=== PATIENT | female | born 1960 | race Caucasian/White ===

== ENCOUNTER 2022-10-27 11:16 | Inpatient (IN) | payer OTHER, SELFPAY ==
--- NOTE | ~2022-10-27 | CT_ITS ---
EXAMINATION: CT PELVIS WITH CONTRAST CLINICAL INFORMATION: Follow-up pelvic abscess. Patient presents for percutaneous drainage. COMPARISON: Previous CT of the abdomen and pelvis 10/27/2022 TECHNIQUE: Helical scanning was performed with submillimeter collimation through the pelvis with the use of oral contrast and during bolus intravenous injection of 85 mL of Omnipaque 350 intravenous contrast. Sagittal and coronal multiplanar 2-D reconstructions were obtained. Percutaneous drainage was not performed. This CT examination was performed using dose optimization techniques as appropriate, variously including the following: *Automated exposure control *Adjustment of mA and/or kV according to patient size (this includes techniques or standardized protocols for targeted exams where dose is matched to indication/reason for exam; i.e. extremities or head) *Use of iterative reconstruction technique DLP: 1071 mGy-cm FINDINGS: There is diverticulitis of the sigmoid colon. This appears slightly increased from 10/27/2022 with increased wall edema, air-fluid levels seen in the wall of the bowel or intramural abscesses and stranding of the surrounding fat. There is extension into both adnexal regions, left greater than right. There is new or increased involvement of the left dome of the bladder with bladder wall thickening, fluid and fat stranding. There is no air or oral contrast seen in the bladder. No fluid collection accessible for percutaneous drainage is seen. There is no evidence of free air or obstruction. Small and large bowel is otherwise normal. No free ascites. The uterus has been removed. No hernia. Atherosclerotic disease. No aneurysm. Degenerative changes of the spine. CT/CT pelvis w IV con IMPRESSION: Worsening sigmoid diverticulitis with increasing intramural abscesses in the sigmoid colon and increasing involvement of the dome of the bladder. No drainable collection seen. Percutaneous drainage not performed.
--- NOTE | ~2022-10-27 | CT_ITS ---
EXAMINATION: CT ABDOMEN AND PELVIS WITH CONTRAST CLINICAL INFORMATION: Lower abdominal pain. COMPARISON: None available. TECHNIQUE: Multidetector volumetric images were obtained from the superior aspect of the liver through the pubic symphysis following administration 85 mL of Omnipaque 350 intravenous contrast. Sagittal and coronal reformatted images were obtained on the technologist's workstation. Oral contrast: No This CT examination was performed using dose optimization techniques as appropriate, variously including the following: *Automated exposure control *Adjustment of mA and/or kV according to patient size (this includes techniques or standardized protocols for targeted exams where dose is matched to indication/reason for exam; i.e. extremities or head) *Use of iterative reconstruction technique DLP: 948 mGy-cm FINDINGS: LUNG BASES: The visualized lung bases are unremarkable. LIVER, GALLBLADDER, AND BILIARY TREE: The liver is mildly decreased in attenuation. No focal hepatic lesion or biliary ductal dilatation is present. The gallbladder is unremarkable with no evidence of radiopaque gallstones, gallbladder wall thickening, or obvious pericholecystic inflammatory changes. PANCREAS: Unremarkable. SPLEEN: Unremarkable. ADRENAL GLANDS: Unremarkable. KIDNEYS AND URETERS: The kidneys are symmetric in size and enhancement. Bilateral mid pole cortical scarring. No hydronephrosis or perinephric stranding. BLADDER: Superior bladder wall thickening likely on a reactive basis. GASTROINTESTINAL TRACT: Small hiatal hernia. No small bowel obstruction. Marked wall thickening and submucosal edema of the sigmoid colon with evidence of underlying diverticular disease. There is marked pericolonic stranding and evidence of a multiloculated complex fluid collection containing gas. ABDOMINAL WALL: No significant hernia is appreciated. LYMPH NODES: No bulky abdominal or pelvic lymphadenopathy. VASCULAR: Normal caliber abdominal aorta. PELVIC VISCERA: Ill-defined enhancement/phlegmon involving the right ovary/right adnexa measures 6.2 x 2.5 x 2.7 cm. OSSEOUS STRUCTURES: Nodular focus anterior aspect of the L4-L5 right facet joint measures 1.5 x 0[address]/CT abdomen pelvis w IV con IMPRESSION: Acute perforated sigmoid diverticulitis with involvement of the right ovary/right oophoritis and reactive inflammation of the bladder dome. Multiloculated fluid collection containing gas surrounding the mid sigmoid colon represent abscess formation. Surgical consultation is advised. Ill-defined enhancement/phlegmon involving the right ovary/right adnexa measures 6.2 x 2.5 x 2.7 cm. Nodular focus anterior aspect of the L4-L5 right facet joint measures 1.5 x 0.9 x 1.0 cm. Consider MRI lumbar spine. Findings were reviewed and discussed with Dr. Saez at 1:40 PM on 10/27/2022.
--- NOTE | 2022-10-27 11:20 | ED_ITS ---
HPI - Abdominal Pain General Chief Complaint: Abdominal Pain Stated Complaint: lower abd pain Time Seen by Provider: 10/27/22 12:18 Related Data Home Medications Medication Instructions Recorded Confirmed atorvastatin 10 mg tablet 10 mg PO DAILY 10/27/22 10/27/22 ergocalciferol (vitamin D2) 1,250 1,250 mcg PO CONDE 10/27/22 10/27/22 mcg (50,000 unit) capsule furosemide 40 mg tablet 40 mg PO DAILY 10/27/22 10/27/22 ibuprofen 800 mg tablet 800 mg PO Q8H PRN pain 10/27/22 10/27/22 valsartan 160 mg tablet 160 mg PO DAILY 10/27/22 10/27/22 Previous Rx's Medication Instructions Recorded amoxicillin 875 mg-potassium 1 tab PO BID #10 tabs 11/05/22 clavulanate 125 mg tablet docusate sodium 100 mg capsule 100 mg PO DAILY #30 caps 11/05/22 (Colace) Allergies Allergy/AdvReac Type Severity Reaction Status Date / Time No Known Allergies Allergy Verified 10/27/22 11:24 [facility] Past Medical History Medical History (Updated 11/03/22 @ 08:23 by Jersey aRy MD) Diverticulitis large intestine Hypertension Hypokalemia Multiple sclerosis Phlegmon Social History Social History Household Members: Spouse Housing: House Do you presently have visiting nurse or other home services: No Alcohol intake: never Patient Tobacco Use Status: Never used Tobacco service: No Physical Exam ED Vital Signs: BMI result Body Mass Index 43.9 Course Course Course Narrative: RME: 62yo F w/PMHx MS, gout, c/o lower abdominal pain, nausea, nonbloody diarrhea x yesterday w/decreased PO intake & dysuria. admits recently ended course steroids. denies fever, vomiting. denies recent abx, travel abdomen soft nontender, no CVAT Labs, UA ordered Full HPI, ROS and PE to be performed by primary ED provider. Medical Decision Making Lab Data 11/03/22 05:31 11/03/22 05:31 Labs: Lab Results 10/27/22 10/27/22 Range/Units 11:45 11:45 WBC 11.7 H (4.8-10.8) X10*3/uL RBC 4.01 L (4.20-5.50) X10*6/uL Hgb 12.2 (12.0-16.0) g/dl Hct 36.4 L (37.0-47.0) % MCV 90.8 (80.0-98.0) fL MCH 30.4 (27.0-33.0) pg MCHC 33.5 (31.0-35.0) g/dl RDW 12.9 (11.0-16.0) % Plt Count 240 (160-400) X10*3/uL MPV 9.4 (9.4-12.3) fL Immature Gran % (Auto) 0.4 (0.0-0.4) % Neut % (Auto) 78.9 H (45-73) % Lymph % (Auto) 13.5 L (20-40) % [place] % (Auto) 6.0 (2-11) % Eos % (Auto) 0.9 (0-4) % Baso % (Auto) 0.3 (0-2) % Lymph # (Auto) 1.6 (1.2-4.9) X10*3/uL [place] # (Auto) 0.7 (0.1-1.2) X10*3/uL Eos # (Auto) 0.1 (0.0-0.4) X10*3/uL Baso # (Auto) 0.0 (0.0-0.2) X10*3/uL Abs Immat Gran (auto) 0.05 H (0.00-0.03) X10*3/uL Absolute Neuts (auto) 9.2 H (2.0-8.3) x10*3/uL Absolute Nucleated RBC 0.000 (0.0-0.012) X10*3/uL Nucleated RBC % (auto) 0.0 (0.0-0.2) /100WBC Sodium 139 (135-145) mmol/L Potassium 4.0 (3.3-5.1) mmol/L Chloride 105 (96-108) mmol/L Carbon Dioxide 23 (22-29) mmol/L Anion Gap 15 (12-20) BUN 12 (9-16) mg/dL Creatinine 1.03 (0.5-1.4) mg/dL Estim Creat Clear Calc 66.6 Estimated GFR 54 Random Glucose 119 H (60-115) mg/dL Calcium 9.9 (8.4-10.2) mg/dL Magnesium 2.1 (1.6-2.6) mg/dL Total Bilirubin 0.4 (0.0-1.0) mg/dL Direct Bilirubin 0.1 (0.0-0.5) mg/dL AST 19 (5-31) U/L ALT 39 H (0-31) U/L Alkaline Phosphatase 89 (39-117) U/L Total Protein 7.0 (6.5-8.0) g/dL Albumin 3.5 (3.5-5.0) g/dL Lipase 13 (8-78) U/L Medications Administered Discontinued Medications Generic Name Dose Route Start Last Admin Trade Name Freq PRN Reason Stop Dose Admin Acetaminophen 650 mg 10/27/22 19:42 11/04/22 19:41 Acetaminophen 325 Mg Tablet PO 650 mg Q6H PRN Administration fever,mild pain Docusate Sodium 100 mg 11/04/22 09:00 11/05/22 08:37 Docusate Sodium 100 Mg Capsule PO 100 mg BID SO Administration Furosemide 40 mg 10/28/22 09:00 11/05/22 08:36 Furosemide 40 Mg Tablet PO 40 mg DAILY SO Administration Protocol Heparin Sodium (Porcine) 5,000 unit 10/28/22 10:00 11/05/22 08:37 Heparin Sodium,Porcine 5,000 Unit/Ml Vial SUBCUT 5,000 unit Q8H SO Administration Sodium Chloride 1,000 mls @ 999 mls/hr 10/27/22 12:30 10/27/22 15:02 Ns IVCONT 10/27/22 13:30 Infused .Q1H1M SO Infusion Dextrose/Sodium Chloride 1,000 mls @ 100 mls/hr 10/27/22 14:15 10/29/22 13:50 D5ns IVCONT Infused .Q10H SO Infusion Piperacillin Sod/Tazobactam 50 mls @ 100 mls/hr 10/27/22 16:00 11/05/22 09:12 Sod 3.375 gm/ Sodium Chloride IV Infused Q6H SO Infusion Dextrose/Sodium Chloride 1,000 mls @ 80 mls/hr 10/30/22 12:00 10/31/22 13:27 D5ns IVCONT Infused .[id number] SO Infusion Potassium Chloride/Dextrose/Sod Cl 20 meq in 1,000 mls @ 80 mls/hr 10/31/22 08:45 11/02/22 10:02 Kcl 20 Meq In 5% Dex/0.9% Sod IVCONT Infused .[id number] SO Infusion Potassium Chloride/Dextrose/Sod Cl 20 meq in 1,000 mls @ 60 mls/hr 11/02/22 13:45 11/05/22 08:43 Kcl 20 Meq In 5% Dex/0.9% Sod IVCONT Infused .[id number] SO Infusion Ibuprofen 800 mg 10/31/22 10:59 11/03/22 08:42 Ibuprofen 800 Mg Tablet PO 800 mg Q8H PRN Administration Pain, Moderate(Pain Scale 4-6) Iohexol 100 ml 10/27/22 13:07 10/27/22 13:07 Iohexol 350 Mg/Ml 100 Ml Infus..Btl IV 10/27/22 13:08 85 ml ONCE ONE Administration Iohexol 100 ml 10/30/22 12:29 10/30/22 12:30 Iohexol 350 Mg/Ml 100 Ml Infus..Btl IV 10/30/22 12:30 85 ml ONCE ONE Administration Potassium Chloride 40 meq 10/31/22 08:45 10/31/22 12:38 Potassium Chloride Packet 20 Meq Packet PO 10/31/22 12:46 40 meq Q4H SO Administration Potassium Chloride 40 meq 11/03/22 08:30 11/03/22 12:22 Potassium Chloride Packet 20 Meq Packet PO 11/03/22 12:31 40 meq Q4H SO Administration Sodium Chloride 3 ml 10/27/22 16:00 11/05/22 07:16 0.9 % Sodium Chloride Flush 3 Ml Syringe IVFLUSH Not Given QSHIFT SO Valsartan 160 mg 10/28/22 09:00 11/05/22 08:37 Valsartan 160 Mg Tablet PO 160 mg DAILY SO Administration Protocol Discharge Plan Discharge Clinical Impression: Perforated bowel, Diverticulitis of colon with perforation Patient Disposition: Admitted As Inpatient Interventions: Admission Worksheet (ED) Last Done: 10/28/22 01:00 Discharge Date/Time: 10/28/22 01:00
[2022-10-27 11:22] VITALS: BP 133/91; PULSE 95; RESP 16; TEMP 36.8; O2SAT 100; BMI 43.9
[2022-10-27 11:49] LABS: MANUAL DIFF FLAG NO
[2022-10-27 11:50] LABS: Basophils Percent Auto 0.3 % (0-2); Eosinophils Absolute Auto 0.1 X10*3/uL (0.0-0.4); Eosinophils Percent Auto 0.9 % (0-4); Hematocrit 36.4 % (37.0-47.0); Hemoglobin 12.2 g/dl (12.0-16.0); Imm Gran Abs Auto 0.05 X10*3/uL (0.00-0.03); Imm Gran Pct Auto 0.4 % (0.0-0.4); Lymphocytes Absolute Auto 1.6 X10*3/uL (1.2-4.9); Lymphocytes Percent Auto 13.5 % (20-40); Mean Corpuscular HGB Conc 33.5 g/dl (31.0-35.0); Mean Corpuscular Hemoglobin 30.4 pg (27.0-33.0); Mean Corpuscular Volume 90.8 fL (80.0-98.0); Mean Platelet Volume 9.4 fL (9.4-12.3); Monocytes Absolute Auto 0.7 X10*3/uL (0.1-1.2); Neutrophils Absolute Auto 9.2 x10*3/uL (2.0-8.3); Neutrophils Percent Auto 78.9 % (45-73); Platelet Count 240 X10*3/uL (160-400); Red Blood Count 4.01 X10*6/uL (4.20-5.50); Red Cell Distribution Width 12.9 % (11.0-16.0); White Blood Count 11.7 X10*3/uL (4.8-10.8)
[2022-10-27 12:16] LABS: Alanine Aminotransferase 39 U/L (0-31); Albumin Level 3.5 g/dL (3.5-5.0); Alkaline Phosphatase 89 U/L (39-117); Anion Gap 15 (12-20); Aspartate Amino Transferase 19 U/L (5-31); Bilirubin Direct 0.1 mg/dL (0.0-0.5); Bilirubin Total 0.4 mg/dL (0.0-1.0); Blood Urea Nitrogen 12 mg/dL (9-16); Calcium 9.9 mg/dL (8.4-10.2); Carbon Dioxide 23 mmol/L (22-29); Chloride 105 mmol/L (96-108); Creatinine Clr Calc Pharmacy 66.6; Estimated Glomerular Filt Rate 54; Glucose Random 119 mg/dL (60-115); Lipase 13 U/L (8-78); Magnesium 2.1 mg/dL (1.6-2.6); Sodium 139 mmol/L (135-145)
--- NOTE | 2022-10-27 12:27 | ED.ABDPAIN ---
HPI - Abdominal Pain General Chief Complaint: Abdominal Pain Stated Complaint: lower abd pain Time Seen by Provider: 10/27/22 12:18 Source: patient Mode of arrival: ambulatory Limitations: no limitations History of Present Illness HPI narrative: This is a 62 years old female presented to the emergency with chief complaint of lower abdominal pain , nausea, diarrhea, shakiness. Diarrhea is watery. Denies any fever chills vomiting she has mild abdominal pain as well MD elicited complaint: abdominal pain Pertinent past history: none Onset (ago): day(s) (4) Pain Consistency: constant Location: none Quality: cramping Radiation: none Migration to: no migration Associated symptoms: denies other symptoms Related Data Home Medications Medication Instructions Recorded Confirmed atorvastatin 10 mg tablet 10 mg PO DAILY 10/27/22 10/27/22 ergocalciferol (vitamin D2) 1,250 1,250 mcg PO CONDE 10/27/22 10/27/22 mcg (50,000 unit) capsule furosemide 40 mg tablet 40 mg PO DAILY 10/27/22 10/27/22 ibuprofen 800 mg tablet 800 mg PO Q8H PRN pain 10/27/22 10/27/22 valsartan 160 mg tablet 160 mg PO DAILY 10/27/22 10/27/22 Allergies Allergy/AdvReac Type Severity Reaction Status Date / Time No Known Allergies Allergy Verified 10/27/22 11:24 [facility] Past Medical History Attestation statement: The following information was validated with the patient. [facility] Narrative: History of MS, history of hypertension Status post and hysterectomy Medical History (Updated 10/27/22 @ 16:24 by Sergo Saez MD) Diverticulitis large intestine Hypertension Multiple sclerosis Phlegmon Social History Social History Alcohol intake: never Patient Tobacco Use Status: Never used Tobacco Smoked in Last 30 Days: No Use of substances other than those prescribed or required for medical reasons: No Advance Directives: No Advance Directives Information Provided: No Nutrition Risks: No Nutritional Risk Patient : No Physical Exam ED Vital Signs: Vital Signs - 24 hr 10/27/22 11:22 Temperature 98.2 F Pulse Rate 95 Respiratory Rate 16 Blood Pressure 133/91 H Pulse Oximetry 100 Oxygen Delivery Method Room Air BMI result Body Mass Index 43.9 Const Other: She looks well she is not toxic-appearing General: cooperative, healthy appearing, comfortable, no acute distress, well developed, alert and awake Nutritional Appearance: well nourished Orientation/consciousness: oriented to person, oriented to place, oriented to time and patient oriented x3 Limitations: no limitations HENMT Head: Yes normal to inspection Ears: hearing grossly normal bilaterally General nose exam: Normal external nose present Face and sinus: Yes normal facial exam Mouth: Normal oral and palatal mucosa present Teeth and gingiva: dentition normal Throat: Yes posterior oropharynx normal Neck Neck: Yes normal visual inspection and Yes full ROM Resp Effort & Inspection: normal respiratory effort Auscultation: clear to auscultation bilaterally Cardio Jugular venous distension: no JVD Rate: regular rate Rhythm: regular rhythm GI Inspection: Yes normal to inspection Palpation (GI): Soft to palpation, not firm, Tenderness to palpation present (GI) and no guarding Auscultation: normal bowel sounds Skin General skin exam: no rashes or lesions noted and elasticity normal Lesions: no lesions Rashes: no rashes Trauma: no lacerations or abrasions Wounds: no wounds Neuro General: oriented to person, oriented to place, oriented to time and patient oriented x3 Course Reevaluation(s) Reevaluation #1: I was called by the radiologist because she has a perforated diverticulitis I immemedially called Dr. Ray who came to see the patient Time: 14:14 Medical Decision Making Medical Decision Making [facility] Narrative: Patient presented with abdominal pain and diarrhea will get labs imaging 14:14 CT showed perforated diverticulitis patient was seen by Dr. Ray Differential Diagnosis Differential Diagnoses: The differential diagnosis associated with the presentation includes Broad differential diagnosis diverticulitis/colitis/perforated the bowel/parents in Admission/Observation Consideration of admission/observation: Escalation of care including admission/observation considered Consult Healthcare Provider Management of the patient was discussed with: Roller Stitcher Dr Ray surgery Lab Data [facility] Lab Attestation statement: I reviewed the patient's lab results. 10/27/22 11:45 10/27/22 11:45 Labs: Lab Results 10/27/22 10/27/22 Range/Units 11:45 11:45 WBC 11.7 H (4.8-10.8) X10*3/uL RBC 4.01 L (4.20-5.50) X10*6/uL Hgb 12.2 (12.0-16.0) g/dl Hct 36.4 L (37.0-47.0) % MCV 90.8 (80.0-98.0) fL MCH 30.4 (27.0-33.0) pg MCHC 33.5 (31.0-35.0) g/dl RDW 12.9 (11.0-16.0) % Plt Count 240 (160-400) X10*3/uL MPV 9.4 (9.4-12.3) fL Immature Gran % (Auto) 0.4 (0.0-0.4) % Neut % (Auto) 78.9 H (45-73) % Lymph % (Auto) 13.5 L (20-40) % [place] % (Auto) 6.0 (2-11) % Eos % (Auto) 0.9 (0-4) % Baso % (Auto) 0.3 (0-2) % Lymph # (Auto) 1.6 (1.2-4.9) X10*3/uL [place] # (Auto) 0.7 (0.1-1.2) X10*3/uL Eos # (Auto) 0.1 (0.0-0.4) X10*3/uL Baso # (Auto) 0.0 (0.0-0.2) X10*3/uL Abs Immat Gran (auto) 0.05 H (0.00-0.03) X10*3/uL Absolute Neuts (auto) 9.2 H (2.0-8.3) x10*3/uL Absolute Nucleated RBC 0.000 (0.0-0.012) X10*3/uL Nucleated RBC % (auto) 0.0 (0.0-0.2) /100WBC Sodium 139 (135-145) mmol/L Potassium 4.0 (3.3-5.1) mmol/L Chloride 105 (96-108) mmol/L Carbon Dioxide 23 (22-29) mmol/L Anion Gap 15 (12-20) BUN 12 (9-16) mg/dL Creatinine 1.03 (0.5-1.4) mg/dL Estim Creat Clear Calc 66.6 Estimated GFR 54 Random Glucose 119 H (60-115) mg/dL Calcium 9.9 (8.4-10.2) mg/dL Magnesium 2.1 (1.6-2.6) mg/dL Total Bilirubin 0.4 (0.0-1.0) mg/dL Direct Bilirubin 0.1 (0.0-0.5) mg/dL AST 19 (5-31) U/L ALT 39 H (0-31) U/L Alkaline Phosphatase 89 (39-117) U/L Total Protein 7.0 (6.5-8.0) g/dL Albumin 3.5 (3.5-5.0) g/dL Lipase 13 (8-78) U/L Independent Interpretation I performed an independent interpretation of an: CT Scan Radiology Impression Discussion of test interpretation with radiology: I have reviewed the radiologist's reading. External Record Review External record reviewed: Inpatient record Medications Administered Generic Name Dose Route Start Last Admin Trade Name Freq PRN Reason Stop Dose Admin Dextrose/Sodium Chloride 1,000 mls @ 100 mls/hr 10/27/22 14:15 10/27/22 15:45 D5ns IVCONT 100 mls/hr .Q10H SO Administration Piperacillin Sod/Tazobactam 50 mls @ 100 mls/hr 10/27/22 16:00 10/27/22 15:44 Sod 3.375 gm/ Sodium Chloride IV 100 mls/hr Q6H SO Administration Discontinued Medications Generic Name Dose Route Start Last Admin Trade Name Freq PRN Reason Stop Dose Admin Sodium Chloride 1,000 mls @ 999 mls/hr 10/27/22 12:30 10/27/22 15:02 Ns IVCONT 10/27/22 13:30 Infused .Q1H1M SO Infusion Iohexol 100 ml 10/27/22 13:07 10/27/22 13:07 Iohexol 350 Mg/Ml 100 Ml Infus..Btl IV 10/27/22 13:08 85 ml ONCE ONE Administration Critical Care Time Critical Care Time Critical Care Time: Yes Total Critical Care Time: 60 Attestation: perforated bowel,taking care pt speaking with relationship consultant Discharge Plan Discharge Clinical Impression: Perforated bowel, Diverticulitis of colon with perforation Patient Disposition: Admitted As Inpatient
[2022-10-27] MEDS: 0.9 % Sodium Chloride 1,000 ML 999 ML IVCONT (12:52)
[2022-10-27] MEDS: iohexoL 350 MG/ML 100 ML INFUS..BTL IV (13:07)
--- NOTE | 2022-10-27 15:18 | PHA.MEDREC ---
Pharmacy Consult ? Medication Reconciliation Pharmacy has completed the medication reconciliation. analysis internship spoke with patient. Kianna Briseno, EmilyD
--- NOTE | 2022-10-27 15:28 | P.HPGS_ITS ---
History of Present Illness History of Present Illness Date of Service: 11/08/22 Chief complaint: phlegmon in sigmoid colon Narrative: Asuncion Agee is a 62 year old female who came to the ER today because of what she described as diarrhea and abdominal pain yesterday. She says that she has had this symptoms for the past 4 days already. She says she had more profuse diarrhea as the along with some abdominal pain. She has decided to come to the ER today because she did not want to have another episode She does state that her symptoms had resolved last night. She denies any nausea or vomiting. She denies any fever or chills at home She currently states that she no longer has any abdominal pain She also ever had a CT scan in the ED showing phlegmonous changes in the sigmoid consistent with possible recent perforation. She otherwise is very comfortable. She has a history of multiple sclerosis but she says that this is well controlled. Review of Systems Constitutional: Constitutional: Denies chills and Denies fever(s) Cardiovascular: Cardiovascular: Denies chest pain, Denies dyspnea and Denies dyspnea on exertion Respiratory: Respiratory: Denies cough, Denies dyspnea and Denies dyspnea on exertion Gastrointestinal: Gastrointestinal: Denies hematochezia, Denies change in bowel habits and Reports diarrhea Genitourinary: Genitourinary: Denies hematuria Musculoskeletal: Musculoskeletal: Denies back pain and Denies limited range of motion Neurologic: Denies focal weakness and Denies convulsions Psychiatric: Psychiatric: Denies depression and Denies mood swings PMFSH Past Medical History Medical History (Updated 11/03/22 @ 08:23 by Jersey Ray MD) Diverticulitis large intestine Hypertension Hypokalemia Multiple sclerosis Phlegmon Social History Social History Household Members: Spouse Housing: House Do you presently have visiting nurse or other home services: No Alcohol intake: never Patient Tobacco Use Status: Never used Tobacco service: No Meds Allergies Allergy/AdvReac Type Severity Reaction Status Date / Time No Known Allergies Allergy Verified 10/27/22 11:24 Active Medications: Current Medications Heparin Sodium (Porcine) (Heparin Sodium,Porcine 5,000 Unit/Ml Vial) 5,000 unit SUBCUT Q8H SO Dextrose/Sodium Chloride (D5ns) 1,000 mls @ 100 mls/hr IVCONT .Q10H SO Piperacillin Sod/Tazobactam (Sod 3.375 gm/ Sodium Chloride) 50 mls @ 100 mls/hr IV Q6H SO Sodium Chloride (0.9 % Sodium Chloride Flush 3 Ml Syringe) 3 ml IVFLUSH QSHIFT SO Home Medications Medication Instructions Recorded Confirmed Last Taken Type atorvastatin 10 mg tablet 10 mg PO DAILY 10/27/22 10/27/22 10/26/22 History ergocalciferol (vitamin D2) 1,250 1,250 mcg PO CONDE 10/27/22 10/27/22 10/22/22 History mcg (50,000 unit) capsule furosemide 40 mg tablet 40 mg PO DAILY 10/27/22 10/27/22 10/26/22 History ibuprofen 800 mg tablet 800 mg PO Q8H PRN pain 10/27/22 10/27/22 Unknown History valsartan 160 mg tablet 160 mg PO DAILY 10/27/22 10/27/22 10/27/22 History Physical Exam Vital Signs: Vital Signs: Last Vital Signs Temp 98.2 F 10/27/22 11:22 Pulse 95 10/27/22 11:22 Resp 16 10/27/22 11:22 BP 133/91 H 10/27/22 11:22 Pulse Ox 100 10/27/22 11:22 O2 Del Method Room Air 10/27/22 11:22 BMI result Body Mass Index 43.9 Const: Other: appears obese General: comfortable and no acute distress Orientation/consciousness: patient oriented x3 Neck: Neck: Yes no lymphadenopathy Resp: Auscultation: clear to auscultation bilaterally Cardio: Rhythm: regular rhythm GI: Other: no tenderness, no guarding, no rebound at this time even with deep palpation Palpation (GI): Soft to palpation, nontender and no guarding Neuro: General: patient oriented x3 Results Results Labs: Short CBC 10/27/22 Range/Units 11:45 WBC 11.7 H (4.8-10.8) X10*3/uL Hgb 12.2 (12.0-16.0) g/dl Hct 36.4 L (37.0-47.0) % Plt Count 240 (160-400) X10*3/uL BMP 10/27/22 11:45 Sodium 139 Potassium 4.0 Chloride 105 Carbon Dioxide 23 BUN 12 Creatinine 1.03 Calcium 9.9 Liver Function 10/27/22 Range/Units 11:45 Total Bilirubin 0.4 (0.0-1.0) mg/dL Direct Bilirubin 0.1 (0.0-0.5) mg/dL AST 19 (5-31) U/L ALT 39 H (0-31) U/L Alkaline Phosphatase 89 (39-117) U/L Albumin 3.5 (3.5-5.0) g/dL Additional studies: Laboratory Results WBC 11.7 X10*3/uL (4.8-10.8) H 10/27/22 11:45 RBC 4.01 X10*6/uL (4.20-5.50) L 10/27/22 11:45 Hgb 12.2 g/dl (12.0-16.0) 10/27/22 11:45 Hct 36.4 % (37.0-47.0) L 10/27/22 11:45 MCV 90.8 fL (80.0-98.0) 10/27/22 11:45 MCH 30.4 pg (27.0-33.0) 10/27/22 11:45 MCHC 33.5 g/dl (31.0-35.0) 10/27/22 11:45 RDW 12.9 % (11.0-16.0) 10/27/22 11:45 Plt Count 240 X10*3/uL (160-400) 10/27/22 11:45 MPV 9.4 fL (9.4-12.3) 10/27/22 11:45 Immature Gran % (Auto) 0.4 % (0.0-0.4) 10/27/22 11:45 Neut % (Auto) 78.9 % (45-73) H 10/27/22 11:45 Lymph % (Auto) 13.5 % (20-40) L 10/27/22 11:45 [place] % (Auto) 6.0 % (2-11) 10/27/22 11:45 Eos % (Auto) 0.9 % (0-4) 10/27/22 11:45 Baso % (Auto) 0.3 % (0-2) 10/27/22 11:45 Lymph # (Auto) 1.6 X10*3/uL (1.2-4.9) 10/27/22 11:45 [place] # (Auto) 0.7 X10*3/uL (0.1-1.2) 10/27/22 11:45 Eos # (Auto) 0.1 X10*3/uL (0.0-0.4) 10/27/22 11:45 Baso # (Auto) 0.0 X10*3/uL (0.0-0.2) 10/27/22 11:45 Abs Immat Gran (auto) 0.05 X10*3/uL (0.00-0.03) H 10/27/22 11:45 Absolute Neuts (auto) 9.2 x10*3/uL (2.0-8.3) H 10/27/22 11:45 Absolute Nucleated RBC 0.000 X10*3/uL (0.0-0.012) 10/27/22 11:45 Nucleated RBC % (auto) 0.0 /100WBC (0.0-0.2) 10/27/22 11:45 Sodium 139 mmol/L (135-145) 10/27/22 11:45 Potassium 4.0 mmol/L (3.3-5.1) 10/27/22 11:45 Chloride 105 mmol/L (96-108) 10/27/22 11:45 Carbon Dioxide 23 mmol/L (22-29) 10/27/22 11:45 Anion Gap 15 (12-20) 10/27/22 11:45 BUN 12 mg/dL (9-16) 10/27/22 11:45 Creatinine 1.03 mg/dL (0.5-1.4) 10/27/22 11:45 Estim Creat Clear Calc 66.6 10/27/22 11:45 Estimated GFR 54 10/27/22 11:45 Random Glucose 119 mg/dL (60-115) H 10/27/22 11:45 Calcium 9.9 mg/dL (8.4-10.2) 10/27/22 11:45 Magnesium 2.1 mg/dL (1.6-2.6) 10/27/22 11:45 Total Bilirubin 0.4 mg/dL (0.0-1.0) 10/27/22 11:45 Direct Bilirubin 0.1 mg/dL (0.0-0.5) 10/27/22 11:45 AST 19 U/L (5-31) 10/27/22 11:45 ALT 39 U/L (0-31) H 10/27/22 11:45 Alkaline Phosphatase 89 U/L (39-117) 10/27/22 11:45 Total Protein 7.0 g/dL (6.5-8.0) 10/27/22 11:45 Albumin 3.5 g/dL (3.5-5.0) 10/27/22 11:45 Lipase 13 U/L (8-78) 10/27/22 11:45 Impressions Abdomen/Pelvis CT 10/27/22 13:11 IMPRESSION: Acute perforated sigmoid diverticulitis with involvement of the right ovary/right oophoritis and reactive inflammation of the bladder dome. Multiloculated fluid collection containing gas surrounding the mid sigmoid colon represent abscess formation. Surgical consultation is advised. Ill-defined enhancement/phlegmon involving the right ovary/right adnexa measures 6.2 x 2.5 x 2.7 cm. Nodular focus anterior aspect of the L4-L5 right facet joint measures 1.5 x 0.9 x 1.0 cm. Consider MRI lumbar spine. Findings were reviewed and discussed with Dr. Saez at 1:40 PM on 10/27/2022. Assessment and Plan (1) Phlegmon: Status: Acute she had abdominal pain 4 days ago but this had completely resolve last night. She says she actually decided to come today to be certain that she does not have any further pain Current exam does not reveal any significant tenderness. She does not have any rebound or guarding at all. She looks very comfortable. I have reviewed her CAT scan. There was note of phlegmonous changes surrounding the mid sigmoid and possible adjacent collection near the ovary. These changes may secondary to a recent perforated diverticulitis . There is no free air. She looks well and is not septic looking and has a very benign exam. I will a dmit her for IV antibiotics. I did explain to her that if her clinical exam worsens she may require laparotomy and resection of this segment.She did state she would like to hold off o any surgical intervention as much as possible in view of known medical issues. She may also benefit from CT drainage down the line if this abscess does not resolve . I will review these films with the radiologist. She will be kept NPO for now. She and her were comfortable with the plan. (2) Diverticulitis large intestine: Status: Acute Time Spent With Patient Time: Total time managing care of this patient today ____ minutes. Quality Stroke Does the patient have a stroke diagnosis?: No VTE Prior VTE?: No VTE Risk Level:: Medical - moderate - high VTE Device Contraindication: N/A - Device Ordered VTE Drug Contraindication: N/A - Med Ordered Procedures Date of Service Date of Service: 11/08/22
[2022-10-27] MEDS: Piperacillin Sodium/Tazobactam 3.375 GM in 0.9 % Sodium Chloride 50 ML IV ×2 (15:44→22:27)
[2022-10-27] MEDS: Dextrose 5 % and 0.9 % NaCl 1,000 ML 100 ML IVCONT (15:45)
[2022-10-27 15:59] VITALS: BP 140/81; PULSE 106; RESP 16; O2SAT 99
--- NOTE | 2022-10-27 16:30 | PM.EVENT ---
Event Note Date of Service: 10/27/22 Event Note: seen on late rounds continues to be comfortable denies abdl pain abd soft, benign, no tenderness IV abx CT drain ordered - doubt this will be done on weekend pt remains benign looking explained plan - she and are comfortable Time Spent With Patient Time: Total time managing care of this patient today ____ minutes.
[2022-10-27 16:36] VITALS: BP 126/63; PULSE 106; RESP 22; TEMP 37.7; O2SAT 97
[2022-10-27 19:27] VITALS: TEMP 38.2
[2022-10-27] MEDS: Acetaminophen 325 MG TABLET 650 MG PO (21:00)
--- NOTE | 2022-10-27 21:23 | PC.NURSE ---
late entry-dr laura made aware of elevated temp orally. order placed for po tylenol this rn confirmed with md that pt can have po medication despite npo diet. per pt okay to have po medication. pt medicated according to mar. dr laura to bedside states pt to no longer have medication po
--- NOTE | 2022-10-27 21:29 | P.CONHOSP_ITS ---
History of Present Illness Data of Consult Service Date: 10/27/22 Primary Care Provider: Lukas Scott III, MD HPI 62-year-old female with past medical history of MS as well as hypertension comes into the hospital with abdominal pain found to have acute perforated sigmoid diverticulitis with involvement of the right ovary/right oophoritis and reactive inflammation of the bladder dome. Patient is being admitted under the surgical service and the consulted us for medical management. Patient states that currently has no chest pain, no shortness of breath, no recent cough, no fever chills. Reports abdominal pain is well controlled at this time. She has no urinary symptoms and no lower extremity edema. She states that she takes furosemide and valsartan for her hypertension but otherwise is in no acute MS flare. Patient's vitals are significant for a temperature of a 100.8 degrees. Vitals otherwise stable. Labs are significant for WBC count of 11.7, otherwise unremarkable Abdominal pelvic CT shows acute perforated sigmoid diverticulitis with involvement of the right colon/right upper redness and reactive inflammation of the bladder dome with multiloculated fluid collection containing gas surrounding the mid sigmoid colon represents abscess formation. Review of Systems Review of Systems: Yes all other systems are reviewed and are negative [facility] Medical History Diverticulitis large intestine Hypertension Multiple sclerosis Phlegmon Social History Alcohol intake: never Patient Tobacco Use Status: Never used Tobacco Smoked in Last 30 Days: No Use of substances other than those prescribed or required for medical reasons: No Advance Directives: No Advance Directives Information Provided: No Nutrition Risks: No Nutritional Risk Patient : No Meds Allergies Allergy/AdvReac Type Severity Reaction Status Date / Time No Known Allergies Allergy Verified 10/27/22 11:24 Active Medications: Current Medications Acetaminophen (Acetaminophen 325 Mg Tablet) 650 mg PO Q6H PRN PRN Reason: fever,mild pain Last Admin: 10/27/22 21:00 Dose: 650 mg Heparin Sodium (Porcine) (Heparin Sodium,Porcine 5,000 Unit/Ml Vial) 5,000 unit SUBCUT Q8H SO Dextrose/Sodium Chloride (D5ns) 1,000 mls @ 100 mls/hr IVCONT .Q10H SO Last Admin: 10/27/22 15:45 Dose: 100 mls/hr Piperacillin Sod/Tazobactam (Sod 3.375 gm/ Sodium Chloride) 50 mls @ 100 mls/hr IV Q6H COUNTS INCLUDE 234 BEDS AT THE [facility] Last Infusion: 10/27/22 17:19 Dose: Infused Morphine Sulfate (Morphine Sulfate 4 Mg/Ml Cartridge) 3 mg IVPUSH Q3H PRN; Protocol PRN Reason: Pain, Severe (Pain Scale 7-10) Ondansetron HCl (Ondansetron Hcl 4 Mg/2 Ml Vial) 4 mg IVPUSH Q6H PRN PRN Reason: nausea Sodium Chloride (0.9 % Sodium Chloride Flush 3 Ml Syringe) 3 ml IVFLUSH QSHIFT COUNTS INCLUDE 234 BEDS AT THE [facility] Last Admin: 10/27/22 17:19 Dose: Not Given Home Medications Medication Instructions Recorded Confirmed Last Taken Type atorvastatin 10 mg tablet 10 mg PO DAILY 10/27/22 10/27/22 10/26/22 History ergocalciferol (vitamin D2) 1,250 1,250 mcg PO CONDE 10/27/22 10/27/22 10/22/22 History mcg (50,000 unit) capsule furosemide 40 mg tablet 40 mg PO DAILY 10/27/22 10/27/22 10/26/22 History ibuprofen 800 mg tablet 800 mg PO Q8H PRN pain 10/27/22 10/27/22 Unknown History valsartan 160 mg tablet 160 mg PO DAILY 10/27/22 10/27/22 10/27/22 History Physical Exam Vital Signs and Narrative: Vital Signs: Last Vital Signs Temp 100.8 F H 10/27/22 19:27 Pulse 106 H 10/27/22 16:36 Resp 22 H 10/27/22 16:36 BP 126/63 10/27/22 16:36 Pulse Ox 97 10/27/22 16:36 O2 Del Method Room Air 10/27/22 16:36 BMI result Body Mass Index 43.9 Const: Other: Patient is very comfortable, cooperating, in no apparent distress General: cooperative and no acute distress Orientation/consciousness: patient oriented x3 Eyes: General: appearance normal, both eyes and all related structures Resp: Effort & Inspection: normal respiratory effort Auscultation: clear to auscultation bilaterally Cardio: Rate: regular rate Rhythm: regular rhythm GI: Other: Abdomen is tender diffusely on deep palpation, Palpation (GI): Soft to palpation Auscultation: normal bowel sounds Skin: General skin exam: no rashes or lesions noted Neuro: General: patient oriented x3 Cognition (Neuro): normal cognition Extrem: General: Yes normal to inspection and Yes no pedal edema Results Labs 10/27/22 11:45 10/27/22 11:45 Labs: Laboratory Results - last 24 hr 10/27/22 10/27/22 11:45 11:45 MCV 90.8 MCH 30.4 MCHC 33.5 RDW 12.9 Plt Count 240 MPV 9.4 Immature Gran % (Auto) 0.4 Neut % (Auto) 78.9 H Lymph % (Auto) 13.5 L [place] % (Auto) 6.0 Eos % (Auto) 0.9 Baso % (Auto) 0.3 Lymph # (Auto) 1.6 [place] # (Auto) 0.7 Eos # (Auto) 0.1 Baso # (Auto) 0.0 Abs Immat Gran (auto) 0.05 H Absolute Neuts (auto) 9.2 H Absolute Nucleated RBC 0.000 Nucleated RBC % (auto) 0.0 Anion Gap 15 Estim Creat Clear Calc 66.6 Estimated GFR 54 Random Glucose 119 H Calcium 9.9 Magnesium 2.1 Total Bilirubin 0.4 Direct Bilirubin 0.1 AST 19 ALT 39 H Alkaline Phosphatase 89 Total Protein 7.0 Albumin 3.5 Lipase 13 Imaging Radiologist's Impressions: Impressions Abdomen/Pelvis CT 10/27/22 13:11 IMPRESSION: Acute perforated sigmoid diverticulitis with involvement of the right ovary/right oophoritis and reactive inflammation of the bladder dome. Multiloculated fluid collection containing gas surrounding the mid sigmoid colon represent abscess formation. Surgical consultation is advised. Ill-defined enhancement/phlegmon involving the right ovary/right adnexa measures 6.2 x 2.5 x 2.7 cm. Nodular focus anterior aspect of the L4-L5 right facet joint measures 1.5 x 0.9 x 1.0 cm. Consider MRI lumbar spine. Findings were reviewed and discussed with Dr. Saez at 1:40 PM on 10/27/2022. Assessment and Plan (1) Diverticulitis of colon with perforation: Status: Acute (2) Phlegmon: Status: Acute (3) Hypertension: Status: Acute (4) Multiple sclerosis: Status: Acute Plan This is a 62-year-old female past medical history of hypertension and MS presents the hospital and found to have diverticulitis with perforation # diverticulitis of colon with perforation - management per surgical team - pain is well controlled at this time # leukocytosis - likely reactive # hypertension - stable - continue antihypertensives # MS - not had in flare - monitor DVT prophylaxis: Per surgical team Thank you for allowing us to see your patient Time Spent With Patient Time: Total time managing care of this patient today ____ minutes.
[2022-10-27 22:28] VITALS: TEMP 37.6
[2022-10-28] VITALS (7 sets, daily range): BP systolic 117–141; BP diastolic 54–64; PULSE 91–100; RESP 15–18; TEMP 36.5–37.4; O2SAT 95–98
[2022-10-28] MEDS: Dextrose 5 % and 0.9 % NaCl 1,000 ML 100 ML IVCONT ×3 (01:32→21:44)
[2022-10-28] MEDS: Piperacillin Sodium/Tazobactam 3.375 GM in 0.9 % Sodium Chloride 50 ML IV ×4 (04:41→22:53)
[2022-10-28 05:41] LABS: Hematocrit 32.3 % (37.0-47.0); Hemoglobin 10.8 g/dl (12.0-16.0); Mean Corpuscular HGB Conc 33.4 g/dl (31.0-35.0); Mean Corpuscular Hemoglobin 30.7 pg (27.0-33.0); Mean Corpuscular Volume 91.8 fL (80.0-98.0); Platelet Count 223 X10*3/uL (160-400); Red Blood Count 3.52 X10*6/uL (4.20-5.50); Red Cell Distribution Width 13.2 % (11.0-16.0); White Blood Count 8.2 X10*3/uL (4.8-10.8)
[2022-10-28 05:59] LABS: Anion Gap 13 (12-20); Blood Urea Nitrogen 8 mg/dL (9-16); Calcium 9.1 mg/dL (8.4-10.2); Carbon Dioxide 22 mmol/L (22-29); Chloride 109 mmol/L (96-108); Creatinine Clr Calc Pharmacy 83.6; Estimated Glomerular Filt Rate > 60; Glucose Random 113 mg/dL (60-115); Potassium 4.1 mmol/L (3.3-5.1); Sodium 140 mmol/L (135-145)
[2022-10-28] MEDS: Heparin Sodium,Porcine 5,000 UNIT/ML VIAL 5000 UNIT SUBCUT ×2 (08:43→17:54)
[2022-10-28] MEDS: Valsartan 160 MG TABLET PO (08:43)
[2022-10-28] MEDS: Furosemide 40 MG TABLET PO (08:43)
[2022-10-28] MEDS: 0.9 % Sodium Chloride Flush 3 ML SYRINGE IVFLUSH ×3 (08:44→23:32)
--- NOTE | 2022-10-28 10:36 | MHC.CM.PN ---
PATIENT LIVES WITH SPOUSE/HCP COPY AT HOME AND AT PCP OFFICE (DR RAMEZ GARCIA) FULLY INDEPENDENT NO DME OR VNA SERVICES SHE HOPES TO BE ABLE TO DC HOME SELF CARE BUT IF VNA IS RECOMMENDED, SHE WILL GIVE PREFERENCES
--- NOTE | 2022-10-28 15:54 | PM.PNGS ---
Subjective Subjective Date of Service: 10/28/22 Interval history: Patient is doing well she feels good. Denies any significant pain now no nausea no vomiting walking around okay. No fever Physical Exam Vital Signs: Vital Signs: Last Vital Signs Temp 98.9 F 10/28/22 15:16 Pulse 97 10/28/22 15:16 Resp 15 10/28/22 15:16 BP 138/64 10/28/22 15:16 Pulse Ox 97 10/28/22 15:16 O2 Del Method Room Air 10/28/22 15:16 BMI result Body Mass Index 43.9 Const: General: cooperative, healthy appearing, comfortable and no acute distress Orientation/consciousness: patient oriented x3 Resp: Effort & Inspection: normal respiratory effort Auscultation: clear to auscultation bilaterally Cardio: Rate: regular rate Rhythm: regular rhythm GI: Other: abdomen is soft nontender nondistended no palpable masses. Active bowel sounds Neuro: General: patient oriented x3 Extrem: General: Yes full ROM Objective Data Active Medications Acetaminophen (Acetaminophen 325 Mg Tablet) 650 mg PO Q6H PRN PRN Reason: fever,mild pain Last Admin: 10/27/22 21:00 Dose: 650 mg Documented By: LUKE Furosemide (Furosemide 40 Mg Tablet) 40 mg PO DAILY [facility]; Protocol Last Admin: 10/28/22 08:43 Dose: 40 mg Documented By: SHAAN Heparin Sodium (Porcine) (Heparin Sodium,Porcine 5,000 Unit/Ml Vial) 5,000 unit SUBCUT Q8H [facility] Last Admin: 10/28/22 08:43 Dose: 5,000 unit Documented By: SHAAN Dextrose/Sodium Chloride (D5ns) 1,000 mls @ 100 mls/hr IVCONT .Q10H [facility] Last Admin: 10/28/22 11:27 Dose: 100 mls/hr Documented By: SHAAN Piperacillin Sod/Tazobactam (Sod 3.375 gm/ Sodium Chloride) 50 mls @ 100 mls/hr IV Q6H [facility] Last Infusion: 10/28/22 09:23 Dose: 0 mls/hr Documented By: SHAAN Morphine Sulfate (Morphine Sulfate 4 Mg/Ml Cartridge) 3 mg IVPUSH Q3H PRN; Protocol PRN Reason: Pain, Severe (Pain Scale 7-10) Ondansetron HCl (Ondansetron Hcl 4 Mg/2 Ml Vial) 4 mg IVPUSH Q6H PRN PRN Reason: nausea Sodium Chloride (0.9 % Sodium Chloride Flush 3 Ml Syringe) 3 ml IVFLUSH QSHIFT [facility] Last Admin: 10/28/22 08:44 Dose: 3 ml Documented By: SHAAN Valsartan (Valsartan 160 Mg Tablet) 160 mg PO DAILY [facility]; Protocol Last Admin: 10/28/22 08:43 Dose: 160 mg Documented By: SHAAN Labs 10/28/22 05:05 10/28/22 05:05 Labs: Laboratory Results - last 24 hr 10/28/22 10/28/22 05:05 05:05 MCV 91.8 MCH 30.7 MCHC 33.4 RDW 13.2 Plt Count 223 MPV 10.0 Absolute Nucleated RBC 0.000 Nucleated RBC % (auto) 0.0 Anion Gap 13 Estim Creat Clear Calc 83.6 Estimated GFR > 60 Random Glucose 113 Calcium 9.1 D Procedures Date of Service Date of Service: 10/28/22 Progress Note: A&P Assessment and plan (1) Diverticulitis of colon with perforation: Status: Acute Assessment and Plan: patient is a 62-year-old female who had a perforated diverticulitis presented to the hospital and has some phlegmon in an abscess in the left lower quadrant area. Interventional Radiology was not available to drain this. Plan was to admit her treat with IV antibiotics and see how she does. Today she is doing really quite well without any significant abdominal pain. She is hungry. Passing gas. Afebrile. White counts improved. Plan to advance her diet to clear liquids and see how she does by tomorrow. Continue with IV antibiotics. She understands and agrees with the above plan Time Spent With Patient Time: Total time managing care of this patient today ____ minutes. Quality Stroke Does the patient have a stroke diagnosis?: No VTE Prior VTE?: No VTE Risk Level:: Medical - moderate - high VTE Device Contraindication: N/A - Device Ordered VTE Drug Contraindication: N/A - Med Ordered
[2022-10-28 19:33] LABS: Appearance Urine Clear; Color Urine Yellow; Glucose Urine UA Negative (Negative); Leukocyte Esterase Urine Trace (Negative); Nitrite Urine Negative (Negative); Specific Gravity - Urine 1.015 (1.005-1.025); UMIC TRIGGER UACC YES; Urine Blood Negative (Negative); Urine Ketones Negative (Negative); Urine Protein Negative (Neg-Trace)
[2022-10-28 19:51] LABS: Bacteria Urine None Seen (None Seen); Hyaline Casts Urine 0-2 /LPF (0-2); RBC Urine 0-2 /HPF (0-2); UACC Culture Trigger YES
[2022-10-29] MEDS: Heparin Sodium,Porcine 5,000 UNIT/ML VIAL 5000 UNIT SUBCUT ×3 (02:51→17:35)
[2022-10-29 04:00] VITALS: BP 137/70; PULSE 96; RESP 16; TEMP 36.4; O2SAT 94
[2022-10-29] MEDS: Piperacillin Sodium/Tazobactam 3.375 GM in 0.9 % Sodium Chloride 50 ML IV ×4 (04:07→22:27)
[2022-10-29 07:24] VITALS: BP 123/60; PULSE 88; RESP 16; TEMP 36.6; O2SAT 96
[2022-10-29] MEDS: Valsartan 160 MG TABLET PO (07:59)
[2022-10-29] MEDS: Furosemide 40 MG TABLET PO (08:00)
[2022-10-29] MEDS: Dextrose 5 % and 0.9 % NaCl 1,000 ML 100 ML IVCONT (08:01)
[2022-10-29] MEDS: Acetaminophen 325 MG TABLET 650 MG PO ×2 (08:07→13:58)
--- NOTE | 2022-10-29 12:25 | PM.PNGS ---
Subjective Subjective Date of Service: 10/29/22 Interval history: feels great no pain and passing gas and having bowel movements. tolerating liquids but doesnt want to advance to regular food. Physical Exam Vital Signs: Vital Signs: Last Vital Signs Temp 97.8 F 10/29/22 07:24 Pulse 88 10/29/22 07:24 Resp 16 10/29/22 07:24 BP 123/60 10/29/22 07:24 Pulse Ox 96 10/29/22 07:24 O2 Del Method Room Air 10/29/22 07:24 BMI result Body Mass Index 43.9 Const: General: cooperative, healthy appearing, comfortable and no acute distress Resp: Effort & Inspection: normal respiratory effort GI: Other: abdomen- soft nontender nondistended Objective Data Active Medications Acetaminophen (Acetaminophen 325 Mg Tablet) 650 mg PO Q6H PRN PRN Reason: fever,mild pain Last Admin: 10/29/22 08:07 Dose: 650 mg Documented By: SHAAN Furosemide (Furosemide 40 Mg Tablet) 40 mg PO DAILY [facility]; Protocol Last Admin: 10/29/22 08:00 Dose: 40 mg Documented By: SHAAN Heparin Sodium (Porcine) (Heparin Sodium,Porcine 5,000 Unit/Ml Vial) 5,000 unit SUBCUT Q8H [facility] Last Admin: 10/29/22 09:54 Dose: 5,000 unit Documented By: SHAAN Dextrose/Sodium Chloride (D5ns) 1,000 mls @ 100 mls/hr IVCONT .Q10H [facility] Last Admin: 10/29/22 08:01 Dose: 100 mls/hr Documented By: SHAAN Piperacillin Sod/Tazobactam (Sod 3.375 gm/ Sodium Chloride) 50 mls @ 100 mls/hr IV Q6H [facility] Last Infusion: 10/29/22 11:31 Dose: 0 mls/hr Documented By: SHAAN Morphine Sulfate (Morphine Sulfate 4 Mg/Ml Cartridge) 3 mg IVPUSH Q3H PRN; Protocol PRN Reason: Pain, Severe (Pain Scale 7-10) Ondansetron HCl (Ondansetron Hcl 4 Mg/2 Ml Vial) 4 mg IVPUSH Q6H PRN PRN Reason: nausea Sodium Chloride (0.9 % Sodium Chloride Flush 3 Ml Syringe) 3 ml IVFLUSH QSHIFT [facility] Last Admin: 10/29/22 08:00 Dose: Not Given Documented By: SHAAN Non-Admin Reason: IV Running Valsartan (Valsartan 160 Mg Tablet) 160 mg PO DAILY [facility]; Protocol Last Admin: 10/29/22 07:59 Dose: 160 mg Documented By: SHAAN Labs 10/28/22 05:05 10/28/22 05:05 Labs: Laboratory Results - last 24 hr 10/28/22 19:09 Urine Color Yellow Urine Appearance Clear Urine pH 6.0 Ur Specific [place] 1.015 Urine Protein Negative Urine Glucose (UA) Negative Urine Ketones Negative Urine Blood Negative Urine Nitrite Negative Ur Leukocyte Esterase Trace H Urine RBC 0-2 Urine WBC 11-20 Ur Squamous Epith Cells 6-10 Urine Bacteria None Seen Hyaline Casts 0-2 Urine Yeast Present Microbiology Microbiology Results: Microbiology 10/27/22 15:39 Blood Culture - Preliminary Blood - Venous No growth after 24 hours. 10/27/22 15:39 Blood Culture - Preliminary Blood - Venous No growth after 24 hours. Procedures Date of Service Date of Service: 10/29/22 Progress Note: A&P Assessment and plan (1) Diverticulitis of colon with perforation: Status: Acute Assessment and Plan: pt doing well with abdo pain and bowel function -? perf tic but no pain and big phlegmon area - pt should have colonoscopy to rule out other pahtology and better evaluation of ovaries etc at some point as outpt. dc ivf, ambulate, cont with iv antibx Time Spent With Patient Time: Total time managing care of this patient today ____ minutes. Quality Stroke Does the patient have a stroke diagnosis?: No VTE Prior VTE?: No VTE Risk Level:: Medical - moderate - high VTE Device Contraindication: N/A - Device Ordered VTE Drug Contraindication: N/A - Med Ordered
[2022-10-29] MEDS: 0.9 % Sodium Chloride Flush 3 ML SYRINGE IVFLUSH (15:48)
[2022-10-29 16:00] VITALS: BP 120/60; PULSE 69; RESP 18; TEMP 36.9; O2SAT 96
[2022-10-29 23:38] VITALS: BP 128/63; PULSE 98; RESP 18; TEMP 37.5; O2SAT 94
[2022-10-30] MEDS: 0.9 % Sodium Chloride Flush 3 ML SYRINGE IVFLUSH ×2 (00:02→08:08)
[2022-10-30] MEDS: Piperacillin Sodium/Tazobactam 3.375 GM in 0.9 % Sodium Chloride 50 ML IV ×4 (05:02→21:35)
[2022-10-30 07:46] VITALS: BP 124/59; PULSE 78; RESP 16; TEMP 36.3; O2SAT 95
[2022-10-30] MEDS: Valsartan 160 MG TABLET PO (08:07)
[2022-10-30] MEDS: Furosemide 40 MG TABLET PO (08:07)
[2022-10-30 08:50] LABS: INTERNATIONAL NORM RATIO 1.2 (0.9-1.1); Prothrombin Time 14.3 SEC (10.0-13.1)
--- NOTE | 2022-10-30 11:26 | P.PNGS_ITS ---
Subjective Subjective Date of Service: 10/30/22 Interval history: denies abdominal pain describes loose stools no N/V Physical Exam Vital Signs: Vital Signs: Last Vital Signs Temp 97.3 F 10/30/22 07:46 Pulse 78 10/30/22 07:46 Resp 16 10/30/22 07:46 BP 124/59 L 10/30/22 07:46 Pulse Ox 95 10/30/22 07:46 O2 Del Method Room Air 10/30/22 07:46 BMI result Body Mass Index 43.9 Const: General: comfortable and no acute distress Resp: Effort & Inspection: normal respiratory effort Cardio: Rate: regular rate GI: Palpation (GI): Soft to palpation, not firm, nontender and no guarding Objective Data Active Medications Acetaminophen (Acetaminophen 325 Mg Tablet) 650 mg PO Q6H PRN PRN Reason: fever,mild pain Last Admin: 10/29/22 13:58 Dose: 650 mg Documented By: SHAAN Furosemide (Furosemide 40 Mg Tablet) 40 mg PO DAILY [facility]; Protocol Last Admin: 10/30/22 08:07 Dose: 40 mg Documented By: NAEL Heparin Sodium (Porcine) (Heparin Sodium,Porcine 5,000 Unit/Ml Vial) 5,000 unit SUBCUT Q8H [facility] Last Admin: 10/30/22 11:07 Dose: Not Given Documented By: NAEL Non-Admin Reason: scheduled for procedure Piperacillin Sod/Tazobactam (Sod 3.375 gm/ Sodium Chloride) 50 mls @ 100 mls/hr IV Q6H [facility] Last Infusion: 10/30/22 05:32 Dose: 0 mls/hr Documented By: ESTEBAN Morphine Sulfate (Morphine Sulfate 4 Mg/Ml Cartridge) 3 mg IVPUSH Q3H PRN; Protocol PRN Reason: Pain, Severe (Pain Scale 7-10) Ondansetron HCl (Ondansetron Hcl 4 Mg/2 Ml Vial) 4 mg IVPUSH Q6H PRN PRN Reason: nausea Sodium Chloride (0.9 % Sodium Chloride Flush 3 Ml Syringe) 3 ml IVFLUSH QSHIFT [facility] Last Admin: 10/30/22 08:08 Dose: 3 ml Documented By: NAEL Valsartan (Valsartan 160 Mg Tablet) 160 mg PO DAILY [facility]; Protocol Last Admin: 10/30/22 08:07 Dose: 160 mg Documented By: NAEL Labs 10/28/22 05:05 10/28/22 05:05 Labs: Laboratory Results - last 24 hr 10/30/22 08:29 PT 14.3 H INR 1.2 H Microbiology Microbiology Results: Microbiology 10/28/22 Unknown Urine Culture - Final Urine clean catch - Urine soto top 10/27/22 15:39 Blood Culture - Preliminary Blood - Venous No growth after 48 hours. 10/27/22 15:39 Blood Culture - Preliminary Blood - Venous No growth after 48 hours. Procedures Date of Service Date of Service: 10/30/22 Progress Note: A&P Assessment and plan (1) Diverticulitis large intestine: Status: Acute Assessment and Plan: looks well abd soft and benign nontender WBC normal as per radiologist, very little fluid to drain, plan to repeat CT continue IV abx pt understands plan Time Spent With Patient Time: Total time managing care of this patient today ____ minutes. Quality Stroke Does the patient have a stroke diagnosis?: No VTE Prior VTE?: No VTE Risk Level:: Medical - moderate - high VTE Device Contraindication: N/A - Device Ordered VTE Drug Contraindication: N/A - Med Ordered
[2022-10-30] MEDS: iohexoL 350 MG/ML 100 ML INFUS..BTL IV (12:30)
[2022-10-30] MEDS: Dextrose 5 % and 0.9 % NaCl 1,000 ML 80 ML IVCONT (12:45)
--- NOTE | 2022-10-30 13:07 | MHC.CM.PN ---
no anticapated date at this ti e plan remains home with /vna
[2022-10-30 15:45] VITALS: BP 136/73; PULSE 95; RESP 20; TEMP 36.9; O2SAT 99
--- NOTE | 2022-10-30 15:52 | PM.EVENT ---
Event Note Date of Service: 10/30/22 Event Note: Seen on afternoon rounds Repeat CT scan does not show significant fluid for CT drain Significant inflammatory changes however seen Patient remains comfortable Denies significant pain Abdomen soft and benign No significant tenderness Continue bowel rest, on clear liquids IV antibiotics Looks well otherwise Time Spent With Patient Time: Total time managing care of this patient today ____ minutes.
[2022-10-30] MEDS: Heparin Sodium,Porcine 5,000 UNIT/ML VIAL 5000 UNIT SUBCUT (18:05)
[2022-10-30 20:59] VITALS: BP 124/63; PULSE 91; RESP 20; TEMP 38.1; O2SAT 94
[2022-10-30 21:32] VITALS: TEMP 37.8
[2022-10-30] MEDS: Acetaminophen 325 MG TABLET 650 MG PO (21:33)
--- NOTE | 2022-10-30 21:41 | PC.NURSE ---
Pt has low grade temp. was 100.5, rechecked and now 100.1.PRN tylenol given and MD Conrad notified.
[2022-10-31] VITALS: BP 133/66; PULSE 85; RESP 19; TEMP 36.6; O2SAT 94
[2022-10-31] MEDS: Piperacillin Sodium/Tazobactam 3.375 GM in 0.9 % Sodium Chloride 50 ML IV ×4 (04:04→21:50)
[2022-10-31] MEDS: Dextrose 5 % and 0.9 % NaCl 1,000 ML 80 ML IVCONT (04:05)
[2022-10-31] MEDS: Heparin Sodium,Porcine 5,000 UNIT/ML VIAL 5000 UNIT SUBCUT ×3 (04:05→17:04)
[2022-10-31 06:21] LABS: Anion Gap 13 (12-20); Blood Urea Nitrogen 6 mg/dL (9-16); Calcium 8.6 mg/dL (8.4-10.2); Carbon Dioxide 23 mmol/L (22-29); Chloride 106 mmol/L (96-108); Creatinine Clr Calc Pharmacy 86.9; Estimated Glomerular Filt Rate > 60; Glucose Random 131 mg/dL (60-115); Hematocrit 29.2 % (37.0-47.0); Hemoglobin 9.7 g/dl (12.0-16.0); Mean Corpuscular HGB Conc 33.2 g/dl (31.0-35.0); Mean Corpuscular Volume 90.4 fL (80.0-98.0); Mean Platelet Volume 9.6 fL (9.4-12.3); Platelet Count 255 X10*3/uL (160-400); Potassium 2.8 mmol/L (3.3-5.1); Red Blood Count 3.23 X10*6/uL (4.20-5.50); Red Cell Distribution Width 13.1 % (11.0-16.0); Sodium 139 mmol/L (135-145); White Blood Count 8.8 X10*3/uL (4.8-10.8)
[2022-10-31 07:48] VITALS: BP 100/55; PULSE 85; RESP 18; TEMP 36.2; O2SAT 96
[2022-10-31] MEDS: Furosemide 40 MG TABLET PO (08:31)
[2022-10-31] MEDS: Valsartan 160 MG TABLET PO (08:31)
[2022-10-31] MEDS: Acetaminophen 325 MG TABLET 650 MG PO ×2 (08:36→19:21)
--- NOTE | 2022-10-31 08:37 | PM.PNGS ---
Subjective Subjective Date of Service: 10/31/22 Interval history: says she feels well denies abdl pain, N/V still with watery stools but better Physical Exam Vital Signs: Vital Signs: Last Vital Signs Temp 97.1 F 10/31/22 07:48 Pulse 85 10/31/22 07:48 Resp 18 10/31/22 07:48 BP 100/55 L 10/31/22 07:48 Pulse Ox 96 10/31/22 07:48 O2 Del Method Room Air 10/31/22 07:48 BMI result Body Mass Index 43.9 Const: General: comfortable and no acute distress Resp: Effort & Inspection: normal respiratory effort GI: Palpation (GI): Soft to palpation, not firm and nontender Objective Data Active Medications Acetaminophen (Acetaminophen 325 Mg Tablet) 650 mg PO Q6H PRN PRN Reason: fever,mild pain Last Admin: 10/30/22 21:33 Dose: 650 mg Documented By: MANDY Furosemide (Furosemide 40 Mg Tablet) 40 mg PO DAILY [facility]; Protocol Last Admin: 10/31/22 08:31 Dose: 40 mg Documented By: ISRAEL Heparin Sodium (Porcine) (Heparin Sodium,Porcine 5,000 Unit/Ml Vial) 5,000 unit SUBCUT Q8H [facility] Last Admin: 10/31/22 08:31 Dose: 5,000 unit Documented By: ISRAEL Piperacillin Sod/Tazobactam (Sod 3.375 gm/ Sodium Chloride) 50 mls @ 100 mls/hr IV Q6H [facility] Last Infusion: 10/31/22 04:45 Dose: 0 mls/hr Documented By: MANDY Dextrose/Sodium Chloride (D5ns) 1,000 mls @ 80 mls/hr IVCONT .[id number] [facility] Last Admin: 10/31/22 04:05 Dose: 80 mls/hr Documented By: MANDY Potassium Chloride/Dextrose/Sod Cl (Kcl 20 Meq In 5% Dex/0.9% Sod) 20 meq in 1,000 mls @ 80 mls/hr IVCONT .[id number] [facility] Morphine Sulfate (Morphine Sulfate 4 Mg/Ml Cartridge) 3 mg IVPUSH Q3H PRN; Protocol PRN Reason: Pain, Severe (Pain Scale 7-10) Ondansetron HCl (Ondansetron Hcl 4 Mg/2 Ml Vial) 4 mg IVPUSH Q6H PRN PRN Reason: nausea Potassium Chloride (Potassium Chloride Packet 20 Meq Packet) 40 meq PO Q4H [facility] Stop: 10/31/22 12:46 Sodium Chloride (0.9 % Sodium Chloride Flush 3 Ml Syringe) 3 ml IVFLUSH QSHIFT [facility] Last Admin: 10/31/22 08:27 Dose: Not Given Documented By: ISRAEL Non-Admin Reason: IV Running Valsartan (Valsartan 160 Mg Tablet) 160 mg PO DAILY [facility]; Protocol Last Admin: 10/31/22 08:31 Dose: 160 mg Documented By: ISRAEL Labs 10/31/22 05:38 10/31/22 05:38 Labs: Laboratory Results - last 24 hr 10/30/22 10/31/22 10/31/22 08:29 05:38 05:38 MCV 90.4 MCH 30.0 MCHC 33.2 RDW 13.1 Plt Count 255 MPV 9.6 Absolute Nucleated RBC 0.000 Nucleated RBC % (auto) 0.0 PT 14.3 H INR 1.2 H Anion Gap 13 Estim Creat Clear Calc 86.9 Estimated GFR > 60 Random Glucose 131 H Calcium 8.6 Microbiology Microbiology Results: Microbiology 10/28/22 Unknown Urine Culture - Final Urine clean catch - Urine soto top Procedures Date of Service Date of Service: 10/31/22 Progress Note: A&P Assessment and plan (1) Diverticulitis large intestine: Status: Acute Assessment and Plan: repeat CT yesterday - no drainable abscess cavity more inflammatory changes seen on CT however, pt remains well, benign exam, nontender, no fever keep on clears replace K - losses likely from diarrhea await stool C diff looks well Time Spent With Patient Time: Total time managing care of this patient today ____ minutes. Quality Stroke Does the patient have a stroke diagnosis?: No VTE Prior VTE?: No VTE Risk Level:: Medical - moderate - high VTE Device Contraindication: N/A - Device Ordered VTE Drug Contraindication: N/A - Med Ordered
[2022-10-31] MEDS: Potassium Chloride Packet 20 MEQ PACKET 40 MEQ PO ×2 (09:37→12:38)
[2022-10-31] MEDS: KCl 20 mEq in 5% Dex/0.9% Sod 20 MEQ/1,000 ML IV.SOLN 80 MEQ IVCONT ×2 (09:37→21:50)
[2022-10-31] MEDS: Ibuprofen 800 MG TABLET PO ×2 (11:21→19:21)
[2022-10-31 13:04] LABS: CDiff Gene PCR NEGATIVE (Negative)
[2022-10-31 15:33] VITALS: BP 111/71; PULSE 82; RESP 20; TEMP 36.6; O2SAT 99
[2022-10-31 20:23] VITALS: BP 119/80; PULSE 98; RESP 18; TEMP 36.5; O2SAT 92
[2022-10-31 23:34] VITALS: RESP 18
[2022-11-01] MEDS: Piperacillin Sodium/Tazobactam 3.375 GM in 0.9 % Sodium Chloride 50 ML IV ×4 (03:44→21:33)
[2022-11-01] MEDS: Heparin Sodium,Porcine 5,000 UNIT/ML VIAL 5000 UNIT SUBCUT ×3 (03:44→17:33)
[2022-11-01 04:00] VITALS: BP 128/64; PULSE 87; RESP 20; TEMP 36.8; O2SAT 99
[2022-11-01] MEDS: Valsartan 160 MG TABLET PO (07:20)
[2022-11-01] MEDS: Furosemide 40 MG TABLET PO (07:20)
[2022-11-01] MEDS: Ibuprofen 800 MG TABLET PO ×2 (07:21→21:53)
[2022-11-01 07:39] VITALS: BP 115/67; PULSE 85; RESP 18; TEMP 36.3; O2SAT 98
--- NOTE | 2022-11-01 07:56 | P.PNGS_ITS ---
Subjective Subjective Date of Service: 11/01/22 Interval history: Denies abdominal pain passing flatus a lot says diarrhea seems to resolve C diff test from yesterday negative feels well overall Physical Exam Vital Signs: Vital Signs: Last Vital Signs Temp 97.3 F 11/01/22 07:39 Pulse 85 11/01/22 07:39 Resp 18 11/01/22 07:39 BP 115/67 11/01/22 07:39 Pulse Ox 98 11/01/22 07:39 O2 Del Method Room Air 11/01/22 07:39 BMI result Body Mass Index 43.9 Const: General: comfortable and no acute distress Resp: Effort & Inspection: normal respiratory effort Cardio: Rate: regular rate GI: Palpation (GI): Soft to palpation, not firm, nontender and no guarding Objective Data Active Medications Acetaminophen (Acetaminophen 325 Mg Tablet) 650 mg PO Q6H PRN PRN Reason: fever,mild pain Last Admin: 10/31/22 19:21 Dose: 650 mg Documented By: PIERRE Furosemide (Furosemide 40 Mg Tablet) 40 mg PO DAILY [facility]; Protocol Last Admin: 11/01/22 07:20 Dose: 40 mg Documented By: ISRAEL Heparin Sodium (Porcine) (Heparin Sodium,Porcine 5,000 Unit/Ml Vial) 5,000 unit SUBCUT Q8H [facility] Last Admin: 11/01/22 07:21 Dose: 5,000 unit Documented By: ISRAEL Piperacillin Sod/Tazobactam (Sod 3.375 gm/ Sodium Chloride) 50 mls @ 100 mls/hr IV Q6H [facility] Last Infusion: 11/01/22 04:17 Dose: 0 mls/hr Documented By: PIERRE Potassium Chloride/Dextrose/Sod Cl (Kcl 20 Meq In 5% Dex/0.9% Sod) 20 meq in 1,000 mls @ 80 mls/hr IVCONT .[id number] [facility] Last Infusion: 10/31/22 22:22 Dose: 80 mls/hr Documented By: PIERRE Ibuprofen (Ibuprofen 800 Mg Tablet) 800 mg PO Q8H PRN PRN Reason: Pain, Moderate(Pain Scale 4-6) Last Admin: 11/01/22 07:21 Dose: 800 mg Documented By: ISRAEL Morphine Sulfate (Morphine Sulfate 4 Mg/Ml Cartridge) 3 mg IVPUSH Q3H PRN; Protocol PRN Reason: Pain, Severe (Pain Scale 7-10) Ondansetron HCl (Ondansetron Hcl 4 Mg/2 Ml Vial) 4 mg IVPUSH Q6H PRN PRN Reason: nausea Sodium Chloride (0.9 % Sodium Chloride Flush 3 Ml Syringe) 3 ml IVFLUSH QSHIFT [facility] Last Admin: 11/01/22 07:24 Dose: Not Given Documented By: ISRAEL Non-Admin Reason: IV Running Valsartan (Valsartan 160 Mg Tablet) 160 mg PO DAILY [facility]; Protocol Last Admin: 11/01/22 07:20 Dose: 160 mg Documented By: ISRAEL Labs 10/31/22 05:38 10/31/22 05:38 Labs: Laboratory Results - last 24 hr 10/31/22 11:23 C. difficile Tox B Gene NEGATIVE Procedures Date of Service Date of Service: 11/01/22 Progress Note: A&P Assessment and plan (1) Diverticulitis large intestine: Status: Acute Assessment and Plan: remains asymptomatic no abdominal pain or tenderness at all - despite follow-up CT scan showing significant inflammatory process around sigmoid no fever or leukocytosis will advance to full liquid diet out of bed continue IV antibiotics for now given potassium supplements yesterday - will check today Time Spent With Patient Time: Total time managing care of this patient today ____ minutes. Quality Stroke Does the patient have a stroke diagnosis?: No VTE Prior VTE?: No VTE Risk Level:: Medical - moderate - high VTE Device Contraindication: N/A - Device Ordered VTE Drug Contraindication: N/A - Med Ordered
--- NOTE | 2022-11-01 07:59 | P.CDIM_ITS ---
PROVIDER RESPONSE TEXT: To clarify, the appropriate diagnosis supported by the clinical indicators: Morbid Obesity QUERY TEXT: PHYSICIAN'S DOCUMENTATION REQUEST Date of Query: 10/30/2022 09:48 AM EDT Patient Name: Asuncion Agee Admit Date: 10/27/2022 Dear Jersey Ray, A review of the medical record indicates additional documentation may be needed. Please review below and update the documentation accordingly. Clinical Indicators: BMI 43.9 5ft 2in 108.862kg If possible, please provide an associated diagnosis related to the abnormal BMI, such as: Morbid Obesity Other Other (explain)Clinically unable to determine (explain)Thank you, Stacie Roblero, CCS, CDIS Use of terms such as suspected, likely, concern for, or probable (associated with a specific diagnosi s that is being evaluated, monitored, or treated as if it exists) are acceptable and can be coded in the inpatient se tting, when documented at the time of discharge. Please use your independent medical judgment in providing your response. THIS QUERY IS PART OF THE PERMANENT MEDICAL RECORD
[2022-11-01 08:37] LABS: Potassium 3.5 mmol/L (3.3-5.1)
[2022-11-01] MEDS: KCl 20 mEq in 5% Dex/0.9% Sod 20 MEQ/1,000 ML IV.SOLN 80 MEQ IVCONT ×2 (09:54→22:09)
--- NOTE | 2022-11-01 13:37 | MHC.CM.PN ---
no anticapated dc date at this time,surgicalpt dc plan remains home no sercveis
[2022-11-01] MEDS: 0.9 % Sodium Chloride Flush 3 ML SYRINGE IVFLUSH (15:39)
[2022-11-01] MEDS: Acetaminophen 325 MG TABLET 650 MG PO (15:46)
[2022-11-01 16:00] VITALS: BP 139/71; PULSE 96; RESP 20; TEMP 37.4; O2SAT 98
[2022-11-01 19:47] VITALS: BP 131/77; PULSE 92; RESP 19; TEMP 36.8; O2SAT 100
[2022-11-02] MEDS: Heparin Sodium,Porcine 5,000 UNIT/ML VIAL 5000 UNIT SUBCUT ×3 (02:52→17:12)
[2022-11-02] MEDS: Piperacillin Sodium/Tazobactam 3.375 GM in 0.9 % Sodium Chloride 50 ML IV ×4 (03:16→21:14)
[2022-11-02 03:25] VITALS: BP 133/63; PULSE 76; RESP 16; TEMP 36; O2SAT 96
[2022-11-02 08:00] VITALS: BP 124/64; PULSE 86; RESP 18; TEMP 36.6; O2SAT 98
--- NOTE | 2022-11-02 08:00 | P.PNGS_ITS ---
Subjective Subjective Date of Service: 11/03/22 Interval history: feels well has loose stools again this AM - she says this happens each time she gets her IV abx dose otherwise no pain no N/V tolerating liquids well Physical Exam Vital Signs: Vital Signs: Last Vital Signs Temp 96.8 F 11/02/22 03:25 Pulse 76 11/02/22 03:25 Resp 16 11/02/22 03:25 BP 133/63 11/02/22 03:25 Pulse Ox 96 11/02/22 03:25 O2 Del Method Room Air 11/02/22 03:25 BMI result Body Mass Index 43.9 Const: General: comfortable and no acute distress Resp: Effort & Inspection: normal respiratory effort Cardio: Rate: regular rate GI: Palpation (GI): Soft to palpation, not firm and nontender Objective Data Active Medications Acetaminophen (Acetaminophen 325 Mg Tablet) 650 mg PO Q6H PRN PRN Reason: fever,mild pain Last Admin: 11/01/22 15:46 Dose: 650 mg Documented By: TYRON Furosemide (Furosemide 40 Mg Tablet) 40 mg PO DAILY [facility]; Protocol Last Admin: 11/01/22 07:20 Dose: 40 mg Documented By: ISRAEL Heparin Sodium (Porcine) (Heparin Sodium,Porcine 5,000 Unit/Ml Vial) 5,000 unit SUBCUT Q8H [facility] Last Admin: 11/02/22 02:52 Dose: 5,000 unit Documented By: HERMELINDA Piperacillin Sod/Tazobactam (Sod 3.375 gm/ Sodium Chloride) 50 mls @ 100 mls/hr IV Q6H [facility] Last Infusion: 11/02/22 03:53 Dose: 0 mls/hr Documented By: HERMELINDA Potassium Chloride/Dextrose/Sod Cl (Kcl 20 Meq In 5% Dex/0.9% Sod) 20 meq in 1,000 mls @ 80 mls/hr IVCONT .[id number] [facility] Last Infusion: 11/02/22 03:54 Dose: 80 mls/hr Documented By: HERMELINDA Ibuprofen (Ibuprofen 800 Mg Tablet) 800 mg PO Q8H PRN PRN Reason: Pain, Moderate(Pain Scale 4-6) Last Admin: 11/01/22 21:53 Dose: 800 mg Documented By: TYRON Ondansetron HCl (Ondansetron Hcl 4 Mg/2 Ml Vial) 4 mg IVPUSH Q6H PRN PRN Reason: nausea Sodium Chloride (0.9 % Sodium Chloride Flush 3 Ml Syringe) 3 ml IVFLUSH QSHIFT [facility] Last Admin: 11/02/22 00:38 Dose: Not Given Documented By: HERMELINDA Non-Admin Reason: IV Running Valsartan (Valsartan 160 Mg Tablet) 160 mg PO DAILY [facility]; Protocol Last Admin: 11/01/22 07:20 Dose: 160 mg Documented By: ISRAEL Labs 10/31/22 05:38 11/01/22 08:04 Microbiology Microbiology Results: Microbiology 10/27/22 15:39 Blood Culture - Final Blood - Venous No growth after 5 days. 10/27/22 15:39 Blood Culture - Final Blood - Venous No growth after 5 days. Procedures Date of Service Date of Service: 11/03/22 Progress Note: A&P Assessment and plan (1) Diverticulitis large intestine: Status: Acute Assessment and Plan: check stool panel plan to advance diet later abd remains soft and nontender no fever she looks well will repeat BMP tomorrow Time Spent With Patient Time: Total time managing care of this patient today ____ minutes. Quality Stroke Does the patient have a stroke diagnosis?: No VTE Prior VTE?: No VTE Risk Level:: Medical - moderate - high VTE Device Contraindication: N/A - Device Ordered VTE Drug Contraindication: N/A - Med Ordered
[2022-11-02] MEDS: Ibuprofen 800 MG TABLET PO (09:33)
[2022-11-02] MEDS: Furosemide 40 MG TABLET PO (09:34)
[2022-11-02] MEDS: Valsartan 160 MG TABLET PO (09:35)
[2022-11-02] MEDS: KCl 20 mEq in 5% Dex/0.9% Sod 20 MEQ/1,000 ML IV.SOLN 80 MEQ IVCONT (13:46)
--- NOTE | 2022-11-02 13:56 | P.CDIM_ITS ---
PROVIDER RESPONSE TEXT: To clarify, the appropriate diagnosis supported by the clinical indicators: Hypokalemia QUERY TEXT: PHYSICIAN'S DOCUMENTATION REQUEST Date of Query: 11/02/2022 01:15 PM EDT Patient Name: Asuncion Agee Admit Date: 10/27/2022 Dear Jersey Ray, A review of the medical record indicates additional documentation may be needed. Please review below and update the documentation accordingly. Clinical Indicators: LABS: 10/31 - potassium 2.8 L IV potassium chloride Based on the above, could you clarify the appropriate diagnosis, if significant, that supports the ab ove abnormalities and additional evaluation, monitoring, and/or treatment rendered: Hypokalemia Other Other (explain)Clinically unable to determine (explain)Thank you, Stacie Roblero, CCS, CDIS Use of terms such as suspected, likely, concern for, or probable (associated with a specific diagnosi s that is being evaluated, monitored, or treated as if it exists) are acceptable and can be coded in the inpatient se tting, when documented at the time of discharge. Please use your independent medical judgment in providing your response. THIS QUERY IS PART OF THE PERMANENT MEDICAL RECORD
[2022-11-02] MEDS: 0.9 % Sodium Chloride Flush 3 ML SYRINGE IVFLUSH (15:36)
[2022-11-02 15:53] VITALS: PULSE 93; RESP 20; TEMP 36.2; O2SAT 98
[2022-11-02 16:13] LABS: Adenovirus F 40/41 Not Detected (Not Detect.); Astrovirus Not Detected (Not Detect.); Campylobacter Not Detected (Not Detect.); Cryptosporidium Not Detected (Not Detect.); Cyclospora cayetanensis Not Detected (Not Detect.); E. coli EAEC Not Detected (Not Detect.); E. coli EPEC Not Detected (Not Detect.); E. coli ETEC Not Detected (Not Detect.); E. coli STEC Not Detected (Not Detect.); Entamoeba histolytica Not Detected (Not Detect.); Giardia lamblia Not Detected (Not Detect.); Norovirus GI/GII Not Detected (Not Detect.); Plesiomonas shigelloides Not Detected (Not Detect.); Rotavirus A Not Detected (Not Detect.); Salmonella Not Detected (Not Detect.); Sapovirus Not Detected (Not Detect.); Shigella sp./EIEC Not Detected (Not Detect.); Vibrio Not Detected (Not Detect.); Vibrio Cholerae Not Detected (Not Detect.); Yersinia enterocolitica Not Detected (Not Detect.)
[2022-11-02 19:49] VITALS: TEMP 37.9
[2022-11-02 19:57] VITALS: BP 138/60; PULSE 91; RESP 18; O2SAT 96
--- NOTE | 2022-11-02 19:58 | PC.NURSE ---
RADHA Hill reported patient has fever of 101.0,RN rechecked ,oral temp 100.2,patient reports chills,Dr. Conrad notified
[2022-11-02] MEDS: Acetaminophen 325 MG TABLET 650 MG PO (20:11)
[2022-11-03] MEDS: Heparin Sodium,Porcine 5,000 UNIT/ML VIAL 5000 UNIT SUBCUT ×3 (02:30→17:36)
[2022-11-03] MEDS: KCl 20 mEq in 5% Dex/0.9% Sod 20 MEQ/1,000 ML IV.SOLN 80 MEQ IVCONT (02:36)
[2022-11-03] MEDS: Piperacillin Sodium/Tazobactam 3.375 GM in 0.9 % Sodium Chloride 50 ML IV ×4 (03:07→21:41)
[2022-11-03 03:40] VITALS: BP 135/62; PULSE 92; RESP 18; TEMP 37; O2SAT 95
[2022-11-03 05:48] LABS: Hematocrit 28.2 % (37.0-47.0); Hemoglobin 9.5 g/dl (12.0-16.0); Mean Corpuscular HGB Conc 33.7 g/dl (31.0-35.0); Mean Platelet Volume 9.3 fL (9.4-12.3); Platelet Count 319 X10*3/uL (160-400); Red Blood Count 3.17 X10*6/uL (4.20-5.50); Red Cell Distribution Width 13.5 % (11.0-16.0); White Blood Count 11.7 X10*3/uL (4.8-10.8)
[2022-11-03 06:11] LABS: Anion Gap 11 (12-20); Blood Urea Nitrogen 5 mg/dL (9-16); Calcium 8.5 mg/dL (8.4-10.2); Carbon Dioxide 23 mmol/L (22-29); Chloride 107 mmol/L (96-108); Estimated Glomerular Filt Rate > 60; Glucose Random 126 mg/dL (60-115); Sodium 138 mmol/L (135-145)
[2022-11-03 07:28] VITALS: BP 131/63; PULSE 87; RESP 16; TEMP 36.9; O2SAT 96
--- NOTE | 2022-11-03 08:21 | PM.PNGS ---
Subjective Subjective Date of Service: 11/04/22 Interval history: says she had a good night denies abdl pain tolerated reg diet last night good flatus some loose stools with IV abx Physical Exam Vital Signs: Vital Signs: Last Vital Signs Temp 98.4 F 11/03/22 07:28 Pulse 87 11/03/22 07:28 Resp 16 11/03/22 07:28 BP 131/63 11/03/22 07:28 Pulse Ox 96 11/03/22 07:28 O2 Del Method Room Air 11/03/22 07:28 BMI result Body Mass Index 43.9 Const: Other: looks well General: comfortable and no acute distress Resp: Effort & Inspection: normal respiratory effort Cardio: Rate: regular rate GI: Palpation (GI): Soft to palpation, not firm, nontender and no guarding Objective Data Active Medications Acetaminophen (Acetaminophen 325 Mg Tablet) 650 mg PO Q6H PRN PRN Reason: fever,mild pain Last Admin: 11/02/22 20:11 Dose: 650 mg Documented By: TYRON Furosemide (Furosemide 40 Mg Tablet) 40 mg PO DAILY [facility]; Protocol Last Admin: 11/02/22 09:34 Dose: 40 mg Documented By: ISRAEL Heparin Sodium (Porcine) (Heparin Sodium,Porcine 5,000 Unit/Ml Vial) 5,000 unit SUBCUT Q8H [facility] Last Admin: 11/03/22 02:30 Dose: 5,000 unit Documented By: HERMELINDA Piperacillin Sod/Tazobactam (Sod 3.375 gm/ Sodium Chloride) 50 mls @ 100 mls/hr IV Q6H [facility] Last Infusion: 11/03/22 03:37 Dose: 0 mls/hr Documented By: HERMELINDA Potassium Chloride/Dextrose/Sod Cl (Kcl 20 Meq In 5% Dex/0.9% Sod) 20 meq in 1,000 mls @ 80 mls/hr IVCONT .[id number] [facility] Last Infusion: 11/03/22 03:37 Dose: 80 mls/hr Documented By: HERMELINDA Ibuprofen (Ibuprofen 800 Mg Tablet) 800 mg PO Q8H PRN PRN Reason: Pain, Moderate(Pain Scale 4-6) Last Admin: 11/02/22 09:33 Dose: 800 mg Documented By: ISRAEL Ondansetron HCl (Ondansetron Hcl 4 Mg/2 Ml Vial) 4 mg IVPUSH Q6H PRN PRN Reason: nausea Sodium Chloride (0.9 % Sodium Chloride Flush 3 Ml Syringe) 3 ml IVFLUSH QSHIFT [facility] Last Admin: 11/03/22 00:53 Dose: Not Given Documented By: HERMELINDA Non-Admin Reason: IV Running Valsartan (Valsartan 160 Mg Tablet) 160 mg PO DAILY [facility]; Protocol Last Admin: 11/02/22 09:35 Dose: 160 mg Documented By: ISRAEL Labs 11/03/22 05:31 11/03/22 05:31 Labs: Laboratory Results - last 24 hr 11/02/22 11/03/22 11/03/22 12:00 05:31 05:31 MCV 89.0 MCH 30.0 MCHC 33.7 RDW 13.5 Plt Count 319 D MPV 9.3 L Absolute Nucleated RBC 0.000 Nucleated RBC % (auto) 0.0 Anion Gap 11 L Estim Creat Clear Calc 88.0 Estimated GFR > 60 Random Glucose 126 H Calcium 8.5 Stl C. cayetanensis PCR Not Detected Stool Rotavirus A PCR Not Detected Stl Adenov F 40/41 PCR Not Detected Stool Astrovirus (PCR) Not Detected Stool Campylobacter PCR Not Detected Stool Cryptosporidium PCR Not Detected Stl Sh Tox Pr E STEC PCR Not Detected Stool E coli O157 PCR Not applicable Stl Enterotoxigenic E PCR Not Detected Stool EPEC (PCR) Not Detected Stool EAEC (PCR) Not Detected Stl E. histolytica PCR Not Detected Stool Giardia Lamblia PCR Not Detected Stl P. shigelloides PCR Not Detected Stool Salmonella PCR Not Detected Stool Sapovirus (PCR) Not Detected Stl Shigella/EIEC PCR Not Detected St Y.enterocolitica PCR Not Detected Stool Vibrio (PCR) Not Detected Stl Vibrio cholerae PCR Not Detected Stl Norovirus GI/GII PCR Not Detected Procedures Date of Service Date of Service: 11/04/22 Progress Note: A&P Assessment and plan (1) Diverticulitis large intestine: Status: Acute Assessment and Plan: continues to do well has no pain or tenderness occasional diarrhea likely related to antibiotics -C diff negative WBC ok on regular diet possible dc home later today or tomorrow (2) Hypokalemia: Status: Acute Assessment and Plan: likely from diarrhea will give PO Potassium asymptomatic Time Spent With Patient Time: Total time managing care of this patient today ____ minutes. Quality Stroke Does the patient have a stroke diagnosis?: No VTE Prior VTE?: No VTE Risk Level:: Medical - moderate - high VTE Device Contraindication: N/A - Device Ordered VTE Drug Contraindication: N/A - Med Ordered
[2022-11-03] MEDS: Ibuprofen 800 MG TABLET PO (08:42)
[2022-11-03] MEDS: Potassium Chloride Packet 20 MEQ PACKET 40 MEQ PO ×2 (08:43→12:22)
[2022-11-03] MEDS: Furosemide 40 MG TABLET PO (08:43)
[2022-11-03] MEDS: Valsartan 160 MG TABLET PO (08:43)
[2022-11-03 15:10] VITALS: BP 135/71; PULSE 84; RESP 16; TEMP 36.9; O2SAT 100
[2022-11-03] MEDS: 0.9 % Sodium Chloride Flush 3 ML SYRINGE IVFLUSH (15:39)
[2022-11-03] MEDS: KCl 20 mEq in 5% Dex/0.9% Sod 20 MEQ/1,000 ML IV.SOLN 60 MEQ IVCONT (18:34)
[2022-11-03 19:39] VITALS: BP 138/71; PULSE 96; RESP 18; TEMP 36.9; O2SAT 97
[2022-11-03 23:30] VITALS: BP 142/74; PULSE 93; RESP 18; TEMP 36.9; O2SAT 97
[2022-11-04] MEDS: Heparin Sodium,Porcine 5,000 UNIT/ML VIAL 5000 UNIT SUBCUT ×3 (01:32→17:51)
[2022-11-04] MEDS: Acetaminophen 325 MG TABLET 650 MG PO ×2 (04:44→19:41)
[2022-11-04] MEDS: Piperacillin Sodium/Tazobactam 3.375 GM in 0.9 % Sodium Chloride 50 ML IV ×4 (04:45→21:17)
[2022-11-04 07:58] VITALS: BP 138/76; PULSE 85; RESP 18; TEMP 36.2; O2SAT 97
[2022-11-04] MEDS: Valsartan 160 MG TABLET PO (08:28)
[2022-11-04] MEDS: Furosemide 40 MG TABLET PO (08:28)
--- NOTE | 2022-11-04 09:15 | PM.PNGS ---
Subjective Subjective Date of Service: 11/05/22 Interval history: says she feels constipated she had loose stools yesterday but feels the urge to have a BM passing god amounts of flatus - a lot she states no other events reported denies any nausea or vomitting says she does not have abdl pain and says she has been ready to go home Physical Exam Vital Signs: Vital Signs: Last Vital Signs Temp 97.1 F 11/04/22 07:58 Pulse 85 11/04/22 07:58 Resp 18 11/04/22 07:58 BP 138/76 11/04/22 07:58 Pulse Ox 97 11/04/22 07:58 O2 Del Method Room Air 11/04/22 07:58 BMI result Body Mass Index 43.9 Const: Other: obese, General: no acute distress Resp: Effort & Inspection: normal respiratory effort Cardio: Rate: regular rate Rhythm: regular rhythm GI: Other: soft, nontender, Palpation (GI): not firm, nontender and no guarding Objective Data Active Medications Acetaminophen (Acetaminophen 325 Mg Tablet) 650 mg PO Q6H PRN PRN Reason: fever,mild pain Last Admin: 11/04/22 04:44 Dose: 650 mg Documented By: MICH Docusate Sodium (Docusate Sodium 100 Mg Capsule) 100 mg PO BID [facility] Furosemide (Furosemide 40 Mg Tablet) 40 mg PO DAILY [facility]; Protocol Last Admin: 11/04/22 08:28 Dose: 40 mg Documented By: FREDA Heparin Sodium (Porcine) (Heparin Sodium,Porcine 5,000 Unit/Ml Vial) 5,000 unit SUBCUT Q8H [facility] Last Admin: 11/04/22 01:32 Dose: 5,000 unit Documented By: MICH Piperacillin Sod/Tazobactam (Sod 3.375 gm/ Sodium Chloride) 50 mls @ 100 mls/hr IV Q6H [facility] Last Infusion: 11/04/22 05:22 Dose: 0 mls/hr Documented By: MICH Potassium Chloride/Dextrose/Sod Cl (Kcl 20 Meq In 5% Dex/0.9% Sod) 20 meq in 1,000 mls @ 60 mls/hr IVCONT .[id number] [facility] Last Infusion: 11/04/22 08:36 Dose: 0 mls/hr Documented By: FREDA Ibuprofen (Ibuprofen 800 Mg Tablet) 800 mg PO Q8H PRN PRN Reason: Pain, Moderate(Pain Scale 4-6) Last Admin: 11/03/22 08:42 Dose: 800 mg Documented By: ISRAEL Ondansetron HCl (Ondansetron Hcl 4 Mg/2 Ml Vial) 4 mg IVPUSH Q6H PRN PRN Reason: nausea Sodium Chloride (0.9 % Sodium Chloride Flush 3 Ml Syringe) 3 ml IVFLUSH QSHIFT [facility] Last Admin: 11/04/22 07:32 Dose: Not Given Documented By: FREDA Non-Admin Reason: IV Running Valsartan (Valsartan 160 Mg Tablet) 160 mg PO DAILY [facility]; Protocol Last Admin: 11/04/22 08:28 Dose: 160 mg Documented By: FREDA Labs 11/03/22 05:31 11/03/22 05:31 Procedures Date of Service Date of Service: 11/05/22 Progress Note: A&P Assessment and plan (1) Diverticulitis large intestine: Status: Acute Assessment and Plan: clinically looks well states she now feels constipated after having been on regular food will start on Colace she says she has this similaar problem often in the past exam very benign Time Spent With Patient Time: Total time managing care of this patient today ____ minutes. Quality Stroke Does the patient have a stroke diagnosis?: No VTE Prior VTE?: No VTE Risk Level:: Medical - moderate - high VTE Device Contraindication: N/A - Device Ordered VTE Drug Contraindication: N/A - Med Ordered
[2022-11-04] MEDS: Docusate Sodium 100 MG CAPSULE PO ×2 (09:20→19:41)
[2022-11-04] MEDS: KCl 20 mEq in 5% Dex/0.9% Sod 20 MEQ/1,000 ML IV.SOLN 60 MEQ IVCONT (14:25)
[2022-11-04 15:44] VITALS: BP 144/70; PULSE 106; RESP 18; TEMP 36.9; O2SAT 96
[2022-11-04] MEDS: 0.9 % Sodium Chloride Flush 3 ML SYRINGE IVFLUSH (16:39)
[2022-11-04 19:31] VITALS: BP 134/63; PULSE 99; RESP 20; TEMP 36.8; O2SAT 97
[2022-11-04 23:46] VITALS: BP 135/63; PULSE 96; RESP 19; TEMP 36.9; O2SAT 95
[2022-11-05] MEDS: Heparin Sodium,Porcine 5,000 UNIT/ML VIAL 5000 UNIT SUBCUT ×2 (03:19→08:37)
[2022-11-05] MEDS: Piperacillin Sodium/Tazobactam 3.375 GM in 0.9 % Sodium Chloride 50 ML IV ×2 (03:20→08:38)
[2022-11-05 07:18] VITALS: BP 131/60; PULSE 89; RESP 18; TEMP 36.5; O2SAT 95
[2022-11-05] MEDS: Furosemide 40 MG TABLET PO (08:36)
[2022-11-05] MEDS: Valsartan 160 MG TABLET PO (08:37)
[2022-11-05] MEDS: Docusate Sodium 100 MG CAPSULE PO (08:37)
--- NOTE | 2022-11-05 09:36 | P.PNGS_ITS ---
Subjective Subjective Date of Service: 11/08/22 Interval history: feels well has BMs, a little loose but not diarrhea denies any abdl pain tolerating diet well and states she is ready to go home Physical Exam Vital Signs: Vital Signs: Last Vital Signs Temp 97.7 F 11/05/22 07:18 Pulse 89 11/05/22 07:18 Resp 18 11/05/22 07:18 BP 131/60 11/05/22 07:18 Pulse Ox 95 11/05/22 07:18 O2 Del Method Room Air 11/05/22 07:18 BMI result Body Mass Index 43.9 Const: General: comfortable and no acute distress Resp: Effort & Inspection: normal respiratory effort Cardio: Rate: regular rate GI: Palpation (GI): Soft to palpation, not firm, nontender and no guarding Objective Data Active Medications Acetaminophen (Acetaminophen 325 Mg Tablet) 650 mg PO Q6H PRN PRN Reason: fever,mild pain Last Admin: 11/04/22 19:41 Dose: 650 mg Documented By: LYSZ Docusate Sodium (Docusate Sodium 100 Mg Capsule) 100 mg PO BID [facility] Last Admin: 11/05/22 08:37 Dose: 100 mg Documented By: COTEMA Furosemide (Furosemide 40 Mg Tablet) 40 mg PO DAILY [facility]; Protocol Last Admin: 11/05/22 08:36 Dose: 40 mg Documented By: COTEMA Heparin Sodium (Porcine) (Heparin Sodium,Porcine 5,000 Unit/Ml Vial) 5,000 unit SUBCUT Q8H [facility] Last Admin: 11/05/22 08:37 Dose: 5,000 unit Documented By: COTEMA Piperacillin Sod/Tazobactam (Sod 3.375 gm/ Sodium Chloride) 50 mls @ 100 mls/hr IV Q6H [facility] Last Infusion: 11/05/22 09:12 Dose: 0 mls/hr Documented By: COTEMA Potassium Chloride/Dextrose/Sod Cl (Kcl 20 Meq In 5% Dex/0.9% Sod) 20 meq in 1,000 mls @ 60 mls/hr IVCONT .[id number] [facility] Last Infusion: 11/05/22 08:43 Dose: 0 mls/hr Documented By: COTEMA Ibuprofen (Ibuprofen 800 Mg Tablet) 800 mg PO Q8H PRN PRN Reason: Pain, Moderate(Pain Scale 4-6) Last Admin: 11/03/22 08:42 Dose: 800 mg Documented By: ISRAEL Ondansetron HCl (Ondansetron Hcl 4 Mg/2 Ml Vial) 4 mg IVPUSH Q6H PRN PRN Reason: nausea Sodium Chloride (0.9 % Sodium Chloride Flush 3 Ml Syringe) 3 ml IVFLUSH QSHIFT [facility] Last Admin: 11/05/22 07:16 Dose: Not Given Documented By: COTEMA Non-Admin Reason: IV Running Valsartan (Valsartan 160 Mg Tablet) 160 mg PO DAILY [facility]; Protocol Last Admin: 11/05/22 08:37 Dose: 160 mg Documented By: COTEMA Labs 11/03/22 05:31 11/03/22 05:31 Procedures Date of Service Date of Service: 11/08/22 Progress Note: A&P Assessment and plan (1) Diverticulitis large intestine: Status: Acute Assessment and Plan: likely with microperf had a lot of inflammatory changes but has had very benign symptoms I therefore had kept her longer in view of the severe inflammatory changes and diarrhea with hypoK she feels well tolerating diet no diarrhea abd soft, nontender will dc home on PO abx she will need colonoscopy - never had one before ffup with PCP in room during discussion Time Spent With Patient Time: Total time managing care of this patient today ____ minutes. Quality Stroke Does the patient have a stroke diagnosis?: No VTE Prior VTE?: No VTE Risk Level:: Medical - moderate - high VTE Device Contraindication: N/A - Device Ordered VTE Drug Contraindication: N/A - Med Ordered
--- NOTE | 2022-11-05 11:21 | MHC.CM.PN ---
PT WILL DC HOME TODAY WITH NO SERVICES
--- NOTE | 2022-11-10 14:51 | PM.DS ---
DS: Providers Provider Date of Service: 11/05/22 Date of admission: 10/27/22 14:08 Primary care physician: Lukas Scott III, MD Consults: 10/27/22 15:12 Consult to Hospitalist Routine Comment: Consulting Provider: Hospitalist Reason For Exam: HTN, MS DS: Diagnosis Discharge Diagnosis (1) Diverticulitis large intestine: Status: Acute DS: Summary Hospital Course Hospital Course: [age] year old female, with multiple sclerosis, admitted on 10/27/2022 because of a transient episode of abdominal pain. She had a CAT scan showing question of a contained perforated sigmoid diverticulitis with inflammatory changes involving the right ovary, and reactive inflammation of the bladder dome. There was question of an abscess as well in the mid sigmoid along with phlegmonous changes. She had a very benign exam otherwise. She was not septic looking. She was started on Zosyn and initially kept NPO. She did not have any significant tenderness. I repeated the CT scan on October 30 2022 but this did not reveal any drainable collection. There was persistent inflammatory changes. Kept her on clear liquids and on IV antibiotics. She actually remained afebrile with no tenderness throughout her stay so I slowly advanced her diet. She did have some issues with a little bit of constipation so I had to give her some Colace She continued to do well but I kept her for an extended period of time for IV antibiotics in view of the extent of inflammatory changes She had remained afebrile and had good bowel movements with flatus. She was therefore discharged on 11/05/2022. At that time of her discharge, she had been asymptomatic was tolerating diet. She was given instruction to see me in the office. We will plan on outpatient follow-up CT scan. Time Spent with Patient Time attestation: Total time managing care of this patient today ____ minutes. Discharge coordination time: Less than 30 minutes Quality: Safe Use of Opioids Does Pt have an Active Cancer Diagnosis on the Problem List?: No Quality: Stroke Does the patient have a stroke diagnosis?: No Physical Exam Vital Signs: Vital Signs: Last Vital Signs Temp 97.7 F 11/05/22 07:18 Pulse 89 11/05/22 07:18 Resp 18 11/05/22 07:18 BP 131/60 11/05/22 07:18 Pulse Ox 95 11/05/22 07:18 O2 Del Method Room Air 11/05/22 07:18 BMI result Body Mass Index 43.9 Const: Other: Morbidly obese General: comfortable and no acute distress Resp: Effort & Inspection: normal respiratory effort Cardio: Rate: regular rate GI: Palpation (GI): Soft to palpation, not firm, nontender and no guarding Neuro: Other: Motor and sensory intact DS: Data Data Completed and Pending Completed studies during hospitalization [Text1]: Laboratory Results WBC 11.7 X10*3/uL (4.8-10.8) H 11/03/22 05:31 RBC 3.17 X10*6/uL (4.20-5.50) L 11/03/22 05:31 Hgb 9.5 g/dl (12.0-16.0) L 11/03/22 05:31 Hct 28.2 % (37.0-47.0) L 11/03/22 05:31 MCV 89.0 fL (80.0-98.0) 11/03/22 05:31 MCH 30.0 pg (27.0-33.0) 11/03/22 05:31 MCHC 33.7 g/dl (31.0-35.0) 11/03/22 05:31 RDW 13.5 % (11.0-16.0) 11/03/22 05:31 Plt Count 319 X10*3/uL (160-400) D 11/03/22 05:31 MPV 9.3 fL (9.4-12.3) L 11/03/22 05:31 Immature Gran % (Auto) 0.4 % (0.0-0.4) 10/27/22 11:45 Neut % (Auto) 78.9 % (45-73) H 10/27/22 11:45 Lymph % (Auto) 13.5 % (20-40) L 10/27/22 11:45 [place] % (Auto) 6.0 % (2-11) 10/27/22 11:45 Eos % (Auto) 0.9 % (0-4) 10/27/22 11:45 Baso % (Auto) 0.3 % (0-2) 10/27/22 11:45 Lymph # (Auto) 1.6 X10*3/uL (1.2-4.9) 10/27/22 11:45 [place] # (Auto) 0.7 X10*3/uL (0.1-1.2) 10/27/22 11:45 Eos # (Auto) 0.1 X10*3/uL (0.0-0.4) 10/27/22 11:45 Baso # (Auto) 0.0 X10*3/uL (0.0-0.2) 10/27/22 11:45 Abs Immat Gran (auto) 0.05 X10*3/uL (0.00-0.03) H 10/27/22 11:45 Absolute Neuts (auto) 9.2 x10*3/uL (2.0-8.3) H 10/27/22 11:45 Absolute Nucleated RBC 0.000 X10*3/uL (0.0-0.012) 11/03/22 05:31 Nucleated RBC % (auto) 0.0 /100WBC (0.0-0.2) 11/03/22 05:31 PT 14.3 SEC (10.0-13.1) H 10/30/22 08:29 INR 1.2 (0.9-1.1) H 10/30/22 08:29 Sodium 138 mmol/L (135-145) 11/03/22 05:31 Potassium 3.0 mmol/L (3.3-5.1) L 11/03/22 05:31 Chloride 107 mmol/L (96-108) 11/03/22 05:31 Carbon Dioxide 23 mmol/L (22-29) 11/03/22 05:31 Anion Gap 11 (12-20) L 11/03/22 05:31 BUN 5 mg/dL (9-16) L 11/03/22 05:31 Creatinine 0.78 mg/dL (0.5-1.4) 11/03/22 05:31 Estim Creat Clear Calc 88.0 11/03/22 05:31 Estimated GFR > 60 11/03/22 05:31 Random Glucose 126 mg/dL (60-115) H 11/03/22 05:31 Calcium 8.5 mg/dL (8.4-10.2) 11/03/22 05:31 Magnesium 2.1 mg/dL (1.6-2.6) 10/27/22 11:45 Total Bilirubin 0.4 mg/dL (0.0-1.0) 10/27/22 11:45 Direct Bilirubin 0.1 mg/dL (0.0-0.5) 10/27/22 11:45 AST 19 U/L (5-31) 10/27/22 11:45 ALT 39 U/L (0-31) H 10/27/22 11:45 Alkaline Phosphatase 89 U/L (39-117) 10/27/22 11:45 Total Protein 7.0 g/dL (6.5-8.0) 10/27/22 11:45 Albumin 3.5 g/dL (3.5-5.0) 10/27/22 11:45 Lipase 13 U/L (8-78) 10/27/22 11:45 Urine Color Yellow 10/28/22 19:09 Urine Appearance Clear 10/28/22 19:09 Urine pH 6.0 (5.0-9.0) 10/28/22 19:09 Ur Specific [place] 1.015 (1.005-1.025) 10/28/22 19:09 Urine Protein Negative mg/dL (Neg-Trace) 10/28/22 19:09 Urine Glucose (UA) Negative mg/dL (Negative) 10/28/22 19:09 Urine Ketones Negative mg/dL (Negative) 10/28/22 19:09 Urine Blood Negative (Negative) 10/28/22 19:09 Urine Nitrite Negative (Negative) 10/28/22 19:09 Ur Leukocyte Esterase Trace (Negative) H 10/28/22 19:09 Urine RBC 0-2 /HPF (0-2) 10/28/22 19:09 Urine WBC 11-20 /HPF (0-5) 10/28/22 19:09 Ur Squamous Epith Cells 6-10 /HPF (0-2) 10/28/22 19:09 Urine Bacteria None Seen (None Seen) 10/28/22 19:09 Hyaline Casts 0-2 /LPF (0-2) 10/28/22 19:09 Urine Yeast Present 10/28/22 19:09 Stl C. cayetanensis PCR Not Detected (Not Detect.) 11/02/22 12:00 Stool Rotavirus A PCR Not Detected (Not Detect.) 11/02/22 12:00 Stl Adenov F 40/41 PCR Not Detected (Not Detect.) 11/02/22 12:00 Stool Astrovirus (PCR) Not Detected (Not Detect.) 11/02/22 12:00 Stool Campylobacter PCR Not Detected (Not Detect.) 11/02/22 12:00 Stool Cryptosporidium PCR Not Detected (Not Detect.) 11/02/22 12:00 Stl Sh Tox Pr E STEC PCR Not Detected (Not Detect.) 11/02/22 12:00 Stool E coli O157 PCR Not applicable (Not Detect.) 11/02/22 12:00 Stl Enterotoxigenic E PCR Not Detected (Not Detect.) 11/02/22 12:00 Stool EPEC (PCR) Not Detected (Not Detect.) 11/02/22 12:00 Stool EAEC (PCR) Not Detected (Not Detect.) 11/02/22 12:00 Stl E. histolytica PCR Not Detected (Not Detect.) 11/02/22 12:00 Stool Giardia Lamblia PCR Not Detected (Not Detect.) 11/02/22 12:00 Stl P. shigelloides PCR Not Detected (Not Detect.) 11/02/22 12:00 Stool Salmonella PCR Not Detected (Not Detect.) 11/02/22 12:00 Stool Sapovirus (PCR) Not Detected (Not Detect.) 11/02/22 12:00 Stl Shigella/EIEC PCR Not Detected (Not Detect.) 11/02/22 12:00 St Y.enterocolitica PCR Not Detected (Not Detect.) 11/02/22 12:00 Stool Vibrio (PCR) Not Detected (Not Detect.) 11/02/22 12:00 Stl Vibrio cholerae PCR Not Detected (Not Detect.) 11/02/22 12:00 Stl Norovirus GI/GII PCR Not Detected (Not Detect.) 11/02/22 12:00 C. difficile Tox B Gene NEGATIVE (Negative) 10/31/22 11:23 Impressions Abdomen/Pelvis CT 10/27/22 13:11 IMPRESSION: Acute perforated sigmoid diverticulitis with involvement of the right ovary/right oophoritis and reactive inflammation of the bladder dome. Multiloculated fluid collection containing gas surrounding the mid sigmoid colon represent abscess formation. Surgical consultation is advised. Ill-defined enhancement/phlegmon involving the right ovary/right adnexa measures 6.2 x 2.5 x 2.7 cm. Nodular focus anterior aspect of the L4-L5 right facet joint measures 1.5 x 0.9 x 1.0 cm. Consider MRI lumbar spine. Findings were reviewed and discussed with Dr. Saez at 1:40 PM on 10/27/2022. Pelvis CT 10/30/22 12:28 IMPRESSION: Worsening sigmoid diverticulitis with increasing intramural abscesses in the sigmoid colon and increasing involvement of the dome of the bladder. No drainable collection seen. Percutaneous drainage not performed. Discharge Plan Discharge Anticipated Discharge Date/Time: 11/05/22 09:39 Patient Disposition: Home, Self-Care Discharge Diagnosis: acute diverticulitis Referrals: Lukas Scott III, MD [Primary Care Provider] - 1 Week Jersey Ray MD [Physician] - 2 Weeks Discharge Medications: New docusate sodium [Colace] 100 mg capsule 100 mg PO DAILY Qty: 30 0RF amoxicillin-pot clavulanate 875-125 mg tablet 1 tab PO BID Qty: 10 0RF Continued furosemide 40 mg tablet 40 mg PO DAILY atorvastatin 10 mg tablet 10 mg PO DAILY ibuprofen 800 mg tablet 800 mg PO Q8H PRN (Reason: pain) ergocalciferol (vitamin D2) 1,250 mcg (50,000 unit) capsule 1,250 mcg PO CONDE valsartan 160 mg tablet 160 mg PO DAILY Discharge Orders: Discharge Order (Routine); Ordered 11/05/22 Ordered By: Jersey Ray Activity on Discharge: No heavy lifting Stand Alone Forms: Patient Portal Discharge page Care Plan Goals: control ddvierticulitis control MS weight mgt Health Concerns: obesity MS diverticular ds Plan of Treatment: oral abx outpt ffup Assessment: doing very well Discharge Date/Time: 11/05/22 11:30
== END 2022-11-05 11:30 | disposition home or self-care (01) | DRG 392 ==
LOC: HO.ED 14:19 → HO.EDOVER 14:29 → HO.S3 10-28 00:16
PROVIDERS: Physician Assistant; Admitting Provider Surgery; Emergency Provider Emergency Medicine; PCP Internal Medicine; Visit Provider Surgery
DX: K57.20 Diverticulitis of large intestine with perforation and abscess without bleeding (principal); Z68.41 Body mass index [BMI] 40.0-44.9, adult; E87.6 Hypokalemia; E66.01 Morbid (severe) obesity due to excess calories; G35 Multiple sclerosis; I10 Essential (primary) hypertension; D72.829 Elevated white blood cell count, unspecified; Z79.899 Other long term (current) drug therapy
CPT/HCPCS: 36415; 72193; 74177; 80048; 80076; 81001; 83690; 83735; 84132; 85025; 85027; 85610; 87040; 87086; 87493; 87507; 99285; J1643; J2543; Q9967

== ENCOUNTER → 2022-10-27 14:08 | Outpatient (BNV) | payer OTHER, SELFPAY | PROVIDERS: Admitting Provider Surgery; Emergency Provider Emergency Medicine; PCP Internal Medicine; Visit Provider Internal Medicine | DX: K57.20 Diverticulitis of large intestine with perforation and abscess without bleeding (principal); I10 Essential (primary) hypertension; G35 Multiple sclerosis | CPT/HCPCS: 99223 ==

== ENCOUNTER → 2022-10-27 14:08 | Outpatient (BNV) | payer OTHER, SELFPAY | PROVIDERS: Admitting Provider Surgery; Emergency Provider Emergency Medicine; PCP Internal Medicine; Visit Provider Surgery | DX: K57.32 Diverticulitis of large intestine without perforation or abscess without bleeding (principal) | CPT/HCPCS: 99222; 99231; 99232; 99238; 99499 ==

== ENCOUNTER 2022-11-14 09:42 | Emergency (ER) | payer OTHER, SELFPAY ==
[2022-11-14 09:55] VITALS: BP 142/61; PULSE 89; RESP 19; TEMP 35.8; O2SAT 100; BMI 43.2
--- NOTE | 2022-11-14 10:33 | MHC.EDTECH ---
Urine sent to lab
--- NOTE | 2022-11-14 10:36 | ED.FEMALEGU ---
HPI - Female Genitourinary General Chief complaint: Urogenital-Female Stated complaint: UTI Time Seen by Provider: 11/14/22 10:36 Source: patient Mode of arrival: ambulatory Limitations: no limitations History of Present Illness HPI Narrative: 62 y/o F with past medical history of multiple sclerosis and recent admission for perforated bowel presents with possible UTI. Patient reports that for the past 2 days her urine has had an odor and is cloudy. She reports increased frequency, urgency and a burning sensation while urinating. Patient denies abdominal pain, chills, chest pain, or shortness of breath. She reports mild tenderness to R flank since yesterday. Patient was recently hospitalized here for perforated colonic abscess that was treated medically. She was discharged 11/06 and was taking Augmentin until 11/10. MD elicited complaint: dysuria and UTI Related Data Home Medications Medication Instructions Recorded Confirmed atorvastatin 10 mg tablet 10 mg PO DAILY 10/27/22 10/27/22 ergocalciferol (vitamin D2) 1,250 1,250 mcg PO CONDE 10/27/22 10/27/22 mcg (50,000 unit) capsule furosemide 40 mg tablet 40 mg PO DAILY 10/27/22 10/27/22 ibuprofen 800 mg tablet 800 mg PO Q8H PRN pain 10/27/22 10/27/22 valsartan 160 mg tablet 160 mg PO DAILY 10/27/22 10/27/22 Previous Rx's Medication Instructions Recorded amoxicillin 875 mg-potassium 1 tab PO BID #10 tabs 11/05/22 clavulanate 125 mg tablet docusate sodium 100 mg capsule 100 mg PO DAILY #30 caps 11/05/22 (Colace) nitrofurantoin 100 mg PO BID 7 days #14 caps 11/14/22 monohydrate/macrocrystals 100 mg capsule (Macrobid) Allergies Allergy/AdvReac Type Severity Reaction Status Date / Time No Known Allergies Allergy Verified 10/27/22 11:24 Review of Systems Review of Systems: General: No fever, no chills ENT: No sore throat, no ear pain Cardiovascular: No chest pain, no peripheral edema, no shortness of breath Respiratory: No dyspnea, no sputum production, no cough Muscle skeletal: slight back pain no extremity pain GI: No abdominal pain, no nausea vomiting, no diarrhea : urgency dysuria frequency positive Skin: No rash Immunology: No immunocompromised Hematology: No bleeding, no bruising PMFSH Past Medical History Attestation statement: The following information was validated with the patient. Medical History Diverticulitis large intestine Hypertension Hypokalemia Multiple sclerosis Phlegmon Social History Social History Household Members: Spouse Housing: House Do you presently have visiting nurse or other home services: No Alcohol intake: never Patient Tobacco Use Status: Never used Tobacco Advance Directives: No Advance Directives Information Provided: No service: No Physical Exam Vital Signs: Vital Signs: Last Vital Signs Temp 96.4 F L 11/14/22 09:55 Pulse 89 11/14/22 09:55 Resp 19 11/14/22 09:55 BP 142/61 H 11/14/22 09:55 Pulse Ox 100 11/14/22 09:55 O2 Del Method Room Air 11/14/22 09:55 BMI result Body Mass Index 43.2 General appearance: Awake, alert, cooperative, in no acute distress, nontoxic in appearance Skin: Warm, dry, no rash Eyes: PERRL, EOMI, no icterus ENT: Oropharynx normal, uvula midline Neck: Soft supple full range of motion Pulmonary: Breath sounds clear to auscultation bilaterally, no accessory muscle use Cardiovascular: Regular rate and rhythm, no murmurs and rubs Abdomen: Soft nontender, no rebound or guarding, positive bowel sounds, slight CVA tenderness right Extremities: No deformity, nontender, no peripheral edema noted Neuro: Alert oriented x3, no focal deficit Psych: Normal affect Course Course Course Narrative: UTI Pyelonephritis Dysuria 62-year-old female who recently had a admission for diverticulitis with small perforation followed by surgery. Recently finished antibiotics approximately 1 week prior presents with 24-48 hours of frequency and dysuria patient states it has been greater than 30 years since her last UTI but she did have a lot of diarrhea during her most recent medical issue. So she is not really surprised that she has UTI at this time. Patient denies allergies to Bactrim. Patient is UA and clinical symptoms are consistent with UTI question early pyelonephritis will place on Bactrim at this time. Patient recently finished Augmentin at home. will actually use Macrobid at this time as potential interactions with Bactrim and her hypertension hyper cholesterol medications. Medical Decision Making Lab Data Labs: Lab Results 11/14/22 Range/Units 10:30 Urine Color Yellow Urine Appearance Turbid Urine pH 7.0 (5.0-9.0) Ur Specific [place] 1.010 (1.005-1.025) Urine Protein 100 (2+) H (Neg-Trace) mg/dL Urine Glucose (UA) Negative (Negative) mg/dL Urine Ketones Negative (Negative) mg/dL Urine Blood Large (3+) H (Negative) Urine Nitrite Positive H (Negative) Ur Leukocyte Esterase Large (3+) H (Negative) Urine RBC >20 H (0-2) /HPF Urine WBC >50 H (0-5) /HPF Urine WBC Clumps Present Ur Squamous Epith Cells 3-5 (0-2) /HPF Urine Bacteria 4+ (None Seen) Hyaline Casts 3-5 (0-2) /LPF Discharge Plan Discharge Clinical Impression: Urinary tract infection Patient Disposition: Home, Self-Care Instructions: Urinary Tract Infection in Older Adults (ED) Additional Instructions: Continue to hydrate yourself. Your and symptoms are consistent with urinary tract infection possibly early pyelonephritis. Prescriptions: New nitrofurantoin monohyd/m-cryst [Macrobid] 100 mg capsule 100 mg PO BID 7 Days Qty: 14 0RF Rx Instructions: must administer with a meal/food No Action furosemide 40 mg tablet 40 mg PO DAILY atorvastatin 10 mg tablet 10 mg PO DAILY ibuprofen 800 mg tablet 800 mg PO Q8H PRN (Reason: pain) ergocalciferol (vitamin D2) 1,250 mcg (50,000 unit) capsule 1,250 mcg PO CONDE valsartan 160 mg tablet 160 mg PO DAILY docusate sodium [Colace] 100 mg capsule 100 mg PO DAILY Qty: 30 0RF amoxicillin-pot clavulanate 875-125 mg tablet 1 tab PO BID Qty: 10 0RF
[2022-11-14 10:37] LABS: Appearance Urine Turbid; Color Urine Yellow; Glucose Urine UA Negative (Negative); Leukocyte Esterase Urine Large (3+) (Negative); Nitrite Urine Positive (Negative); UMIC TRIGGER UACC YES; Urine Blood Large (3+) (Negative); Urine Ketones Negative (Negative); Urine Protein 100 (2+) mg/dL (Neg-Trace)
[2022-11-14 10:55] LABS: Bacteria Urine 4+ (None Seen); RBC Urine >20 /HPF (0-2); UACC Culture Trigger YES; WBC Clumps Urine Present; WBC Urine >50 /HPF (0-5)
== END 2022-11-14 11:26 | disposition home or self-care (01) ==
PROVIDERS: Physician Assistant Medical; Emergency Provider Emergency Medicine; PCP Internal Medicine
DX: N39.0 Urinary tract infection, site not specified (principal); I10 Essential (primary) hypertension; G35 Multiple sclerosis
CPT/HCPCS: 81001; 87086; 99282; 99283

== ENCOUNTER 2022-11-20 13:42 | Outpatient (REF) | payer OTHER, SELFPAY ==
[2022-11-20 15:57] LABS: Blood Urea Nitrogen 9 mg/dL (9-16); Estimated Glomerular Filt Rate > 60
== END 2022-11-20 13:43 | disposition home or self-care (01) ==
LOC: HO.LAB 13:42
PROVIDERS: PCP Internal Medicine; Visit Provider Surgery
DX: K57.32 Diverticulitis of large intestine without perforation or abscess without bleeding (principal)
CPT/HCPCS: 36415; 82565; 84520

== ENCOUNTER 2022-11-20 13:42 | Outpatient (AMB) | payer OTHER, SELFPAY ==
[2022-11-20 13:44] VITALS: BP 121/58; PULSE 107; BMI 41.9
--- NOTE | 2022-11-20 13:44 | MHC.OFFVIS ---
Intake Vital Signs 11/20/22 13:44 Height 5 ft 2 in Weight 229 lb BMI 41.9 BP 121/58 L Blood Pressure Location Rt brachial Position Sitting Pulse 107 H Intake Visit Reasons: diverticulitis Intake Note: This patient presents for an assessment for diverticulitis. Patient c/o; reports weight loss, reports decreased appetite, reports last bm was last night, denies recent episode of diverticulitis. Tool Procurement Coordinator Required: No Accompanied by: Other Relationship Allergies No Known Allergies Allergy (Verified 11/20/22 13:52) Medication List - Last Reconciled 11/20/22 by Jersey Ray MD amoxicillin-pot clavulanate 875-125 mg 1 tab PO BID atorvastatin 10 mg PO DAILY docusate sodium (Colace) 100 mg PO DAILY ergocalciferol (vitamin D2) 1,250 mcg PO CONDE fluconazole 150 mg PO DAILY furosemide 40 mg PO DAILY ibuprofen 800 mg PO Q8H PRN nitrofurantoin monohyd/m-cryst 100 mg (Macrobid) 100 mg PO BID 7 days potassium chloride ER (Klor-Con M) 20 mEq PO DAILY valsartan 160 mg PO DAILY HPI diverticulitis HPI Details 62-year-old female here for follow-up for sigmoid diverticulitis. She had been admitted to the hospital from October 27 to November 05 for abdominal pain with a CAT scan showing phlegmonous changes around the sigmoid colon. She had a benign exam the whole time but I had kept her for a prolonged period of IV antibiotics in view of the significant inflammatory changes. She says she has good oral intake. She denies abdominal pain. She says she has been doing well overall. She did mention that she was diagnosed to have UTI on a visit to the emergency room week ago. She says she was having impression on her bladder area with urination at that time [facility] Medical History Diverticulitis large intestine Hypertension Hypokalemia Multiple sclerosis Phlegmon Social History Household Members: Spouse Housing: House Do you presently have visiting nurse or other home services: No Alcohol intake: never Patient Tobacco Use Status: Never used Tobacco service: No Review of Systems Const Denies chills and Denies fever(s) Card Denies chest pain, Denies dyspnea and Denies dyspnea on exertion Resp Denies cough, Denies dyspnea and Denies dyspnea on exertion GI Denies hematochezia and Denies change in bowel habits Denies hematuria Musc Denies back pain and Denies limited range of motion Neuro Denies focal weakness and Denies convulsions Psych Denies depression and Denies mood swings Physical Exam Const Other: Morbidly obese General: comfortable and no acute distress Resp Effort & Inspection: normal respiratory effort Cardio Rate: regular rate GI Palpation (GI): Soft to palpation, not firm and nontender Assessment & Plan Assessment & Plan (1) Diverticulitis large intestine: Code(s): K57.32 - Diverticulitis of large intestine without perforation or abscess without bleeding Plan: She was admitted for diverticulitis 3 weeks ago. She continues to do well. She says she denies any abdominal pain and has good oral intake as well as bowel movements. Her CT scan had shown a lot of inflammatory changes that time. I will therefore do a follow-up CT scan. I will see her again in the office after her CT scan and discuss the results. She looks well overall. Orders: Orders CT abdomen pelvis w IV con Today K57.32 - Diverticulitis of large intestine without perforation or abscess without bleeding Blood Urea Nitrogen Today K57.32 - Diverticulitis of large intestine without perforation or abscess without bleeding Creatinine Today K57.32 - Diverticulitis of large intestine without perforation or abscess without bleeding Coding Level of Care Code Est Pt Level 3 (09632) Diagnoses Diverticulitis large intestine K57.32
== END 2022-11-20 14:04 | disposition home or self-care (01) ==
PROVIDERS: PCP Internal Medicine; Visit Provider Surgery
DX: K57.32 Diverticulitis of large intestine without perforation or abscess without bleeding (principal)
CPT/HCPCS: 99213

== ENCOUNTER 2022-11-22 09:20 | Inpatient (IN) | payer OTHER, SELFPAY ==
--- NOTE | ~2022-11-22 | CT_ITS ---
EXAMINATION: CT ABDOMEN AND PELVIS WITH CONTRAST CLINICAL INFORMATION: Pain of right lower quadrant. Suprapubic tenderness. COMPARISON: 10/27/2022. TECHNIQUE: Multidetector volumetric images were obtained from the superior aspect of the liver through the pubic symphysis following administration 85 mL of Omnipaque 350 intravenous contrast. Sagittal and coronal reformatted images were obtained on the technologist's workstation. Oral contrast: No This CT examination was performed using dose optimization techniques as appropriate, variously including the following: *Automated exposure control *Adjustment of mA and/or kV according to patient size (this includes techniques or standardized protocols for targeted exams where dose is matched to indication/reason for exam; i.e. extremities or head) *Use of iterative reconstruction technique DLP: 849 mGy-cm FINDINGS: LUNG BASES: Mild bibasilar atelectasis. No pulmonary consolidation or pleural effusion. HEPATOBILIARY: Patient has a large body habitus and there is mild hepatomegaly. The right hepatic lobe is 19.5 cm in craniocaudal dimension. Liver is diffusely hypodense compared to the spleen on these portal venous phase images which suggests likelihood of steatosis. No focal liver lesion. Gallbladder is physiologically distended and without evidence of stones or wall thickening. No dilated bile ducts. PANCREAS: Mildly atrophied. No edema, pancreatic ductal dilatation or mass. SPLEEN: Mild splenomegaly (13.6 cm maximum dimension. ADRENAL GLANDS: Normal. KIDNEYS AND URETERS: Kidneys are normal in size. No hydronephrosis renal mass or stones. BLADDER: The gas within the urinary bladder is presumably from recent catheterization. The posterior bladder wall is mildly thickened and mildly compressed by the perisigmoid abscess, but there is no visible discrete fistula. BOWEL AND PERITONEUM: Stomach and small bowel are unremarkable. The appendix is normal. No dilated bowel loops. Diverticula disease of sigmoid colon with persistent edematous wall thickening of the inflamed sigmoid, adjacent fat stranding and extraluminal fluid and gas. Interval worsening of the perisigmoid abscess extending posterior to the bladder. Also, there are somewhat linear tracking abscess along the sigmoid wall. The complex collection posterior to the bladder has a multiloculated appearance and a component of the abscess tracking to the right of midline measures approximately 6.5 x 2.5 cm on image 67, series 3. ABDOMINAL WALL: Large body habitus with diffuse prominence of adipose tissue. VASCULATURE: Mild atherosclerosis of the abdominal aorta without aneurysm. LYMPH NODES: No pathologic sized lymph nodes in the abdomen or pelvis. No inguinal lymphadenopathy. PELVIC VISCERA: Status post hysterectomy. No evidence of ovarian/adnexal mass. MUSCULOSKELETAL: No acute or suspicious osseous abnormality. Incidentally noted is vacuum disc phenomenon at L4-L5. CT/CT abdomen pelvis w IV con IMPRESSION: Sigmoid diverticular disease and diverticulitis. There is persistent edematous thickening of the sigmoid wall and perisigmoid fat stranding. Interval worsening of perisigmoid abscess posterior to the urinary bladder. The complex, multiloculated appearing abscess exerts mass effect upon the posterior bladder wall. The presence of gas within the urinary bladder is presumably from recent bladder catheterization rather than fistulous communication. Obesity, hepatic steatosis and hepatosplenomegaly.
[2022-11-22 09:41] VITALS: BP 122/73; PULSE 110; RESP 18; TEMP 36.9; O2SAT 99; BMI 42.0
[2022-11-22 10:09] LABS: Appearance Urine Turbid; Color Urine Dark Yellow; Glucose Urine UA Negative (Negative); Leukocyte Esterase Urine Large (3+) (Negative); Nitrite Urine Negative (Negative); PH 6.5 (5.0-9.0); Specific Gravity - Urine 1.015 (1.005-1.025); UMIC TRIGGER UACC YES; Urine Blood Large (3+) (Negative); Urine Ketones Negative (Negative); Urine Protein 300 (3+) mg/dL (Neg-Trace)
[2022-11-22 10:21] LABS: Bacteria Urine 4+ (None Seen); Hyaline Casts Urine 0-2 /LPF (0-2); RBC Urine >20 /HPF (0-2); Squamous Epithelial Cell Urine >20 /HPF (0-2); UACC Culture Trigger YES; WBC Urine >50 /HPF (0-5)
[2022-11-22 11:34] LABS: Basophils Percent Auto 0.3 % (0-2); Eosinophils Percent Auto 0.1 % (0-4); Hematocrit 36.1 % (37.0-47.0); Hemoglobin 11.7 g/dl (12.0-16.0); Imm Gran Abs Auto 0.06 X10*3/uL (0.00-0.03); Imm Gran Pct Auto 0.4 % (0.0-0.4); Lymphocytes Absolute Auto 1.1 X10*3/uL (1.2-4.9); Lymphocytes Percent Auto 7.6 % (20-40); MANUAL DIFF FLAG NO; Mean Corpuscular HGB Conc 32.4 g/dl (31.0-35.0); Mean Corpuscular Hemoglobin 29.2 pg (27.0-33.0); Mean Platelet Volume 9.1 fL (9.4-12.3); Monocytes Absolute Auto 0.8 X10*3/uL (0.1-1.2); Monocytes Percent Auto 5.4 % (2-11); Neutrophils Percent Auto 86.2 % (45-73); Platelet Count 282 X10*3/uL (160-400); Red Blood Count 4.01 X10*6/uL (4.20-5.50); Red Cell Distribution Width 14.4 % (11.0-16.0); White Blood Count 15.1 X10*3/uL (4.8-10.8)
[2022-11-22 11:46] LABS: Lactic Acid 1.3 mmol/L (0.5-2.0)
[2022-11-22 11:52] LABS: Alanine Aminotransferase 16 U/L (0-31); Albumin Level 3.4 g/dL (3.5-5.0); Alkaline Phosphatase 93 U/L (39-117); Anion Gap 15 (12-20); Aspartate Amino Transferase 9 U/L (5-31); Bilirubin Direct 0.3 mg/dL (0.0-0.5); Bilirubin Total 0.6 mg/dL (0.0-1.0); Blood Urea Nitrogen 9 mg/dL (9-16); Carbon Dioxide 24 mmol/L (22-29); Chloride 100 mmol/L (96-108); Creatinine Clr Calc Pharmacy 80.6; Estimated Glomerular Filt Rate > 60; Glucose Random 97 mg/dL (60-115); Potassium 4.1 mmol/L (3.3-5.1); Sodium 135 mmol/L (135-145); Total Protein 7.4 g/dL (6.5-8.0)
[2022-11-22 13:47] VITALS: BP 121/58; PULSE 118; RESP 17; TEMP 37.2; O2SAT 97
[2022-11-22] MEDS: iohexoL 350 MG/ML 75 ML INFUS..BTL 85 ML IV (14:08)
--- NOTE | 2022-11-22 14:42 | ED_ITS ---
HPI - Female Genitourinary General Chief complaint: Urogenital-Female Stated complaint: UTI, was here last week for same thing Time Seen by Provider: 11/22/22 09:57 Source: patient and RN notes reviewed Mode of arrival: ambulatory Limitations: no limitations History of Present Illness HPI Narrative: This is a 62-year-old female, with a past medical history of hypertension, hypokalemia, multiple sclerosis, and diverticulitis with phlegmonous changes recently admitted to the hospital from October 27 until November 10. She is here today as last week she had a urinary tract infection that was treated with nitrofurantoin. She states that her symptoms were beginning to improve however reports 2 days ago she developed cloudy urine, urgency, dysuria. She believes that she has another urinary tract infection. Patient endorses some suprapubic tenderness. Patient denies any fevers, chills, chest pain, shortness of breath, nausea, vomiting. She reports some suprapubic tenderness. No other complaints or concerns at this time. MD elicited complaint: UTI Pertinent past history: recurrent UTIs Onset (ago): day(s) Severity: moderate Female Urogenital Radiation: Non-Radiating Quality of pain: cramping Consistency: intermittent Vaginal discharge: none Vaginal bleeding: none Urinary symptoms: Dysuria, Urgency, Frequency and Foul Smelling Urine Exacerbating factors: urination Relieving factors: none Associated symptoms: abdominal pain Treatment prior to arrival: none Related Data Home Medications Medication Instructions Recorded Confirmed ergocalciferol (vitamin D2) 1,250 1,250 mcg PO CONDE 10/27/22 11/22/22 mcg (50,000 unit) capsule furosemide 40 mg tablet 40 mg PO DAILY 10/27/22 11/22/22 ibuprofen 800 mg tablet 800 mg PO Q8H PRN pain 10/27/22 11/22/22 valsartan 160 mg tablet 160 mg PO DAILY 10/27/22 11/22/22 Previous Rx's Medication Instructions Recorded docusate sodium 100 mg capsule 100 mg PO DAILY #30 caps 11/05/22 (Colace) Allergies Allergy/AdvReac Type Severity Reaction Status Date / Time No Known Allergies Allergy Verified 11/20/22 13:52 Review of Systems Review of Systems: Yes all other systems are reviewed and are negative Constitutional: Constitutional: Reports as per HPI PMFSH Past Medical History Attestation statement: The following information was validated with the patient. Medical History Diverticulitis large intestine Hypertension Hypokalemia Multiple sclerosis Phlegmon Social History Social History Household Members: Spouse Housing: House Do you presently have visiting nurse or other home services: No Alcohol intake: never Patient Tobacco Use Status: Never used Tobacco Second Hand Smoke Exposure: No service: No Physical Exam Vital Signs: Vital Signs: Last Vital Signs Temp 97.0 F 11/24/22 07:35 Pulse 85 11/24/22 07:35 Resp 20 11/24/22 07:35 BP 111/58 L 11/24/22 07:35 Pulse Ox 97 11/24/22 07:35 O2 Del Method Nasal Cannula 11/24/22 07:35 O2 Flow Rate 3 11/24/22 07:35 BMI result Body Mass Index 42.0 Const: General: cooperative, comfortable and no acute distress Orientation/consciousness: patient oriented x3 Limitations: no limitations HEENT: Head: Yes normal to inspection, Yes normocephalic and Yes atraumatic Ears: hearing grossly normal bilaterally General nose exam: Normal external nose present Face and sinus: Yes normal facial exam Mouth: Normal oral and palatal mucosa present, oropharynx normal and moist mucous membranes Throat: Yes posterior oropharynx normal Eyes: General: appearance normal, both eyes and all related structures Eyelids: Yes eyelids normal Conjunctivae: conjunctivae normal Sclerae: sclerae normal Pupils: Equal, round and reactive pupils present EOM: EOMs intact bilaterally Neck: Neck: Yes normal visual inspection, Yes full ROM and Yes no lymphadenopathy Lymphatic: no lymphadenopathy noted Chest: Chest palpation & inspection: normal inspection of the chest Resp: Effort & Inspection: normal respiratory effort and able to speak in complete sentences Auscultation: clear to auscultation bilaterally, no crackles, no rales, no rhonchi and no wheezes Cardio: Rate: regular rate Rhythm: regular rhythm Heart sounds: S1 normal heart sound present and S2 normal heart sound present GI: Other: Abdomen is soft, mild tenderness to palpation along the right suprapubic region. No rebound or guarding. Normoactive bowel sounds present in all 4 quadrants. Inspection: Yes normal to inspection Skin: General skin exam: no rashes or lesions noted Trauma: no lacerations or abrasions Wounds: no wounds Neuro: General: patient oriented x3 and moves all extremities Cranial nerves: Yes Equal, round and reactive pupils present Extrem: General: Yes normal to inspection Right upper extremity: normal to inspection Left upper extremity: normal to inspection Right lower extremity: normal to inspection Left lower extremity: normal to inspection Course Reevaluation(s) Reevaluation #1: Patient with leukocytosis of 15.1, H&H improved to 11.7 and 36. Lactic acid 1.3. Urinalysis obtained revealing large blood, large leuk esterases, and high protein. Given results of lab work and urinary tract infection and given her past medical history of recent worsening sigmoid diverticulitis with increasing intramural abscesses is extending to the dome of the bladder seen on CT scan performed on October 30, 2022, will repeat abdominal CT with contrast today. Time: 14:49 Reevaluation #2: CT abdomen revealing diverticular disease and diverticulitis. There is persistent edematous thickening of the sigmoid wall and perisigmoid fat stran ding. Interval worsening of perisigmoid abscess posterior to the urinary bladder. This is complex, multiloculated appearing abscess exerting mass effect on to the posterior bladder wall. There is presence of gas within the urinary bladder which is presumed from bladder catheterization rather than fistulous communication. I discussed these results with patient and at bedside. Consult to surgery, Dr. Lawson, who looked at the imaging and stated that she can be discharged on p.o. antibiotics and follow-up in the outpatient clinic tomorrow. I do not feel comfortable discharging patient given worsening abscess on CT scan. I discussed this with my attending physician, Dr. Ayala and Dr. Ulrich, who agreed that patient needs to be admitted to the hospital for further evaluation and treatment. Dr. yAala discussed case with Dr. Perez. IV fluids and zosyn ordered. Time: 15:59 Reevaluation #3: Dr. Perez reviewed imaging and agree that patient needs to be admitted. She will be admitted through the surgical service. Transfer of care initiated Time: 18:24 Medications Administered Generic Name Dose Route Start Last Admin Trade Name Freq PRN Reason Stop Dose Admin Enoxaparin Sodium 40 mg 11/22/22 19:00 11/22/22 19:37 Enoxaparin Sodium 40 Mg/0.4 Ml Syringe SUBCUT 40 mg Q24H SO Administration Hydromorphone HCl 0.5 mg 11/23/22 16:41 11/23/22 22:53 Hydromorphone Hcl 0.5 Mg/0.5 Ml Syringe IVPUSH 0.5 mg Q4H PRN Administration Pain, Severe (Pain Scale 7-10) Protocol Levofloxacin 500 mg in 100 mls @ 100 mls/hr 11/22/22 19:00 11/23/22 21:33 Levaquin IV Infused Q24H SO Infusion Metronidazole 500 mg in 100 mls @ 100 mls/hr 11/22/22 19:00 11/24/22 07:48 Flagyl IV Infused Q8H SO Infusion Acetaminophen 1,000 mg in 100 mls @ 400 mls/hr 11/23/22 17:00 11/24/22 07:48 Ofirmev IV Infused Q6H SO Infusion Lactated Ringer's 1,000 mls @ 125 mls/hr 11/23/22 16:45 11/24/22 02:21 Lr IVCONT 125 mls/hr .Q8H SO Administration Ketorolac Tromethamine 15 mg 11/23/22 14:45 11/24/22 01:30 Ketorolac Tromethamine 15 Mg/Ml Vial IVPUSH 15 mg Q6H SO Administration Pantoprazole Sodium 40 mg 11/23/22 09:00 11/23/22 08:14 Pantoprazole Sodium 40 Mg/10 Ml Vial IVPUSH 40 mg DAILY SO Administration Sodium Chloride 3 ml 11/23/22 00:00 11/24/22 00:38 0.9 % Sodium Chloride Flush 3 Ml Syringe IVFLUSH Not Given QSHIFT SO Discontinued Medications Generic Name Dose Route Start Last Admin Trade Name Freq PRN Reason Stop Dose Admin Famotidine 20 mg 11/24/22 01:20 11/24/22 01:30 Famotidine/Pf 20 Mg/2 Ml Vial IVPUSH 11/24/22 01:21 20 mg ONCE ONE Administration Sodium Chloride 1,000 mls @ 999 mls/hr 11/22/22 15:45 11/22/22 18:27 Ns IV 11/22/22 16:45 Infused .Q1H1M ONE Infusion Piperacillin Sod/Tazobactam 50 mls @ 100 mls/hr 11/22/22 15:45 11/22/22 16:29 Sod 3.375 gm/ Sodium Chloride IV 11/22/22 16:14 Infused ONCE ONE Infusion Sodium Chloride 1,000 mls @ 999 mls/hr 11/22/22 18:15 11/22/22 20:47 Ns IV 11/22/22 19:15 Infused .Q1H1M ONE Infusion Dextrose/Sodium Chloride 1,000 mls @ 100 mls/hr 11/22/22 18:30 11/23/22 16:42 D51/2ns IVCONT Infused .Q10H SO Infusion Iohexol 85 ml 11/22/22 14:07 11/22/22 14:08 Iohexol 350 Mg/Ml 75 Ml Infus..Btl IV 11/22/22 14:08 85 ml ONCE ONE Administration Medical Decision Making Medical Decision Making MDM Narrative: 62-year-old female presenting to the emergency department for evaluation of ?uti. CT scan performed on 10/30 revealed worsening sigmoid diverticulitis with increasing intra mural abscess is in the sigmoid colon and increasing involvement of the dome of the bladder. There is no collection seen at that time. She was admitted for over a week, without any surgical intervention and was treated with p.o. Augmentin. She completed the full course. Patient was seen on November 14, 2022 for what she thought was a urinary tract infection. On review of this record, urine did appear to be infected however urine culture did not grow bacteria. She completed the full course of Macrobid with some mihai viation of her symptoms however her symptoms returned 2 days ago. Then she was having urinary symptoms which she was seen on November 14 for and was treated with Macrobid. Given patient's symptoms, and urine not growing any bacteria last week, I am suspicious that this may not be a simple urinary tract infection. Will obtain basic labs. On arrival, patient is nontoxic appearing, under no acute distress. Patient is mildly tachycardic at 110bpm. however admits that she is very anxious. Patient is afebrile. Differential diagnoses include resistant urinary tract infection, pyelonephritis, abscess. Plan: Labs, UA, Differential Diagnosis Differential Diagnoses: The differential diagnosis associated with the presentation includes Drug resistant UTI, diverticulitis, sigmoid abscess Admission/Observation Consideration of admission/observation: Escalation of care including admission/observation considered Patient admitted to the hospital given worsening perisigmoid abscess with mass effect upon the posterior bladder wall. Consult Healthcare Provider Management of the patient was discussed with: Envelope Press Operator Dr. Lawson, Dr. Perez. Lab Data MDM Lab Attestation statement: I reviewed the patient's lab results. Leukocytosis with left shift, stable H&H. Urine with large blood, large leuk e sterases, rbc's, and wbc's. 11/22/22 11:25 11/22/22 11:25 Labs: Lab Results 11/22/22 11/22/22 11/22/22 Range/Units 09:48 11:25 11:25 WBC 15.1 H (4.8-10.8) X10*3/uL RBC 4.01 L D (4.20-5.50) X10*6/uL Hgb 11.7 L D (12.0-16.0) g/dl Hct 36.1 L D (37.0-47.0) % MCV 90.0 (80.0-98.0) fL MCH 29.2 (27.0-33.0) pg MCHC 32.4 (31.0-35.0) g/dl RDW 14.4 (11.0-16.0) % Plt Count 282 (160-400) X10*3/uL MPV 9.1 L (9.4-12.3) fL Immature Gran % (Auto) 0.4 (0.0-0.4) % Neut % (Auto) 86.2 H (45-73) % Lymph % (Auto) 7.6 L (20-40) % [place] % (Auto) 5.4 (2-11) % Eos % (Auto) 0.1 (0-4) % Baso % (Auto) 0.3 (0-2) % Lymph # (Auto) 1.1 L (1.2-4.9) X10*3/uL [place] # (Auto) 0.8 (0.1-1.2) X10*3/uL Eos # (Auto) 0.0 (0.0-0.4) X10*3/uL Baso # (Auto) 0.0 (0.0-0.2) X10*3/uL Abs Immat Gran (auto) 0.06 H (0.00-0.03) X10*3/uL Absolute Neuts (auto) 13.0 H (2.0-8.3) x10*3/uL Absolute Nucleated RBC 0.000 (0.0-0.012) X10*3/uL Nucleated RBC % (auto) 0.0 (0.0-0.2) /100WBC Sodium 135 (135-145) mmol/L Potassium 4.1 D (3.3-5.1) mmol/L Chloride 100 (96-108) mmol/L Carbon Dioxide 24 (22-29) mmol/L Anion Gap 15 (12-20) BUN 9 (9-16) mg/dL Creatinine 0.83 (0.5-1.4) mg/dL Estim Creat Clear Calc 80.6 Estimated GFR > 60 Random Glucose 97 (60-115) mg/dL Lactic Acid (0.5-2.0) mmol/L Calcium 10.0 D (8.4-10.2) mg/dL Total Bilirubin 0.6 (0.0-1.0) mg/dL Direct Bilirubin 0.3 (0.0-0.5) mg/dL AST 9 (5-31) U/L ALT 16 (0-31) U/L Alkaline Phosphatase 93 (39-117) U/L Total Protein 7.4 (6.5-8.0) g/dL Albumin 3.4 L (3.5-5.0) g/dL Urine Color Dark Yellow Urine Appearance Turbid Urine pH 6.5 (5.0-9.0) Ur Specific [place] 1.015 (1.005-1.025) Urine Protein 300 (3+) H (Neg-Trace) mg/dL Urine Glucose (UA) Negative (Negative) mg/dL Urine Ketones Negative (Negative) mg/dL Urine Blood Large (3+) H (Negative) Urine Nitrite Negative (Negative) Ur Leukocyte Esterase Large (3+) H (Negative) Urine RBC >20 H (0-2) /HPF Urine WBC >50 H (0-5) /HPF Ur Squamous Epith Cells >20 (0-2) /HPF Urine Bacteria 4+ (None Seen) Hyaline Casts 0-2 (0-2) /LPF 11/22/22 Range/Units 11:25 WBC (4.8-10.8) X10*3/uL RBC (4.20-5.50) X10*6/uL Hgb (12.0-16.0) g/dl Hct (37.0-47.0) % MCV (80.0-98.0) fL MCH (27.0-33.0) pg MCHC (31.0-35.0) g/dl RDW (11.0-16.0) % Plt Count (160-400) X10*3/uL MPV (9.4-12.3) fL Immature Gran % (Auto) (0.0-0.4) % Neut % (Auto) (45-73) % Lymph % (Auto) (20-40) % [place] % (Auto) (2-11) % Eos % (Auto) (0-4) % Baso % (Auto) (0-2) % Lymph # (Auto) (1.2-4.9) X10*3/uL [place] # (Auto) (0.1-1.2) X10*3/uL Eos # (Auto) (0.0-0.4) X10*3/uL Baso # (Auto) (0.0-0.2) X10*3/uL Abs Immat Gran (auto) (0.00-0.03) X10*3/uL Absolute Neuts (auto) (2.0-8.3) x10*3/uL Absolute Nucleated RBC (0.0-0.012) X10*3/uL Nucleated RBC % (auto) (0.0-0.2) /100WBC Sodium (135-145) mmol/L Potassium (3.3-5.1) mmol/L Chloride (96-108) mmol/L Carbon Dioxide (22-29) mmol/L Anion Gap (12-20) BUN (9-16) mg/dL Creatinine (0.5-1.4) mg/dL Estim Creat Clear Calc Estimated GFR Random Glucose (60-115) mg/dL Lactic Acid 1.3 (0.5-2.0) mmol/L Calcium (8.4-10.2) mg/dL Total Bilirubin (0.0-1.0) mg/dL Direct Bilirubin (0.0-0.5) mg/dL AST (5-31) U/L ALT (0-31) U/L Alkaline Phosphatase (39-117) U/L Total Protein (6.5-8.0) g/dL Albumin (3.5-5.0) g/dL Urine Color Urine Appearance Urine pH (5.0-9.0) Ur Specific [place] (1.005-1.025) Urine Protein (Neg-Trace) mg/dL Urine Glucose (UA) (Negative) mg/dL Urine Ketones (Negative) mg/dL Urine Blood (Negative) Urine Nitrite (Negative) Ur Leukocyte Esterase (Negative) Urine RBC (0-2) /HPF Urine WBC (0-5) /HPF Ur Squamous Epith Cells (0-2) /HPF Urine Bacteria (None Seen) Hyaline Casts (0-2) /LPF Radiology Impression Discussion of test interpretation with radiology: I have reviewed the radiologist's reading. Radiologist Impression: EXAMINATION: CT ABDOMEN AND PELVIS WITH CONTRAST? CLINICAL INFORMATION: Pain of right lower quadrant. Suprapubic tenderness.? COMPARISON: 10/27/2022. TECHNIQUE: Multidetector volumetric images were obtained from the superior aspect of the liver through the pubic symphysis following administration 85 mL of Omnipaque 350 intravenous contrast. Sagittal and coronal reformatted images were obtained on the technologist's workstation.? Oral contrast: No This CT examination was performed using dose optimization techniques as appropriate, variously including the following: *Automated exposure control *Adjustment of mA and/or kV according to patient size (this includes techniques or standardized protocols for targeted exams where dose is matched to indication/reason for exam; i.e. extremities or head) *Use of iterative reconstruction technique DLP: 849 mGy-cm FINDINGS: LUNG BASES: Mild bibasilar atelectasis. No pulmonary consolidation or pleural effusion.? HEPATOBILIARY: Patient has a large body habitus and there is mild hepatomegaly. The right hepatic lobe is 19.5 cm in craniocaudal dimension. Liver is diffusely hypodense compared to the spleen on these portal venous phase images which suggests likelihood of steatosis. No focal liver lesion. Gallbladder is physiologically distended and without evidence of stones or wall thickening. No dilated bile ducts. PANCREAS: Mildly atrophied. No edema, pancreatic ductal dilatation or mass.? SPLEEN: Mild splenomegaly (13.6 cm maximum dimension.? ADRENAL GLANDS: Normal.? KIDNEYS AND URETERS: Kidneys are normal in size. No hydronephrosis renal mass or stones. BLADDER:? The gas within the urinary bladder is presumably from recent catheterization. The posterior bladder wall is mildly thickened and mildly compressed by the perisigmoid abscess, but there is no visible discrete fistula. BOWEL AND PERITONEUM: Stomach and small bowel are unremarkable. The appendix is normal. No dilated bowel loops. Diverticula disease of sigmoid colon with persistent edematous wall thickening of the inflamed sigmoid, adjacent fat stranding and extraluminal fluid and gas. Interval worsening of the perisigmoid abscess extending posterior to the bladder. Also, there are somewhat linear tracking abscess along the sigmoid wall. The complex collection posterior to the bladder has a multiloculated appearance and a component of the abscess tracking to the right of midline measures approximately 6.5 x 2.5 cm on image 67, series 3. ABDOMINAL WALL: Large body habitus with diffuse prominence of adipose tissue.? VASCULATURE: Mild atherosclerosis of the abdominal aorta without aneurysm. LYMPH NODES: No pathologic sized lymph nodes in the abdomen or pelvis. No inguinal lymphadenopathy. PELVIC VISCERA: Status post hysterectomy. No evidence of ovarian/adnexal mass. MUSCULOSKELETAL: No acute or suspicious osseous abnormality. Incidentally noted is vacuum disc phenomenon at L4-L5.? CT/CT abdomen pelvis w IV con IMPRESSION: Sigmoid diverticular disease and diverticulitis. There is persistent edematous thickening of the sigmoid wall and perisigmoid fat stranding. Interval worsening of perisigmoid abscess posterior to the urinary bladder. The complex, multiloculated appearing abscess exerts mass effect upon the posterior bladder wall. The presence of gas within the urinary bladder is presumably from recent bladder catheterization rather than fistulous communication. ? Obesity, hepatic steatosis and hepatosplenomegaly. ? Dictated By: Willie Brown MD Independent Historian Clinical information obtained from an independent historian. History obtained from or confirmed by: Spouse External Record Review External record reviewed: Inpatient record, Office record, Outpatient record, Prior outpatient labs, Prior outpatient radiology, Primary care record and Outside ED record See above MDM for further review of past visits Prescription Management I considered prescription management with: Antibiotic Critical Care Time Critical Care Time Critical Care Time: Yes Total Critical Care Time: 60 Attestation: I have personally provided critical care time exclusive of time spent on separately billable procedures. Time includes review of lab data, radiology results, discussion with consultants, and monitoring for potential decompensation. Intervention performed as documented. Discharge Plan Discharge Clinical Impression: Diverticulitis, Abscess of sigmoid colon due to diverticulitis Patient Disposition: Admitted As Inpatient Interventions: Admission Worksheet (ED) Last Done: 11/22/22 20:57 Discharge Date/Time: 11/22/22 20:57
[2022-11-22] MEDS: 0.9 % Sodium Chloride 1,000 ML 999 ML IV ×2 (15:59→18:32)
[2022-11-22] MEDS: Piperacillin Sodium/Tazobactam 3.375 GM in 0.9 % Sodium Chloride 50 ML IV (15:59)
[2022-11-22] MEDS: levoFLOXacin/D5W 500 MG/100 ML PIGGYBACK 100 MG IV (18:40)
--- NOTE | 2022-11-22 18:47 | PHA.MEDREC ---
Pharmacy Consult ? Medication Reconciliation Pharmacy has completed the medication reconciliation. Patient reported all medications. Reports she never started atorvastatin. Reports she finished 10 day course of KCl. Kianna Briseno, EmilyD
[2022-11-22 19:04] VITALS: BP 124/57; PULSE 112; RESP 17; TEMP 38.3; O2SAT 99
[2022-11-22] MEDS: metroNIDAZOLE/NS 500 MG/100 ML PIGGYBACK 100 MG IV (19:36)
[2022-11-22] MEDS: Enoxaparin Sodium 40 MG/0.4 ML SYRINGE SUBCUT (19:37)
[2022-11-22 21:20] VITALS: BP 134/63; PULSE 113; RESP 14; TEMP 37.1; O2SAT 97
--- NOTE | 2022-11-22 22:28 | PM.HPGS ---
History of Present Illness History of Present Illness Date of Service: 11/22/22 Chief complaint: Abdominal pain Narrative: Asuncion Agee is a 62 year old female known to our service who came in in mid October wji abdo pain and was noted to have a thickened sig colon with signicant inflammation, thickening, phlegmon -? diverticulitis. Pt was unusually nontender but was treated with iv antibx for over a week before being dc home. about 4 days ago she was feeling bladder pressure and went to the ER and was started on antibiotics for a uti. She saw Dr Ray in the office 2 days ago who planned to do a f.u ct and then at some point plan a cscope. Pt unfortunately felt like uti was worsening today and came to the ER where her wbc was noted to be [address] scan showed worsening ?abscess/phlegmon with mass affect on the bladder and some air present. Pt denies urinating air or stool. No fever or chills, no issues with eating and bowel movements Review of Systems Constitutional: Constitutional: Reports as per [facility] Past Medical History Medical History Diverticulitis large intestine Hypertension Hypokalemia Multiple sclerosis Phlegmon Social History Social History Household Members: Spouse Housing: House Do you presently have visiting nurse or other home services: No Alcohol intake: never Patient Tobacco Use Status: Never used Tobacco Advance Directives: Yes Advance Directives Information Provided: No Advance Directives on File: No service: No Meds Allergies Allergy/AdvReac Type Severity Reaction Status Date / Time No Known Allergies Allergy Verified 11/20/22 13:52 Active Medications: Current Medications Enoxaparin Sodium (Enoxaparin Sodium 40 Mg/0.4 Ml Syringe) 40 mg SUBCUT Q24H [facility] Last Admin: 11/22/22 19:37 Dose: 40 mg Dextrose/Sodium Chloride (D51/2ns) 1,000 mls @ 100 mls/hr IVCONT .Q10H SO Levofloxacin (Levaquin) 500 mg in 100 mls @ 100 mls/hr IV Q24H SO Last Infusion: 11/22/22 19:36 Dose: Infused Metronidazole (Flagyl) 500 mg in 100 mls @ 100 mls/hr IV Q8H [facility] Last Infusion: 11/22/22 20:47 Dose: Infused Ketorolac Tromethamine (Ketorolac Tromethamine 30 Mg/Ml Vial) 15 mg IVPUSH Q6H PRN PRN Reason: Pain, Moderate(Pain Scale 4-6) Stop: 11/27/22 18:17 Melatonin (Melatonin 3 Mg Tablet) 3 mg PO BEDTIME PRN PRN Reason: Insomnia Pantoprazole Sodium (Pantoprazole Sodium 40 Mg/10 Ml Vial) 40 mg IVPUSH DAILY [facility] Pharmacy Consult (Consult Rx Perform Med Rec) 1 each MISCELLANE ONCE PRN PRN Reason: Consult order Sodium Chloride (0.9 % Sodium Chloride Flush 3 Ml Syringe) 3 ml IVFLUSH QSHIFT [facility] Home Medications Medication Instructions Recorded Confirmed Last Taken Type ergocalciferol (vitamin D2) 1,250 1,250 mcg PO CONDE 10/27/22 11/22/22 11/19/22 History mcg (50,000 unit) capsule furosemide 40 mg tablet 40 mg PO DAILY 10/27/22 11/22/22 11/21/22 History ibuprofen 800 mg tablet 800 mg PO Q8H PRN pain 10/27/22 11/22/22 Unknown History valsartan 160 mg tablet 160 mg PO DAILY 10/27/22 11/22/22 11/21/22 History Physical Exam Vital Signs: Vital Signs: Last Vital Signs Temp 98.8 F 11/22/22 21:20 Pulse 113 H 11/22/22 21:20 Resp 14 11/22/22 21:20 BP 134/63 11/22/22 21:20 Pulse Ox 97 11/22/22 21:20 O2 Del Method Room Air 11/22/22 21:20 BMI result Body Mass Index 42.0 Const: General: cooperative, healthy appearing and no acute distress Orientation/consciousness: oriented to person, oriented to place and oriented to time HEENT: Head: Yes normal to inspection Eyes: General: appearance normal, both eyes and all related structures Resp: Effort & Inspection: normal respiratory effort Auscultation: clear to auscultation bilaterally Cardio: Rate: regular rate Rhythm: regular rhythm GI: Other: abdo soft nontender nondistended Skin: General skin exam: no rashes or lesions noted Neuro: General: oriented to person, oriented to place and oriented to time Extrem: General: Yes normal to inspection Results Results Labs: Short CBC 11/22/22 Range/Units 11:25 WBC 15.1 H (4.8-10.8) X10*3/uL Hgb 11.7 L D (12.0-16.0) g/dl Hct 36.1 L D (37.0-47.0) % Plt Count 282 (160-400) X10*3/uL BMP 11/22/22 11:25 Sodium 135 Potassium 4.1 D Chloride 100 Carbon Dioxide 24 BUN 9 Creatinine 0.83 Calcium 10.0 D Liver Function 11/22/22 Range/Units 11:25 Total Bilirubin 0.6 (0.0-1.0) mg/dL Direct Bilirubin 0.3 (0.0-0.5) mg/dL AST 9 (5-31) U/L ALT 16 (0-31) U/L Alkaline Phosphatase 93 (39-117) U/L Albumin 3.4 L (3.5-5.0) g/dL Urine 11/22/22 Range/Units 09:48 Urine Color Dark Yellow Urine Appearance Turbid Urine pH 6.5 (5.0-9.0) Ur Specific [place] 1.015 (1.005-1.025) Urine Protein 300 (3+) H (Neg-Trace) mg/dL Urine Glucose (UA) Negative (Negative) mg/dL Assessment and Plan (1) Diverticulitis: Status: Acute Plan 62 year old female with sigmoid pathology ? diverticulitis and now urinary sx ? bladder involvement - ? not typical diverticulitis - pt also with MS issues but stable throughout all this. Plan to admit and npo and will discuss with Dr Ray. Pt most likely will need to undergo surgery sooner than later. npo, ivf, Cipro and Flagyl, follow cbc. pt and her understand and agree with current plan Time Spent With Patient Time: Total time managing care of this patient today ____ minutes. Quality Stroke Does the patient have a stroke diagnosis?: No VTE Prior VTE?: No VTE Risk Level:: Surgical - moderate VTE Device Contraindication: N/A - Device Ordered VTE Drug Contraindication: N/A - Med Ordered Procedures Date of Service Date of Service: 11/22/22
[2022-11-22] MEDS: Dextrose 5 % and 0.45 % NaCl 1,000 ML 100 ML IVCONT (22:35)
[2022-11-22 22:41] VITALS: BP 154/78; PULSE 105; RESP 22; TEMP 36.4; O2SAT 98
[2022-11-23] VITALS (12 sets, daily range): BP systolic 102–137; BP diastolic 58–68; PULSE 84–107; RESP 13–20; TEMP 35.8–36.6; O2SAT 94–97; BMI 42.5
[2022-11-23] MEDS: 0.9 % Sodium Chloride Flush 3 ML SYRINGE IVFLUSH (01:00)
[2022-11-23] MEDS: metroNIDAZOLE/NS 500 MG/100 ML PIGGYBACK 100 MG IV ×2 (04:00→18:09)
[2022-11-23 06:30] LABS: MANUAL DIFF FLAG NO
[2022-11-23 06:36] LABS: Basophils Percent Auto 0.3 % (0-2); Eosinophils Percent Auto 0.3 % (0-4); Hematocrit 29.8 % (37.0-47.0); Hemoglobin 9.7 g/dl (12.0-16.0); Imm Gran Abs Auto 0.15 X10*3/uL (0.00-0.03); Imm Gran Pct Auto 1.3 % (0.0-0.4); Lymphocytes Absolute Auto 1.3 X10*3/uL (1.2-4.9); Mean Corpuscular HGB Conc 32.6 g/dl (31.0-35.0); Mean Corpuscular Hemoglobin 29.3 pg (27.0-33.0); Mean Platelet Volume 9.5 fL (9.4-12.3); Monocytes Absolute Auto 1.1 X10*3/uL (0.1-1.2); Monocytes Percent Auto 9.3 % (2-11); Neutrophils Absolute Auto 9.3 x10*3/uL (2.0-8.3); Neutrophils Percent Auto 77.8 % (45-73); Platelet Count 257 X10*3/uL (160-400); Red Blood Count 3.31 X10*6/uL (4.20-5.50); Red Cell Distribution Width 14.6 % (11.0-16.0); White Blood Count 11.9 X10*3/uL (4.8-10.8)
[2022-11-23 07:11] LABS: Carcinoembryonic Antigen < 1.73 ng/mL
--- NOTE | 2022-11-23 08:13 | P.CONAN_ITS ---
[facility] Active Problems Active Problems: All Active Problems (Updated 11/22/22 @ 18:31 by GERALD De La Rosa) Diverticulitis (Acute) Abscess of sigmoid colon due to diverticulitis (Acute) Diverticulitis large intestine (Acute) Hypertension (Acute) Multiple sclerosis (Acute) Past Medical History Medical History Diverticulitis large intestine Hypertension Hypokalemia Multiple sclerosis Phlegmon Family History Family history of problems with anesthesia: No Surgical History History of Problems with Anesthesia: No Social History Social History Household Members: Spouse Housing: House Do you presently have visiting nurse or other home services: No Alcohol intake: never Patient Tobacco Use Status: Never used Tobacco Second Hand Smoke Exposure: No service: No Meds Allergies Allergy/AdvReac Type Severity Reaction Status Date / Time No Known Allergies Allergy Verified 11/20/22 13:52 Active Medications: Current Medications Acetaminophen (Acetaminophen 325 Mg Tablet) 650 mg PO Q6H PRN PRN Reason: Fever Enoxaparin Sodium (Enoxaparin Sodium 40 Mg/0.4 Ml Syringe) 40 mg SUBCUT Q24H [facility] Last Admin: 11/22/22 19:37 Dose: 40 mg Dextrose/Sodium Chloride (D51/2ns) 1,000 mls @ 100 mls/hr IVCONT .Q10H [facility] Last Admin: 11/22/22 22:35 Dose: 100 mls/hr Levofloxacin (Levaquin) 500 mg in 100 mls @ 100 mls/hr IV Q24H [facility] Last Infusion: 11/22/22 19:36 Dose: Infused Metronidazole (Flagyl) 500 mg in 100 mls @ 100 mls/hr IV Q8H [facility] Last Infusion: 11/23/22 08:10 Dose: Infused Ketorolac Tromethamine (Ketorolac Tromethamine 30 Mg/Ml Vial) 15 mg IVPUSH Q6H PRN PRN Reason: Pain, Moderate(Pain Scale 4-6) Stop: 11/27/22 18:17 Melatonin (Melatonin 3 Mg Tablet) 3 mg PO BEDTIME PRN PRN Reason: Insomnia Pantoprazole Sodium (Pantoprazole Sodium 40 Mg/10 Ml Vial) 40 mg IVPUSH DAILY [facility] Pharmacy Consult (Consult Rx Perform Med Rec) 1 each MISCELLANE ONCE PRN PRN Reason: Consult order Sodium Chloride (0.9 % Sodium Chloride Flush 3 Ml Syringe) 3 ml IVFLUSH QSHIFT [facility] Last Admin: 11/23/22 01:00 Dose: 3 ml Home Medications Medication Instructions Recorded Confirmed Last Taken Type ergocalciferol (vitamin D2) 1,250 1,250 mcg PO CONDE 10/27/22 11/22/22 11/19/22 History mcg (50,000 unit) capsule furosemide 40 mg tablet 40 mg PO DAILY 10/27/22 11/22/22 11/21/22 History ibuprofen 800 mg tablet 800 mg PO Q8H PRN pain 10/27/22 11/22/22 Unknown History valsartan 160 mg tablet 160 mg PO DAILY 10/27/22 11/22/22 11/21/22 History Exam Exam Date and Time: November 23, 2022812 Height,Weight and Vital Signs: Height 5 ft 2 in Weight 104.2 kg Last Vital Signs Temp 97.7 F 11/23/22 07:43 Pulse 96 11/23/22 07:43 Resp 20 11/23/22 07:43 BP 123/62 11/23/22 07:43 Pulse Ox 94 11/23/22 07:43 O2 Del Method Room Air 11/23/22 07:43 Pertinent Lab Results Pertinent Lab Results: Laboratory Tests 11/22/22 11/22/22 11/22/22 09:48 11:25 11:25 WBC 15.1 H RBC 4.01 L D Hgb 11.7 L D Hct 36.1 L D MCV 90.0 MCH 29.2 MCHC 32.4 RDW 14.4 Plt Count 282 MPV 9.1 L Immature Gran % (Auto) 0.4 Neut % (Auto) 86.2 H Lymph % (Auto) 7.6 L [place] % (Auto) 5.4 Eos % (Auto) 0.1 Baso % (Auto) 0.3 Lymph # (Auto) 1.1 L [place] # (Auto) 0.8 Eos # (Auto) 0.0 Baso # (Auto) 0.0 Abs Immat Gran (auto) 0.06 H Absolute Neuts (auto) 13.0 H Absolute Nucleated RBC 0.000 Nucleated RBC % (auto) 0.0 Sodium 135 Potassium 4.1 D Chloride 100 Carbon Dioxide 24 Anion Gap 15 BUN 9 Creatinine 0.83 Estim Creat Clear Calc 80.6 Estimated GFR > 60 Random Glucose 97 Lactic Acid Calcium 10.0 D Total Bilirubin 0.6 Direct Bilirubin 0.3 AST 9 ALT 16 Alkaline Phosphatase 93 Total Protein 7.4 Albumin 3.4 L Carcinoembryonic Ag Urine Color Dark Yellow Urine Appearance Turbid Urine pH 6.5 Ur Specific [place] 1.015 Urine Protein 300 (3+) H Urine Glucose (UA) Negative Urine Ketones Negative Urine Blood Large (3+) H Urine Nitrite Negative Ur Leukocyte Esterase Large (3+) H Urine RBC >20 H Urine WBC >50 H Ur Squamous Epith Cells >20 Urine Bacteria 4+ Hyaline Casts 0-2 11/22/22 11/23/22 11/23/22 11:25 05:59 05:59 WBC 11.9 H RBC 3.31 L Hgb 9.7 L Hct 29.8 L MCV 90.0 MCH 29.3 MCHC 32.6 RDW 14.6 Plt Count 257 MPV 9.5 Immature Gran % (Auto) 1.3 H Neut % (Auto) 77.8 H Lymph % (Auto) 11.0 L [place] % (Auto) 9.3 Eos % (Auto) 0.3 Baso % (Auto) 0.3 Lymph # (Auto) 1.3 [place] # (Auto) 1.1 Eos # (Auto) 0.0 Baso # (Auto) 0.0 Abs Immat Gran (auto) 0.15 H Absolute Neuts (auto) 9.3 H Absolute Nucleated RBC 0.000 Nucleated RBC % (auto) 0.0 Sodium Potassium Chloride Carbon Dioxide Anion Gap BUN Creatinine Estim Creat Clear Calc Estimated GFR Random Glucose Lactic Acid 1.3 Calcium Total Bilirubin Direct Bilirubin AST ALT Alkaline Phosphatase Total Protein Albumin Carcinoembryonic Ag < 1.73 Urine Color Urine Appearance Urine pH Ur Specific [place] Urine Protein Urine Glucose (UA) Urine Ketones Urine Blood Urine Nitrite Ur Leukocyte Esterase Urine RBC Urine WBC Ur Squamous Epith Cells Urine Bacteria Hyaline Casts Airway Mallampati Class: II TM Dist: >3cm Neck ROM: Full Loose/Missing/Broken Teeth: No (rrr) Heart: clear Lungs: rrr Assessment and Plan Final Anesthetic Review Family History of Problems with Anesthesia: No History of Problems with Anesthesia: No ASA Class: III and Emergency Final Preanesthetic Review: No Changes in Pt Med Stat, Meds/Allgs Chart Reviewed, Consent Obtained/Reviewed and Anes Risks/Benef Reviewed Patient Risk: Intermediate Procedure Risk: High Anesthetic Plan Anesthetic Plan: GA Disposition: Standard PACU
[2022-11-23] MEDS: Dextrose 5 % and 0.45 % NaCl 1,000 ML 100 ML IVCONT (08:14)
[2022-11-23] MEDS: Pantoprazole Sodium 40 MG/10 ML VIAL IVPUSH (08:14)
--- NOTE | 2022-11-23 08:29 | PM.EVENT ---
Event Note Date of Service: 11/24/22 Event Note: Patient is known to me Admitted 3 weeks ago for diverticulitis of the sigmoid, with microperforation, small abscess Clinically well, denies abdominal pain However has been having UTI the past days, with dark cloudy urine and dysuria She went back the ER last night CT scan has persistent inflammatory disease of sigmoid, with abscess as well as here in the bladder consistent with colovesical fistula She looks clinically well, abdomen soft and benign However, in view of persistent/worsening inflammatory changes along with the colovesical fistula, explained to her that it would be best to proceed with sigmoid resection colostomy. I explained the technique of hand assisted laparoscopic sigmoid resection and colostomy and repair of the bladder fistula and possible conversion to long laparotomy incision I reviewed with the risks including but not limited to bleeding, infections, to other organs including bowel, urinary tract, obstruction, stoma complications including retraction, inherent risks of anesthesia She understands that in view of her morbid obesity, her perioperative risks are higher She has given consent Her was involved with discussion Case dw Dr Deng - he will repair bladder fistula Time Spent With Patient Time: Total time managing care of this patient today ____ minutes.
--- NOTE | 2022-11-23 11:54 | PM.UROCN ---
History of Present Illness Consult details Consult date: 11/23/22 Narrative: intraoperative consult 62-year-old female undergoing colovesical fistula repair with general surgery, Dr. Ray. Urology consult regarding bladder fistula repair. Dissection and exposure of sigmoid colon fistula Has been performed by Dr. Ray laparoscopically. The inflamed sigmoid has been removed from the bladder surface. Prior hysterectomy. The area of attachment is low and posterior. On laparoscopic examination it is difficult to see any evidence of active fistula the Hall catheter within the bladder is draining urine contaminated with fecal material the bladder was irrigated clear. Methylene blue was then irrigated into the bladder for volume between 120 and 180 cc There was no active leak from the bladder and the exact area of potential fistula was unable to be located. Risks and benefits regarding performing an open exploration of the lower pelvic floor took place. Based on the inability to localize the fistula decision was made to leave a Hall catheter in place. This will be upsized to a 20 [place]. The bladder will be treated in a similar fashion as following a laparoscopic nephroureterectomy. The Hall catheter will stay for 4 weeks and a cystogram will be performed prior to removal Review of Systems Constitutional: Constitutional: Reports as per HPI and Reports no additional constitutional complaints Cardiovascular: Cardiovascular: Reports as per HPI and Reports no additional cardiovascular complaints Respiratory: Respiratory: Reports as per HPI and Reports no additional respiratory complaints Gastrointestinal: Gastrointestinal: Reports as per HPI and Reports no additional gastrointestinal complaints Genitourinary: Genitourinary: Reports as per HPI Musculoskeletal: Musculoskeletal: Reports no additional musculoskeletal complaints and Reports as per HPI Neurologic: Reports system reviewed and no additional complaints, except as documented and Reports as per HPI [facility] Past Medical History Medical History Diverticulitis large intestine Hypertension Hypokalemia Multiple sclerosis Phlegmon Social History Social History Household Members: Spouse Housing: House Do you presently have visiting nurse or other home services: No Alcohol intake: never Patient Tobacco Use Status: Never used Tobacco Second Hand Smoke Exposure: No Use of substances other than those prescribed or required for medical reasons: No Currently Displaying Signs/Symptoms of Drug Intoxication Withdrawal: No Have you been hit, kicked, punched, or otherwise hurt by someone within the past year? If so, by whom?: No Do you feel safe in your current relationship?: Yes Is there a partner from a previous relationship who is making you feel unsafe now?: No Are you made to feel afraid or neglected: No Are you DNR?: No Advance Directives: No Advance Directives Information Provided: No Advance Directives on File: No Do you have thoughts of harming others: None Do you have a plan to hurt others: No Plan Recently lost weight without trying: Yes How much weight loss: 14-23 pounds Eating poorly because of decreased appetite: Yes Nutrition screen score: 5 Patient : No : No Poor oral hygiene: No service: No Meds Allergies Allergy/AdvReac Type Severity Reaction Status Date / Time No Known Allergies Allergy Verified 11/20/22 13:52 Active Medications: Current Medications Acetaminophen (Acetaminophen 325 Mg Tablet) 650 mg PO Q6H PRN PRN Reason: Fever Enoxaparin Sodium (Enoxaparin Sodium 40 Mg/0.4 Ml Syringe) 40 mg SUBCUT Q24H [facility] Last Admin: 11/22/22 19:37 Dose: 40 mg Fentanyl (Fentanyl Citrate/Pf 100 Mcg/2 Ml Vial) 25 mcg IVPUSH Q5M PRN; Protocol PRN Reason: Pain, Moderate(Pain Scale 4-6) Dextrose/Sodium Chloride (D51/2ns) 1,000 mls @ 100 mls/hr IVCONT .Q10H [facility] Last Infusion: 11/23/22 08:59 Dose: 0 mls/hr Levofloxacin (Levaquin) 500 mg in 100 mls @ 100 mls/hr IV Q24H [facility] Last Infusion: 11/22/22 19:36 Dose: Infused Metronidazole (Flagyl) 500 mg in 100 mls @ 100 mls/hr IV Q8H [facility] Last Infusion: 11/23/22 08:10 Dose: Infused Ketorolac Tromethamine (Ketorolac Tromethamine 30 Mg/Ml Vial) 15 mg IVPUSH Q6H PRN PRN Reason: Pain, Moderate(Pain Scale 4-6) Stop: 11/27/22 18:17 Melatonin (Melatonin 3 Mg Tablet) 3 mg PO BEDTIME PRN PRN Reason: Insomnia Ondansetron HCl (Ondansetron Hcl 4 Mg/2 Ml Vial) 4 mg IVPUSH ONCE PRN PRN Reason: Nausea and Vomiting Oxycodone HCl (Oxycodone Hcl Immed Release 5 Mg Tablet) 5 mg PO ONCE PRN PRN Reason: Pain, Severe (Pain Scale 7-10) Pantoprazole Sodium (Pantoprazole Sodium 40 Mg/10 Ml Vial) 40 mg IVPUSH DAILY [facility] Last Admin: 11/23/22 08:14 Dose: 40 mg Pharmacy Consult (Consult Rx Perform Med Rec) 1 each MISCELLANE ONCE PRN PRN Reason: Consult order Sodium Chloride (0.9 % Sodium Chloride Flush 3 Ml Syringe) 3 ml IVFLUSH QSHIFT [facility] Last Admin: 11/23/22 08:12 Dose: Not Given Home Medications Medication Instructions Recorded Confirmed Last Taken Type ergocalciferol (vitamin D2) 1,250 1,250 mcg PO CONDE 10/27/22 11/22/22 11/19/22 History mcg (50,000 unit) capsule furosemide 40 mg tablet 40 mg PO DAILY 10/27/22 11/22/22 11/21/22 History ibuprofen 800 mg tablet 800 mg PO Q8H PRN pain 10/27/22 11/22/22 Unknown History valsartan 160 mg tablet 160 mg PO DAILY 10/27/22 11/22/22 11/21/22 History Physical Exam Vital Signs: Vital Signs: Last Vital Signs Temp 97.8 F 11/23/22 08:48 Pulse 95 11/23/22 08:48 Resp 16 11/23/22 08:48 BP 124/68 11/23/22 08:48 Pulse Ox 96 11/23/22 08:48 O2 Del Method Room Air 11/23/22 08:48 BMI result Body Mass Index 42.5 Const: General: cooperative, healthy appearing, comfortable and no acute distress Orientation/consciousness: patient oriented x3 HEENT: Face and sinus: Yes normal facial exam Mouth: moist mucous membranes Neck: Neck: Yes normal visual inspection, Yes full ROM and Yes trachea midline Chest: Chest palpation & inspection: normal inspection of the chest Resp: Effort & Inspection: normal respiratory effort, able to speak in complete sentences and no respiratory distress GI: Inspection: Yes normal to inspection Back/Spine/Pelvis: Cervical Spine: normal cervical lordosis Thoracic/Lumbar Spine: thoracic and lumbar spine normal to inspection Skin: General skin exam: no rashes or lesions noted Neuro: General: patient oriented x3, tone normal and moves all extremities Extrem: General: Yes normal to inspection and Yes capillary refill normal Results Labs 11/23/22 05:59 11/22/22 11:25 Labs: Abnormal lab results 11/23/22 Range/Units 05:59 WBC 11.9 H (4.8-10.8) X10*3/uL RBC 3.31 L (4.20-5.50) X10*6/uL Hgb 9.7 L (12.0-16.0) g/dl Hct 29.8 L (37.0-47.0) % Immature Gran % (Auto) 1.3 H (0.0-0.4) % Neut % (Auto) 77.8 H (45-73) % Lymph % (Auto) 11.0 L (20-40) % Abs Immat Gran (auto) 0.15 H (0.00-0.03) X10*3/uL Absolute Neuts (auto) 9.3 H (2.0-8.3) x10*3/uL Short CBC 11/23/22 Range/Units 05:59 WBC 11.9 H (4.8-10.8) X10*3/uL Hgb 9.7 L (12.0-16.0) g/dl Hct 29.8 L (37.0-47.0) % Plt Count 257 (160-400) X10*3/uL Urine 11/22/22 Range/Units 09:48 Urine Color Dark Yellow Urine Appearance Turbid Urine pH 6.5 (5.0-9.0) Ur Specific [place] 1.015 (1.005-1.025) Urine Protein 300 (3+) H (Neg-Trace) mg/dL Urine Glucose (UA) Negative (Negative) mg/dL All other labs normal. Assessment and Plan (1) Colovesical fistula: Status: Acute Plan Hall catheter decompression for 4 weeks Time Spent With Patient Time: Total time managing care of this patient today ____ minutes. Procedures Date of Service Date of Service: 11/23/22
--- NOTE | 2022-11-23 12:15 | MHC.CLN ---
RE: CONSULT FOR UNINTENTIONAL WT LOSS CURRENT WT 105.3KG 108.8KG (10/27/22) PT WITH 3% NONSIGNIFICANT WT LOSS X 30DAYS NO SIGNIFICANT WT CHANGES FROM PREVIOUS HX PT IS MORBIDLY OBESE WITH BMI 42.5 AND WT LOSS IS BENEFICIAL
--- NOTE | 2022-11-23 13:51 | P.OP_ITS ---
Operative Note Operative Note Date of Service: 11/23/22 Narrative: Preop diagnosis: Sigmoid diverticulitis, with abscess, phlegmon and colovesical fistula Postop diagnosis: The same; large amount of purulent material and small stool particles within abscess cavity seen Procedure: Hand assisted laparoscopic sigmoid resection, end-loop transverse colostomy, extensive lysis of adhesion, disconnection of the colovesical fistula, partial omentectomy Intraop consult with Urology Surgeon: Jersey Ray MD 1st food and beverage assistant manager: GERALD Galvez The patient is a 62 year female, with morbid obesity, admitted last night because of worsening UTI. She had a CAT scan showing sigmoid diverticulitis, phlegmonous changes in the area along with an abscess and colovesical fistula. Her urine is turbid with fecal material She actually was admitted for diverticulitis 3 weeks ago as well. She had been clinically improving with regards to her abdomen. However, CT scan it showed worsening of the inflammatory changes. In view of her colovesical fistula with worsening CT scan, I explained to her it would be best to proceed with sigmoid resection and stoma creation along with disconnection of the colovesical fistula. She understood the technique of this procedure with hand assisted laparoscopy. She was aware of the risks, benefits, and alternatives. She was morbidly obese so she understood that her perioperative scar much higher especially because of her large pannus. She was brought to the operating room. She was placed in modified lithotomy position under general anesthesia via endotracheal tube. All pressure points were protected. Right arm was tucked to the side. A Hall catheter was inserted. Again, her urine was turbid with fecal material I made an incision on the skin at the level of the umbilicus going inferiorly at the midline using blade 15. This was carried down through the full-thickness of the skin and subcutaneous fat. It is noted the patient is a very thick pannus so we had to go through a large amount of subcutaneous fat before we were able to expose the fascia. The fascia was incised. The peritoneum was entered. There was note of some dense adhesions on the fascia mostly on the right side so we had to take this down slowly with electrocautery as well as with the LigaSure. Some of the omentum was also patch from this area with the electrocautery. An Ben wound retractor was placed. The GelPort was attached to this along with an insufflating port. The camera space with this insufflating port in were able to insufflated to a pressure 50 minutes hg. With laparoscopic visualization using the 30 degree 10 mm scope, I proceeded to place a 5/12 mm port epigastric area below the subcostal margin as well as on the right lower quadrant through small stab incisions. I removed the insufflating port from the GelPort and inserted my hand. The patient was placed in a head-down and a [id number] position. We retracted the bowel loops away from the pelvis. I was able to follow the sigmoid distally and there was noted to be very indurated, very edematous and inflamed with phlegmonous changes in the mesentery. The if sigmoid was attached to the posterior wall of the bladder. The bladder was distended. At some point, we had to irrigate and flush the catheter because it appeared that this was clogged with stool particles. We were able to do therefore decompress the urinary bladder. I proceeded to then carefully inspect the rest of the pelvis and there was note of dense attachments towards the posterior wall of the bladder. We had to do a lot of extensive lysis of adhesions to carefully detach this using a combination LigaSure as well as gentle dissection using my index finger in my thumb. There was note of 2 adherent bowel loops to the area which we had to release Eventually was able to release all the small bowel loops away from the pelvis. This was retracted using moist lap to expose the entire pelvis I proceeded to identify the rest of the sigmoid proximally as well as the left colon. I mobilized the left colon using the LigaSure to divide the ligamentous attachments along the white line of Toldt. There was note of a lot of inflammatory changes in this area so there was note of a significant foreshortening of the omentum. I proceeded to continue to mobilize the sigmoid staying away from the plane of the ureter I was able to reach the very densely adherent long segment of sigmoid towards the posterior wall the bladder. To make the dissection of the fistula he is here, I decided to proceed with resection of the small sigmoid using the Endo-IZAIAH stapler. I chose a segment the was supple with much less inflammatory changes. I then continued to do right the rest of the distal sigmoid from the urinary bladder. I did a lot of careful dissection using finger fracture technique well as the LigaSure to detach this segment. This part of the procedure took an extended period of time in view of the dense adherent and indurated tissues connecting the sigmoid as well as the bladder. There was note of very dense phlegmonous changes while in the omentum. As we continued to diet separate the sigmoid from the bladder, there was note of an abscess cavity along with some stool particles. He continued to gently detached the sigmoid until they were completely able to for this from the posterior wall of the bladder At this point, the urologist had been halted and was observing. He injected the Hall catheter with methylene blue and there was no evidence of obvious leakage to the LEs site so he decided that he would just leave a large gauge catheter to decompress the bladder in anticipation of spontaneous closure of this fistulous tract. I then proceeded to continue to mobilize the distal sigmoid. I did a combination of finger fracture technique and LigaSure. Again, the distal sigmoid had very dense thick inflammatory and indurated tissue and we had to do a lot of careful dissection slowly until was able to get past this diseased segment of the sigmoid. It appeared that even the rectosigmoid had a lot of inflammatory changes and at some point I decided to not continue with dissection in view of the risk of injury and bleeding within the very deep pelvis from all the dense inflammatory changes I was able to pass my finger around a softer part of the distal sigmoid. I used the Endo-IZAIAH 60 mm stapler to divide this. The attached mesentery was very phlegmonous and thick so we had to carefully divide this in layers using the LigaSure until was completely the able to detach this entire diseased segment. This was brought out the specimen through the incision I reinserted all ports and re-insufflated I then proceeded to mobilize the rest of the left sigmoid if we can create a stoma out of this area. However, the mesentery was very foreshortened in view of the patient's habitus as well as because of the inflammatory changes. I therefore felt that we would not be able to bring out this colon as the stoma through the thick pannus I therefore decided to choose to do an and loop colostomy. Identified the transverse colon. I traced this all the way to the splenic flexure and the left colon. Once I confirmed that this was the transverse colon, I proceeded to then separate this from the omentum. The patient had a very large amount omental fat. We had to separate this from the transverse colon on of well-defined plane and separate did this from the rest of the mesentery of the transverse colon. We were careful not to violate the plane of the mesentery In we then proceeded to choose a segment of the transverse colon to bring out as our end-loop colostomy. I created a mesenteric window using the hemostat. Again, there was note of a lot of fat in this area. There were poor planes an I and realized that the hemostat is actually gone through the wall of the colon in 2 areas. We had to therefore put do repair of this 2 enterotomies using Polysorb 3-0 full-thickness running suture to close the enterotomy which were both about 5 mm long, with a 2nd layer of seromuscular Polysorb 2-0 running stitch as well We attempted multiple times to allow this selected segment to go through the stoma opening which we had created on the left upper quadrant. However, we had difficulty with bringing up the stoma in view of the thick amount of subcutaneous fat as well in view of the large amounts of omentum and fatty tissue surrounding the colon. We had to continue to separate more of the ometum which was getting in the way of the stoma segment. At some point, I felt that this large amount of omentum was causing tension on the transverse colon so we decided to just do a partial omentectomy . I then proceeded to widen the stoma pening in the upper quadrant. I brought up the chosen segment of the transverse colon using a [place] drain and this time were able to bring out a segment without tension. I removed the Sherri drain and applied the stoma bridge. This loop also appeared viable and non ischemic. I then decided to mature this later. I reinsufflated. With laparoscopic visualization, I proceeded to do a lot of irrigation of the pelvis. There was no evidence of any bleeding. The rest of the abdominal cavity did not show any bowel injury. I positioned a #10 SUJIT drain in the pelvis and this was brought out through an exit site on the left lower quadrant which we had used earlier for a 5 mm port to mobilize the rest of the left colon The SUJIT drain was secured to the skin with a nylon 3-0 anchoring stitch. We then desufflated. I closed the fascia with a running Maxon 1 stitch. Skin closure was achieved on all incisions using skin zeb We then proceeded to mature the stoma. I did a transverse incision electrocautery. I then secured the bowel wall using full-thickness Polysorb 3-0 sutures to the subdermal layer circumferentially. There was note of some duskiness on the mucosa. However, the rest of the stoma limb appeared viable. I then re-examined the abdominal cavity laparoscopically with the remaining right lower quadrant port. There was no twisting of the stoma. The transverse loop appeared viable and nonischemic within the abdomen There was no bleeding in the pelvis and there was no evidence any bowel injury. I had reexamined the small bowel loops that hat been markedly adherent to the pelvis and these appeared to be intact without injury. I desufflated and removed the remaining right lower quadrant port . I infiltrated all incisions with Marcaine 0.5% for postop analgesia. Dressings were applied. The stoma appliance was position. The procedure was completed The patient tolerated procedure well. There were no immediate complications. Initial and final counts of sponges and instruments were correct. I had removed the moist lap that I had used earlier for reflecting the small bowelaway from the pelvis Estimated blood loss was about 200 cc. The patient was extubated without difficulty and transferred to the recovery [facility] with stable vital signs.
--- NOTE | 2022-11-23 14:25 | MHC.CM.PN ---
CM unable to meet with pt, she is not in her room, pt meeting with surgeon. EMR reviewed and pt met with surgeon to discuss her diverticulitis and bladder fistula. Pt will have a sigmoid resection and colostomy and bladder fistula repair. CM will continue to attempt to meet when pt is available.
--- NOTE | 2022-11-23 15:23 | PM.EVENT ---
Event Note Date of Service: 11/24/22 Event Note: Seen postop Seems to have adequate pain control Urine output seems concentrated, but not bloody Abdomen soft Stoma dusky but viable NG tube in place Keep Hall in place as per Urology Await GI function Continue IV antibiotics Pain management Stoma care Will consult hospitalist - patient has MS According to family, she seems to have dementia symptoms the past several weeks Time Spent With Patient Time: Total time managing care of this patient today ____ minutes.
[2022-11-23] MEDS: Ketorolac Tromethamine 15 MG/ML VIAL IVPUSH ×2 (15:54→20:23)
--- NOTE | 2022-11-23 16:58 | P.CONHOSP_ITS ---
History of Present Illness Data of Consult Service Date: 11/23/22 Primary Care Provider: Lukas Scott III, MD HPI 62yo female with with history Diverticulitis large intestine, Hypertension, Hypokalemia, Multiple sclerosis, . She was admitted to the hospital from 10/27 to 11/10 and treated for acute diverticulitis of the sigmoid colon with microperforation and small abscess. She presented back today with urinary symptoms with dark, cloudy urine and dysuria. CT of the abdomen and pelvis show Sigmoid diverticular disease and diverticulitis. There is persistent edematous thickening of the sigmoid wall and perisigmoid fat stranding. Interval worsening of perisigmoid abscess posterior to the urinary bladder.? The finding are clinically consistent with Sigmoid diverticulitis, with abscess, phlegmon and colovesical fistula and she underwent Hand assisted laparoscopic sigmoid resection, end-loop transverse colostomy, extensive lysis of adhesion, disconnection of the colovesical fistula, partial omentectomy today 11/23. She is been evaluated for medical management of her comorbid conditions. She has no acute complaints at this time. Review of Systems 2 Review of Systems: Gen: no fever Resp: no sob, no cough CV: no chest, no LUA, no leg edema GI: No n/v, mild abd pain Neuro: No confusion Yes all other systems are reviewed and are negative [facility] Medical History Diverticulitis large intestine Hypertension Hypokalemia Multiple sclerosis Phlegmon Social History Household Members: Spouse Housing: House Do you presently have visiting nurse or other home services: No Alcohol intake: never Patient Tobacco Use Status: Never used Tobacco Second Hand Smoke Exposure: No service: No Meds Allergies Allergy/AdvReac Type Severity Reaction Status Date / Time No Known Allergies Allergy Verified 11/20/22 13:52 Active Medications: Current Medications Enoxaparin Sodium (Enoxaparin Sodium 40 Mg/0.4 Ml Syringe) 40 mg SUBCUT Q24H [facility] Last Admin: 11/22/22 19:37 Dose: 40 mg Hydromorphone HCl (Hydromorphone Hcl 0.5 Mg/0.5 Ml Syringe) 0.5 mg IVPUSH Q4H PRN; Protocol PRN Reason: Pain, Severe (Pain Scale 7-10) Levofloxacin (Levaquin) 500 mg in 100 mls @ 100 mls/hr IV Q24H [facility] Last Infusion: 11/22/22 19:36 Dose: Infused Metronidazole (Flagyl) 500 mg in 100 mls @ 100 mls/hr IV Q8H [facility] Last Admin: 11/23/22 12:42 Dose: Not Given Acetaminophen (Ofirmev) 1,000 mg in 100 mls @ 400 mls/hr IV Q6H [facility] Lactated Ringer's (Lr) 1,000 mls @ 125 mls/hr IVCONT .Q8H [facility] Ketorolac Tromethamine (Ketorolac Tromethamine 15 Mg/Ml Vial) 15 mg IVPUSH Q6H [facility] Last Admin: 11/23/22 15:54 Dose: 15 mg Pantoprazole Sodium (Pantoprazole Sodium 40 Mg/10 Ml Vial) 40 mg IVPUSH DAILY [facility] Last Admin: 11/23/22 08:14 Dose: 40 mg Pharmacy Consult (Consult Rx Perform Med Rec) 1 each MISCELLANE ONCE PRN PRN Reason: Consult order Sodium Chloride (0.9 % Sodium Chloride Flush 3 Ml Syringe) 3 ml IVFLUSH QSHIFT [facility] Last Admin: 11/23/22 16:00 Dose: Not Given Home Medications Medication Instructions Recorded Confirmed Last Taken Type ergocalciferol (vitamin D2) 1,250 1,250 mcg PO CONDE 10/27/22 11/22/22 11/19/22 History mcg (50,000 unit) capsule furosemide 40 mg tablet 40 mg PO DAILY 10/27/22 11/22/22 11/21/22 History ibuprofen 800 mg tablet 800 mg PO Q8H PRN pain 10/27/22 11/22/22 Unknown History valsartan 160 mg tablet 160 mg PO DAILY 10/27/22 11/22/22 11/21/22 History Physical Exam Vital Signs and Narrative: Vital Signs: Last Vital Signs Temp 96.4 F L 11/23/22 16:00 Pulse 84 11/23/22 16:00 Resp 18 11/23/22 16:00 BP 118/67 11/23/22 16:00 Pulse Ox 96 11/23/22 16:00 O2 Del Method Nasal Cannula 11/23/22 16:00 O2 Flow Rate 3 11/23/22 16:00 BMI result Body Mass Index 42.5 Const: Other: Constitutional: Alert, in no distress, overweight. Mental Status: Oriented to person, place and time. Eyes: Pupils are equal, round and reactive to light. Ear, Nose and Throat: Oropharynx clear, mucous membranes moist. Ears and nose without eformities. Trachea midline. Respiratory: Clear to auscultation. No wheezing, rales or rhonchi. Cardiovascular: S1 S2 regular. No murmurs, rubs or gallops. Gastrointestinal: Abdomen soft, non-tender, non-distended. Normal bowel sounds.? Neurologic: Cranial nerves II-XII grossly intact. No focal neurological deficits. Moves all extremities spontaneously.? Skin: No rashes or lesions.? Musculoskeletal: No cyanosis or clubbing. Psychiatric: Normal mood and affect? Results Labs 11/23/22 05:59 11/22/22 11:25 Labs: Laboratory Results - last 24 hr 11/23/22 11/23/22 11/23/22 05:59 05:59 09:22 MCV 90.0 MCH 29.3 MCHC 32.6 RDW 14.6 Plt Count 257 MPV 9.5 Immature Gran % (Auto) 1.3 H Neut % (Auto) 77.8 H Lymph % (Auto) 11.0 L Colbert % (Auto) 9.3 Eos % (Auto) 0.3 Baso % (Auto) 0.3 Lymph # (Auto) 1.3 Colbert # (Auto) 1.1 Eos # (Auto) 0.0 Baso # (Auto) 0.0 Abs Immat Gran (auto) 0.15 H Absolute Neuts (auto) 9.3 H Absolute Nucleated RBC 0.000 Nucleated RBC % (auto) 0.0 Carcinoembryonic Ag < 1.73 Blood Type B Positive Antibody Screen NEGATIVE Assessment and Plan (1) Colovesical fistula: Status: Acute (2) Diverticulitis: Status: Acute (3) Abscess of sigmoid colon due to diverticulitis: Status: Acute (4) Hypertension: Status: Acute (5) Multiple sclerosis: Status: Acute Plan 62 yo female with with history Diverticulitis large intestine, Hypertension, Hypokalemia, Multiple sclerosis, recent admission for diverticulitis with abscess and now with here Sigmoid diverticulitis, with abscess, phlegmon and colovesical fistula and is s/p Hand assisted laparoscopic sigmoid resection, end-loop transverse colostomy, extensive lysis of adhesion, disconnection of the colovesical fistula, partial omentectomy 1/Diverticulitis, abscess, colovesicular fistular s/p resection and transverse colostomy as above -managment per surgery, Levaquin is a reasonable choice to treat underlying uti and diverticulitis 2/ HTN-- hold Valsartan and Lasix and restart in AM if BP ok 3/MS-- no acute exacerbation Will follow Time Spent With Patient Time: Total time managing care of this patient today ____ minutes.
[2022-11-23] MEDS: Acetaminophen 1,000 MG/100 ML PIGGYBACK 400 MG IV ×2 (17:05→22:53)
[2022-11-23] MEDS: Lactated Ringers 1,000 ML 125 ML IVCONT (17:06)
--- NOTE | 2022-11-23 18:16 | PC.NURSE ---
Report received by Overnight RN, critical care paramedic per JUN, pt down for procedure. Back to unit, pt lethargic and drowsy. New colostomy, NG tube, wallace catheter, and SUJIT drain in place. Pt reports no pain at this time, safety measure in place, call dominguez within reach.
[2022-11-23] MEDS: levoFLOXacin/D5W 500 MG/100 ML PIGGYBACK 100 MG IV (20:22)
[2022-11-23] MEDS: HYDROmorphone HCl 0.5 MG/0.5 ML SYRINGE IVPUSH (22:53)
[2022-11-24] MEDS: Ketorolac Tromethamine 15 MG/ML VIAL IVPUSH ×4 (01:30→19:59)
[2022-11-24] MEDS: Famotidine/PF 20 MG/2 ML VIAL IVPUSH (01:30)
[2022-11-24] MEDS: metroNIDAZOLE/NS 500 MG/100 ML PIGGYBACK 100 MG IV ×3 (02:21→18:08)
[2022-11-24] MEDS: Lactated Ringers 1,000 ML 125 ML IVCONT ×2 (02:21→08:45)
[2022-11-24] MEDS: Acetaminophen 1,000 MG/100 ML PIGGYBACK 400 MG IV ×3 (05:51→17:35)
[2022-11-24 06:35] LABS: Hematocrit 28.3 % (37.0-47.0); Hemoglobin 9.3 g/dl (12.0-16.0); Mean Corpuscular HGB Conc 32.9 g/dl (31.0-35.0); Mean Corpuscular Hemoglobin 29.8 pg (27.0-33.0); Mean Corpuscular Volume 90.7 fL (80.0-98.0); Mean Platelet Volume 9.4 fL (9.4-12.3); Platelet Count 240 X10*3/uL (160-400); Red Blood Count 3.12 X10*6/uL (4.20-5.50); Red Cell Distribution Width 14.6 % (11.0-16.0); White Blood Count 9.9 X10*3/uL (4.8-10.8)
[2022-11-24 06:49] LABS: Anion Gap 11 (12-20); Blood Urea Nitrogen 10 mg/dL (9-16); Calcium 9.1 mg/dL (8.4-10.2); Carbon Dioxide 23 mmol/L (22-29); Chloride 106 mmol/L (96-108); Estimated Glomerular Filt Rate > 60; Glucose Fasting 142 mg/dL (60-99); Potassium 4.3 mmol/L (3.3-5.1); Sodium 136 mmol/L (135-145)
[2022-11-24 07:28] LABS: Band Neutrophils Percent 14 % (3-5); Lymphocytes Absolute Manual 0.5 X10*3/uL (1.2-4.9); Lymphocytes Percent Manual 5 % (20-40); Monocytes Absolute Manual 0.5 X10*3/uL (0.1-1.2); Monocytes Percent Manual 5 % (2-11); Neutrophils Absolute Manual 8.9 X10*3/uL (2.0-8.3); Neutrophils Percent Manual 76 % (45-73)
[2022-11-24 07:32] LABS: Acanthocytes 3+ (>5) /OIF; Burr Cells 1+ (0-2) /OIF; RBC Morphology NOTED; Schistocytes 1+ (0-2) /OIF
[2022-11-24 07:33] LABS: Platelet Estimate NORMAL (NORMAL); Platelet Morphology Comment NORMAL
[2022-11-24 07:35] VITALS: BP 111/58; PULSE 85; RESP 20; TEMP 36.1; O2SAT 97
--- NOTE | 2022-11-24 08:08 | P.PNGS_ITS ---
Subjective Subjective Date of Service: 11/24/22 <Sheila Molina PA-C - Last Filed: 11/24/22 08:12> 11/25/22 <Jersey Ray MD - Last Filed: 11/25/22 11:22> Interval history: Feels ok this morning. Sore at incision sites but comfortable with analgesics. NGT in place, no nausea. <BIANCA Collado Last Filed: 11/24/22 08:12> Physical Exam Vital Signs: Vital Signs: Last Vital Signs Temp 97.0 F 11/24/22 07:35 Pulse 85 11/24/22 07:35 Resp 20 11/24/22 07:35 BP 111/58 L 11/24/22 07:35 Pulse Ox 97 11/24/22 07:35 O2 Del Method Nasal Cannula 11/24/22 07:35 O2 Flow Rate 3 11/24/22 07:35 BMI result Body Mass Index 42.5 <BIANCA Collado Last Filed: 11/24/22 08:12> Const: General: comfortable, no acute distress and alert <Sheila Molina PA-C - Last Filed: 11/24/22 08:12> Orientation/consciousness: patient oriented x3 <BIANCA Collado Last Filed: 11/24/22 08:12> Resp: Effort & Inspection: normal respiratory effort <BIANCA Collado Last Filed: 11/24/22 08:12> GI: Other: ostomy pink, no output in appliance <BIANCA Collado Last Filed: 11/24/22 08:12> Inspection: No distended and Yes incision (dressing c/d/i) <BIANCA Collaod Last Filed: 11/24/22 08:12> Palpation (GI): Soft to palpation, Tenderness to palpation present (GI) (incisional), no guarding and not rigid <BIANCA Collado F iled: 11/24/22 08:12> Skin: General skin exam: no rashes or lesions noted <BIANCA Collado Last Filed: 11/24/22 08:12> Neuro: General: patient oriented x3 and moves all extremities <Sheila Molina PA-C - Last Filed: 11/24/22 08:12> Objective Data Active Medications Enoxaparin Sodium (Enoxaparin Sodium 40 Mg/0.4 Ml Syringe) 40 mg SUBCUT Q24H [facility] Last Admin: 11/22/22 19:37 Dose: 40 mg Documented By: COOPECamelia Hydromorphone HCl (Hydromorphone Hcl 0.5 Mg/0.5 Ml Syringe) 0.5 mg IVPUSH Q4H PRN; Protocol PRN Reason: Pain, Severe (Pain Scale 7-10) Last Admin: 11/23/22 22:53 Dose: 0.5 mg Documented By: CORIE Levofloxacin (Levaquin) 500 mg in 100 mls @ 100 mls/hr IV Q24H [facility] Last Infusion: 11/23/22 21:33 Dose: 0 mls/hr Documented By: CORIE Metronidazole (Flagyl) 500 mg in 100 mls @ 100 mls/hr IV Q8H [facility] Last Infusion: 11/24/22 07:48 Dose: 0 mls/hr Documented By: REINA Acetaminophen (Ofirmev) 1,000 mg in 100 mls @ 400 mls/hr IV Q6H [facility] Last Infusion: 11/24/22 07:48 Dose: 0 mls/hr Documented By: REINA Lactated Ringer's (Lr) 1,000 mls @ 125 mls/hr IVCONT .Q8H [facility] Last Admin: 11/24/22 02:21 Dose: 125 mls/hr Documented By: CORIE Ketorolac Tromethamine (Ketorolac Tromethamine 15 Mg/Ml Vial) 15 mg IVPUSH Q6H [facility] Last Admin: 11/24/22 01:30 Dose: 15 mg Documented By: CORIE Pantoprazole Sodium (Pantoprazole Sodium 40 Mg/10 Ml Vial) 40 mg IVPUSH DAILY [facility] Last Admin: 11/23/22 08:14 Dose: 40 mg Documented By: REINA Pharmacy Consult (Consult Rx Perform Med Rec) 1 each MISCELLANE ONCE PRN PRN Reason: Consult order Sodium Chloride (0.9 % Sodium Chloride Flush 3 Ml Syringe) 3 ml IVFLUSH QSHIFT SO Last Admin: 11/24/22 00:38 Dose: Not Given Documented By: CORIE Non-Admin Reason: IV Running <Sheila Molina PA-C - Last Filed: 11/24/22 08:12> Labs CBC & Chem 7: 11/24/22 05:54 11/24/22 05:54 <Sheila Molina PA-C - Last Filed: 11/24/22 08:12> Labs: Laboratory Results - last 24 hr 11/23/22 11/24/22 11/24/22 09:22 05:54 05:54 MCV 90.7 MCH 29.8 MCHC 32.9 RDW 14.6 Plt Count 240 MPV 9.4 Immature Gran % (Auto) Cancelled Neut % (Auto) Cancelled Lymph % (Auto) Cancelled [place] % (Auto) Cancelled Eos % (Auto) Cancelled Baso % (Auto) Cancelled Lymph # (Auto) Cancelled [place] # (Auto) Cancelled Eos # (Auto) Cancelled Baso # (Auto) Cancelled Abs Immat Gran (auto) Cancelled Absolute Neuts (auto) Cancelled Absolute Nucleated RBC 0.000 Nucleated RBC % (auto) 0.0 Neutrophils % (Manual) 76 H Band Neutrophils % 14 H Lymphocytes % (Manual) 5 L Monocytes % (Manual) 5 Abs Neuts (Manual) 8.9 H Lymphocytes # (Manual) 0.5 L Monocytes # (Manual) 0.5 Platelet Estimate NORMAL Plt Morphology Comment NORMAL RBC Morphology NOTED [place]ah Cells 1+ (0-2) Acanthocytes (Spur) 3+ (>5) Schistocytes 1+ (0-2) Anion Gap 11 L Estim Creat Clear Calc 91.0 Estimated GFR > 60 Fasting Glucose 142 H Calcium 9.1 D Blood Type B Positive Antibody Screen NEGATIVE <Sheila Molina PA-C - Last Filed: 11/24/22 08:12> Microbiology Microbiology Results: Microbiology 11/22/22 Unknown Urine Culture - Final Urine clean catch - Urine soto top Escherichia coli 11/22/22 11:25 Blood Culture - Preliminary Blood - Venous No growth after 24 hours. 11/22/22 11:25 Blood Culture - Preliminary Blood - Venous No growth after 24 hours. <Sheila Molina PA-C - Last Filed: 11/24/22 08:12> Procedures Date of Service Date of Service: 11/24/22 <Sheila Molina PA-C - Last Filed: 11/24/22 08:12> 11/25/22 <Jersey Ray MD - Last Filed: 11/25/22 11:22> Progress Note: A&P Assessment and plan (1) Colovesical fistula: Status: Acute <Sheila Molina PA-C - Last Filed: 11/24/22 08:12> Assessment and Plan: has incisional pain, appropriate to postop abd soft stoma viable looking, no output yet SUJIT - old blood urine clear now dressings dry incentive spirometry keep Hall in - DO NOT REMOVE OOB to chair seen and examined independently - agree with GERALD Molina <Jersey Ray MD - Last Filed: 11/25/22 11:22> Assessment and Plan: 62 admitted with colovesical fistula now POD #1 s/p hand assisted laparoscopic sigmoid resection, end-loop transverse colostomy, extensive lysis of adhesion, disconnection of the colovesical fistula, partial omentectomy. Doing fairly well post op, good pain control. VSS. Abd exam benign with appropriate post op tenderness, ostomy pink. Await output. Cont NGT until passing flatus. Hall output clear; to remain in place x 1 month until outp atient urology f/u. Encouraged OOB/ambulation and IS use. Cont pain control. <Sheila Molina PA-C - Last Filed: 11/24/22 08:12> Time Spent With Patient Time: Total time managing care of this patient today ____ minutes. <Sheila Molina PA-C - Last Filed: 11/24/22 08:12> Quality Stroke Does the patient have a stroke diagnosis?: No <Sheila Molina PA-C - Last Filed: 11/24/22 08:12> VTE Prior VTE?: No <BIANCA Collado Last Filed: 11/24/22 08:12> VTE Risk Level:: Surgical - moderate <Sheila Molina PA-C - Last Filed: 11/24/22 08:12> VTE Device Contraindication: N/A - Device Ordered <Sheila Molina PA-C - Last Filed: 11/24/22 08:12> VTE Drug Contraindication: N/A - Med Ordered <Sheila Molina PA-C - Last Filed: 11/24/22 08:12>
[2022-11-24] MEDS: Pantoprazole Sodium 40 MG/10 ML VIAL IVPUSH (08:43)
[2022-11-24] MEDS: 0.9 % Sodium Chloride Flush 3 ML SYRINGE IVFLUSH ×2 (08:43→19:59)
--- NOTE | 2022-11-24 09:32 | MHC.CM.PN ---
EMR REVIEWED, PT W/COLOVESICAL FISTULA AND S/P SIGMOID RESECTION W/OSTOMY, ANTIC PT WILL NEED NEW VNA FOR SN ON D/C, NO PREFERENCES AND REFERRAL PLACED, TO [place], TANISHA MET W/PT WHO REPORTS SHE LIVES W/, IS INDEP W/ALL CARE, DENIES USE OF DME/SERVICES AND WORKS/DRIVES, PT VERIFIES PCP IS RAMEZ GARCIA, FULLY VACCED AGAINST COVID19 AND PT'S ROSY HALE [id number] IS HER HCP, COPY REQUESTED. D/C PLAN: HOME W/NEW VNA AND FAMILY FOR TRANSPORT
--- NOTE | 2022-11-24 09:52 | P.PNIM_ITS ---
Subjective Subjective Date of Service: 11/24/22 Interval History: follow up on med managment following colon surgery doing ok, pain is reasonably controlled, vitals ok Physical Exam Vital Signs: Vital Signs: Last Vital Signs Temp 97.0 F 11/24/22 07:35 Pulse 85 11/24/22 07:35 Resp 20 11/24/22 07:35 BP 111/58 L 11/24/22 07:35 Pulse Ox 97 11/24/22 07:35 O2 Del Method Nasal Cannula 11/24/22 07:35 O2 Flow Rate 3 11/24/22 07:35 BMI result Body Mass Index 42.5 Const: General: comfortable, no acute distress and alert Orientation/consciousness: patient oriented x3 Resp: Effort & Inspection: normal respiratory effort GI: Other: ostomy pink, no output in appliance Inspection: No distended and Yes incision (dressing c/d/i) Palpation (GI): Soft to palpation, Tenderness to palpation present (GI) (incisional), no guarding and not rigid Skin: General skin exam: no rashes or lesions noted Neuro: General: patient oriented x3 and moves all extremities Objective Data Active Medications Enoxaparin Sodium (Enoxaparin Sodium 40 Mg/0.4 Ml Syringe) 40 mg SUBCUT Q24H [facility] Last Admin: 11/22/22 19:37 Dose: 40 mg Documented By: COOPECamelia Hydromorphone HCl (Hydromorphone Hcl 0.5 Mg/0.5 Ml Syringe) 0.5 mg IVPUSH Q4H PRN; Protocol PRN Reason: Pain, Severe (Pain Scale 7-10) Last Admin: 11/23/22 22:53 Dose: 0.5 mg Documented By: CORIE Levofloxacin (Levaquin) 500 mg in 100 mls @ 100 mls/hr IV Q24H [facility] Last Infusion: 11/23/22 21:33 Dose: 0 mls/hr Documented By: CORIE Metronidazole (Flagyl) 500 mg in 100 mls @ 100 mls/hr IV Q8H [facility] Last Infusion: 11/24/22 07:48 Dose: 0 mls/hr Documented By: FOGARTCamelia Acetaminophen (Ofirmev) 1,000 mg in 100 mls @ 400 mls/hr IV Q6H [facility] Last Infusion: 11/24/22 07:48 Dose: 0 mls/hr Documented By: REINA Lactated Ringer's (Lr) 1,000 mls @ 125 mls/hr IVCONT .Q8H [facility] Last Admin: 11/24/22 08:45 Dose: 125 mls/hr Documented By: REINA Ketorolac Tromethamine (Ketorolac Tromethamine 15 Mg/Ml Vial) 15 mg IVPUSH Q6H [facility] Last Admin: 11/24/22 08:43 Dose: 15 mg Documented By: REINA Pantoprazole Sodium (Pantoprazole Sodium 40 Mg/10 Ml Vial) 40 mg IVPUSH DAILY [facility] Last Admin: 11/24/22 08:43 Dose: 40 mg Documented By: REINA Pharmacy Consult (Consult Rx Perform Med Rec) 1 each MISCELLANE ONCE PRN PRN Reason: Consult order Sodium Chloride (0.9 % Sodium Chloride Flush 3 Ml Syringe) 3 ml IVFLUSH QSHIFT [facility] Last Admin: 11/24/22 08:43 Dose: 3 ml Documented By: REINA Labs 11/24/22 05:54 11/24/22 05:54 Labs: Laboratory Results - last 24 hr 11/23/22 11/24/22 11/24/22 09:22 05:54 05:54 MCV 90.7 MCH 29.8 MCHC 32.9 RDW 14.6 Plt Count 240 MPV 9.4 Immature Gran % (Auto) Cancelled Neut % (Auto) Cancelled Lymph % (Auto) Cancelled [place] % (Auto) Cancelled Eos % (Auto) Cancelled Baso % (Auto) Cancelled Lymph # (Auto) Cancelled [place] # (Auto) Cancelled Eos # (Auto) Cancelled Baso # (Auto) Cancelled Abs Immat Gran (auto) Cancelled Absolute Neuts (auto) Cancelled Absolute Nucleated RBC 0.000 Nucleated RBC % (auto) 0.0 Neutrophils % (Manual) 76 H Band Neutrophils % 14 H Lymphocytes % (Manual) 5 L Monocytes % (Manual) 5 Abs Neuts (Manual) 8.9 H Lymphocytes # (Manual) 0.5 L Monocytes # (Manual) 0.5 Platelet Estimate NORMAL Plt Morphology Comment NORMAL RBC Morphology NOTED [place] Cells 1+ (0-2) Acanthocytes (Spur) 3+ (>5) Schistocytes 1+ (0-2) Anion Gap 11 L Estim Creat Clear Calc 91.0 Estimated GFR > 60 Fasting Glucose 142 H Calcium 9.1 D Blood Type B Positive Antibody Screen NEGATIVE Microbiology Microbiology Results: Microbiology 11/22/22 Unknown Urine Culture - Final Urine clean catch - Urine soto top Escherichia coli 11/22/22 11:25 Blood Culture - Preliminary Blood - Venous No growth after 24 hours. 11/22/22 11:25 Blood Culture - Preliminary Blood - Venous No growth after 24 hours. Assessment and Plan (1) Colovesical fistula: Status: Acute (2) Diverticulitis: Status: Acute (3) Hypertension: Status: Acute (4) Multiple sclerosis: Status: Acute Plan 62 yo female with with history Diverticulitis large intestine, Hypertension, Hypokalemia, Multiple sclerosis, recent admission for diverticulitis with absce ss and now with here? Sigmoid diverticulitis, with abscess, phlegmon and colovesical fistula and is s/p Hand assisted laparoscopic sigmoid resection, end-loop transverse colostomy, extensive lysis of adhesion, disconnection of the colovesical fistula, partial omentectomy 1/Diverticulitis, abscess, colovesicular fistular s/p resection and transverse colostomy as above on 11/23 -managment per surgery, Levaquin is a reasonable choice to treat underlying uti and diverticulitis 2/ HTN-- hold Valsartan and Lasix and restart in AM if BP ok 3/MS-- no acute exacerbation Will continue to follow follow Time Spent With Patient Time: Total time managing care of this patient today ____ minutes. Quality Stroke Does the patient have a stroke diagnosis?: No VTE Prior VTE?: No VTE Risk Level:: Surgical - moderate VTE Device Contraindication: N/A - Device Ordered VTE Drug Contraindication: N/A - Med Ordered
[2022-11-24] MEDS: HYDROmorphone HCl 0.5 MG/0.5 ML SYRINGE IVPUSH (10:37)
--- NOTE | 2022-11-24 12:38 | HO.POSTANES ---
Post Anesthesia Evaluation Post Anesthesia Evaluation Date of Service: 11/24/22 Vital Signs: Vital Signs Temp Pulse Resp BP Pulse Ox O2 Del Method O2 Flow Rate 11/24/22 07:35 97.0 F 85 20 111/58 L 97 Nasal Cannula 3 Anesthesia: General Endotracheal-GETA Mental Status: Awake Pain Control: Satisfactory Nausea/Vomiting: None Hydration: Adequate Anesthesia-Related Issues: No Anes. Related Issues
[2022-11-24 15:16] VITALS: BP 98/57; PULSE 90; RESP 16; TEMP 36.1; O2SAT 98
[2022-11-24] MEDS: Pantoprazole Sodium 40 MG/10 ML VIAL 20 MG IVPUSH (15:20)
--- NOTE | 2022-11-24 15:24 | PM.EVENT ---
Event Note Date of Service: 11/24/22 Event Note: seen on afternoon rounds says she has reflux states she has had this from before - usually takes Omeprazole at home will give extra dose stable VS abd soft stoma viable - no signfiicant output yet SUJIT drain dark blood good UO - clear Time Spent With Patient Time: Total time managing care of this patient today ____ minutes.
[2022-11-24] MEDS: Lactated Ringers 1,000 ML 100 ML IVCONT ×2 (17:38→20:04)
[2022-11-24] MEDS: levoFLOXacin/D5W 500 MG/100 ML PIGGYBACK 100 MG IV (19:59)
[2022-11-24 23:24] VITALS: BP 109/52; PULSE 96; RESP 20; TEMP 36.4; O2SAT 100
[2022-11-25] MEDS: Acetaminophen 1,000 MG/100 ML PIGGYBACK 400 MG IV ×4 (01:04→18:59)
[2022-11-25] MEDS: metroNIDAZOLE/NS 500 MG/100 ML PIGGYBACK 100 MG IV ×3 (02:14→18:02)
[2022-11-25] MEDS: Ketorolac Tromethamine 15 MG/ML VIAL IVPUSH ×4 (02:14→20:08)
[2022-11-25] MEDS: Lactated Ringers 1,000 ML 100 ML IVCONT ×2 (06:04→08:45)
[2022-11-25 07:15] VITALS: BP 122/63; PULSE 100; RESP 20; TEMP 36.4; O2SAT 97
--- NOTE | 2022-11-25 08:34 | HO.PM.IMPN ---
Subjective Subjective Date of Service: 11/25/22 Interval History: follow up on med managment following colon surgery doing ok, no pain, no fever, ngt in place Physical Exam Vital Signs: Vital Signs: Last Vital Signs Temp 97.5 F 11/25/22 07:15 Pulse 100 11/25/22 07:15 Resp 20 11/25/22 07:15 BP 122/63 11/25/22 07:15 Pulse Ox 97 11/25/22 07:15 O2 Del Method Nasal Cannula 11/25/22 07:15 O2 Flow Rate 2 11/25/22 07:15 BMI result Body Mass Index 42.5 Objective Data Active Medications Enoxaparin Sodium (Enoxaparin Sodium 40 Mg/0.4 Ml Syringe) 40 mg SUBCUT Q24H [facility] Last Admin: 11/22/22 19:37 Dose: 40 mg Documented By: MARKOPECamelia Hydromorphone HCl (Hydromorphone Hcl 0.5 Mg/0.5 Ml Syringe) 0.5 mg IVPUSH Q4H PRN; Protocol PRN Reason: Pain, Severe (Pain Scale 7-10) Last Admin: 11/24/22 10:37 Dose: 0.5 mg Documented By: REINA Levofloxacin (Levaquin) 500 mg in 100 mls @ 100 mls/hr IV Q24H [facility] Last Infusion: 11/24/22 21:31 Dose: 0 mls/hr Documented By: TARA Metronidazole (Flagyl) 500 mg in 100 mls @ 100 mls/hr IV Q8H [facility] Last Infusion: 11/25/22 03:48 Dose: 0 mls/hr Documented By: TARA Lactated Ringer's (Lr) 1,000 mls @ 100 mls/hr IVCONT .Q10H [facility] Last Admin: 11/25/22 06:04 Dose: 100 mls/hr Documented By: TARA Acetaminophen (Ofirmev) 1,000 mg in 100 mls @ 400 mls/hr IV Q6H [facility] Last Infusion: 11/25/22 06:31 Dose: 0 mls/hr Documented By: TARA Ketorolac Tromethamine (Ketorolac Tromethamine 15 Mg/Ml Vial) 15 mg IVPUSH Q6H [facility] Last Admin: 11/25/22 02:14 Dose: 15 mg Documented By: TARA Pantoprazole Sodium (Pantoprazole Sodium 40 Mg/10 Ml Vial) 40 mg IVPUSH DAILY [facility] Last Admin: 11/24/22 08:43 Dose: 40 mg Documented By: REINA Pharmacy Consult (Consult Rx Perform Med Rec) 1 each MISCELLANE ONCE PRN PRN Reason: Consult order Sodium Chloride (0.9 % Sodium Chloride Flush 3 Ml Syringe) 3 ml IVFLUSH QSHIFT [facility] Last Admin: 11/24/22 19:59 Dose: 3 ml Documented By: TARA Labs 11/24/22 05:54 11/24/22 05:54 Microbiology Microbiology Results: Microbiology 11/22/22 11:25 Blood Culture - Preliminary Blood - Venous No growth after 48 hours. 11/22/22 11:25 Blood Culture - Preliminary Blood - Venous No growth after 48 hours. 11/22/22 Unknown Urine Culture - Final Urine clean catch - Urine osto top Escherichia coli Assessment and Plan (1) Colovesical fistula: Status: Acute (2) Diverticulitis: Status: Acute (3) Hypertension: Status: Acute (4) Multiple sclerosis: Status: Acute Plan 62 yo female with with history Diverticulitis large intestine, Hypertension, Hypokalemia, Multiple sclerosis, recent admission for diverticulitis with abscess and now with here? Sigmoid diverticulitis, with abscess, phlegmon and colovesical fistula and is s/p Hand assisted laparoscopic sigmoid resection, end-loop transverse colostomy, extensive lysis of adhesion, disconnection of the colovesical fistula, partial omentectomy 1/Diverticulitis with abscess, colovesicular fistula s/p resection and transverse colostomy as above on 11/23 -managment per surgery, Levaquin + Flagyl is a reasonable choice to treat underlying uti and diverticulitis, NGT in place, consider TPN in near future 2/ HTN-- hold Valsartan, Oral Lasix 40 daily on hold, no sings of fluid overload 3/MS-- no acute exacerbation Will continue to follow follow Time Spent With Patient Time: Total time managing care of this patient today ____ minutes. Quality Stroke Does the patient have a stroke diagnosis?: No VTE Prior VTE?: No VTE Risk Level:: Surgical - moderate VTE Device Contraindication: N/A - Device Ordered VTE Drug Contraindication: N/A - Med Ordered
[2022-11-25] MEDS: Pantoprazole Sodium 40 MG/10 ML VIAL IVPUSH (08:45)
--- NOTE | 2022-11-25 11:22 | P.PNGS_ITS ---
Subjective Subjective Date of Service: 11/25/22 Interval history: says she feels better states that she may have passed some flatus via her stoma pain better Physical Exam Vital Signs: Vital Signs: Last Vital Signs Temp 97.5 F 11/25/22 07:15 Pulse 100 11/25/22 07:15 Resp 20 11/25/22 07:15 BP 122/63 11/25/22 07:15 Pulse Ox 97 11/25/22 07:15 O2 Del Method Nasal Cannula 11/25/22 07:15 O2 Flow Rate 2 11/25/22 07:15 BMI result Body Mass Index 42.5 Const: General: comfortable Resp: Effort & Inspection: normal respiratory effort Cardio: Rhythm: regular rhythm GI: Other: obese, soft,, viable, no will see a, incision clean and dry, SUJIT drain serosanguineous Objective Data Active Medications Enoxaparin Sodium (Enoxaparin Sodium 40 Mg/0.4 Ml Syringe) 40 mg SUBCUT Q24H [facility] Last Admin: 11/22/22 19:37 Dose: 40 mg Documented By: MARKOPECamelia Hydromorphone HCl (Hydromorphone Hcl 0.5 Mg/0.5 Ml Syringe) 0.5 mg IVPUSH Q4H PRN; Protocol PRN Reason: Pain, Severe (Pain Scale 7-10) Last Admin: 11/24/22 10:37 Dose: 0.5 mg Documented By: REINA Levofloxacin (Levaquin) 500 mg in 100 mls @ 100 mls/hr IV Q24H [facility] Last Infusion: 11/24/22 21:31 Dose: 0 mls/hr Documented By: TARA Metronidazole (Flagyl) 500 mg in 100 mls @ 100 mls/hr IV Q8H [facility] Last Infusion: 11/25/22 03:48 Dose: 0 mls/hr Documented By: TARA Lactated Ringer's (Lr) 1,000 mls @ 100 mls/hr IVCONT .Q10H [facility] Last Admin: 11/25/22 08:45 Dose: 100 mls/hr Documented By: REINA Acetaminophen (Ofirmev) 1,000 mg in 100 mls @ 400 mls/hr IV Q6H [facility] Last Infusion: 11/25/22 06:31 Dose: 0 mls/hr Documented By: TARA Ketorolac Tromethamine (Ketorolac Tromethamine 15 Mg/Ml Vial) 15 mg IVPUSH Q6H [facility] Last Admin: 11/25/22 08:45 Dose: 15 mg Documented By: REINA Pantoprazole Sodium (Pantoprazole Sodium 40 Mg/10 Ml Vial) 40 mg IVPUSH DAILY [facility] Last Admin: 11/25/22 08:45 Dose: 40 mg Documented By: REINA Pharmacy Consult (Consult Rx Perform Med Rec) 1 each MISCELLANE ONCE PRN PRN Reason: Consult order Sodium Chloride (0.9 % Sodium Chloride Flush 3 Ml Syringe) 3 ml IVFLUSH QSHIFT [facility] Last Admin: 11/25/22 08:46 Dose: Not Given Documented By: REINA Non-Admin Reason: IV Running Labs 11/24/22 05:54 11/24/22 05:54 Microbiology Microbiology Results: Microbiology 11/22/22 11:25 Blood Culture - Preliminary Blood - Venous No growth after 48 hours. 11/22/22 11:25 Blood Culture - Preliminary Blood - Venous No growth after 48 hours. 11/22/22 Unknown Urine Culture - Final Urine clean catch - Urine soto top Escherichia coli Procedures Date of Service Date of Service: 11/25/22 Progress Note: A&P Assessment and plan (1) Colovesical fistula: Status: Acute Assessment and Plan: status post void resection, end-loop transverse colostomy doing well good pain control NG tube output minimal overnight DC NG tube out of bed to recliner stoma care IV antibiotics urine output clear keep Hall in Time Spent With Patient Time: Total time managing care of this patient today ____ minutes. Quality Stroke Does the patient have a stroke diagnosis?: No VTE Prior VTE?: No VTE Risk Level:: Surgical - moderate VTE Device Contraindication: N/A - Device Ordered VTE Drug Contraindication: N/A - Med Ordered
[2022-11-25 15:37] VITALS: BP 115/58; PULSE 103; RESP 20; TEMP 36.2; O2SAT 96
[2022-11-25] MEDS: 0.9 % Sodium Chloride Flush 3 ML SYRINGE IVFLUSH (20:08)
[2022-11-25] MEDS: levoFLOXacin/D5W 500 MG/100 ML PIGGYBACK 100 MG IV (20:08)
[2022-11-25 23:42] VITALS: BP 119/63; PULSE 99; RESP 18; TEMP 36.1; O2SAT 96
[2022-11-26] MEDS: Ketorolac Tromethamine 15 MG/ML VIAL IVPUSH ×2 (02:22→09:26)
[2022-11-26] MEDS: metroNIDAZOLE/NS 500 MG/100 ML PIGGYBACK 100 MG IV ×3 (02:23→22:52)
[2022-11-26] MEDS: Acetaminophen 1,000 MG/100 ML PIGGYBACK 400 MG IV ×4 (02:23→18:14)
[2022-11-26] MEDS: Lactated Ringers 1,000 ML 100 ML IVCONT (02:28)
[2022-11-26 07:47] VITALS: BP 119/49; PULSE 92; RESP 20; TEMP 36.4; O2SAT 96
[2022-11-26] MEDS: 0.9 % Sodium Chloride Flush 3 ML SYRINGE IVFLUSH (09:27)
--- NOTE | 2022-11-26 10:56 | PM.PNGS ---
Subjective Subjective Date of Service: 11/26/22 Interval history: continues to feel well stoma with good output of stools tolerating clear liquids Physical Exam Vital Signs: Vital Signs: Last Vital Signs Temp 97.5 F 11/26/22 07:47 Pulse 92 11/26/22 07:47 Resp 20 11/26/22 07:47 BP 119/49 L 11/26/22 07:47 Pulse Ox 96 11/26/22 07:47 O2 Del Method Room Air 11/26/22 07:47 O2 Flow Rate 2 11/25/22 07:15 BMI result Body Mass Index 42.5 Const: General: comfortable and no acute distress Resp: Effort & Inspection: normal respiratory effort GI: Other: soft, no guarding, incision clean and dry, stoma with good stools, SUJIT drain serosanguineous, scanty Objective Data Active Medications Enoxaparin Sodium (Enoxaparin Sodium 40 Mg/0.4 Ml Syringe) 40 mg SUBCUT Q24H [facility] BEDS AT [facility] Last Admin: 11/22/22 19:37 Dose: 40 mg Documented By: MARKOPECamelia Hydromorphone HCl (Hydromorphone Hcl 0.5 Mg/0.5 Ml Syringe) 0.5 mg IVPUSH Q4H PRN; Protocol PRN Reason: Pain, Severe (Pain Scale 7-10) Last Admin: 11/24/22 10:37 Dose: 0.5 mg Documented By: REINA Levofloxacin (Levaquin) 500 mg in 100 mls @ 100 mls/hr IV Q24H [facility] 234 B[facility]S AT [facility] Last Infusion: 11/25/22 21:44 Dose: 0 mls/hr Documented By: TARA Metronidazole (Flagyl) 500 mg in 100 mls @ 100 mls/hr IV Q8H [facility] 234 BEDS AT [facility] Last Infusion: 11/26/22 03:34 Dose: 0 mls/hr Documented By: TARA Lactated Ringer's (Lr) 1,000 mls @ 100 mls/hr IVCONT .Q10H [facility] 234 BEDS AT [facility] Last Admin: 11/26/22 02:28 Dose: 100 mls/hr Documented By: TARA Acetaminophen (Ofirmev) 1,000 mg in 100 mls @ 400 mls/hr IV Q6H [facility] 234 BEDS AT [facility] Last Infusion: 11/26/22 09:46 Dose: 0 mls/hr Documented By: CORIE Ketorolac Tromethamine (Ketorolac Tromethamine 15 Mg/Ml Vial) 15 mg IVPUSH Q6H [facility] 234 BEDS AT [facility] Last Admin: 11/26/22 09:26 Dose: 15 mg Documented By: CORIE Pharmacy Consult (Consult Rx Perform Med Rec) 1 each MISCELLANE ONCE PRN PRN Reason: Consult order Sodium Chloride (0.9 % Sodium Chloride Flush 3 Ml Syringe) 3 ml IVFLUSH QSHIFT COUNTS [facility]CLUDE 234 BEDS AT [facility] Last Admin: 11/26/22 09:27 Dose: 3 ml Documented By: CORIE Labs 11/24/22 05:54 11/24/22 05:54 Procedures Date of Service Date of Service: 11/26/22 Progress Note: A&P Assessment and plan (1) Colovesical fistula: Status: Acute Assessment and Plan: status post sigmoid resection, end-loop colostomy on the transverse colon stoma working well now regular diet encouraged to get out of bed urine clearing looks well family in the room Time Spent With Patient Time: Total time managing care of this patient today ____ minutes. Quality Stroke Does the patient have a stroke diagnosis?: No VTE Prior VTE?: No VTE Risk Level:: Surgical - moderate VTE Device Contraindication: N/A - Device Ordered VTE Drug Contraindication: N/A - Med Ordered
[2022-11-26 16:00] VITALS: BP 111/68; PULSE 94; RESP 16; TEMP 36.6; O2SAT 95
[2022-11-26] MEDS: levoFLOXacin/D5W 500 MG/100 ML PIGGYBACK 100 MG IV (18:15)
[2022-11-26 19:24] VITALS: BP 113/62; PULSE 90; RESP 18; TEMP 36.7; O2SAT 97
--- NOTE | 2022-11-26 20:24 | HO.PM.IMPN ---
Subjective Subjective Date of Service: 11/26/22 Interval History: Follow up for pt s/p colectomy with stoma/ostomy for complicated diverticulitis with colovesical fistula No acute events overnight Reports no acute medical concerns at this time Output in ostomy bag Pain well-controlled with current therapies Chronic lower leg edema at baseline No SOB, cough No headache Denies abdominal pain Review of Systems No acute medical complaints Physical Exam Vital Signs: Vital Signs: Last Vital Signs Temp 98.0 F 11/26/22 19:24 Pulse 90 11/26/22 19:24 Resp 18 11/26/22 19:24 BP 113/62 11/26/22 19:24 Pulse Ox 97 11/26/22 19:24 O2 Del Method Room Air 11/26/22 19:24 O2 Flow Rate 2 11/25/22 07:15 BMI result Body Mass Index 42.5 General: AOx3, no acute distress Resp: CTA bilaterally CVS: S1, S2, RRR GI: +BS, no distention, ostomy in place with liquid output Skin: No rash Neuro: Cranial nerves II-XII grossly intact bilaterally. Motor grossly intact bilaterally Extremities: Non pitting edema Psych: Appropriate affect Objective Data Active Medications Enoxaparin Sodium (Enoxaparin Sodium 40 Mg/0.4 Ml Syringe) 40 mg SUBCUT Q24H [facility] Last Admin: 11/22/22 19:37 Dose: 40 mg Documented By: MARKOPECamelia Hydromorphone HCl (Hydromorphone Hcl 0.5 Mg/0.5 Ml Syringe) 0.5 mg IVPUSH Q4H PRN; Protocol PRN Reason: Pain, Severe (Pain Scale 7-10) Last Admin: 11/24/22 10:37 Dose: 0.5 mg Documented By: REINA Levofloxacin (Levaquin) 500 mg in 100 mls @ 100 mls/hr IV Q24H [facility] Last Admin: 11/26/22 18:15 Dose: 100 mls/hr Documented By: CORIE Metronidazole (Flagyl) 500 mg in 100 mls @ 100 mls/hr IV Q8H [facility] Last Infusion: 11/26/22 12:45 Dose: 0 mls/hr Documented By: CORIE Lactated Ringer's (Lr) 1,000 mls @ 60 mls/hr IVCONT .[id number] [facility] Last Infusion: 11/26/22 11:31 Dose: 0 mls/hr Documented By: CORIE Acetaminophen (Ofirmev) 1,000 mg in 100 mls @ 400 mls/hr IV Q6H [facility] Last Infusion: 11/26/22 18:37 Dose: 0 mls/hr Documented By: CORIE Pharmacy Consult (Consult Rx Perform Med Rec) 1 each MISCELLANE ONCE PRN PRN Reason: Consult order Sodium Chloride (0.9 % Sodium Chloride Flush 3 Ml Syringe) 3 ml IVFLUSH QSHIFT [facility] Last Admin: 11/26/22 15:04 Dose: Not Given Documented By: CORIE Non-Admin Reason: IV Running Labs 11/24/22 05:54 11/24/22 05:54 Assessment and Plan (1) Colovesical fistula: Status: Acute (2) Diverticulitis: Status: Acute (3) Abscess of sigmoid colon due to diverticulitis: Status: Acute Plan 62 yo female with with history Diverticulitis large intestine, Hypertension, Hypokalemia, Multiple sclerosis, recent admission for diverticulitis with abscess and now with here? Sigmoid diverticulitis, with abscess, phlegmon and colovesical fistula and is s/p Hand assisted laparoscopic sigmoid resection, end-loop transverse colostomy, extensive lysis of adhesion, disconnection of the colovesical fistula, partial omentectomy Diverticulitis with abscess, colovesicular fistula s/p resection and transverse colostomy as above on 11/23 Managment per surgery On Levaquin + Flagyl HTN BP continues to be soft, hold Valsartan Hold po Lasix 40 daily, no signs of fluid overload MS Not in acute exacerbation Will continue to follow?for HTN management Time Spent With Patient Time: Total time managing care of this patient today ____ minutes. Quality Stroke Does the patient have a stroke diagnosis?: No VTE Prior VTE?: No VTE Risk Level:: Surgical - moderate VTE Device Contraindication: N/A - Device Ordered VTE Drug Contraindication: N/A - Med Ordered
[2022-11-26 23:37] VITALS: BP 127/65; PULSE 94; RESP 20; TEMP 36.5; O2SAT 96
[2022-11-27] MEDS: Acetaminophen 1,000 MG/100 ML PIGGYBACK 400 MG IV ×4 (02:45→19:41)
[2022-11-27] MEDS: metroNIDAZOLE/NS 500 MG/100 ML PIGGYBACK 100 MG IV ×3 (07:08→22:03)
[2022-11-27 07:24] VITALS: BP 137/64; PULSE 97; RESP 18; TEMP 36.6; O2SAT 96
--- NOTE | 2022-11-27 08:08 | PM.PNGS ---
Subjective Subjective Date of Service: 11/27/22 Interval history: States she feels well Continues to have reflux - says he had 1 emesis last night which she describes more reflux Stoma functioning well Pain level much improved Physical Exam Vital Signs: Vital Signs: Last Vital Signs Temp 97.8 F 11/27/22 07:24 Pulse 97 11/27/22 07:24 Resp 18 11/27/22 07:24 BP 137/64 11/27/22 07:24 Pulse Ox 96 11/27/22 07:24 O2 Del Method Room Air 11/27/22 07:24 O2 Flow Rate 2 11/25/22 07:15 BMI result Body Mass Index 42.5 Const: General: comfortable and no acute distress Resp: Effort & Inspection: normal respiratory effort Cardio: Rate: regular rate GI: Other: Incision clean and dry, SUJIT drain serosanguineous and scanty, stoma functioning well Palpation (GI): Soft to palpation and not firm Objective Data Active Medications Enoxaparin Sodium (Enoxaparin Sodium 40 Mg/0.4 Ml Syringe) 40 mg SUBCUT Q24H [facility] Last Admin: 11/22/22 19:37 Dose: 40 mg Documented By: COOPECamelia Hydromorphone HCl (Hydromorphone Hcl 0.5 Mg/0.5 Ml Syringe) 0.5 mg IVPUSH Q4H PRN; Protocol PRN Reason: Pain, Severe (Pain Scale 7-10) Last Admin: 11/24/22 10:37 Dose: 0.5 mg Documented By: REINA Levofloxacin (Levaquin) 500 mg in 100 mls @ 100 mls/hr IV Q24H [facility] Last Infusion: 11/26/22 19:15 Dose: 0 mls/hr Documented By: CODY Lactated Ringer's (Lr) 1,000 mls @ 60 mls/hr IVCONT .[id number] [facility] Last Infusion: 11/26/22 11:31 Dose: 0 mls/hr Documented By: CORIE Acetaminophen (Ofirmev) 1,000 mg in 100 mls @ 400 mls/hr IV Q6H [facility] Last Infusion: 11/27/22 03:15 Dose: 0 mls/hr Documented By: CODY Metronidazole (Flagyl) 500 mg in 100 mls @ 100 mls/hr IV Q8H [facility] Last Admin: 11/27/22 07:08 Dose: 100 mls/hr Documented By: CODY Pharmacy Consult (Consult Rx Perform Med Rec) 1 each MISCELLANE ONCE PRN PRN Reason: Consult order Sodium Chloride (0.9 % Sodium Chloride Flush 3 Ml Syringe) 3 ml IVFLUSH QSHIFT [facility] Last Admin: 11/27/22 00:32 Dose: Not Given Documented By: CODY Non-Admin Reason: IV Running Labs 11/24/22 05:54 11/24/22 05:54 Procedures Date of Service Date of Service: 11/27/22 Progress Note: A&P Assessment and plan (1) Colovesical fistula: Status: Acute Assessment and Plan: Status post sigmoid resection, transverse end- loop colostomy Stoma functioning well Stoma bridge removed Urine clear Keep Hall in Ambulate Incentive spirometry PO Prilosec for reflux Time Spent With Patient Time: Total time managing care of this patient today ____ minutes. Quality Stroke Does the patient have a stroke diagnosis?: No VTE Prior VTE?: No VTE Risk Level:: Surgical - moderate VTE Device Contraindication: N/A - Device Ordered VTE Drug Contraindication: N/A - Med Ordered
[2022-11-27] MEDS: Valsartan 80 MG TABLET PO (08:37)
[2022-11-27] MEDS: Omeprazole 20 MG CAPSULE.DR PO ×2 (08:37→16:52)
[2022-11-27] MEDS: Lactated Ringers 1,000 ML 60 ML IVCONT ×2 (08:39→18:42)
[2022-11-27] MEDS: 0.9 % Sodium Chloride Flush 3 ML SYRINGE IVFLUSH (08:40)
--- NOTE | 2022-11-27 12:06 | HO.PM.IMPN ---
Subjective Subjective Date of Service: 11/27/22 Interval History: Follow up for pt s/p colectomy with stoma/ostomy for complicated diverticulitis with colovesical fistula No acute events overnight Pain well-controlled with current therapies Review of Systems No acute medical complaints Physical Exam Vital Signs: Vital Signs: Last Vital Signs Temp 97.8 F 11/27/22 07:24 Pulse 97 11/27/22 07:24 Resp 18 11/27/22 07:24 BP 137/64 11/27/22 07:24 Pulse Ox 96 11/27/22 07:24 O2 Del Method Room Air 11/27/22 07:24 O2 Flow Rate 2 11/25/22 07:15 BMI result Body Mass Index 42.5 Appearing in no acute distress lung sounds are clear to auscultation heart regular rate rhythm, clear S1, S2 positive bowel sounds, abdomen is soft, nontender, ostomy intact neuro patient is alert x3, no focal deficits Objective Data Active Medications Enoxaparin Sodium (Enoxaparin Sodium 40 Mg/0.4 Ml Syringe) 40 mg SUBCUT Q24H [facility] Last Admin: 11/22/22 19:37 Dose: 40 mg Documented By: COOPECamelia Hydromorphone HCl (Hydromorphone Hcl 0.5 Mg/0.5 Ml Syringe) 0.5 mg IVPUSH Q4H PRN; Protocol PRN Reason: Pain, Severe (Pain Scale 7-10) Last Admin: 11/24/22 10:37 Dose: 0.5 mg Documented By: REINA Levofloxacin (Levaquin) 500 mg in 100 mls @ 100 mls/hr IV Q24H [facility] Last Infusion: 11/26/22 19:15 Dose: 0 mls/hr Documented By: CODY Lactated Ringer's (Lr) 1,000 mls @ 60 mls/hr IVCONT .[id number] [facility] Last Admin: 11/27/22 08:39 Dose: 60 mls/hr Documented By: CARI Acetaminophen (Ofirmev) 1,000 mg in 100 mls @ 400 mls/hr IV Q6H [facility] Last Infusion: 11/27/22 08:59 Dose: 0 mls/hr Documented By: CARI Metronidazole (Flagyl) 500 mg in 100 mls @ 100 mls/hr IV Q8H [facility] Last Infusion: 11/27/22 08:43 Dose: 0 mls/hr Documented By: CARI Omeprazole (Omeprazole 20 Mg Capsule.Dr) 20 mg PO BID@0630,1630 [facility] Last Admin: 11/27/22 08:37 Dose: 20 mg Documented By: CARI Oxycodone HCl (Oxycodone Hcl Immed Release 5 Mg Tablet) 5 mg PO Q4H PRN PRN Reason: Pain, Moderate(Pain Scale 4-6) Oxycodone HCl (Oxycodone Hcl Immed Release 5 Mg Tablet) 10 mg PO Q4H PRN PRN Reason: Pain, Severe (Pain Scale 7-10) Pharmacy Consult (Consult Rx Perform Med Rec) 1 each MISCELLANE ONCE PRN PRN Reason: Consult order Sodium Chloride (0.9 % Sodium Chloride Flush 3 Ml Syringe) 3 ml IVFLUSH QSHIFT [facility] Last Admin: 11/27/22 08:40 Dose: 3 ml Documented By: CARI Valsartan (Valsartan 80 Mg Tablet) 80 mg PO DAILY [facility]; Protocol Last Admin: 11/27/22 08:37 Dose: 80 mg Documented By: CARI Labs 11/24/22 05:54 11/24/22 05:54 Assessment and Plan (1) Colovesical fistula: Status: Acute (2) Diverticulitis: Status: Acute (3) Abscess of sigmoid colon due to diverticulitis: Status: Acute Plan 62 yo female with with history Diverticulitis large intestine, Hypertension, Hypokalemia, Multiple sclerosis, recent admission for diverticulitis with abscess and now with here? Sigmoid diverticulitis, with abscess, phlegmon and colovesical fistula and is s/p Hand assisted laparoscopic sigmoid resection, end-loop transverse colostomy, extensive lysis of adhesion, disconnection of the colovesical fistula, partial omentectomy Diverticulitis with abscess, colovesicular fistula s/p resection and transverse colostomy as above on 11/23 Managment per surgery On Levaquin + Flagyl HTN Blood pressure is on the lower side Valsartan restarted at half the dose, 80 mg daily Will restart Lasix tomorrow at have to dose 20 mg daily MS Not in acute exacerbation DVT prophylaxis with Lovenox Full code Medical consultation completed. Will sign off. Time Spent With Patient Time: Total time managing care of this patient today ____ minutes. Quality Stroke Does the patient have a stroke diagnosis?: No VTE Prior VTE?: No VTE Risk Level:: Surgical - moderate VTE Device Contraindication: N/A - Device Ordered VTE Drug Contraindication: N/A - Med Ordered
[2022-11-27] MEDS: ondansetron HCL 4 MG/2 ML VIAL IVPUSH (12:58)
--- NOTE | 2022-11-27 14:18 | MHC.CM.PN ---
EMR reviewed and per MD rounds, pt is not medically cleared for D/C today. CM will continue to follow.
--- NOTE | 2022-11-27 14:43 | PM.EVENT ---
Event Note Date of Service: 11/27/22 Event Note: Vomited at noontime Seen on early afternoon rounds She is much more comfortable Denies abdominal pain Abdomen soft and benign Stoma with good output She continues to pass flatus via stoma Will be kept NPO for now except for ice chips and meds May be having ileus Encouraged to get out of bed Looks well overall Time Spent With Patient Time: Total time managing care of this patient today ____ minutes.
[2022-11-27 15:52] VITALS: BP 130/68; PULSE 87; RESP 18; TEMP 36; O2SAT 97
[2022-11-27 19:41] VITALS: BP 135/69; PULSE 96; RESP 17; TEMP 36.8; O2SAT 98
[2022-11-27] MEDS: levoFLOXacin/D5W 500 MG/100 ML PIGGYBACK 100 MG IV (19:58)
[2022-11-27 23:34] VITALS: BP 129/75; PULSE 95; RESP 18; TEMP 36; O2SAT 97
[2022-11-28] MEDS: Acetaminophen 1,000 MG/100 ML PIGGYBACK 400 MG IV ×4 (04:00→23:00)
[2022-11-28] MEDS: Omeprazole 20 MG CAPSULE.DR PO ×2 (06:49→17:51)
[2022-11-28] MEDS: metroNIDAZOLE/NS 500 MG/100 ML PIGGYBACK 100 MG IV ×3 (06:50→22:53)
[2022-11-28 07:12] VITALS: BP 132/60; PULSE 94; RESP 16; TEMP 36.1; O2SAT 95
[2022-11-28 08:30] VITALS: BP 130/65; PULSE 92
[2022-11-28] MEDS: Valsartan 80 MG TABLET PO (08:31)
[2022-11-28] MEDS: Furosemide 20 MG TABLET PO (08:31)
[2022-11-28] MEDS: 0.9 % Sodium Chloride Flush 3 ML SYRINGE IVFLUSH ×2 (08:31→13:52)
--- NOTE | 2022-11-28 09:01 | P.PNGS_ITS ---
Subjective Subjective Date of Service: 11/28/22 <Sheila Galvez PA-C - Last Filed: 11/28/22 09:05> 11/28/22 <Jersey Ray MD - Last Filed: 11/28/22 17:03> Interval history: Feels improved this morning. No further nausea. Ostomy still functioning well. Reports minimal pain. <Sheila Galvez PA-C - Last Filed: 11/28/22 09:05> Physical Exam Vital Signs: Vital Signs: Last Vital Signs Temp 96.9 F 11/28/22 07:12 Pulse 92 11/28/22 08:30 Resp 16 11/28/22 07:12 BP 130/65 11/28/22 08:30 Pulse Ox 95 11/28/22 07:12 O2 Del Method Room Air 11/28/22 07:12 O2 Flow Rate 2 11/25/22 07:15 BMI result Body Mass Index 42.5 <BIANCA Collado Last Filed: 11/28/22 09:05> Const: General: comfortable, no acute distress and alert <Sheila Galvez PA-C - Last Filed: 11/28/22 09:05> Orientation/consciousness: patient oriented x3 <BIANCA Collado Last Filed: 11/28/22 09:05> Resp: Effort & Inspection: normal respiratory effort <Sheila Galvez PA-C - Last Filed: 11/28/22 09:05> GI: Other: ostomy pink <Sheila Galvez PA-C - Last Filed: 11/28/22 09:05> Inspection: Yes incision (clean) <Sheila Galvez PA-C - Last Filed: 11/28/22 09:05> Palpation (GI): Soft to palpation, Tenderness to palpation present (GI) (mild incisional), no guarding and not rigid <BIANCA Collado Last Filed: 11/28/22 09:05> : Other: wallace in place <BIANCA Collado Last Filed: 11/28/22 09:05> Skin: General skin exam: no rashes or lesions noted <Sheila Galvez PA-C - Last Filed: 11/28/22 09:05> Neuro: General: patient oriented x3 and moves all extremities <Sheila Galvez PA-C - Last Filed: 11/28/22 09:05> Objective Data Active Medications Enoxaparin Sodium (Enoxaparin Sodium 40 Mg/0.4 Ml Syringe) 40 mg SUBCUT Q24H [facility] Last Admin: 11/22/22 19:37 Dose: 40 mg Documented By: MARKOPECamelia Furosemide (Furosemide 20 Mg Tablet) 20 mg PO DAILY [facility]; Protocol Last Admin: 11/28/22 08:31 Dose: 20 mg Documented By: DORI Hydromorphone HCl (Hydromorphone Hcl 0.5 Mg/0.5 Ml Syringe) 0.5 mg IVPUSH Q4H PRN; Protocol PRN Reason: Pain, Severe (Pain Scale 7-10) Last Admin: 11/24/22 10:37 Dose: 0.5 mg Documented By: REINA Levofloxacin (Levaquin) 500 mg in 100 mls @ 100 mls/hr IV Q24H [facility] Last Infusion: 11/27/22 20:58 Dose: 0 mls/hr Documented By: TUMASY Lactated Ringer's (Lr) 1,000 mls @ 60 mls/hr IVCONT .[id number] [facility] Last Admin: 11/27/22 18:42 Dose: 60 mls/hr Documented By: CARI Metronidazole (Flagyl) 500 mg in 100 mls @ 100 mls/hr IV Q8H [facility] Last Infusion: 11/28/22 08:05 Dose: 0 mls/hr Documented By: DORI Acetaminophen (Ofirmev) 1,000 mg in 100 mls @ 400 mls/hr IV Q6H [facility] Omeprazole (Omeprazole 20 Mg Capsule.Dr) 20 mg PO BID@0630,1630 [facility] Last Admin: 11/28/22 06:49 Dose: 20 mg Documented By: CODY Ondansetron HCl (Ondansetron Hcl 4 Mg/2 Ml Vial) 4 mg IVPUSH Q6H PRN PRN Reason: Nausea Last Admin: 11/27/22 12:58 Dose: 4 mg Documented By: CARI Oxycodone HCl (Oxycodone Hcl Immed Release 5 Mg Tablet) 5 mg PO Q4H PRN PRN Reason: Pain, Moderate(Pain Scale 4-6) Oxycodone HCl (Oxycodone Hcl Immed Release 5 Mg Tablet) 10 mg PO Q4H PRN PRN Reason: Pain, Severe (Pain Scale 7-10) Pharmacy Consult (Consult Rx Perform Med Rec) 1 each MISCELLANE ONCE PRN PRN Reason: Consult order Sodium Chloride (0.9 % Sodium Chloride Flush 3 Ml Syringe) 3 ml IVFLUSH QSHIFT [facility] Last Admin: 11/28/22 08:31 Dose: 3 ml Documented By: DORI Valsartan (Valsartan 80 Mg Tablet) 80 mg PO DAILY [facility]; Protocol Last Admin: 11/28/22 08:31 Dose: 80 mg Documented By: DORI <Sheila Galvez PA-C - Last Filed: 11/28/22 09:05> Labs CBC & Chem 7: 11/24/22 05:54 11/24/22 05:54 <Sheila Galvez PA-C - Last Filed: 11/28/22 09:05> Microbiology Microbiology Results: Microbiology 11/22/22 11:25 Blood Culture - Final Blood - Venous No growth after 5 days. 11/22/22 11:25 Blood Culture - Final Blood - Venous No growth after 5 days. <Sheila Galvez PA-C - Last Filed: 11/28/22 09:05> Procedures Date of Service Date of Service: 11/28/22 <Sheila Galvez PA-C - Last Filed: 11/28/22 09:05> 11/28/22 <Jersey Ray MD - Last Filed: 11/28/22 17:03> Progress Note: A&P Assessment and plan (1) Colovesical fistula: Status: Acute <Sheila Galvez PA-C - Last Filed: 11/28/22 09:05> (2) Diverticulitis: Status: Acute <BIANCA Collado Last Filed: 11/28/22 09:05> Assessment and Plan: seen and examined independently agree with GERALD Galvez <Jersey Ray MD - Last Filed: 11/28/22 17:03> Assessment and Plan: 62 year old female admitted with diverticulitis, colovesical fistula now POD #5 s/p hand assisted laparoscopic sigmoid resection, end-loop transverse colostomy, extensive lysis of adhesion, disconnection of the colovesical fistula, partial omentectomy. Slowly recovering. Vomited yesterday, feels improved this morning. Abd remains benign. Will advance back to clears. Ostomy remains with good output. Continue colostomy education. Cont wallace. Cont IV abx. Discharge likely by end of week if tolerating solid diet. Patient comfortable with plan. Pathology: Colon, sigmoid, segmental resection:? Diverticular-associated segmental colitis with features of perforation. <Sheila Galvez PA-C - Last Filed: 11/28/22 09:05> Time Spent With Patient Time: Total time managing care of this patient today ____ minutes. <Sheila Galvez PA-C - Last Filed: 11/28/22 09:05> Quality Stroke Does the patient have a stroke diagnosis?: No <Sheila Galvez PA-C - Last Filed: 11/28/22 09:05> VTE Prior VTE?: No <Sheila Galvez PA-C - Last Filed: 11/28/22 09:05> VTE Risk Level:: Surgical - moderate <Sheila Gavlez PA-C - Last Filed: 11/28/22 09:05> VTE Device Contraindication: N/A - Device Ordered <BIANCA Collado Last Filed: 11/28/22 09:05> VTE Drug Contraindication: N/A - Med Ordered <BIANCA Collado Last Filed: 11/28/22 09:05>
--- NOTE | 2022-11-28 09:08 | P.PNGS_ITS ---
Subjective Subjective Date of Service: 11/28/22 Interval history: Feels well this morning No further nausea or vomiting since yesterday Good flatus via colostomy, good stoma output Says she wants to eat regular food again Physical Exam Vital Signs: Vital Signs: Last Vital Signs Temp 96.9 F 11/28/22 07:12 Pulse 92 11/28/22 08:30 Resp 16 11/28/22 07:12 BP 130/65 11/28/22 08:30 Pulse Ox 95 11/28/22 07:12 O2 Del Method Room Air 11/28/22 07:12 O2 Flow Rate 2 11/25/22 07:15 BMI result Body Mass Index 42.5 Const: Other: Looks well General: comfortable and no acute distress Resp: Effort & Inspection: normal respiratory effort Cardio: Rate: regular rate GI: Other: Incision clean and dry, stoma functioning well Palpation (GI): Soft to palpation and not firm Objective Data Active Medications Enoxaparin Sodium (Enoxaparin Sodium 40 Mg/0.4 Ml Syringe) 40 mg SUBCUT Q24H [facility] Last Admin: 11/22/22 19:37 Dose: 40 mg Documented By: MARKOPECamelia Furosemide (Furosemide 20 Mg Tablet) 20 mg PO DAILY [facility]; Protocol Last Admin: 11/28/22 08:31 Dose: 20 mg Documented By: DORI Hydromorphone HCl (Hydromorphone Hcl 0.5 Mg/0.5 Ml Syringe) 0.5 mg IVPUSH Q4H PRN; Protocol PRN Reason: Pain, Severe (Pain Scale 7-10) Last Admin: 11/24/22 10:37 Dose: 0.5 mg Documented By: REINA Levofloxacin (Levaquin) 500 mg in 100 mls @ 100 mls/hr IV Q24H [facility] Last Infusion: 11/27/22 20:58 Dose: 0 mls/hr Documented By: TUMASY Lactated Ringer's (Lr) 1,000 mls @ 60 mls/hr IVCONT .[id number] [facility] Last Admin: 11/27/22 18:42 Dose: 60 mls/hr Documented By: RIOSCEL Metronidazole (Flagyl) 500 mg in 100 mls @ 100 mls/hr IV Q8H [facility] Last Infusion: 11/28/22 08:05 Dose: 0 mls/hr Documented By: DORI Acetaminophen (Ofirmev) 1,000 mg in 100 mls @ 400 mls/hr IV Q6H [facility] Omeprazole (Omeprazole 20 Mg Capsule.) 20 mg PO BID@0630,1630 [facility] Last Admin: 11/28/22 06:49 Dose: 20 mg Documented By: CODY Ondansetron HCl (Ondansetron Hcl 4 Mg/2 Ml Vial) 4 mg IVPUSH Q6H PRN PRN Reason: Nausea Last Admin: 11/27/22 12:58 Dose: 4 mg Documented By: RIORAY Oxycodone HCl (Oxycodone Hcl Immed Release 5 Mg Tablet) 5 mg PO Q4H PRN PRN Reason: Pain, Moderate(Pain Scale 4-6) Oxycodone HCl (Oxycodone Hcl Immed Release 5 Mg Tablet) 10 mg PO Q4H PRN PRN Reason: Pain, Severe (Pain Scale 7-10) Pharmacy Consult (Consult Rx Perform Med Rec) 1 each MISCELLANE ONCE PRN PRN Reason: Consult order Sodium Chloride (0.9 % Sodium Chloride Flush 3 Ml Syringe) 3 ml IVFLUSH QSHIFT [facility] Last Admin: 11/28/22 08:31 Dose: 3 ml Documented By: DORI Valsartan (Valsartan 80 Mg Tablet) 80 mg PO DAILY [facility]; Protocol Last Admin: 11/28/22 08:31 Dose: 80 mg Documented By: DORI Labs 11/24/22 05:54 11/24/22 05:54 Microbiology Microbiology Results: Microbiology 11/22/22 11:25 Blood Culture - Final Blood - Venous No growth after 5 days. 11/22/22 11:25 Blood Culture - Final Blood - Venous No growth after 5 days. Procedures Date of Service Date of Service: 11/28/22 Progress Note: A&P Assessment and plan (1) Colovesical fistula: Status: Acute Assessment and Plan: Status post sigmoid resection with end loop colostomy from the transverse colon Stoma functioning well with good output No further nausea or vomiting since yesterday Restart clear liquids and will slowly advance as tolerated She looks well Hall place, urine clear Keep Hall in place until cystogram in a few weeks Dr. Deng Ambulate (2) Abscess of sigmoid colon due to diverticulitis: Status: Acute Time Spent With Patient Time: Total time managing care of this patient today ____ minutes. Quality Stroke Does the patient have a stroke diagnosis?: No VTE Prior VTE?: No VTE Risk Level:: Surgical - moderate VTE Device Contraindication: N/A - Device Ordered VTE Drug Contraindication: N/A - Med Ordered
[2022-11-28 11:23] VITALS: BP 132/68; PULSE 94; RESP 15; TEMP 36.3; O2SAT 94
[2022-11-28] MEDS: Lactated Ringers 1,000 ML 60 ML IVCONT (13:47)
--- NOTE | 2022-11-28 15:24 | P.CDIM_ITS ---
PROVIDER RESPONSE TEXT: To clarify, the appropriate diagnosis supported by the clinical indicators: Other (explain): anemia likely multifactorial - acute illness, infection, perioperative loss, dilutio nal from IV fluids QUERY TEXT: PHYSICIAN'S DOCUMENTATION REQUEST Date of Query: 11/28/2022 09:07 AM EDT Patient Name: Asuncion Agee Admit Date: 11/22/2022 Dear Jersey Ray, A review of the medical record indicates additional documentation may be needed. Please review below and update the documentation accordingly. Clinical Indicators: H&H on 11/22/22: 11.7/36.1 H&H on 11/24/22: 9.3/28.3 The following diagnoses or signs and symptoms were noted in the patient record: Per Event Note 11/24/22: SUJIT drain dark blood Based on the above, could you clarify the appropriate diagnosis, if significant, that supports the ab ove abnormalities and additional evaluation, monitoring, and/or treatment rendered: Labs indicate a diagnosis of (please specify) Other (explain)Clinically unable to determine (explain)Thank you, Niki Fernandez RN Use of terms such as suspected, likely, concern for, or probable (associated with a specific diagnosi s that is being evaluated, monitored, or treated as if it exists) are acceptable and can be coded in the inpatient se tting, when documented at the time of discharge. Please use your independent medical judgment in providing your response. THIS QUERY IS PART OF THE PERMANENT MEDICAL RECORD
[2022-11-28 15:54] VITALS: BP 129/70; PULSE 84; RESP 18; TEMP 36; O2SAT 97
[2022-11-28] MEDS: levoFLOXacin/D5W 500 MG/100 ML PIGGYBACK 100 MG IV (19:39)
[2022-11-28 23:21] VITALS: BP 141/81; PULSE 84; RESP 18; TEMP 36.8; O2SAT 96
[2022-11-29] MEDS: 0.9 % Sodium Chloride Flush 3 ML SYRINGE IVFLUSH ×3 (00:17→19:17)
[2022-11-29] MEDS: Acetaminophen 1,000 MG/100 ML PIGGYBACK 400 MG IV ×2 (04:33→13:50)
[2022-11-29] MEDS: metroNIDAZOLE/NS 500 MG/100 ML PIGGYBACK 100 MG IV ×3 (04:58→22:02)
[2022-11-29] MEDS: Omeprazole 20 MG CAPSULE.DR PO ×2 (04:59→16:41)
[2022-11-29 07:42] VITALS: BP 124/68; PULSE 83; RESP 20; TEMP 36.1; O2SAT 97
[2022-11-29] MEDS: Valsartan 80 MG TABLET PO (09:55)
[2022-11-29] MEDS: Furosemide 20 MG TABLET PO (09:55)
--- NOTE | 2022-11-29 10:31 | PM.PNGS ---
Subjective Subjective Date of Service: 11/29/22 <Sheila Galvez PA-C - Last Filed: 11/29/22 10:35> 11/29/22 <Venancio Roman MD - Last Filed: 11/29/22 11:13> Interval history: Feels much better this morning. Tolerating clears but does not feel quite ready for food yet. Passing a lot of flatus from ostomy now. OOB and ambulating. <Sheila Galvez PA-C - Last Filed: 11/29/22 10:35> Physical Exam Vital Signs: Vital Signs: Last Vital Signs Temp 97.0 F 11/29/22 07:42 Pulse 83 11/29/22 07:42 Resp 20 11/29/22 07:42 BP 124/68 11/29/22 07:42 Pulse Ox 97 11/29/22 07:42 O2 Del Method Room Air 11/29/22 07:42 O2 Flow Rate 2 11/25/22 07:15 BMI result Body Mass Index 42.5 <Sheila Galvez PA-C - Last Filed: 11/29/22 10:35> Const: General: comfortable, no acute distress and alert <Sheila Galvez PA-C - Last Filed: 11/29/22 10:35> Orientation/consciousness: patient oriented x3 <Sheila Galvez PA-C - Last Filed: 11/29/22 10:35> Resp: Effort & Inspection: normal respiratory effort <Sheila Galvez PA-C - Last Filed: 11/29/22 10:35> GI: Other: ostomy with liquid stool, flatus in appliance <Sheila Galvez PA-C - Last Filed: 11/29/22 10:35> Inspection: No distended and Yes incision (clean) <BIANCA Collado Last Filed: 11/29/22 10:35> Palpation (GI): Soft to palpation, Tenderness to palpation present (GI) (mild incisional), no guarding and not rigid <BIANCA Collado Last Filed: 11/29/22 10:35> Skin: General skin exam: no rashes or lesions noted <Sheila Galvez PA-C - Last Filed: 11/29/22 10:35> Neuro: General: patient oriented x3 <Sheila Galvez PA-C - Last Filed: 11/29/22 10:35> Objective Data Active Medications Enoxaparin Sodium (Enoxaparin Sodium 40 Mg/0.4 Ml Syringe) 40 mg SUBCUT Q24H [facility] Last Admin: 11/22/22 19:37 Dose: 40 mg Documented By: MARKOPECamelia Furosemide (Furosemide 20 Mg Tablet) 20 mg PO DAILY [facility]; Protocol Last Admin: 11/29/22 09:55 Dose: 20 mg Documented By: CARLOS Hydromorphone HCl (Hydromorphone Hcl 0.5 Mg/0.5 Ml Syringe) 0.5 mg IVPUSH Q4H PRN; Protocol PRN Reason: Pain, Severe (Pain Scale 7-10) Last Admin: 11/24/22 10:37 Dose: 0.5 mg Documented By: REINA Levofloxacin (Levaquin) 500 mg in 100 mls @ 100 mls/hr IV Q24H [facility] Last Infusion: 11/28/22 22:13 Dose: 0 mls/hr Documented By: MARYLIN Metronidazole (Flagyl) 500 mg in 100 mls @ 100 mls/hr IV Q8H [facility] Last Infusion: 11/29/22 06:04 Dose: 0 mls/hr Documented By: MARYLIN Acetaminophen (Ofirmev) 1,000 mg in 100 mls @ 400 mls/hr IV Q6H [facility] Last Admin: 11/29/22 09:59 Dose: Not Given Documented By: CARLOS Non-Admin Reason: reacheed max dose Omeprazole (Omeprazole 20 Mg Capsule.Dr) 20 mg PO BID@0630,1630 [facility] Last Admin: 11/29/22 04:59 Dose: 20 mg Documented By: FERNANDA Ondansetron HCl (Ondansetron Hcl 4 Mg/2 Ml Vial) 4 mg IVPUSH Q6H PRN PRN Reason: Nausea Last Admin: 11/27/22 12:58 Dose: 4 mg Documented By: RIOSCEL Oxycodone HCl (Oxycodone Hcl Immed Release 5 Mg Tablet) 5 mg PO Q4H PRN PRN Reason: Pain, Moderate(Pain Scale 4-6) Oxycodone HCl (Oxycodone Hcl Immed Release 5 Mg Tablet) 10 mg PO Q4H PRN PRN Reason: Pain, Severe (Pain Scale 7-10) Pharmacy Consult (Consult Rx Perform Med Rec) 1 each MISCELLANE ONCE PRN PRN Reason: Consult order Sodium Chloride (0.9 % Sodium Chloride Flush 3 Ml Syringe) 3 ml IVFLUSH QSHIFT [facility] Last Admin: 11/29/22 09:55 Dose: 3 ml Documented By: CARLOS Valsartan (Valsartan 80 Mg Tablet) 80 mg PO DAILY [facility]; Protocol Last Admin: 11/29/22 09:55 Dose: 80 mg Documented By: CARLOS <Sheila Galvez PA-C - Last Filed: 11/29/22 10:35> Labs CBC & Chem 7: 11/24/22 05:54 11/24/22 05:54 <Sheila Galvez PA-C - Last Filed: 11/29/22 10:35> Procedures Date of Service Date of Service: 11/29/22 <Sheila Galvez PA-C - Last Filed: 11/29/22 10:35> 11/29/22 <Venancio Roman MD - Last Filed: 11/29/22 11:13> Progress Note: A&P Assessment and plan (1) Colovesical fistula: Status: Acute <Sheila Galvez PA-C - Last Filed: 11/29/22 10:35> (2) Abscess of sigmoid colon due to diverticulitis: Status: Acute <Sheila Galvez PA-C - Last Filed: 11/29/22 10:35> Assessment and Plan: 62 year old female admitted with diverticulitis, colovesical fistula now POD #6 s/p hand assisted laparoscopic sigmoid resection, end-loop transverse colostomy, extensive lysis of adhesion, disconnection of the colovesical fistula, partial omentectomy. Doing well, will advance to full liquids and then further as tolerated. Ostomy remains with good output. Colostomy education. Cont wallace. Cont IV abx. Discharge likely tomorrow with VNA services with wallace to leg bag, SUJIT in place if tolerating solid diet. Patient comfortable with plan. <Sheila Galvez PA-C - Last Filed: 11/29/22 10:35> 62 year old female admitted with diverticulitis, colovesical fistula now POD #6 s/p hand assisted laparoscopic sigmoid resection, end-loop transverse colostomy, extensive lysis of adhesion, disconnection of the colovesical fistula, partial omentectomy. Doing well, will advance to full liquids and then further as tolerated. Ostomy remains with good output. Colostomy education. Cont wallace. Cont IV abx. Discharge likely tomorrow with VNA services with wallace to leg bag, SUJIT in place if tolerating solid diet. Patient comfortable with plan. As noted above patient making great improvement. She is tolerating regular diet and ostomy is producing stool. Urine still has some flecks but is generally clear. Agree with the above assessment and plan. <Venancio Roman MD - Last Filed: 11/29/22 11:13> Time Spent With Patient Time: Total time managing care of this patient today ____ minutes. <Sheila Galvez PA-C - Last Filed: 11/29/22 10:35> Quality Stroke Does the patient have a stroke diagnosis?: No <Sheila Galvez PA-C - Last Filed: 11/29/22 10:35> VTE Prior VTE?: No <Sheila Galvez PA-C - Last Filed: 11/29/22 10:35> VTE Risk Level:: Surgical - moderate <Sheila Galvez PA-C - Last Filed: 11/29/22 10:35> VTE Device Contraindication: N/A - Device Ordered <Sheila Galvez PA-C - Last Filed: 11/29/22 10:35> VTE Drug Contraindication: N/A - Med Ordered <Sheila Galvez PA-C - Last Filed: 11/29/22 10:35>
--- NOTE | 2022-11-29 10:55 | MHC.CM.PN ---
Patient is not yety medically cleared for dc (advancing diet); Patient may benefit from a PT eval to assist with disposition.
[2022-11-29] MEDS: Simethicone 80 MG TAB.CHEW PO ×3 (12:17→22:02)
[2022-11-29 15:47] VITALS: BP 121/57; PULSE 80; RESP 18; TEMP 36.1; O2SAT 97
--- NOTE | 2022-11-29 19:14 | PC.NURSE ---
Pt neurologically intact. Pleasant and cooperative. c/o pain from gas in abdomen covering provider notified simethicone ordered and given with good effect. Tylenol changed to prn oral for pain. [place] to lower mid abdomen intact no redness, swelling or drainage from site. SUJIT drain with minimal abel colored output during shift. Colostomy changed this am by ostomy nurse dark liquid stool noted. Hall cath in place with yellow urine with some sediment. OOB to chair during shift. Continues IV antibiotics per order. Will continue to monitor and report changes
[2022-11-29] MEDS: levoFLOXacin/D5W 500 MG/100 ML PIGGYBACK 100 MG IV (19:17)
[2022-11-29 23:44] VITALS: BP 120/61; PULSE 80; RESP 20; TEMP 36.2; O2SAT 97
[2022-11-30 03:47] VITALS: BP 122/63; PULSE 84; RESP 20; TEMP 36.1; O2SAT 95
[2022-11-30] MEDS: metroNIDAZOLE/NS 500 MG/100 ML PIGGYBACK 100 MG IV ×3 (05:41→21:15)
[2022-11-30] MEDS: Omeprazole 20 MG CAPSULE.DR PO ×2 (05:41→14:35)
[2022-11-30] MEDS: Simethicone 80 MG TAB.CHEW PO ×4 (05:43→21:19)
[2022-11-30 07:25] VITALS: BP 143/68; PULSE 82; RESP 20; TEMP 36.2; O2SAT 96
[2022-11-30] MEDS: Valsartan 80 MG TABLET PO (08:17)
[2022-11-30] MEDS: 0.9 % Sodium Chloride Flush 3 ML SYRINGE IVFLUSH ×3 (08:17→22:24)
[2022-11-30] MEDS: Furosemide 20 MG TABLET PO (08:17)
--- NOTE | 2022-11-30 09:31 | P.PNGS_ITS ---
Subjective Subjective Date of Service: 11/30/22 Interval history: Feels much better this morning with less gas pains. Tolerating full liquids and would like to try solid food. Has been OOB and ambulating halls with walker. Physical Exam 2 Vital Signs: Vital Signs: Last Vital Signs Temp 97.1 F 11/30/22 07:25 Pulse 82 11/30/22 07:25 Resp 20 11/30/22 07:25 BP 143/68 H 11/30/22 07:25 Pulse Ox 96 11/30/22 07:25 O2 Del Method Room Air 11/30/22 07:25 O2 Flow Rate 2 11/25/22 07:15 BMI result Body Mass Index 42.5 Const: General: comfortable, no acute distress and alert Orientation/co nsciousness: patient oriented x3 Resp: Effort & Inspection: normal respiratory effort GI: Other: SUJIT drain with serous drainage, some sediment in tubing and bulb. ostomy with bilious output Inspection: No distended and Yes incision (clean) Palpation (GI): Soft to palpation, Tenderness to palpation present (GI) (mild incisional), no guarding and not rigid Skin: General skin exam: no rashes or lesions noted Neuro: General: patient oriented x3 and moves all extremities Objective Data Active Medications Acetaminophen (Acetaminophen 325 Mg Tablet) 650 mg PO Q6H PRN PRN Reason: Pain, Mild (Pain Scale 1-3) Enoxaparin Sodium (Enoxaparin Sodium 40 Mg/0.4 Ml Syringe) 40 mg SUBCUT Q24H [facility] Last Admin: 11/22/22 19:37 Dose: 40 mg Documented By: MARKOPECmaelia Furosemide (Furosemide 20 Mg Tablet) 20 mg PO DAILY [facility]; Protocol Last Admin: 11/30/22 08:17 Dose: 20 mg Documented By: REINA Hydromorphone HCl (Hydromorphone Hcl 0.5 Mg/0.5 Ml Syringe) 0.5 mg IVPUSH Q4H PRN; Protocol PRN Reason: Pain, Severe (Pain Scale 7-10) Last Admin: 11/24/22 10:37 Dose: 0.5 mg Documented By: REIAN Levofloxacin (Levaquin) 500 mg in 100 mls @ 100 mls/hr IV Q24H [facility] Last Infusion: 11/29/22 21:52 Dose: 0 mls/hr Documented By: ELIZABETH Metronidazole (Flagyl) 500 mg in 100 mls @ 100 mls/hr IV Q8H [facility] Last Infusion: 11/30/22 07:05 Dose: 0 mls/hr Documented By: REINA Omeprazole (Omeprazole 20 Mg Capsule.Dr) 20 mg PO BID@0630,1630 [facility] Last Admin: 11/30/22 05:41 Dose: 20 mg Documented By: ELIZABETH Ondansetron HCl (Ondansetron Hcl 4 Mg/2 Ml Vial) 4 mg IVPUSH Q6H PRN PRN Reason: Nausea Last Admin: 11/27/22 12:58 Dose: 4 mg Documented By: RIOSCJO ANN Oxycodone HCl (Oxycodone Hcl Immed Release 5 Mg Tablet) 5 mg PO Q4H PRN PRN Reason: Pain, Moderate(Pain Scale 4-6) Oxycodone HCl (Oxycodone Hcl Immed Release 5 Mg Tablet) 10 mg PO Q4H PRN PRN Reason: Pain, Severe (Pain Scale 7-10) Pharmacy Consult (Consult Rx Perform Med Rec) 1 each MISCELLANE ONCE PRN PRN Reason: Consult order Simethicone (Simethicone 80 Mg Tab.Chew) 80 mg PO QIDWMHS PRN PRN Reason: Gas Last Admin: 11/30/22 05:43 Dose: 80 mg Documented By: ELIZABETH Sodium Chloride (0.9 % Sodium Chloride Flush 3 Ml Syringe) 3 ml IVFLUSH QSHIFT [facility] Last Admin: 11/30/22 08:17 Dose: 3 ml Documented By: REINA Valsartan (Valsartan 80 Mg Tablet) 80 mg PO DAILY [facility]; Protocol Last Admin: 11/30/22 08:17 Dose: 80 mg Documented By: REINA Labs 11/24/22 05:54 11/24/22 05:54 Procedures Date of Service Date of Service: 11/30/22 Progress Note: A&P Assessment and plan (1) Colovesical fistula: Status: Acute (2) Abscess of sigmoid colon due to diverticulitis: Status: Acute Plan 62 year old female admitted with diverticulitis, colovesical fistula now POD #7 s/p hand assisted laparoscopic sigmoid resection, end-loop transverse colostomy, extensive lysis of adhesion, disconnection of the colovesical fistula, partial omentectomy. Continues to do well post operatively. Ostomy remains with good output. Will advance to solid diet. Cont wallace. Cont IV abx. Possibly discharge to home today with VNA services with wallace to leg bag, SUJIT in place if tolerating solid diet. Patient comfortable with plan. Will reassess later today. Time Spent With Patient Time: Total time managing care of this patient today ____ minutes. Quality Stroke Does the patient have a stroke diagnosis?: No VTE Prior VTE?: No VTE Risk Level:: Surgical - moderate VTE Device Contraindication: N/A - Device Ordered VTE Drug Contraindication: N/A - Med Ordered
[2022-11-30 15:16] VITALS: BP 132/67; PULSE 91; RESP 20; TEMP 36.7; O2SAT 97
[2022-11-30 19:22] VITALS: BP 141/54; PULSE 94; RESP 20; TEMP 36.7; O2SAT 96
[2022-11-30] MEDS: levoFLOXacin/D5W 500 MG/100 ML PIGGYBACK 100 MG IV (22:20)
[2022-11-30 23:13] VITALS: BP 128/67; PULSE 68; RESP 18; TEMP 36.1; O2SAT 97
[2022-12-01] MEDS: metroNIDAZOLE/NS 500 MG/100 ML PIGGYBACK 100 MG IV ×3 (05:31→22:07)
[2022-12-01] MEDS: Omeprazole 20 MG CAPSULE.DR PO ×2 (05:31→15:29)
[2022-12-01] MEDS: Simethicone 80 MG TAB.CHEW PO (06:10)
[2022-12-01 07:43] VITALS: BP 125/61; PULSE 95; RESP 20; TEMP 36; O2SAT 98
--- NOTE | 2022-12-01 08:38 | P.PNGS_ITS ---
Patient seen and examined. Having some left lower quadrant abdominal pain may be gassy pain. Ostomy is functioning well. Abdomen is otherwise soft and nondistended. Agree with the assessment and plan. Subjective Subjective Date of Service: 12/01/22 Interval history: C/o reflux. Otherwise feeling improved with less gas pains but some around ostomy site. Tolerating solid diet. OOB and ambulating with walker. Ostomy functioning well. Physical Exam Vital Signs: Vital Signs: Last Vital Signs Temp 96.8 F 12/01/22 07:43 Pulse 95 12/01/22 07:43 Resp 20 12/01/22 07:43 BP 125/61 12/01/22 07:43 Pulse Ox 98 12/01/22 07:43 O2 Del Method Room Air 12/01/22 07:43 O2 Flow Rate 2 11/25/22 07:15 BMI result Body Mass Index 42.5 Const: General: comfortable, no acute distress and alert Orientation/consciousness: patient oriented x3 Resp: Effort & Inspection: normal respiratory effort GI: Other: ostomy with formed stool SUJIT with serous output, some sediment Inspection: No distended and Yes incision (clean) Palpation (GI): Soft to palpation, Tenderness to palpation present (GI) (mild incisional), no guarding and not rigid Skin: General skin exam: no rashes or lesions noted Neuro: General: patient oriented x3 and moves all extremities Objective Data Active Medications Acetaminophen (Acetaminophen 325 Mg Tablet) 650 mg PO Q6H PRN PRN Reason: Pain, Mild (Pain Scale 1-3) Enoxaparin Sodium (Enoxaparin Sodium 40 Mg/0.4 Ml Syringe) 40 mg SUBCUT Q24H [facility] Last Admin: 11/22/22 19:37 Dose: 40 mg Documented By: MARKOPECamelia Furosemide (Furosemide 20 Mg Tablet) 20 mg PO DAILY [facility]; Protocol Last Admin: 11/30/22 08:17 Dose: 20 mg Documented By: REINA Hydromorphone HCl (Hydromorphone Hcl 0.5 Mg/0.5 Ml Syringe) 0.5 mg IVPUSH Q4H [facility]N; Protocol PRN Reason: Pain, Severe (Pain Scale 7-10) Last Admin: 11/24/22 10:37 Dose: 0.5 mg Documented By: REINA Levofloxacin (Levaquin) 500 mg in 100 mls @ 100 mls/hr IV Q24H [facility] Last Infusion: 11/30/22 23:40 Dose: 0 mls/hr Documented By: JAMIE Metronidazole (Flagyl) 500 mg in 100 mls @ 100 mls/hr IV Q8H [facility] Last Infusion: 12/01/22 06:38 Dose: 0 mls/hr Documented By: AKILAH Omeprazole (Omeprazole 20 Mg Capsule.Dr) 20 mg PO BID@0630,1630 [facility] Last Admin: 12/01/22 05:31 Dose: 20 mg Documented By: JAMIE Ondansetron HCl (Ondansetron Hcl 4 Mg/2 Ml Vial) 4 mg IVPUSH Q6H PRN PRN Reason: Nausea Last Admin: 11/27/22 12:58 Dose: 4 mg Documented By: CARI Oxycodone HCl (Oxycodone Hcl Immed Release 5 Mg Tablet) 5 mg PO Q4H PRN PRN Reason: Pain, Moderate(Pain Scale 4-6) Oxycodone HCl (Oxycodone Hcl Immed Release 5 Mg Tablet) 10 mg PO Q4H PRN PRN Reason: Pain, Severe (Pain Scale 7-10) Pharmacy Consult (Consult Rx Perform Med Rec) 1 each MISCELLANE ONCE PRN PRN Reason: Consult order Simethicone (Simethicone 80 Mg Tab.Chew) 80 mg PO QIDWMHS PRN PRN Reason: Gas Last Admin: 12/01/22 06:10 Dose: 80 mg Documented By: AKILAH Sodium Chloride (0.9 % Sodium Chloride Flush 3 Ml Syringe) 3 ml IVFLUSH QSHIFT [facility] Last Admin: 11/30/22 22:24 Dose: 3 ml Documented By: JAMIE Valsartan (Valsartan 80 Mg Tablet) 80 mg PO DAILY [facility]; Protocol Last Admin: 11/30/22 08:17 Dose: 80 mg Documented By: CRISTELARTB Labs 11/24/22 05:54 11/24/22 05:54 Procedures Date of Service Date of Service: 12/01/22 Progress Note: A&P Assessment and plan (1) Colovesical fistula: Status: Acute (2) Abscess of sigmoid colon due to diverticulitis: Status: Acute Plan 62 year old female admitted with diverticulitis, colovesical fistula now POD #8 s/p hand assisted laparoscopic sigmoid resection, end-loop transverse colostomy, extensive lysis of adhesion, disconnection of the colovesical fistula, partial omentectomy. Doing well, now tolerating solid diet. Will reassess later today for discharge to home today with VNA services with wallace to leg bag, SUJIT in place. Patient comfortable with plan. Time Spent With Patient Time: Total time managing care of this patient today ____ minutes. Quality Stroke Does the patient have a stroke diagnosis?: No VTE Prior VTE?: No VTE Risk Level:: Surgical - moderate VTE Device Contraindication: N/A - Device Ordered VTE Drug Contraindication: N/A - Med Ordered
[2022-12-01] MEDS: 0.9 % Sodium Chloride Flush 3 ML SYRINGE IVFLUSH ×2 (09:18→17:13)
[2022-12-01] MEDS: Furosemide 20 MG TABLET PO (09:19)
[2022-12-01] MEDS: Valsartan 80 MG TABLET PO (09:20)
[2022-12-01] MEDS: Acetaminophen 325 MG TABLET 650 MG PO (13:17)
--- NOTE | 2022-12-01 14:34 | MHC.CM.PN ---
Patient is not yet ready for dc; the plan is home with RN through [facility]. CM will follow.
--- NOTE | 2022-12-01 14:46 | PM.DS ---
DS: Providers Provider Date of Service: 12/04/22 Date of admission: 11/22/22 18:18 Date of discharge: 12/04/22 Primary care physician: Lukas Scott III, MD Attending physician on admission: Halle Perez Consults: 11/23/22 16:41 Consult to Hospitalist Routine Comment: Consulting Provider: Hospitalist Reason For Exam: MS, ?dementia Attending physician on discharge: Jersey Ray DS: Diagnosis Discharge Diagnosis (1) Colovesical fistula: Status: Acute (2) Abscess of sigmoid colon due to diverticulitis: Status: Acute DS: Summary Hospital Course Hospital Course: HPI AT ADMISSION: Asuncion Agee is a 62 year old female known to our service who came in in mid October wjith abdo pain and was noted to have a thickened sig colon with signicant inflammation, thickening, phlegmon -? diverticulitis. Pt was unusually nontender but was treated with iv antibx for over a week before being dc home. about 4 days ago she was feeling bladder pressure and went to the ER and was started on antibiotics for a uti. She saw Dr Ray in the office 2 days ago who planned to do a f.u ct and then at some point plan a cscope. Pt unfortunately felt like uti was worsening today and came to the ER where her wbc was noted to be [address] scan showed worsening ?abscess/phlegmon with mass affect on the bladder and some air present. Pt denies urinating air or stool. No fever or chills, no issues with eating and bowel movements. CT scan has persistent inflammatory disease of sigmoid, with abscess as well as here in the bladder consistent with colovesical fistula HOSPITAL COURSE: Patient was admitted to the surgical service for further treatment of the diverticulitis, colovesical fistula. In view of persistent/worsening inflammatory changes along with the colovesical fistula, it was recommended to proceed with sigmoid resection colostomy.? Technique of hand assisted laparoscopic sigmoid resection and colostomy and repair of the bladder fistula and possible conversion to long laparotomy incision. Discussed with urology to repair bladder fistula. On 11/23/22, hand assisted laparoscopic sigmoid resection, end-loop transverse colostomy, extensive lysis of adhesion, disconnection of the colovesical fistula, partial omentectomy was performed by Dr. Ray. Intraop consult with Urology. Based on the inability to localize the fistula decision was made to leave a Wallace catheter in place.? This was upsized to a 20 Georgian.?The Wallace catheter will stay for 4 weeks and a cystogram will be performed prior to removal in office. The patient tolerated the procedure well and was transferred to the medical telemetry floor. She had an uncomplicated but slower recovery course. An NGT was placed intraoperatively and was continued until POD #2. She had scanty output and was passing flatus from her ostomy and it was therefore removed. She was ambulated and her activity gradually increased. Her diet was slowly advanced as tolerated. Her ostomy began to have stool output. Colostomy education was performed. Her incisional pain gradually improved. Her wallace remained in place and her urine began to clear with less sediment. She gradually recovered and her activity was increased. PT was obtained for assistance ambulating and with stairs given her MS. On the day of discharge, she was tolerating a solid diet without nausea or vomiting. Her pain was well controlled. She had good ostomy output. Her abdomen was benign with a clean incision. Her SUJIT drain had turbid serous output and was kept in place. Her wallace was kept in place to a leg bag. She was discharged to home on 12/04/22 with VNA services on a PO course of Augmentin. She is to follow up with Dr. Ray in 1 week. She is to follow up with urology in 1 month for cystogram. Status at Discharge Functional status at discharge: uses cane/walker Overall status at discharge: patient is progressing back to baseline Time Spent with Patient Time attestation: Total time managing care of this patient today ____ minutes. Discharge coordination time: Greater than 30 minutes Quality: Safe Use of Opioids Does Pt have an Active Cancer Diagnosis on the Problem List?: No Quality: Stroke Does the patient have a stroke diagnosis?: No Physical Exam Vital Signs: Vital Signs: Last Vital Signs Temp 96.8 F 12/01/22 07:43 Pulse 95 12/01/22 07:43 Resp 20 12/01/22 07:43 BP 125/61 12/01/22 07:43 Pulse Ox 98 12/01/22 07:43 O2 Del Method Room Air 12/01/22 07:43 O2 Flow Rate 2 11/25/22 07:15 BMI result Body Mass Index 42.5 Const: General: comfortable, no acute distress and alert Orientation/consciousness: patient oriented x3 Resp: Effort & Inspection: normal respiratory effort Cardio: Rate: regular rate GI: Other: SUJIT drain with serous output but sediment in bulb and tubing ostomy viable appearing, soft stool output Inspection: No distended and Yes incision (clean) Palpation (GI): Soft to palpation, Tenderness to palpation present (GI) (mild incisional), no guarding and not rigid Percussion: Yes normal to percussion : Other: wallace to leg bag, straw colored, some sediment Skin: General skin exam: no rashes or lesions noted Neuro: General: patient oriented x3 and moves all extremities DS: Data Data Completed and Pending Completed studies during hospitalization [Text1]: 11/23/22 12:04 Surgical [PTH] Routine A.? Colon, sigmoid, segmental resection:? Diverticular-associated segmental colitis with features of perforation. B.? Soft tissue, ?omentum?, excision:? Mature lobulated adipose tissue with vascular congestion, focal fat necrosis and detached fragments of fibrinopurulent material. Discharge Plan Discharge Anticipated Discharge Date/Time: 11/30/22 14:21 Patient Disposition: Home Health Service Discharge Diagnosis: colovesical fistula, diverticulitis Referrals: Allegra REEDER [Outside] - 1 Week Aguila Deng MD [Physician] - 1 Month Lukas Scott III, MD [Primary Care Provider] - 1 Week Jersey Ray MD [Physician] - 2 Weeks Discharge Medications: New amoxicillin-pot clavulanate 875-125 mg tablet 1 tab PO BID Qty: 14 0RF (DME) walker Misc See Rx Instructions .Route Qty: 1 0RF Rx Instructions: As directed (DME) Skin Prep Wipes Misc See Rx Instructions .ROUTE .MEDSUPPLY Qty: 50 1RF Rx Instructions: As directed (DME) colostomy bags 3 misc See Rx Instructions .ROUTE .MEDSUPPLY Qty: 30 2RF Rx Instructions: As directed oxycodone 5 mg tablet 5 mg PO Q4H PRN (Reason: pain (scale score 7-10)) Qty: 24 0RF Rx Instructions: Partial Fill upon patient request. Continued furosemide 40 mg tablet 40 mg PO DAILY ibuprofen 800 mg tablet 800 mg PO Q8H PRN (Reason: pain) ergocalciferol (vitamin D2) 1,250 mcg (50,000 unit) capsule 1,250 mcg PO CONDE valsartan 160 mg tablet 160 mg PO DAILY docusate sodium [Colace] 100 mg capsule 100 mg PO DAILY Qty: 30 0RF Discharge Orders: Discharge Order (Routine); Ordered 12/03/22 Ordered By: Eligio Marlow Diet: Advance to usual diet Activity on Discharge: No heavy lifting Stand Alone Forms: Patient Portal Discharge page Activity Restrictions/Additional Instructions: If the incision area is tender, you may apply an ice pack for short intervals (No more than 20 minutes on, followed by at least 20 minutes off). Do not apply heat. Do not use creams, lotions, or topical antibiotics. These can cause infection or allergic reaction. Ok to shower. You have zeb closing your incision and these will be removed approximately 10-14 days after surgery. COLOPLAST #[id number]; colostomy care: change appliance every 3-4 days and as needed. NO HEAVY LIFTING (>10lbs) or strenuous activity. empty SUJIT drain tiwce a day and record output Keep Wallace in place Follow up in office. ([phone]) Call Your Doctor If: -Your temperature exceeds 101.5? F -You experience excessive pain or swelling -You have an unexpected reaction to medication -You have excessive bleeding -You experience continued vomiting/nausea -Your incision begins to separate -Your incision shows signs of infection such as increased redness, swelling, excessive pain, drainage (light blood or clear fluid is normal) or heat Care Plan Goals: Return to baseline health and resume normal activities following recovery period. Health Concerns: diverticulitis with abscess, colovesical fistula Plan of Treatment: s/p sigmoid resection, end colostomy wallace x 1 month to leg bag F/u in office with Dr. Ray in 1 week F/u in office with Dr. Deng x 1 month Assessment: Improved
--- NOTE | 2022-12-01 15:03 | P.F2F_ITS ---
Service Date Service Date: 12/01/22 Encounter Date of encounter: 12/01/22 Reasons for Services Signs and symptoms assessed: abdominal pain, tenderness, ostomy output, wallace output Reason for correction: wound care and postoperative assessment and/or care Homebound: Leaving the home is medically contraindicated at this time without the asist of a device and/or another person due th the listed conditions above and below. Reason homebound: weakness related to hospital stay and unable to drive Homebound supporting statement: Ms. Agee is s/p sigmoid resection, end colotomy for colovesical fistula, diverticulitis. She will need VNA for ostomy care, SUJIT drain care. She has a wallace in place to leg bag. Certification: Based on the above findings, I certify that this patient is confined to the home and needs intermittent correction care, physical therapy and/or speech therapy, or continues to need occupational therapy. The patient is under my care, and I have initiated the establishment of the plan of care. The patient will be followed by a physician who will periodically review the plan of care. Time Spent With Patient Time: Total time managing care of this patient today ____ minutes.
[2022-12-01 15:26] VITALS: BP 139/67; PULSE 98; RESP 20; TEMP 36.7; O2SAT 97
[2022-12-01] MEDS: HYDROmorphone HCl 0.5 MG/0.5 ML SYRINGE IVPUSH (15:29)
[2022-12-01] MEDS: levoFLOXacin/D5W 500 MG/100 ML PIGGYBACK 100 MG IV (18:33)
[2022-12-02] VITALS: BP 112/54; PULSE 91; RESP 20; TEMP 36.1; O2SAT 96
[2022-12-02] MEDS: Omeprazole 20 MG CAPSULE.DR PO ×2 (05:22→16:41)
[2022-12-02] MEDS: metroNIDAZOLE/NS 500 MG/100 ML PIGGYBACK 100 MG IV ×3 (05:23→22:14)
[2022-12-02 07:16] VITALS: BP 128/70; PULSE 92; RESP 20; TEMP 36.4; O2SAT 97
[2022-12-02] MEDS: Valsartan 80 MG TABLET PO (08:52)
[2022-12-02] MEDS: Simethicone 80 MG TAB.CHEW PO ×2 (08:52→17:41)
[2022-12-02] MEDS: Furosemide 20 MG TABLET PO (08:52)
[2022-12-02] MEDS: 0.9 % Sodium Chloride Flush 3 ML SYRINGE IVFLUSH ×3 (08:53→22:14)
[2022-12-02] MEDS: oxyCODONE HCl Immed Release 5 MG TABLET PO (10:18)
--- NOTE | 2022-12-02 11:01 | PM.PNGS ---
Subjective Subjective Date of Service: 12/02/22 Patient reports: no new complaints, feels better, still having pain and tolerating a regular diet Interval history: The patient is seen in coverage for Dr. Ray Patient reports ongoing incisional pain and occasional nausea. She denies any chest pain, difficulty breathing or shortness of breath Physical Exam Vital Signs: Vital Signs: Last Vital Signs Temp 97.6 F 12/02/22 07:16 Pulse 92 12/02/22 07:16 Resp 20 12/02/22 07:16 BP 128/70 12/02/22 07:16 Pulse Ox 97 12/02/22 07:16 O2 Del Method Room Air 12/02/22 07:16 O2 Flow Rate 2 11/25/22 07:15 BMI result Body Mass Index 42.5 On exam, she is nontoxic She is in no acute respiratory distress Abdominal dressings are intact, so ostomy is pink and viable The urine in Hall bag appears clear with no gross blood or unexpected material Objective Data Active Medications Acetaminophen (Acetaminophen 325 Mg Tablet) 650 mg PO Q6H PRN PRN Reason: Pain, Mild (Pain Scale 1-3) Last Admin: 12/01/22 13:17 Dose: 650 mg Documented By: ANAT Enoxaparin Sodium (Enoxaparin Sodium 40 Mg/0.4 Ml Syringe) 40 mg SUBCUT Q24H SO Last Admin: 11/22/22 19:37 Dose: 40 mg Documented By: COOPECamelia Furosemide (Furosemide 20 Mg Tablet) 20 mg PO DAILY SO; Protocol Last Admin: 12/02/22 08:52 Dose: 20 mg Documented By: RUEVON Hydromorphone HCl (Hydromorphone Hcl 0.5 Mg/0.5 Ml Syringe) 0.5 mg IVPUSH Q4H PRN; Protocol PRN Reason: Pain, Severe (Pain Scale 7-10) Last Admin: 12/01/22 15:29 Dose: 0.5 mg Documented By: ANAT Levofloxacin (Levaquin) 500 mg in 100 mls @ 100 mls/hr IV Q24H SO Last Infusion: 12/01/22 19:40 Dose: 0 mls/hr Documented By: ELIZABETH Metronidazole (Flagyl) 500 mg in 100 mls @ 100 mls/hr IV Q8H SO Last Infusion: 12/02/22 06:31 Dose: 0 mls/hr Documented By: ELIZABETH Omeprazole (Omeprazole 20 Mg Capsule.Dr) 20 mg PO BID@0630,1630 [facility] Last Admin: 12/02/22 05:22 Dose: 20 mg Documented By: ELIZABETH Ondansetron HCl (Ondansetron Hcl 4 Mg/2 Ml Vial) 4 mg IVPUSH Q6H PRN PRN Reason: Nausea Last Admin: 11/27/22 12:58 Dose: 4 mg Documented By: CARI Oxycodone HCl (Oxycodone Hcl Immed Release 5 Mg Tablet) 5 mg PO Q4H PRN PRN Reason: Pain, Moderate(Pain Scale 4-6) Last Admin: 12/02/22 10:18 Dose: 5 mg Documented By: CARLOS Oxycodone HCl (Oxycodone Hcl Immed Release 5 Mg Tablet) 10 mg PO Q4H PRN PRN Reason: Pain, Severe (Pain Scale 7-10) Pharmacy Consult (Consult Rx Perform Med Rec) 1 each MISCELLANE ONCE PRN PRN Reason: Consult order Simethicone (Simethicone 80 Mg Tab.Chew) 80 mg PO QIDWMHS PRN PRN Reason: Gas Last Admin: 12/02/22 08:52 Dose: 80 mg Documented By: CARLOS Sodium Chloride (0.9 % Sodium Chloride Flush 3 Ml Syringe) [facility] Last Admin: 12/02/22 08:53 Dose: 3 ml Documented By: CARLOS Valsartan (Valsartan 80 Mg Tablet) 80 mg PO DAILY [facility]; Protocol Last Admin: 12/02/22 08:52 Dose: 80 mg Documented By: CARLOS Labs 11/24/22 05:54 11/24/22 05:54 Procedures Date of Service Date of Service: 12/02/22 Progress Note: A&P Assessment and plan (1) Colovesical fistula: Status: Acute (2) Diverticulitis: Status: Acute (3) Abscess of sigmoid colon due to diverticulitis: Status: Acute (4) Diverticulitis large intestine: Status: Acute (5) Hypertension: Status: Acute (6) Multiple sclerosis: Status: Acute Plan Discussion regarding possible discharge today was reviewed and the patient is uncomfortable due to intermittent issues with pain. She has requested being re-evaluated tomorrow. Continue present management and will reassess tomorrow. Time Spent With Patient Time: Total time managing care of this patient today ____ minutes. Quality Stroke Does the patient have a stroke diagnosis?: No VTE Prior VTE?: No VTE Risk Level:: Surgical - moderate VTE Device Contraindication: N/A - Device Ordered VTE Drug Contraindication: N/A - Med Ordered
[2022-12-02 11:14] VITALS: O2SAT 98
[2022-12-02] MEDS: oxyCODONE HCl Immed Release 5 MG TABLET 10 MG PO (14:10)
[2022-12-02 15:20] VITALS: BP 126/60; RESP 16; TEMP 36.3; O2SAT 95
[2022-12-02 15:22] VITALS: PULSE 88
[2022-12-02 23:44] VITALS: BP 133/63; PULSE 88; RESP 20; TEMP 36.1; O2SAT 98
[2022-12-03] MEDS: Omeprazole 20 MG CAPSULE.DR PO ×2 (05:23→16:30)
[2022-12-03] MEDS: metroNIDAZOLE/NS 500 MG/100 ML PIGGYBACK 100 MG IV ×3 (05:24→22:21)
[2022-12-03 07:54] VITALS: BP 123/56; PULSE 89; RESP 16; TEMP 36.3; O2SAT 96
[2022-12-03] MEDS: Valsartan 80 MG TABLET PO (08:11)
[2022-12-03] MEDS: Furosemide 20 MG TABLET PO (08:11)
[2022-12-03] MEDS: Simethicone 80 MG TAB.CHEW PO ×2 (08:11→15:05)
[2022-12-03] MEDS: 0.9 % Sodium Chloride Flush 3 ML SYRINGE IVFLUSH ×2 (08:12→15:06)
[2022-12-03] MEDS: oxyCODONE HCl Immed Release 5 MG TABLET 10 MG PO ×2 (09:25→15:04)
--- NOTE | 2022-12-03 10:36 | PM.PNGS ---
Subjective Subjective Date of Service: 12/03/22 Patient reports: feels better Interval history: The patient is seen in coverage for Dr. Ray Patient reports ongoing incisional pain and occasional nausea. She denies any chest pain, difficulty breathing or shortness of breath. She states she is ready for discharge Physical Exam Vital Signs: Vital Signs: Last Vital Signs Temp 97.3 F 12/03/22 07:54 Pulse 89 12/03/22 07:54 Resp 16 12/03/22 07:54 BP 123/56 L 12/03/22 07:54 Pulse Ox 96 12/03/22 07:54 O2 Del Method Room Air 12/03/22 07:54 O2 Flow Rate 2 11/25/22 07:15 BMI result Body Mass Index 42.5 On exam, she is nontoxic She is in no acute respiratory distress Abdominal dressings are intact, so ostomy is pink and viable The urine in Hall bag appears clear with no gross blood or unexpected material Objective Data Active Medications Acetaminophen (Acetaminophen 325 Mg Tablet) 650 mg PO Q6H PRN PRN Reason: Pain, Mild (Pain Scale 1-3) Last Admin: 12/01/22 13:17 Dose: 650 mg Documented By: ANAT Enoxaparin Sodium (Enoxaparin Sodium 40 Mg/0.4 Ml Syringe) 40 mg SUBCUT Q24H [facility] Last Admin: 11/22/22 19:37 Dose: 40 mg Documented By: COOPEB Furosemide (Furosemide 20 Mg Tablet) 20 mg PO DAILY [facility]; Protocol Last Admin: 12/03/22 08:11 Dose: 20 mg Documented By: CARLOS Hydromorphone HCl (Hydromorphone Hcl 0.5 Mg/0.5 Ml Syringe) 0.5 mg IVPUSH Q4H PRN; Protocol PRN Reason: Pain, Severe (Pain Scale 7-10) Last Admin: 12/01/22 15:29 Dose: 0.5 mg Documented By: ANAT Metronidazole (Flagyl) 500 mg in 100 mls @ 100 mls/hr IV Q8H [facility] Last Infusion: 12/03/22 06:41 Dose: 0 mls/hr Documented By: ELIZABETH Omeprazole (Omeprazole 20 Mg Lobo.) 20 mg PO BID@0630,1630 [facility] Last Admin: 12/03/22 05:23 Dose: 20 mg Documented By: ELIZABETH Ondansetron HCl (Ondansetron Hcl 4 Mg/2 Ml Vial) 4 mg IVPUSH Q6H PRN PRN Reason: Nausea Last Admin: 11/27/22 12:58 Dose: 4 mg Documented By: CARI Oxycodone HCl (Oxycodone Hcl Immed Release 5 Mg Tablet) 5 mg PO Q4H PRN PRN Reason: Pain, Moderate(Pain Scale 4-6) Last Admin: 12/02/22 10:18 Dose: 5 mg Documented By: CARLOS Oxycodone HCl (Oxycodone Hcl Immed Release 5 Mg Tablet) 10 mg PO Q4H PRN PRN Reason: Pain, Severe (Pain Scale 7-10) Last Admin: 12/03/22 09:25 Dose: 10 mg Documented By: CARLOS Pharmacy Consult (Consult Rx Perform Med Rec) 1 each MISCELLANE ONCE PRN PRN Reason: Consult order Simethicone (Simethicone 80 Mg Tab.Chew) 80 mg PO QIDWMHS PRN PRN Reason: Gas Last Admin: 12/03/22 08:11 Dose: 80 mg Documented By: CARLOS Sodium Chloride (0.9 % Sodium Chloride Flush 3 Ml [facility]) [facility] Last Admin: 12/03/22 08:12 Dose: 3 ml Documented By: CARLOS Valsartan (Valsartan 80 Mg Tablet) 80 mg PO DAILY [facility]; Protocol Last Admin: 12/03/22 08:11 Dose: 80 mg Documented By: CARLOS Labs 11/24/22 05:54 11/24/22 05:54 Procedures Date of Service Date of Service: 12/03/22 Progress Note: A&P Assessment and plan (1) Colovesical fistula: Status: Acute (2) Diverticulitis: Status: Acute (3) Abscess of sigmoid colon due to diverticulitis: Status: Acute (4) Diverticulitis large intestine: Status: Acute (5) Hypertension: Status: Acute (6) Multiple sclerosis: Status: Acute Plan Stable for discharge, questions answered Follow-up with Dr. Ray as outpatient. Time Spent With Patient Time: Total time managing care of this patient today ____ minutes. Quality Stroke Does the patient have a stroke diagnosis?: No VTE Prior VTE?: No VTE Risk Level:: Surgical - moderate VTE Device Contraindication: N/A - Device Ordered VTE Drug Contraindication: N/A - Med Ordered
[2022-12-03 15:21] VITALS: BP 131/63; PULSE 89; RESP 16; TEMP 36.2; O2SAT 98
--- NOTE | 2022-12-03 20:12 | PC.NURSE ---
Pt neurologically intact. Pleasant and cooperative. Colostomy bag intact with soft stool, SUJIT drain with minimal drainage. Hall cath with clear yellow urine some sediment noted. Medicated with simethicone for gas with good effect. Oxycodone 10mg given with good effect per pt working well for pain control. OOB to chair ambulating with staff and walker in hallway. Will continue to monitor and report changes
[2022-12-04] VITALS: BP 129/63; PULSE 85; RESP 15; TEMP 36.2; O2SAT 96
[2022-12-04] MEDS: 0.9 % Sodium Chloride Flush 3 ML SYRINGE IVFLUSH ×2 (00:32→09:22)
[2022-12-04 04:02] VITALS: BP 134/67; PULSE 83; RESP 15; TEMP 36.1; O2SAT 96
[2022-12-04] MEDS: metroNIDAZOLE/NS 500 MG/100 ML PIGGYBACK 100 MG IV (05:42)
[2022-12-04] MEDS: Omeprazole 20 MG CAPSULE.DR PO (05:43)
[2022-12-04 07:24] VITALS: BP 119/59; PULSE 93; RESP 16; TEMP 36.2; O2SAT 96
--- NOTE | 2022-12-04 07:45 | PM.PNGS ---
Subjective Subjective Date of Service: 12/04/22 Interval history: feels well says she is ready for discharge tolerating diet pain well controlled with PO meds stoma functioning well Physical Exam Vital Signs: Vital Signs: Last Vital Signs Temp 97.2 F 12/04/22 07:24 Pulse 93 12/04/22 07:24 Resp 16 12/04/22 07:24 BP 119/59 L 12/04/22 07:24 Pulse Ox 96 12/04/22 07:24 O2 Del Method Room Air 12/04/22 07:24 O2 Flow Rate 2 11/25/22 07:15 BMI result Body Mass Index 42.5 Const: General: comfortable and no acute distress Resp: Effort & Inspection: normal respiratory effort Cardio: Rate: regular rate GI: Other: incision clean and dry, stoma with good output, SUJIT drain still with some scanty although turbid output Palpation (GI): Soft to palpation, not firm and no guarding : Other: urine clear Objective Data Active Medications Acetaminophen (Acetaminophen 325 Mg Tablet) 650 mg PO Q6H PRN PRN Reason: Pain, Mild (Pain Scale 1-3) Last Admin: 12/01/22 13:17 Dose: 650 mg Documented By: ANAT Enoxaparin Sodium (Enoxaparin Sodium 40 Mg/0.4 Ml Syringe) 40 mg SUBCUT Q24H [facility] Last Admin: 11/22/22 19:37 Dose: 40 mg Documented By: MARKOPECamelia Furosemide (Furosemide 20 Mg Tablet) 20 mg PO DAILY [facility]; Protocol Last Admin: 12/03/22 08:11 Dose: 20 mg Documented By: CARLOS Hydromorphone HCl (Hydromorphone Hcl 0.5 Mg/0.5 Ml Syringe) 0.5 mg IVPUSH Q4H PRN; Protocol PRN Reason: Pain, Severe (Pain Scale 7-10) Last Admin: 12/01/22 15:29 Dose: 0.5 mg Documented By: ANAT Metronidazole (Flagyl) 500 mg in 100 mls @ 100 mls/hr IV Q8H [facility] Last Admin: 12/04/22 05:42 Dose: 100 mls/hr Documented By: TARA Omeprazole (Omeprazole 20 Mg Capsule.) 20 mg PO BID@0630,1630 [facility] Last Admin: 12/04/22 05:43 Dose: 20 mg Documented By: TARA Ondansetron HCl (Ondansetron Hcl 4 Mg/2 Ml Vial) 4 mg IVPUSH Q6H PRN PRN Reason: Nausea Last Admin: 11/27/22 12:58 Dose: 4 mg Documented By: CARI Oxycodone HCl (Oxycodone Hcl Immed Release 5 Mg Tablet) 5 mg PO Q4H PRN PRN Reason: Pain, Moderate(Pain Scale 4-6) Last Admin: 12/02/22 10:18 Dose: 5 mg Documented By: CARLOS Oxycodone HCl (Oxycodone Hcl Immed Release 5 Mg Tablet) 10 mg PO Q4H PRN PRN Reason: Pain, Severe (Pain Scale 7-10) Last Admin: 12/03/22 15:04 Dose: 10 mg Documented By: CARLOS Pharmacy Consult (Consult Rx Perform Med Rec) 1 each MISCELLANE ONCE PRN PRN Reason: Consult order Simethicone (Simethicone 80 Mg Tab.Chew) 80 mg PO QIDWMHS PRN PRN Reason: Gas Last Admin: 12/03/22 15:05 Dose: 80 mg Documented By: CARLOS Sodium Chloride (0.9 % Sodium Chloride Flush 3 Ml Syringe) 3 ml IVFLUSH QSHIFT [facility] Last Admin: 12/04/22 00:32 Dose: 3 ml Documented By: ALISSON Valsartan (Valsartan 80 Mg Tablet) 80 mg PO DAILY [facility]; Protocol Last Admin: 12/03/22 08:11 Dose: 80 mg Documented By: CARLOS Labs 11/24/22 05:54 11/24/22 05:54 Procedures Date of Service Date of Service: 12/04/22 Progress Note: A&P Assessment and plan (1) Colovesical fistula: Status: Acute Assessment and Plan: S/P sigmoid resection, end-loop transverse colostomy doing well good GI function skin zeb removed stoma functioning well ok to dc home dc instructions reinforced ffup in office next week will keep SUJIT in due to turbid output (2) Abscess of sigmoid colon due to diverticulitis: Status: Acute Time Spent With Patient Time: Total time managing care of this patient today ____ minutes. Quality Stroke Does the patient have a stroke diagnosis?: No VTE Prior VTE?: No VTE Risk Level:: Surgical - moderate VTE Device Contraindication: N/A - Device Ordered VTE Drug Contraindication: N/A - Med Ordered
[2022-12-04] MEDS: Valsartan 80 MG TABLET PO (09:22)
[2022-12-04] MEDS: Furosemide 20 MG TABLET PO (09:22)
[2022-12-04] MEDS: oxyCODONE HCl Immed Release 5 MG TABLET 10 MG PO (09:23)
--- NOTE | 2022-12-04 09:51 | MHC.CM.PN ---
Per PA, Patient will be medically cleared for dc to home today, with services. A referral was made to [facility], who is aware of today's dc.
== END 2022-12-04 13:50 | disposition home health service (06) | DRG 330 ==
LOC: HO.ED 18:31 → HO.EDOVER 18:38 → HO.IMC 19:35
PROVIDERS: Physician Assistant Medical; Physician Assistant Surgical; Admitting Provider Surgery; Emergency Provider Student in an Organized Health Care Education/Training Program; PCP Internal Medicine; Visit Provider Surgery
PROC: 0DTE0ZZ Resection of Large Intestine, Open Approach (ICD-10-PCS; principal; 2022-11-23 09:30)
DX: K57.20 Diverticulitis of large intestine with perforation and abscess without bleeding (principal); K56.7 Ileus, unspecified; N32.1 Vesicointestinal fistula; Z68.41 Body mass index [BMI] 40.0-44.9, adult; D64.89 Other specified anemias; G35 Multiple sclerosis; K66.0 Peritoneal adhesions (postprocedural) (postinfection); E66.01 Morbid (severe) obesity due to excess calories; K21.9 Gastro-esophageal reflux disease without esophagitis; Z79.899 Other long term (current) drug therapy
CPT/HCPCS: 36415; 74177; 80048; 80076; 81001; 81003; 82378; 83605; 85007; 85025; 85027; 86850; 86900; 86901; 87040; 87086; 87088; 87186; 88304; 88307; 97162; 99285; C1758; J0131; J1170; J1650; J1885; J1956; J2371; J2405; J2543; J2795; Q9967; Q9968

== ENCOUNTER → 2022-11-22 18:18 | Outpatient (BNV) | payer OTHER, SELFPAY | PROVIDERS: Admitting Provider Surgery; Emergency Provider Student in an Organized Health Care Education/Training Program; PCP Internal Medicine; Visit Provider Surgery | DX: N32.1 Vesicointestinal fistula (principal); K57.92 Diverticulitis of intestine, part unspecified, without perforation or abscess without bleeding; K57.20 Diverticulitis of large intestine with perforation and abscess without bleeding; K57.32 Diverticulitis of large intestine without perforation or abscess without bleeding; I10 Essential (primary) hypertension; G35 Multiple sclerosis | CPT/HCPCS: 44208; 99024; 99222; 99232; 99499; G0180 ==

== ENCOUNTER → 2022-11-22 18:18 | Outpatient (BNV) | payer OTHER, SELFPAY | PROVIDERS: Admitting Provider Surgery; Emergency Provider Student in an Organized Health Care Education/Training Program; PCP Internal Medicine; Visit Provider Urology | DX: N32.1 Vesicointestinal fistula (principal) | CPT/HCPCS: 99223 ==

== ENCOUNTER → 2022-11-22 18:18 | Outpatient (BNV) | payer OTHER, SELFPAY | PROVIDERS: Admitting Provider Surgery; Emergency Provider Student in an Organized Health Care Education/Training Program; PCP Internal Medicine; Visit Provider Internal Medicine | DX: N32.1 Vesicointestinal fistula (principal); K57.92 Diverticulitis of intestine, part unspecified, without perforation or abscess without bleeding; K57.20 Diverticulitis of large intestine with perforation and abscess without bleeding | CPT/HCPCS: 99223; 99232 ==

== ENCOUNTER 2022-12-13 11:20 | Outpatient (AMB) | payer OTHER, SELFPAY ==
--- NOTE | 2022-12-13 11:22 | A.OFFVIS_ITS ---
Intake Vital Signs 12/13/22 11:28 Comment unable to obtain VS Pt in WC Intake Visit Reasons: S/P lap colon resection Intake Note: This patient presents for a post-op assessment status post Hand assisted laparoscopic sigmoid resection, end-loop transverse colostomy, extensive lysis of adhesion, disconnection of the colovesical fistula, partial omentectomy. Patient c/o: reports cluster on the cleft, reports completing course of abx, reports VNA nursing visits are done every 3 days. 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 She had had undergone urgent hand assisted laparoscopic sigmoid resection with a transverse end-loop colostomy last November 16, 2022 due to a colovesical fistula from diverticulitis. She did well postoperatively. She had a Hall catheter on discharge in place because of the fistula. She still has a drain in place as well towards the area of the left gutter and the pelvis. She feels well overall. She has good oral intake. [facility] Medical History (Updated 12/13/22 @ 11:40 by Jersey Ray MD) Colovesical fistula Diverticulitis large intestine Hypertension Hypokalemia Multiple sclerosis Phlegmon Surgical History Hx of surgical procedure Social History Household Members: Spouse Housing: House Do you presently have visiting nurse or other home services: No Alcohol intake: never Patient Tobacco Use Status: Never used Tobacco Second Hand Smoke Exposure: No service: No Review of Systems Const Denies chills and Denies fever(s) Card Denies chest pain GI Denies abdominal pain Physical Exam Const Other: On wheelchair but looks comfortable General: no acute distress Resp Effort & Inspection: normal respiratory effort Cardio Rate: regular rate GI Other: Incisions well healed, stoma functioning well, SUJIT drain in place with scanty but thick output Palpation (GI): Soft to palpation, not firm, nontender and no guarding Other: Hall catheter in place, urine clear Assessment & Plan Assessment & Plan (1) Colovesical fistula: Code(s): N32.1 - Vesicointestinal fistula Plan: Status post sigmoid resection, with a transverse end loop colostomy. Her stoma is functioning well. She will looks well overall. Her urine output is clear. She is to see Dr. Deng in 2 weeks so her Hall may be removed if her cystogram is good. She still has thick drainage from her SUJIT drains so I willl leave this in place for now. I will see her again in the office in about 2-3 weeks. Medications: Discontinued amoxicillin-pot clavulanate 875-125 mg Discontinued Reason: Patient Completed Course 1 tab PO BID 14 tabs 0RF Coding Level of Care Code Global (61989) Diagnoses Colovesical fistula N32.1
== END 2022-12-13 11:41 | disposition home or self-care (01) ==
PROVIDERS: PCP Internal Medicine; Visit Provider Surgery
DX: N32.1 Vesicointestinal fistula (principal)
CPT/HCPCS: 99024

== ENCOUNTER → 2022-12-13 11:20 | Outpatient (BNVA) | payer OTHER, SELFPAY | PROVIDERS: PCP Internal Medicine; Visit Provider Surgery ==

== ENCOUNTER 2022-12-27 09:52 | Outpatient (AMB) | payer OTHER, SELFPAY ==
--- NOTE | 2022-12-27 09:53 | MHC.OFFVIS ---
Intake Intake Visit Reasons: 4 week cath removal (cystogram) Intake Note: Patient is present for Follow Up Catheter Removal Urology Med: None Antibiotic Allergy: None Blood Thinner: None Pharmacy: [facility] [place] [facility] Allergies No Known Allergies Allergy (Verified 12/27/22 10:00) HPI HPI Comments History of Present Illness Details Asuncion is a pleasant female. She is a patient of Dr. Ray. She seen for the following urologic conditions - colovesical fistula Here for Hall catheter removal Colovesical fistula Underwent repair with General surgery approximately 4 weeks ago Inflamed sigmoid secondary to diverticular disease Prior hysterectomy At laparoscopic examination Hall catheter had been filled with methylene blue. [address] No evidence of active fistula Hall catheter left for 4 weeks to allow any healing on the bladder surface Catheter removed today P.r.n. follow-up [facility] Medical History Colovesical fistula Hypokalemia Diverticulitis large intestine Phlegmon Hypertension Multiple sclerosis Surgical History Hx of surgical procedure Social History Household Members: Spouse Housing: House Do you presently have visiting nurse or other home services: No Alcohol intake: never Patient Tobacco Use Status: Never used Tobacco Second Hand Smoke Exposure: No service: No Review of Systems Const Denies chills and Denies fever(s) Card Reports no additional complaints and Denies syncope Resp Denies cough GI Denies abdominal pain and Denies heartburn Reports as per HPI and Denies change in libido Neuro Denies syncope Psych Denies change in libido Endo Denies change in libido Physical Exam Const General: cooperative, healthy appearing, comfortable and no acute distress Orientation/consciousness: patient oriented x3 HEENT Face and sinus: Yes normal facial exam Mouth: moist mucous membranes Neck Neck: Yes normal visual inspection, Yes full ROM and Yes trachea midline Chest Chest palpation & inspection: normal inspection of the chest Resp Effort & Inspection: normal respiratory effort, able to speak in complete sentences and no respiratory distress GI Inspection: Yes normal to inspection Back/Spine/Pelvis Cervical Spine: normal cervical lordosis Thoracic/Lumbar Spine: thoracic and lumbar spine normal to inspection Skin General skin exam: no rashes or lesions noted Neuro General: patient oriented x3, gait normal, tone normal and moves all extremities Extrem General: Yes normal to inspection and Yes capillary refill normal Assessment & Plan Assessment & Plan (1) Colovesical fistula: Code(s): N32.1 - Vesicointestinal fistula Plan P.r.n. follow-up Patient Instructions: Imaging studies, laboratory and physical exam results were discussed and reviewed in detail. No major barriers to patient understanding were identified. An opportunity to ask questions regarding the treatment plan was provided. All questions were answered. The patient expressed understanding and agreement with the above treatment plan. The patient is aware they should contact our office by phone for worsening of their current condition or the appearance of new urologic symptoms. Compliance is encouraged with any medications and followup testing that is ordered. It is a privilege to participate in the urologic care of your patient. If you have any questions or concerns regarding treatment for the above conditions, or other urologic issues, please do not hesitate to contact me. The office telephone contact is [phone]. This note is constructed using voice recognition software. While every effort has been made to ensure accuracy x ray tech errors may have been included. Yours sincerely, Dr Aguila Deng MD, [facility] - Urology Providers of Expert, Compassionate Care for the Genitourinary System Coding Level of Care Code Est Pt Level 3 (23768) Diagnoses Colovesical fistula N32.1
== END 2022-12-27 10:14 | disposition home or self-care (01) ==
PROVIDERS: PCP Internal Medicine; Visit Provider Urology
DX: N32.1 Vesicointestinal fistula (principal)
CPT/HCPCS: 99213

== ENCOUNTER → 2022-12-27 09:52 | Outpatient (BNVA) | payer OTHER, SELFPAY | PROVIDERS: PCP Internal Medicine; Visit Provider Urology ==

== ENCOUNTER 2023-01-03 11:31 | Outpatient (AMB) | payer OTHER, SELFPAY ==
--- NOTE | 2023-01-03 11:36 | A.OFFVIS_ITS ---
Intake Vital Signs 01/03/23 11:46 Weight 219 lb BP 144/82 H Blood Pressure Location Rt radial Position Sitting Pulse 104 H Intake Visit Reasons: S/P lap colon resection, 3 wk follow up Intake Note: This patient presents for a three week post-op follow-up assessment status post laparoscopic colon resection. Patient c/o; report peristomal rash. Automotive Vehicle Inspector Required: No Accompanied by: Other Relationship Allergies No Known Allergies Allergy (Verified 01/03/23 11:47) HPI S/P lap colon resection, 3 wk follow up HPI Details She is here for follow-up after undergoing hand assisted laparoscopic sigmoid resection with a diverting end-loop transverse colostomy. She had a vesical fistula at that time along with an abscess. She seems to be doing well. Her Hall catheter was removed by Dr. Deng last week and she says that she has had no problems with urination She still has a SUJIT drain in place positioned in the pelvis. There is note of about 35 cc of purulent looking fluid draining daily. Otherwise, she says her colostomy has been functioning well. She did describe some dermatitis on the colostomy site on the skin. [facility] Medical History Colovesical fistula Hypokalemia Diverticulitis large intestine Phlegmon Hypertension Multiple sclerosis Surgical History Hx of surgical procedure Social History Household Members: Spouse Housing: House Do you presently have visiting nurse or other home services: No Alcohol intake: never Patient Tobacco Use Status: Never used Tobacco Second Hand Smoke Exposure: No service: No Review of Systems Const Denies chills and Denies fever(s) Card Denies chest pain, Denies dyspnea and Denies dyspnea on exertion Resp Denies cough, Denies dyspnea and Denies dyspnea on exertion GI Denies hematochezia and Denies change in bowel habits Denies hematuria Musc Denies back pain and Denies limited range of motion Neuro Denies focal weakness and Denies convulsions Psych Denies depression and Denies mood swings Physical Exam Vital Signs: Last Vital Signs Pulse 104 H 01/03/23 11:46 BP 144/82 H 01/03/23 11:46 Const General: comfortable and no acute distress Resp Effort & Inspection: normal respiratory effort GI Other: Stoma functioning well, incision well healed, SUJIT drain in place, with about 10 cc of thick purulent looking fluid Assessment & Plan Assessment & Plan (1) Colovesical fistula: Code(s): N32.1 - Vesicointestinal fistula Plan: Status post sigmoid resection, colostomy for colovesical fistula. She continues to do well. Her incisions are well healed. Her stoma is functioning well. We will start her on a powder on the peristomal skin to protect this in view of her dermatitis. I will not remove her SUJIT drain in view of the purulent fluid even if this is minimal in volume. I will see her again in the office in about 3 weeks. Coding Level of Care Code Global (22085) Diagnoses Colovesical fistula N32.1
[2023-01-03 11:46] VITALS: BP 144/82; PULSE 104
== END 2023-01-03 12:15 | disposition home or self-care (01) ==
PROVIDERS: PCP Internal Medicine; Visit Provider Surgery
DX: N32.1 Vesicointestinal fistula (principal)
CPT/HCPCS: 99024

== ENCOUNTER → 2023-01-03 11:31 | Outpatient (BNVA) | payer OTHER, SELFPAY | PROVIDERS: PCP Internal Medicine; Visit Provider Surgery ==

== ENCOUNTER 2023-01-24 12:51 | Outpatient (AMB) | payer OTHER, SELFPAY ==
--- NOTE | 2023-01-24 13:03 | MHC.OFFVIS ---
Intake Intake Visit Reasons: S/P lap colon resection, 3 wk follow up Intake Note: This patient presents for a three week follow-up status post lap colon resection. Patient c/o; reports no changes. Mold Runner Required: No Accompanied by: Other Relationship Allergies No Known Allergies Allergy (Verified 01/24/23 13:08) HPI S/P lap colon resection, 3 wk follow up HPI Details She is here for follow-up after sigmoid resection and transverse loop colostomy for colovesical fistula. She says she has been doing well regards to her abdomen. Her stoma is functioning well. She still has the drain in place and this seems to continue to have scanty thick output that appears to be purulent. She denies any abdominal pain Her main complaint at this time is her leg weakness. She feels that her MS is progressing. She needs to use the walker full-time nowadays. [facility] Medical History Colovesical fistula Hypokalemia Diverticulitis large intestine Phlegmon Hypertension Multiple sclerosis Surgical History Hx of surgical procedure Social History Household Members: Spouse Housing: House Do you presently have visiting nurse or other home services: No Alcohol intake: never Patient Tobacco Use Status: Never used Tobacco Second Hand Smoke Exposure: No service: No Review of Systems Const Denies chills and Denies fever(s) Card Denies chest pain GI Denies abdominal pain Denies difficulty voiding Neuro Details: Right lower leg weakness Physical Exam Const Other: Using a walker General: comfortable and no acute distress Resp Effort & Inspection: normal respiratory effort GI Other: SUJIT drain with some thick scanty purulent output about 5 cc, colostomy functioning Palpation (GI): Soft to palpation, not firm and nontender Assessment & Plan Assessment & Plan (1) Colovesical fistula: Code(s): N32.1 - Vesicointestinal fistula Plan: Status post sigmoid resection, colostomy. She is doing very well postoperatively. Her incisions are well healed. She still has some scanty purulent drainage from her drain so I told her that I would keep this in place for now. I will see her again in the office in 3 weeks to re-evaluate. Her main complaint is that her MS symptoms seem to be worsening on the right leg. She is to see her neurologist tomorrow. Coding Level of Care Code Global (32074) Diagnoses Colovesical fistula N32.1
== END 2023-01-24 13:38 | disposition home or self-care (01) ==
PROVIDERS: PCP Internal Medicine; Visit Provider Surgery
DX: N32.1 Vesicointestinal fistula (principal)
CPT/HCPCS: 99024

== ENCOUNTER → 2023-01-24 12:51 | Outpatient (BNVA) | payer OTHER, SELFPAY | PROVIDERS: PCP Internal Medicine; Visit Provider Surgery | DX: N32.1 Vesicointestinal fistula (principal) ==

== ENCOUNTER 2023-02-14 09:57 | Outpatient (AMB) | payer OTHER, SELFPAY ==
--- NOTE | 2023-02-14 09:59 | MHC.OFFVIS ---
Intake Vital Signs 02/14/23 10:11 BP 143/86 H Blood Pressure Location Rt brachial Position Sitting Pulse 89 Intake Visit Reasons: S/P lap colon resection, 3 wk follow up Intake Note: This patient presents for three week follow-up assessment status post lap colon resection. Patient c/o; reports no changes. Cleaner Furniture Required: No Accompanied by: Other Relationship Allergies No Known Allergies Allergy (Verified 02/14/23 10:00) HPI S/P lap colon resection, 3 wk follow up HPI Details She is here for follow-up after sigmoid resection and end- loop transverse colostomy for a colovesical fistula. She still has a drain in place. She otherwise has good oral intake. Her colostomy is functioning well She does state that she seems to have progression of her multiple sclerosis with worsening weakness and unsteady gait. She is following her neurologist for this. [facility] Medical History Colovesical fistula Hypokalemia Diverticulitis large intestine Phlegmon Hypertension Multiple sclerosis Surgical History Hx of surgical procedure Social History Household Members: Spouse Housing: House Do you presently have visiting nurse or other home services: No Alcohol intake: never Patient Tobacco Use Status: Never used Tobacco Second Hand Smoke Exposure: No service: No Review of Systems Const Denies chills, Denies fever(s) and Reports weakness Card Denies chest pain Resp Denies cough GI Denies abdominal pain Denies difficulty voiding Musc Reports abnormal gait Neuro Reports abnormal gait, Reports lack of coordination and Reports weakness Physical Exam Vital Signs: Last Vital Signs Pulse 89 02/14/23 10:11 BP 143/86 H 02/14/23 10:11 Const Other: Using a walker, appears unsteady General: comfortable and no acute distress Resp Effort & Inspection: normal respiratory effort Cardio Rate: regular rate GI Other: Obese, soft colostomy with good output, SUJIT drain in place on the left lower quadrant with thick whitish output, although scanty Assessment & Plan Assessment & Plan (1) Colovesical fistula: Code(s): N32.1 - Vesicointestinal fistula Plan: Status post sigmoid resection, and endloop colostomy. She has scanty output from the drain. The have ordered about 3 to 20 cc of output a day. However, they noted 18 cc of output yesterday. This still appears very thick and purulent. I therefore told him that it may be best to keep this in place as the output remains very thick and purulent I had applied a new stitch to secure the drain as the other 1 had loosened I will see her again in the office in about 3 weeks. She overall looks very well with regards to her resection. She does seem to have worsening of her MS symptoms. Coding Level of Care Code Global (36236) Diagnoses Colovesical fistula N32.1
[2023-02-14 10:11] VITALS: BP 143/86; PULSE 89
== END 2023-02-14 10:28 | disposition home or self-care (01) ==
PROVIDERS: PCP Internal Medicine; Visit Provider Surgery
DX: N32.1 Vesicointestinal fistula (principal)
CPT/HCPCS: 99024

== ENCOUNTER → 2023-02-14 09:57 | Outpatient (BNVA) | payer OTHER, SELFPAY | PROVIDERS: PCP Internal Medicine; Visit Provider Surgery | DX: N32.1 Vesicointestinal fistula (principal) ==

== ENCOUNTER 2023-03-07 12:59 | Outpatient (AMB) | payer OTHER, SELFPAY ==
--- NOTE | 2023-03-07 13:03 | A.OFFVIS_ITS ---
Intake Vital Signs 03/07/23 13:24 Height 5 ft 2 in Weight 223 lb 8 oz BMI 40.9 BP 149/75 H Blood Pressure Location Lt brachial Position Sitting Pulse 95 Intake Visit Reasons: SUJIT drain in place, 3 wk follow up Intake Note: Patient is seen in office for 3 weeks follow up visit, following lap colon resection. Pt c/o: drain is pinching when sitting, no other concerns Healthcare Or Medical Required: No Accompanied by: Family/Other Allergies No Known Allergies Allergy (Verified 03/07/23 13:06) Medication List - Last Reconciled 03/07/23 by Jersey Ray MD colostomy bags As directed docusate sodium (Colace) 100 mg PO DAILY ergocalciferol (vitamin D2) 1,250 mcg PO CONDE furosemide 40 mg PO DAILY ibuprofen 800 mg PO Q8H PRN ostomy supplies (Skin Prep Wipes) As directed oxycodone 5 mg PO Q4H PRN valsartan 160 mg PO DAILY walker As directed HPI SUJIT drain in place, 3 wk follow up HPI Details She is here for follow-up for her SUJIT drain in place. She continues to have drainage from the area. This seems to be thick. The volume of the output has trended down. She regards about 5 to 18 cc of output a day although there will be time she says that this will be down to 0. She denies any complaints. She has good oral intake. She denies any fever or chills. [facility] Medical History (Updated 03/07/23 @ 13:35 by Jersey Ray MD) Colostomy in place Colovesical fistula Hypokalemia Diverticulitis large intestine Phlegmon Hypertension Multiple sclerosis Surgical History Hx of surgical procedure Household Members: Spouse Housing: House Do you presently have visiting nurse or other home services: No Alcohol intake: never Patient Tobacco Use Status: Never used Tobacco Second Hand Smoke Exposure: No service: No Review of Systems Const Denies chills and Denies fever(s) Card Denies chest pain, Denies dyspnea and Denies dyspnea on exertion Resp Denies cough, Denies dyspnea and Denies dyspnea on exertion GI Denies hematochezia and Denies change in bowel habits Denies hematuria Musc Reports abnormal gait, Denies back pain and Denies limited range of motion Neuro Details: Has problems with balance due to multiple sclerosis Reports abnormal gait, Reports focal weakness and Denies convulsions Psych Denies depression and Denies mood swings Physical Exam Vital Signs: Last Vital Signs Pulse 95 03/07/23 13:24 BP 149/75 H 03/07/23 13:24 BMI result Body Mass Index 40.9 Assessment & Plan Assessment & Plan (1) Colostomy in place: Code(s): Z93.3 - Colostomy status Plan: She is status post sigmoid resection with a colostomy in place for a colovesical fistula. She continues to do well. Her drain to the abscess site continues to have this thick creamy brownish fluid although the volume has trended down. I would therefore keep this in place for now. I will see her again in the office about 3 weeks She is overall doing well. Coding Level of Care Code Est Pt Level 2 (06691) Diagnoses Colostomy in place Z93.3
[2023-03-07 13:24] VITALS: BP 149/75; PULSE 95; BMI 40.9
== END 2023-03-07 13:33 | disposition home or self-care (01) ==
PROVIDERS: PCP Internal Medicine; Visit Provider Surgery
DX: Z93.3 Colostomy status (principal)
CPT/HCPCS: 99212

== ENCOUNTER → 2023-03-07 12:59 | Outpatient (BNVA) | payer OTHER, SELFPAY | PROVIDERS: PCP Internal Medicine; Visit Provider Surgery | DX: N32.1 Vesicointestinal fistula (principal) ==

== ENCOUNTER 2023-03-28 13:04 | Outpatient (AMB) | payer OTHER, SELFPAY ==
--- NOTE | 2023-03-28 13:10 | A.OFFVIS_ITS ---
Intake Vital Signs 03/28/23 13:18 Height 5 ft 2 in Weight 224 lb BMI 41.0 BP 132/62 Blood Pressure Location Rt brachial Position Sitting Pulse 84 Intake Visit Reasons: SUJIT drain in place, 3 wk follow up Intake Note: This patient presents for a three week follow-up assessment , SUJIT drain in place. Patient c/o; reports no changes. Switch Cleaner Required: No Accompanied by: Spouse Allergies No Known Allergies Allergy (Verified 03/28/23 13:18) Medication List - Last Reconciled 03/28/23 by Jersey Ray MD colostomy bags As directed docusate sodium (Colace) 100 mg PO DAILY ergocalciferol (vitamin D2) 1,250 mcg PO CONDE furosemide 40 mg PO DAILY ibuprofen 800 mg PO Q8H PRN ostomy supplies (Skin Prep Wipes) As directed oxycodone 5 mg PO Q4H PRN valsartan 160 mg PO DAILY walker As directed HPI SUJIT drain in place, 3 wk follow up HPI Details She is here for follow-up after her emergency Jere's procedure for colovesical fistula with an abscess. She still has her drain in place. She states that there is still thick output about 30 cc a day. She otherwise denies any abdominal pain. Her stoma has been functioning well. She has good oral intake. She feels well overall She also has had a long history of multiple sclerosis and she says that she has had some right-sided neurologic deficits because of this. She is able to walk with a walker. [facility] Medical History Colostomy in place Colovesical fistula Hypokalemia Diverticulitis large intestine Phlegmon Hypertension Multiple sclerosis Surgical History Hx of surgical procedure Social History Household Members: Spouse Housing: House Do you presently have visiting nurse or other home services: No Alcohol intake: never Patient Tobacco Use Status: Never used Tobacco Second Hand Smoke Exposure: No service: No Review of Systems Const Denies chills and Denies fever(s) Card Denies chest pain at rest and Denies chest pain with activity GI Denies abdominal pain Physical Exam Vital Signs: Last Vital Signs Pulse 84 03/28/23 13:18 BP 132/62 03/28/23 13:18 BMI result Body Mass Index 41.0 Const Other: Walks with a walker General: comfortable and no acute distress Resp Effort & Inspection: normal respiratory effort Cardio Rate: regular rate GI Other: SUJIT drain in place, thick output, about 25 cc over 24 hours Palpation (GI): Soft to palpation, not firm and no guarding Assessment & Plan Assessment & Plan (1) Colostomy in place: Code(s): Z93.3 - Colostomy status Plan: She still has her drain in place. The output is not a lot but this remains very thick. I told her that I would not pulled this out as this will probably be not reabsorbed easily because of the consistency. I am going to order for a CAT scan of the abdomen pelvis to see if she will require any additional drains. I will see her again in the office after CT scan to discuss the next step in her care. She is doing very well overall so far. Orders: Orders Blood Urea Nitrogen Today Z93.3 - Colostomy status Creatinine Today Z93.3 - Colostomy status CT abdomen pelvis w IV con Today Z93.3 - Colostomy status Coding Level of Care Code Est Pt Level 3 (21274) Diagnoses Colostomy in place Z93.3
[2023-03-28 13:18] VITALS: BP 132/62; PULSE 84; BMI 41.0
== END 2023-03-28 13:40 | disposition home or self-care (01) ==
PROVIDERS: PCP Internal Medicine; Visit Provider Surgery
DX: Z93.3 Colostomy status (principal)
CPT/HCPCS: 99213

== ENCOUNTER 2023-03-28 13:04 | Outpatient (REF) | payer OTHER, SELFPAY ==
[2023-03-28 15:10] LABS: Blood Urea Nitrogen 19 mg/dL (9-16); Estimated Glomerular Filt Rate 35
== END 2023-03-28 13:05 | disposition home or self-care (01) ==
LOC: HO.LAB 13:04
PROVIDERS: PCP Internal Medicine; Visit Provider Surgery
DX: N32.1 Vesicointestinal fistula (principal); G35 Multiple sclerosis; Z93.3 Colostomy status; Z79.899 Other long term (current) drug therapy
CPT/HCPCS: 36415; 82565; 84520

== ENCOUNTER 2023-04-06 07:45 | Outpatient (REF) | payer OTHER, SELFPAY | END 2023-04-06 07:46 | disposition home or self-care (01) | LOC: HO.CT 07:45 | PROVIDERS: PCP Internal Medicine; Visit Provider Surgery | DX: Z93.3 Colostomy status (principal) | CPT/HCPCS: 74176 ==

== ENCOUNTER 2023-04-26 10:59 | Outpatient (AMB) | payer OTHER, SELFPAY ==
--- NOTE | 2023-04-26 10:59 | MHC.OFFVIS ---
Intake Vital Signs 04/26/23 11:07 Height 5 ft 2 in Intake Visit Reasons: Colostomy, CT results Intake Note: This patient presents for a follow-up assessment for Ct-Scan results. Patient c/o; reports no changes at this time. 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 Required: No Accompanied by: Spouse Allergies No Known Allergies Allergy (Verified 04/26/23 11:08) Medication List - Last Reviewed 04/26/23 by LEON Marti cholecalciferol (vitamin D3) 1,250 mcg PO QWEEK colostomy bags As directed docusate sodium (Colace) 100 mg PO DAILY ergocalciferol (vitamin D2) 1,250 mcg PO CONDE furosemide 40 mg PO DAILY ibuprofen 800 mg PO Q8H PRN ostomy supplies (Skin Prep Wipes) As directed oxycodone 5 mg PO Q4H PRN potassium chloride ER (Klor-Con M) 20 mEq PO DAILY valsartan 160 mg PO DAILY walker As directed HPI Colostomy, CT results HPI Details I had sent her for a CT scan to check for any fluid collections prior to removing her SUJIT drain. She denies any significant complaints. She has good oral intake. Her stoma has been functioning well. She says that she seems to be doing well overall. [facility] Medical History Colostomy in place Colovesical fistula Hypokalemia Diverticulitis large intestine Phlegmon Hypertension Multiple sclerosis Surgical History Hx of surgical procedure Social History Household Members: Spouse Housing: House Do you presently have visiting nurse or other home services: No Alcohol intake: never Patient Tobacco Use Status: Never used Tobacco Second Hand Smoke Exposure: No service: No Review of Systems Const Denies chills and Denies fever(s) Card Denies chest pain, Denies dyspnea and Denies dyspnea on exertion Resp Denies cough, Denies dyspnea and Denies dyspnea on exertion GI Denies hematochezia and Denies change in bowel habits Denies hematuria Musc Denies back pain and Denies limited range of motion Neuro Denies focal weakness and Denies convulsions Psych Denies depression and Denies mood swings Physical Exam Const Other: Obese General: comfortable and no acute distress Resp Effort & Inspection: normal respiratory effort GI Other: Soft, SUJIT drain in place, stoma functioning well; SUJIT output appears thick and purulent although scanty Assessment & Plan Assessment & Plan (1) Colostomy in place: Code(s): Z93.3 - Colostomy status Plan: She still has the drain in place. The output is generally about 10 cc a day but couple of times this week it was up to 20 cc in 24 hours. This is not much and the CT scan does not show any new or persistent collection. My only concern is that the output remains purulent and thick in appearance. This may suggest that there still a small purulent collection that is not discernible on the CT scan. I did explain to her that there is a small chance that this may reaccumulate if remove the drain She says that she would like to hold off on removing the drain for now if that is concerned. I will see her again in the office in about 3-4 weeks. She is doing very well overall She says her symptoms of her MS have been stable. Medications: New potassium chloride ER (Klor-Con M) 20 mEq PO DAILY cholecalciferol (vitamin D3) 1,250 mcg PO QWEEK Coding Level of Care Code Est Pt Level 2 (47858) Diagnoses Colostomy in place Z93.3
== END 2023-04-26 11:14 | disposition home or self-care (01) ==
PROVIDERS: PCP Internal Medicine; Visit Provider Surgery
DX: Z93.3 Colostomy status (principal)
CPT/HCPCS: 99212

== ENCOUNTER → 2023-04-26 10:59 | Outpatient (BNVA) | payer OTHER, SELFPAY | PROVIDERS: PCP Internal Medicine; Visit Provider Surgery ==

== ENCOUNTER 2023-05-16 12:42 | Outpatient (AMB) | payer OTHER, SELFPAY ==
--- NOTE | 2023-05-16 12:53 | A.OFFVIS_ITS ---
Intake Vital Signs 05/16/23 13:05 Height 5 ft 2 in Weight 231 lb BMI 42.2 BP 147/80 H Blood Pressure Location Rt radial Position Sitting Pulse 71 Intake Visit Reasons: Colostomy check, 3 week follow up Intake Note: This patient presents for a three week follow-up assessment for colostomy check. Pt c/o; reports 15-20 mL daily in drain. Dispatch Manager Required: No Accompanied by: Spouse Allergies No Known Allergies Allergy (Verified 05/16/23 13:06) Medication List - Last Reconciled 05/16/23 by Jersey Ray MD cholecalciferol (vitamin D3) 1,250 mcg PO QWEEK colostomy bags As directed docusate sodium (Colace) 100 mg PO DAILY ergocalciferol (vitamin D2) 1,250 mcg PO CONDE furosemide 40 mg PO DAILY ibuprofen 800 mg PO Q8H PRN ostomy supplies (Skin Prep Wipes) As directed oxycodone 5 mg PO Q4H PRN potassium chloride ER (Klor-Con M) 20 mEq PO DAILY valsartan 160 mg PO DAILY walker As directed HPI Colostomy check, 3 week follow up HPI Details She is here for follow-up she is here for follow-up after Jere's procedure for colovesical fistula. Continue do well. She still has the SUJIT drain and she says that these usually about 15-20 cc of thick, purulent output daily. She has good oral intake. She feels well overall. Her stoma has been functioning well. [facility] Medical History Colostomy in place Colovesical fistula Hypokalemia Diverticulitis large intestine Phlegmon Hypertension Multiple sclerosis Surgical History Hx of surgical procedure Social History Household Members: Spouse Housing: House Do you presently have visiting nurse or other home services: No Alcohol intake: never Patient Tobacco Use Status: Never used Tobacco Second Hand Smoke Exposure: No service: No Review of Systems Const Denies chills and Denies fever(s) Card Denies chest pain, Denies dyspnea and Denies dyspnea on exertion Resp Denies cough, Denies dyspnea and Denies dyspnea on exertion GI Denies hematochezia and Denies change in bowel habits Denies hematuria Musc Details: Has muscle weakness from her MS Denies back pain and Denies limited range of motion Neuro Denies focal weakness and Denies convulsions Psych Denies depression and Denies mood swings Physical Exam Vital Signs: Last Vital Signs Pulse 71 05/16/23 13:05 BP 147/80 H 05/16/23 13:05 BMI result Body Mass Index 42.2 Const General: comfortable and no acute distress Resp Effort & Inspection: normal respiratory effort Cardio Rate: regular rate GI Other: SUJIT drain in place, scanty but thick purulent output, stoma functioning well Palpation (GI): Soft to palpation, not firm and nontender Assessment & Plan Assessment & Plan (1) Colostomy in place: Code(s): Z93.3 - Colostomy status Plan: She actually continues to do very well. However, she has this thick purulent output from her SUJIT drain, about 15-20 cc per day which is persistent. She does not want me to pull out the SUJIT drain in view of the risk of reaccumulation of the abscess. Her CAT scan from last month did not show any collection Will therefore keep the SUJIT drain in place. She is doing well overall. I will see her again in the office in about 1 month. Her stoma has been functioning well. Coding Level of Care Code Est Pt Level 3 (21782) Diagnoses Colostomy in place Z93.3
[2023-05-16 13:05] VITALS: BP 147/80; PULSE 71; BMI 42.2
== END 2023-05-16 13:20 | disposition home or self-care (01) ==
PROVIDERS: PCP Internal Medicine; Visit Provider Surgery
DX: Z93.3 Colostomy status (principal)
CPT/HCPCS: 99213

== ENCOUNTER → 2023-05-16 12:42 | Outpatient (BNVA) | payer OTHER, SELFPAY | PROVIDERS: PCP Internal Medicine; Visit Provider Surgery ==

== ENCOUNTER 2023-06-13 12:44 | Outpatient (AMB) | payer OTHER, SELFPAY ==
[2023-06-13 12:50] VITALS: BP 144/84; PULSE 75; BMI 42.1
--- NOTE | 2023-06-13 12:50 | MHC.OFFVIS ---
Intake Vital Signs 06/13/23 12:50 Height 5 ft 2 in Weight 230 lb BMI 42.1 BP 144/84 H Blood Pressure Location Rt radial Position Sitting Pulse 75 Intake Visit Reasons: Colostomy check, 4 week follow up Intake Note: This patient presents for a four week follow-up for colostomy check. Pt c/o; reports sunday and sunday did not have any blood in output and less than 5ML; yellow, reports output is 10 mL daily with blood mixed in and foul odor. Yeast Stacker Required: No Accompanied by: Spouse Allergies No Known Allergies Allergy (Verified 06/13/23 12:58) Medication List - Last Reconciled 06/13/23 by Jersey Ray MD cholecalciferol (vitamin D3) 1,250 mcg PO QWEEK colostomy bags As directed docusate sodium (Colace) 100 mg PO DAILY ergocalciferol (vitamin D2) 1,250 mcg PO CONDE furosemide 40 mg PO DAILY ibuprofen 800 mg PO Q8H PRN ostomy supplies (Skin Prep Wipes) As directed oxycodone 5 mg PO Q4H PRN potassium chloride ER (Klor-Con M) 20 mEq PO DAILY valsartan 160 mg PO DAILY walker As directed HPI Colostomy check, 4 week follow up HPI Details She is here for follow-up for her drain in place. She had an emergency sigmoid resection and colostomy for a colo vesical fistula with urosepsis last November,. I had left her drain in place because this had like thick purulent output. She says that the volume itself has decreased and occasionally the drainage would be more of old blood. Her stoma has been functioning well. She feels well overall. She says that her multiple sclerosis symptoms seem to be improved. [facility] Medical History Colostomy in place Colovesical fistula Hypokalemia Diverticulitis large intestine Phlegmon Hypertension Multiple sclerosis Surgical History Hx of surgical procedure Social History Household Members: Spouse Housing: House Do you presently have visiting nurse or other home services: No Alcohol intake: never Patient Tobacco Use Status: Never used Tobacco Second Hand Smoke Exposure: No service: No Review of Systems Const Denies chills and Denies fever(s) Card Denies chest pain, Denies dyspnea and Denies dyspnea on exertion Resp Denies cough, Denies dyspnea and Denies dyspnea on exertion GI Details: Has colostomy Denies hematochezia and Denies change in bowel habits Denies hematuria Musc Denies back pain and Denies limited range of motion Neuro Denies focal weakness and Denies convulsions Psych Denies depression and Denies mood swings Physical Exam Const Other: Obese General: comfortable and no acute distress Resp Effort & Inspection: normal respiratory effort GI Other: Soft, guarding rebound, colostomy in place, SUJIT drain in place with scanty but thick purulent output Assessment & Plan Assessment & Plan (1) Colostomy in place: Code(s): Z93.3 - Colostomy status Plan: Her stoma is functioning well. The SUJIT drain output has steadily decreased. She mentions about 5 cc a day. However, this is still purulent. I would keep this for now and re-evaluate her next month. Overall she seems to be doing very well. She had request me to get hold of her neurologist as well. I will do that today. Coding Level of Care Code Est Pt Level 2 (73903) Diagnoses Colostomy in place Z93.3
== END 2023-06-13 13:14 | disposition home or self-care (01) ==
PROVIDERS: PCP Internal Medicine; Visit Provider Surgery
DX: Z93.3 Colostomy status (principal)
CPT/HCPCS: 99212

== ENCOUNTER → 2023-06-13 12:44 | Outpatient (BNVA) | payer OTHER, SELFPAY | PROVIDERS: PCP Internal Medicine; Visit Provider Surgery ==

== ENCOUNTER 2023-07-11 08:25 | Outpatient (AMB) | payer OTHER, SELFPAY ==
[2023-07-11 08:28] VITALS: BMI 42.1
--- NOTE | 2023-07-11 08:28 | A.OFFVIS_ITS ---
Intake Vital Signs 07/11/23 08:28 Height 5 ft 2 in Weight 230 lb BMI 42.1 Intake Visit Reasons: Colostomy check, 4 week follow up Intake Note: This patient presents for Colostomy check, 4 week follow up. Patient c/o; reports pain right groin region, reports pain get worse when sitting and them gets up, reports completed one round of antibiotics, reports foul odor from drain. Qa Specialist Required: No Accompanied by: Spouse Allergies No Known Allergies Allergy (Verified 07/11/23 08:39) Medication List - Last Reconciled 07/11/23 by Jersey Ray MD cholecalciferol (vitamin D3) 1,250 mcg PO QWEEK colostomy bags As directed docusate sodium (Colace) 100 mg PO DAILY ergocalciferol (vitamin D2) 1,250 mcg PO CONDE furosemide 40 mg PO DAILY ibuprofen 800 mg PO Q8H PRN ostomy supplies (Skin Prep Wipes) As directed oxycodone 5 mg PO Q4H PRN potassium chloride ER (Klor-Con M) 20 mEq PO DAILY sulfamethoxazole-trimethoprim 800-160 mg (Bactrim DS) 1 tab PO DAILY 5 days valsartan 160 mg PO DAILY walker As directed HPI Colostomy check, 4 week follow up HPI Details She is here for follow-up for her colostomy as well as with her drain still in place. He has been doing well overall. Her stoma has been functioning well. However, she describes sharp pain on the inside her abdomen on lower area right 4 days ago. She also describes throbbing pain on the IR drain site. She denies dysuria and says that her urine has been clear. According to her however, she seems to be more unsteady and wobbly now especially with use of the right leg. She does not have a follow-up with her neurologist until August 2023. . [facility] Medical History Colostomy in place Colovesical fistula Hypokalemia Diverticulitis large intestine Phlegmon Hypertension Multiple sclerosis Surgical History Hx of surgical procedure Social History Household Members: Spouse Housing: House Do you presently have visiting nurse or other home services: No Alcohol intake: never Patient Tobacco Use Status: Never used Tobacco Second Hand Smoke Exposure: No service: No Review of Systems Const Denies chills and Denies fever(s) Card Denies chest pain, Denies dyspnea and Denies dyspnea on exertion Resp Denies cough, Denies dyspnea and Denies dyspnea on exertion GI Denies hematochezia and Denies change in bowel habits Denies hematuria Musc Denies back pain and Denies limited range of motion Neuro Details: More unsteady with ambulation especially use of the right leg Reports focal weakness (Right leg) and Denies convulsions Psych Denies depression and Denies mood swings Physical Exam Vital Signs: BMI result Body Mass Index 42.1 Const Other: Appears to be unsteady with walking General: comfortable and no acute distress Orientation/consciousness: patient oriented x3 Neck Neck: Yes no lymphadenopathy Resp Auscultation: clear to auscultation bilaterally Cardio Rhythm: regular rhythm GI Other: Drain in place - about 25 cc since yesterday, appears thick serosanguineous and much less purulent than before Palpation (GI): Soft to palpation, nontender and no guarding Neuro General: patient oriented x3 Assessment & Plan Assessment & Plan (1) Colostomy in place: Code(s): Z93.3 - Colostomy status Plan: Her drain is still in place. The output seems much less purulent and appears thick least serosanguineous. She states that she is a little concerned because she had some pain in the right lower quadrant 3 days ago as well as on the area of the drain site. She has not comfortable with having the drain pulled out at this time and feels that a CT scan is warranted. We will therefore order for a CAT scan and will see her in the office thereafter. Hopefully, we can pull out the drain soon. She appears to have worsening unsteadiness especially with the right leg. She is to see her urologist again this May. Orders: Orders Blood Urea Nitrogen Today Z93.3 - Colostomy status Creatinine Today Z93.3 - Colostomy status CT abdomen pelvis w IV con Today Z93.3 - Colostomy status Coding Level of Care Code Est Pt Level 3 (46431) Diagnoses Colostomy in place Z93.3
== END 2023-07-11 09:37 | disposition home or self-care (01) ==
PROVIDERS: PCP Internal Medicine; Visit Provider Surgery
DX: Z93.3 Colostomy status (principal)
CPT/HCPCS: 99213

== ENCOUNTER 2023-07-11 08:25 | Outpatient (REF) | payer OTHER, SELFPAY ==
[2023-07-11 11:05] LABS: Blood Urea Nitrogen 22 mg/dL (9-16); Estimated Glomerular Filt Rate 55
== END 2023-07-11 08:26 | disposition home or self-care (01) ==
LOC: HO.LAB 08:25
PROVIDERS: PCP Internal Medicine; Visit Provider Surgery
DX: Z46.6 Encounter for fitting and adjustment of urinary device (principal); Z79.899 Other long term (current) drug therapy; Z93.3 Colostomy status
CPT/HCPCS: 36415; 82565; 84520

== ENCOUNTER 2023-07-19 13:02 | Outpatient (REF) | payer OTHER, SELFPAY ==
--- NOTE | ~2023-07-19 | CT_ITS ---
EXAMINATION: CT ABDOMEN AND PELVIS WITH CONTRAST CLINICAL INFORMATION: Colostomy status COMPARISON: Previous CT of the abdomen and pelvis most recent March 2023 TECHNIQUE: Multidetector volumetric images were obtained from the superior aspect of the liver through the pubic symphysis following administration 85 mL of Omnipaque 350 intravenous contrast. Sagittal and coronal reformatted images were obtained on the technologist's workstation. Oral contrast: Yes This CT examination was performed using dose optimization techniques as appropriate, variously including the following: *Automated exposure control *Adjustment of mA and/or kV according to patient size (this includes techniques or standardized protocols for targeted exams where dose is matched to indication/reason for exam; i.e. extremities or head) *Use of iterative reconstruction technique DLP: 979 mGy-cm FINDINGS: LUNG BASES: The visualized lung bases are unremarkable. LIVER, GALLBLADDER, AND BILIARY TREE: The liver is normal in size, shape, and attenuation. No focal hepatic lesion or biliary ductal dilatation is present. The gallbladder is unremarkable with no evidence of radiopaque gallstones, gallbladder wall thickening, or obvious pericholecystic inflammatory changes. PANCREAS: Unremarkable. SPLEEN: Unremarkable. ADRENAL GLANDS: Unremarkable. KIDNEYS AND URETERS: Both kidneys are small with the right kidney measuring 9 and the left 8.5 cm in length. Bilateral renal cortical thinning versus junctional parenchymal defect. Small left renal stone. BLADDER: Not optimally distended. Question mild bladder wall thickening and stranding of the perivesicular fat. There is superior tenting of the left dome of the bladder towards the sigmoid colon and surgical drain. No abnormal air collection in the bladder to suggest fistula seen. GASTROINTESTINAL TRACT: The distal left and proximal sigmoid colon have been resected. There is a left lower quadrant transplant versus colon loop colostomy. The abdominal wall defect/stoma is widened and there is a prominent fat. There is diverticulosis of the colon. No evidence of diverticulitis. There is a surgical drain in the pelvis. No residual fluid collection is seen. There is stranding of the fat adjacent to the mid transverse colon just deep to the anterior abdominal wall and proximal to the loop colostomy. This may represent fat necrosis or postsurgical change. This is seen axial image 51 series 3 and is similar to March 2023 exam. Small bowel is normal. Appendix not definitely seen. ABDOMINAL WALL: Postsurgical changes to the anterior abdominal wall. LYMPH NODES: Mild small bowel mesentery lymphadenopathy and fat stranding similar to prior exam questionable for mesenteritis. VASCULAR: Unremarkable. PELVIC VISCERA: Post hysterectomy. There is a small amount of air in the vagina. This is similar to prior exams. Clinically correlate to exclude possible colovaginal fistula. OSSEOUS STRUCTURES: Degenerative changes of the spine. CT/CT abdomen pelvis w IV con IMPRESSION: Postsurgical changes following resection of the distal left and proximal sigmoid colon. Left lower quadrant loop colostomy. Diverticulosis of the colon. No evidence of diverticulitis. Surgical drain in the pelvis. No residual fluid collection seen. There is mild diffuse bladder wall thickening and perivesicular fat stranding and tenting of the left dome of the bladder towards the sigmoid colon and surgical drain. No air collection in the bladder to suggest fistula seen. Posthysterectomy. Air in the vagina. Clinically correlate to exclude possible colovaginal fistula. Fleischner guidelines were followed.
[2023-07-19] MEDS: iohexoL 350 MG/ML 75 ML INFUS..BTL 85 ML IV (14:01)
== END 2023-07-19 13:03 | disposition home or self-care (01) ==
LOC: HO.CT 13:02
PROVIDERS: PCP Internal Medicine; Visit Provider Surgery
DX: Z93.3 Colostomy status (principal)
CPT/HCPCS: 74177; Q9967

== ENCOUNTER 2023-07-26 15:10 | Outpatient (AMB) | payer OTHER, SELFPAY ==
--- NOTE | 2023-07-26 15:30 | A.OFFVIS_ITS ---
Intake Intake Visit Reasons: Ct-Scan follow-up Intake Note: This patient presents for Ct-Scan follow-up. Pt c/o; reports no complaints. 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: No Accompanied by: Spouse Allergies No Known Allergies Allergy (Verified 07/26/23 15:31) Medication List - Last Reconciled 07/26/23 by Jersey Ray MD atorvastatin 10 mg PO DAILY cholecalciferol (vitamin D3) 1,250 mcg PO QWEEK colostomy bags As directed docusate sodium (Colace) 100 mg PO DAILY ergocalciferol (vitamin D2) 1,250 mcg PO CONDE furosemide 40 mg PO DAILY ibuprofen 800 mg PO Q8H PRN ostomy supplies (Skin Prep Wipes) As directed oxycodone 5 mg PO Q4H PRN potassium chloride ER (Klor-Con M) 20 mEq PO DAILY sulfamethoxazole-trimethoprim 800-160 mg (Bactrim DS) 1 tab PO DAILY 5 days valsartan 160 mg PO DAILY walker As directed HPI Ct-Scan follow-up HPI Details She is here for follow-up for her CT scan. I had sent for a CT scan as she had wanted to repeat this prior to removing her SUJIT drain. She was describing some sharp pains on the area of the SUJIT drain itself. Otherwise she has good stoma function. She denies any other complaints. She has good oral intake. [facility] Medical History Colostomy in place Colovesical fistula Hypokalemia Diverticulitis large intestine Phlegmon Hypertension Multiple sclerosis Surgical History Hx of surgical procedure Social History Household Members: Spouse Housing: House Do you presently have visiting nurse or other home services: No Alcohol intake: never Patient Tobacco Use Status: Never used Tobacco Second Hand Smoke Exposure: No service: No Review of Systems Const Denies chills and Denies fever(s) Card Denies chest pain Resp Denies cough GI Denies abdominal pain Physical Exam Const Other: Morbidly obese General: comfortable and no acute distress Resp Effort & Inspection: normal respiratory effort Cardio Rate: regular rate GI Other: Stoma functioning well, SUJIT drain with scanty serosanguineous output Palpation (GI): Soft to palpation Assessment & Plan Assessment & Plan (1) Colostomy in place: Code(s): Z93.3 - Colostomy status Plan: I have reviewed her CAT scan and this shows postop changes from her previous emergency Jere's procedure for her colovesical fistula. She continues to have no output from her SUJIT drain and this is serosanguineous now. I therefore pulled it out without difficulty. I will see her again in the office in about a month. She seems to be doing well otherwise. Her stoma continues to function well. Coding Level of Care Code Est Pt Level 3 (48231) Diagnoses Colostomy in place Z93.3
== END 2023-07-26 15:53 | disposition home or self-care (01) ==
PROVIDERS: PCP Internal Medicine; Visit Provider Surgery
DX: Z93.3 Colostomy status (principal)
CPT/HCPCS: 99213

== ENCOUNTER → 2023-07-26 15:10 | Outpatient (BNVA) | payer OTHER, SELFPAY | PROVIDERS: PCP Internal Medicine; Visit Provider Surgery | DX: Z93.3 Colostomy status (principal) | CPT/HCPCS: 99212 ==

== ENCOUNTER 2023-08-29 11:35 | Outpatient (AMB) | payer OTHER, SELFPAY ==
[2023-08-29 11:35] VITALS: BP 139/90; PULSE 85; BMI 42.6
--- NOTE | 2023-08-29 11:35 | MHC.OFFVIS ---
Vital Signs 08/29/23 11:35 Height 5 ft 2 in Weight 233 lb BMI 42.6 BP 139/90 H Blood Pressure Location Rt radial Pulse 85 Intake Visit Reasons: one month follow-up ostomy check Intake Note: This patient presents for a one month follow-up ostomy check. Patient c/o; reports no complaints. Medical Secretary Teacher Required: No Accompanied by: Spouse Allergies No Known Allergies Allergy (Verified 08/29/23 11:43) HPI HPI one month follow-up ostomy check: Details: I had removed her SUJIT drain last month. I instructed her to see me in the office for this. She says she continues to do well. She describes some scanty drainage from the old drain site. She says she is happy now that her SUJIT drain has been removed. She says her stoma is functioning well. [facility] Medical History Colostomy in place Colovesical fistula Hypokalemia Diverticulitis large intestine Phlegmon Hypertension Multiple sclerosis Surgical History Hx of surgical procedure Social History Household Members: Spouse Housing: House Do you presently have visiting nurse or other home services: No Alcohol intake: never Patient Tobacco Use Status: Never used Tobacco Second Hand Smoke Exposure: No service: No Review of Systems Const Denies chills and Denies fever(s) Card Denies chest pain, Denies dyspnea and Denies dyspnea on exertion Resp Denies cough, Denies dyspnea and Denies dyspnea on exertion GI Denies hematochezia and Denies change in bowel habits Details: Has colostomy Denies hematuria Musc Denies back pain and Denies limited range of motion Neuro Details: Weakness on the right side with occasional poor balance Denies focal weakness and Denies convulsions Psych Denies depression and Denies mood swings Physical Exam Const Other: Morbidly obese General: comfortable and no acute distress Resp Effort & Inspection: normal respiratory effort Cardio Rate: regular rate GI Other: Stoma functioning well, drain site on the left lower quadrant with a little open wound, dry at this time Inspection: Yes obesity Palpation (GI): Soft to palpation Assessment & Plan Assessment & Plan (1) Colostomy in place: Code(s): Z93.3 - Colostomy status Category: Medical Plan: I had removed her SUJIT drain. She says she feels much better without the SUJIT drain. She describes some scanty discharge from the old drain site. This is likely from the unhealed tract with her very thick subcutaneous fat I will see her again in the office for follow-up in about 2-3 months. I had advised her on trying to stay active as well. I explained to her the benefits of weight loss. Coding Level of Care Code Est Pt Level 3 (80288) Diagnoses Colostomy in place Z93.3
== END 2023-08-29 11:51 | disposition home or self-care (01) ==
PROVIDERS: PCP Internal Medicine; Visit Provider Surgery
DX: Z93.3 Colostomy status (principal)
CPT/HCPCS: 99213

== ENCOUNTER → 2023-08-29 11:35 | Outpatient (BNVA) | payer OTHER, SELFPAY | PROVIDERS: PCP Internal Medicine; Visit Provider Surgery | DX: Z93.3 Colostomy status (principal) | CPT/HCPCS: 99212 ==

== ENCOUNTER 2023-11-21 12:33 | Outpatient (AMB) | payer OTHER, SELFPAY ==
[2023-11-21 12:47] VITALS: BP 162/86; PULSE 77; BMI 43.0
--- NOTE | 2023-11-21 12:47 | MHC.OFFVIS ---
Vital Signs 11/21/23 12:47 Height 5 ft 2 in Weight 235 lb BMI 43.0 BP 162/86 H Blood Pressure Location Rt radial Position Sitting Pulse 77 Intake Visit Reasons: 3 month follow-up ostomy check Intake Note: This patient presents for three month follow-up ostomy check. Pt c/o; reports no complaints. 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: No Accompanied by: Spouse Allergies No Known Allergies Allergy (Verified 11/21/23 12:56) Medication List - Last Reconciled 11/21/23 by Jersey Ray MD atorvastatin 10 mg PO DAILY baclofen 5 mg PO BID PRN cholecalciferol (vitamin D3) 1,250 mcg PO QWEEK colostomy bags As directed docusate sodium (Colace) 100 mg PO DAILY ergocalciferol (vitamin D2) 1,250 mcg PO CONDE furosemide 40 mg PO DAILY ibuprofen 800 mg PO Q8H PRN ostomy supplies (Skin Prep Wipes) As directed oxycodone 5 mg PO Q4H PRN potassium chloride ER (Klor-Con M) 20 mEq PO DAILY sulfamethoxazole-trimethoprim 800-160 mg (Bactrim DS) 1 tab PO DAILY 5 days sulfamethoxazole-trimethoprim 800-160 mg (Bactrim DS) 1 tab PO BID valsartan 160 mg PO DAILY walker As directed HPI HPI 3 month follow-up ostomy check: Details: She is here for follow-up after sigmoid resection and colostomy for colovesical fistula last November,. She says she is doing well. She also says that her MS seemed to be well controlled She denies any problems with her stoma. [facility] [place] Medical History Colostomy in place Colovesical fistula Hypokalemia Diverticulitis large intestine Phlegmon Hypertension Multiple sclerosis Surgical History Hx of surgical procedure Social History Household Members: Spouse Housing: House Do you presently have visiting nurse or other home services: No Alcohol intake: never Patient Tobacco Use Status: Never used Tobacco Second Hand Smoke Exposure: No service: No Review of Systems Const Denies chills and Denies fever(s) Card Denies chest pain at rest Resp Denies cough GI Details: Has colostomy Denies dysuria Musc Details: Has some weakness of the extremities Reports abnormal gait Neuro Reports abnormal gait Physical Exam Vital Signs: Last Vital Signs Pulse 77 11/21/23 12:47 BP 162/86 H 11/21/23 12:47 BMI result Body Mass Index 43.0 Const Other: Appears obese General: comfortable and no acute distress Resp Effort & Inspection: normal respiratory effort Cardio Rate: regular rate GI Other: Stoma functioning well, with good output Palpation (GI): Soft to palpation, not firm and nontender Assessment & Plan Assessment & Plan (1) Colostomy in place: Code(s): Z93.3 - Colostomy status Category: Medical Plan: She continues to do well. Her colostomy is functioning well. She denies any problems with this She seems to be doing well overall. Even her MS symptoms are well controlled. She can therefore follow up with me on a p.r.n. basis. I did advise her on the benefits of staying active and trying to control her weight. Coding Level of Care Code Est Pt Level 3 (58533) Diagnoses Colostomy in place Z93.3
== END 2023-11-21 13:18 | disposition home or self-care (01) ==
PROVIDERS: PCP Internal Medicine; Visit Provider Surgery
DX: Z43.3 Encounter for attention to colostomy (principal)
CPT/HCPCS: 99213

== ENCOUNTER → 2023-11-21 12:33 | Outpatient (BNVA) | payer OTHER, SELFPAY | PROVIDERS: PCP Internal Medicine; Visit Provider Surgery | DX: Z93.3 Colostomy status (principal) | CPT/HCPCS: 99212 ==

== ENCOUNTER 2023-12-05 09:01 | Outpatient (AMB) | payer OTHER, SELFPAY ==
--- NOTE | 2023-12-05 09:01 | MHC.OFFVIS ---
Vital Signs 12/05/23 09:05 Height 5 ft 2 in Weight 235 lb BMI 43.0 Intake Visit Reasons: port site check/bleeding Intake Note: This patient presents for wound check. Pt c/o; reports port site was bleeding. 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 Accompanied by: Daughter Allergies No Known Allergies Allergy (Verified 12/05/23 09:06) Medication List - Last Reconciled 12/05/23 by Jersey Ray MD atorvastatin 10 mg PO DAILY baclofen 5 mg PO BID PRN cholecalciferol (vitamin D3) 1,250 mcg PO QWEEK colostomy bags As directed docusate sodium (Colace) 100 mg PO DAILY ergocalciferol (vitamin D2) 1,250 mcg PO CONDE furosemide 40 mg PO DAILY ibuprofen 800 mg PO Q8H PRN ostomy supplies (Skin Prep Wipes) As directed oxycodone 5 mg PO Q4H PRN potassium chloride ER (Klor-Con M) 20 mEq PO DAILY sulfamethoxazole-trimethoprim 800-160 mg (Bactrim DS) 1 tab PO DAILY 5 days sulfamethoxazole-trimethoprim 800-160 mg (Bactrim DS) 1 tab PO BID valsartan 160 mg PO DAILY walker As directed HPI HPI port site check/bleeding: Details: She called for a follow-up because of what she described as drainage from her previous drain site on the left lower quadrant. She says that 2 days ago she noticed serosanguineous fluid from the old drain site that soaked through her clothes. She says that this happened only that day. She denies any abdominal pain. Denies any fever or chills. She has good oral intake. She actually says she feels well overall. [facility] Medical History Colostomy in place Colovesical fistula Hypokalemia Diverticulitis large intestine Phlegmon Hypertension Multiple sclerosis Surgical History Hx of surgical procedure Social History Household Members: Spouse Housing: House Do you presently have visiting nurse or other home services: No Alcohol intake: never Patient Tobacco Use Status: Never used Tobacco Second Hand Smoke Exposure: No service: No Review of Systems Const Denies chills and Denies fever(s) Card Denies chest pain, Denies dyspnea and Denies dyspnea on exertion Resp Denies cough, Denies dyspnea and Denies dyspnea on exertion GI Details: Has stoma Denies hematochezia and Denies change in bowel habits Denies hematuria Musc Denies back pain and Denies limited range of motion Neuro Denies focal weakness and Denies convulsions Psych Denies depression and Denies mood swings Physical Exam Vital Signs: BMI result Body Mass Index 43.0 Const Other: Obese General: comfortable and no acute distress Resp Effort & Inspection: normal respiratory effort Cardio Rate: regular rate GI Other: Old drain site dry although with scar and a little bit of scabbing, no cellulitis, no fluctuance, no redness, no induration Palpation (GI): Soft to palpation, not firm and nontender Assessment & Plan Assessment & Plan (1) Colostomy in place: Code(s): Z93.3 - Colostomy status Category: Medical Plan: She called for follow-up because of what she describes as significant serosanguineous drainage from her old drain site 2 days ago. This has not recurred. Denies any other complaints otherwise This is likely from accumulation of fluid from her old long tract as she has a thick pannus in the area. There is no abscess or fluctuance or evidence of infection at this time. I explained to her that this may happen again as she has a very large pannus She can follow up in the office down the line if there is any concern. Coding Level of Care Code Est Pt Level 2 (03799) Diagnoses Colostomy in place Z93.3
[2023-12-05 09:05] VITALS: BMI 43.0
== END 2023-12-05 09:17 | disposition home or self-care (01) ==
PROVIDERS: PCP Internal Medicine; Visit Provider Surgery
DX: Z93.3 Colostomy status (principal)
CPT/HCPCS: 99212

== ENCOUNTER → 2023-12-05 09:01 | Outpatient (BNVA) | payer OTHER, SELFPAY | PROVIDERS: PCP Internal Medicine; Visit Provider Surgery | DX: E65 Localized adiposity (principal); Z09 Encounter for follow-up examination after completed treatment for conditions other than malignant neoplasm; Z93.3 Colostomy status | CPT/HCPCS: 99212 ==

== ENCOUNTER 2024-04-12 13:39 | Emergency (ER) | payer OTHER, SELFPAY ==
--- NOTE | ~2024-04-12 | XR_ITS ---
CLINICAL HISTORY: right low back pain, no injury Radiographs of the lumbar spine, 3 views, 4 images Comparison: None Findings: 4 mm anterolisthesis of L4 on L5, degenerative. No fracture. The vertebral body heights are preserved. Moderate to severe intervertebral disc space narrowing at L4/L5 on the left. There is otherwise mild multilevel intervertebral disc space narrowing with mild endplate osteophytosis. Moderate lower lumbar facet hypertrophy. Vascular calcifications. Impression: No acute findings. Grade 1 anterolisthesis of L4 on L5, degenerative. Moderate degenerative change. This document has been electronically signed by: Ching De Los Santos MD on 04/12/2024 15:14:37
[2024-04-12 13:47] VITALS: BP 173/86; PULSE 90; RESP 20; TEMP 37.1; O2SAT 95; BMI 45.3
--- NOTE | 2024-04-12 13:49 | ED_ITS ---
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 Patient states that over the last day she has had right sided low back pain that radiates into her right upper leg. Patient states that she started Atorvastatin on 04/01/2024 and she believes this may be the catalyst of her pain because she had a similar reaction when on Simvastation. Patient denies any dizziness, lightheadedness, abdominal pain, nausea, vomiting, fever, chills, blurry vision, double vision, loss of vision, chest pain, difficulty breathing, shortness of breath, night sweats, pain with urination, increased urinary frequency, increased urinary urgency, blood in her urine or stool, syncope or a near syncopal episode, recent trauma or falls, bowel incontinence, bladder incontinence, or any other complaints at this time. MD elicited complaint: back pain Timing: constant Quality: sharp Location: lumbar spine Radiation: right upper leg Exacerbating factors: movement Relieving factors: sitting upright Associated symptoms: denies other symptoms Related Data Home Medications ?Medication ?Instructions ?Recorded ?Confirmed ergocalciferol (vitamin D2) 1,250 1,250 mcg PO CONDE 10/27/22 12/05/23 mcg (50,000 unit) capsule furosemide 40 mg tablet 40 mg PO DAILY 10/27/22 12/05/23 ibuprofen 800 mg tablet 800 mg PO Q8H PRN pain 10/27/22 12/05/23 valsartan 160 mg tablet 160 mg PO DAILY 10/27/22 12/05/23 cholecalciferol (vitamin D3) 1,250 1,250 mcg PO QWEEK 04/26/23 12/05/23 mcg (50,000 unit) capsule potassium chloride 20 mEq 20 meq PO DAILY 04/26/23 12/05/23 tablet,extended release(part/cryst) (Klor-Con M) atorvastatin 10 mg tablet 10 mg PO DAILY 07/26/23 12/05/23 baclofen 5 mg tablet 5 mg PO BID PRN 08/29/23 12/05/23 Previous Rx's ?Medication ?Instructions ?Recorded docusate sodium 100 mg capsule 100 mg PO DAILY #30 caps 11/05/22 (Colace) walker #1 ea 11/30/22 colostomy bags 3 #30 ea 12/01/22 ostomy supplies (Skin Prep Wipes) #50 ea 12/01/22 oxycodone 5 mg tablet 5 mg PO Q4H PRN pain (scale score 12/01/22 7-10) #24 tabs sulfamethoxazole 800 1 tab PO DAILY 5 days #5 tabs 07/02/23 mg-trimethoprim 160 mg tablet (Bactrim DS) sulfamethoxazole 800 1 tab PO BID #14 tabs 07/30/23 mg-trimethoprim 160 mg tablet (Bactrim DS) cyclobenzaprine 5 mg tablet 5 mg PO TID PRN back pain 7 days 04/12/24 #21 tabs naproxen 500 mg tablet 500 mg PO BID 7 days #14 tabs 04/12/24 omeprazole 20 mg capsule,delayed 20 mg PO DAILY #7 caps 04/12/24 release prednisone 20 mg tablet 20 mg PO DAILY 7 days #7 tabs 04/12/24 Allergies Allergy/AdvReac Type Severity Reaction Status Date / Time No Known Allergies Allergy Verified 04/12/24 13:48 Review of Systems 2 Constitutional: Constitutional: Reports no additional constitutional complaints, Denies chills, Denies fever(s) and Denies night sweats Eyes: Eyes: Reports no additional eye complaints, Denies blurry vision, Denies change in vision, Denies diplopia, Denies eye discharge, Denies loss of vision and Denies eye pain ENT: Denies dizziness Cardiovascular: Cardiovascular: Reports no additional cardiovascular complaints, Denies chest pain, Denies lightheadedness, Denies Loss of Consciousness and Denies dyspnea Respiratory: Respiratory: Reports no additional respiratory complaints and Denies dyspnea Gastrointestinal: Gastrointestinal: Reports no additional gastrointestinal complaints, Denies abdominal pain, Denies melena, Denies hematochezia, Denies change in bowel habits and Denies change in stool character Genitourinary: Genitourinary: Denies hematuria, Denies urinary frequency, Denies dysuria, Denies urinary incontinence, Denies urinary hesitancy and Denies urinary urgency Musculoskeletal: Musculoskeletal: Reports no additional musculoskeletal complaints, Reports back pain, Denies numbness and Denies tingling Neurologic: Denies dizziness, Denies loss of vision, Denies numbness and Denies tingling Psychiatric: Psychiatric: Reports no additional psychiatric complaints Endocrine: Endocrine: Reports no additional endocrine complaints Hematologic/Lymphatic: Hematologic/Lymphatic: Reports no additional hematologic/lymphatic complaints Allergic/Immunologic: Allergic/Immunologic: Reports no additional allergic/immunologic complaints PMFSH Past Medical History Attestation statement: The following information was validated with the patient. (patient's daughter validated all information) Source: old records reviewed, obtained from family (patient's daughter provided additional history and confirmed the history provided by the patient) and nursing notes reviewed Medical History Colostomy in place Colovesical fistula Hypokalemia Diverticulitis large intestine Phlegmon Hypertension Multiple sclerosis Surgical History Hx of surgical procedure Social History Social History Household Members: Spouse Housing: House Do you presently have visiting nurse or other home services: No Alcohol intake: never Patient Tobacco Use Status: Never used Tobacco Second Hand Smoke Exposure: No Advance Directives: No Advance Directives Information Provided: Yes service: No Physical Exam 2 Vital Signs: Vital Signs: Last Vital Signs Temp 98.3 F 04/12/24 17:00 Pulse 87 04/12/24 17:00 Resp 18 04/12/24 17:00 BP 163/92 H 04/12/24 17:00 Pulse Ox 98 04/12/24 17:00 O2 Del Method Room Air 04/12/24 17:00 BMI result Body Mass Index 45.3 Const: General: cooperative, no acute distress, alert and awake Nutritional Appearance: well nourished Orientation/consciousness: patient oriented x3 Limitations: no limitations HEENT: Head: Yes normal to inspection and Yes atraumatic Ears: hearing grossly normal bilaterally and external ears normal General nose exam: Normal external nose present, no nasal discharge noted and no epistaxis Face and sinus: Yes normal facial exam, No abrasion and No laceration Mouth: Normal oral and palatal mucosa present, no drooling and no muffled voice Eyes: General: appearance normal, both eyes and all related structures P eriorbital: periorbital findings normal Eyelids: Yes eyelids normal C onjunctivae: conjunctivae normal Pupils: Equal, round and reactive pupils present EOM: EOMs intact bilaterally Neck: Neck: Yes normal visual inspection, Yes full ROM and Yes no lymphadenopathy Chest: Chest palpation & inspection: normal inspection of the chest Resp: Effort & Inspection: normal respiratory effort and able to speak in complete sentences GI: Other: colostomy in place - per patient draining appropriately Back/Spine/Pelvis: Cervical Spine: normal cervical lordosis and cervical ROM normal Neuro: General: patient oriented x3 and moves all extremities Cranial nerves: Yes Equal, round and reactive pupils present Cognition (Neuro): n ormal cognition Extrem: General: Yes normal to inspection, Yes full ROM and Yes capillary refill normal Psych: Appearance: grossly normal Mental Status: mental status grossly normal Affect: normal affect Attitude: cooperative Thought process: N ormal thought process present Thought content: Normal thought content present Insight: Good insight present (Psych) Course Course Course Narrative: This is a Rapid Medical Examination (RME) performed by Fernando Venegas PA-C in triage. Full HPI, ROS, assessment and treatment plan per primary provider in the Main ED. 63 yo female here for eval of right lower back pain radiating down her right leg x days. admits to starting atorvastatin on 04/01/24. Reports similar reaction of sciatic like pain when she was taking simvastatin. denies blunt injury or trauma. Plan: xr, pain control Medications Administered Discontinued Medications Generic Name Dose Route Start Last Admin Trade Name Surendra PRN Reason Stop Dose Admin Cyclobenzaprine HCl 5 mg 04/12/24 16:42 04/12/24 16:55 Cyclobenzaprine Hcl 5 Mg Tablet PO 04/12/24 16:43 5 mg ONCE ONE Administration Ketorolac Tromethamine 15 mg 04/12/24 16:42 04/12/24 16:56 Ketorolac Tromethamine 15 Mg/Ml Vial IM 04/12/24 16:43 15 mg ONCE ONE Administration Methylprednisolone Sodium Succinate 60 mg 04/12/24 16:42 04/12/24 16:56 Methylprednisolone Sod Succ 125 Mg/2 Ml Vial IM 04/12/24 16:43 60 mg ONCE ONE Administration Medical Decision Making Medical Decision Making MDM Narrative: Patient is a 63 year old assigned female at with a history of HTN, MS, diverticulitis, HLD, and 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 Patient's physical exam was unremarkable. Patient's blood work showed a mildly elevated WBC count and BUN but were otherwise unremarkable. Patient's lumbar x-ray showed no acute process. I explained my physical exam findings as well as all test results to the patient and the patient's daughter. I answered all questions asked by the patient and the patient's daughter. Patient's clinical presentation is most consistent with a lumbar strain / sprain vs. sciatica vs. msk pain vs. adverse drug reaction. I stressed the importance of the patient taking her medication as directed (either prescribed or as the over the counter packaging recommends). I stressed the importance of the patient following up with her primary care provider. I stressed the importance of the patient returning to the emergency department immediately if her symptoms were to worsen or if she were to develop any dizziness, shortness of breath, difficulty breathing, chest pain, blurry vision, loss of vision, nausea, vomiting, abdominal pain, fever, chills, back pain, or any other complaints. Patient and the patient's daughter verbalized agreement and understanding with this treatment plan and discharge. Differential Diagnosis Differential Diagnoses: The differential diagnosis associated with the presentation includes Lumbar sprain Lumbar strain Adverse drug reaction Musculoskeletal pain Sciatica Admission/Observation Consideration of admission/observation: Escalation of care including admission/observation considered Patient would have been admitted to the hospital had her work up had any findings where hospital admission was appropriate and her clinical presentation warranted hospital admission. Lab Data [facility] [place] Lab Attestation statement: I reviewed the patient's lab results. My interpretation of these results are in the [facility] [place] Rationale portion of this note. 04/12/24 15:51 04/12/24 15:51 Labs: Lab Results 04/12/24 Range/Units 15:51 WBC 12.6 H (4.8-10.8) X10*3/uL RBC 4.25 D (4.20-5.50) X10*6/uL Hgb 12.9 D (12.0-16.0) g/dl Hct 37.5 D (37.0-47.0) % MCV 88.2 (80.0-98.0) fL MCH 30.4 (27.0-33.0) pg MCHC 34.4 (31.0-35.0) g/dl RDW 14.0 (11.0-16.0) % Plt Count 121 L D (160-400) X10*3/uL MPV 11.3 (9.4-12.3) fL Immature Gran % (Auto) 0.6 H (0.0-0.4) % Neut % (Auto) 79.2 H (45-73) % Lymph % (Auto) 12.3 L (20-40) % [place]orne % (Auto) 5.4 (2-11) % Eos % (Auto) 2.0 (0-4) % Baso % (Auto) 0.5 (0-2) % Lymph # (Auto) 1.6 (1.2-4.9) X10*3/uL [place] # (Auto) 0.7 (0.1-1.2) X10*3/uL Eos # (Auto) 0.3 (0.0-0.4) X10*3/uL Baso # (Auto) 0.1 (0.0-0.2) X10*3/uL Abs Immat Gran (auto) 0.08 H (0.00-0.03) X10*3/uL Absolute Neuts (auto) 10.0 H (2.0-8.3) x10*3/uL Absolute Nucleated RBC 0.000 (0.0-0.012) X10*3/uL Nucleated RBC % (auto) 0.0 (0.0-0.2) /100WBC Smear Tech's Comments VERIFIED Sodium 138 (135-145) mmol/L Potassium 4.7 (3.3-5.1) mmol/L Chloride 110 H (96-108) mmol/L Carbon Dioxide 18 L (22-29) mmol/L Anion Gap 15 (12-20) BUN 28 H (9-16) mg/dL Creatinine 1.28 (0.5-1.4) mg/dL Estim Creat Clear Calc 51.9 Estimated GFR 42 Random Glucose 85 (60-115) mg/dL Calcium 9.7 D (8.4-10.2) mg/dL Total Bilirubin 0.3 (0.0-1.0) mg/dL Direct Bilirubin 0.1 (0.0-0.5) mg/dL AST 25 (5-31) U/L ALT 13 (0-31) U/L Alkaline Phosphatase 89 (39-117) U/L Total Creatine Kinase 43 (26-140) U/L Total Protein 7.6 (6.5-8.0) g/dL Albumin 4.1 (3.5-5.0) g/dL Independent Interpretation I performed an independent interpretation of an: Plain X-Ray Interpretation: My interpretation is in agreement with the radiologist's impression of this imaging study. L CLINICAL HISTORY: right low back pain, no injury Radiographs of the lumbar spine, 3 views, 4 images Comparison: None Findings: 4 mm anterolisthesis of L4 on L5, degenerative. No fracture. The vertebral body heights are preserved. Moderate to severe intervertebral disc space narrowing at L4/L5 on the left. There is otherwise mild multilevel intervertebral disc space narrowing with mild endplate osteophytosis. Moderate lower lumbar facet hypertrophy. Vascular calcifications. Impression: No acute findings. Grade 1 anterolisthesis of L4 on L5, degenerative. Moderate degenerative change. This document has been electronically signed by: Ching De Los Santos MD on 04/12/2024 15:14:37 Dictated By: Ching Amaya MD Signed By: Electronically signed by Ching Amaya MD 04/12/24 1515 Radiology Impression Discussion of test interpretation with radiology: I have reviewed the radiologist's reading. Independent Historian Clinical information obtained from an independent historian. History obtained from or confirmed by: Other (patient's daughter provided additional history and confirmed the history provided by the patient.) Prescription Management I considered prescription management with: Pain Medication (patient prescribed pain medication.) Discharge Plan Discharge Clinical Impression: Sciatica Patient Disposition: Home, Self-Care Instructions: Sciatica (ED), Lower Back Exercises (ED) Additional Instructions: Please discuss switching from atorvastatin given your adverse reaction. You were given a first of the prescribed medication while here. Start those tomorrow (04/13/2024). Follow up with your primary care provider and a him specialists. Return to the emergency department immediately if your symptoms worsen or if you develop any dizziness, shortness of breath, difficulty breathing, chest pain, blurry vision, loss of vision, nausea, vomiting, abdominal pain, fever, chills, back pain, or any other complaints. Prescriptions: New cyclobenzaprine 5 mg tablet 5 mg PO TID PRN (Reason: back pain) 7 Days Qty: 21 0RF prednisone 20 mg tablet 20 mg PO DAILY 7 Days Qty: 7 0RF naproxen 500 mg tablet 500 mg PO BID 7 Days Qty: 14 0RF omeprazole 20 mg capsule,delayed release(DR/EC) 20 mg PO DAILY Qty: 7 0RF No Action sulfamethoxazole-trimethoprim [Bactrim DS] 800-160 mg tablet 1 tab PO DAILY 5 Days Qty: 5 0RF sulfamethoxazole-trimethoprim [Bactrim DS] 800-160 mg tablet 1 tab PO BID Qty: 14 0RF furosemide 40 mg tablet 40 mg PO DAILY ibuprofen 800 mg tablet 800 mg PO Q8H PRN (Reason: pain) ergocalciferol (vitamin D2) 1,250 mcg (50,000 unit) capsule 1,250 mcg PO CONDE valsartan 160 mg tablet 160 mg PO DAILY docusate sodium [Colace] 100 mg capsule 100 mg PO DAILY Qty: 30 0RF (DME) walker Misc See Rx Instructions .Route Qty: 1 0RF Rx Instructions: As directed (DME) Skin Prep Wipes Misc See Rx Instructions .ROUTE .MEDSUPPLY Qty: 50 1RF Rx Instructions: As directed (DME) colostomy bags 3 misc See Rx Instructions .ROUTE .MEDSUPPLY Qty: 30 2RF Rx Instructions: As directed oxycodone 5 mg tablet 5 mg PO Q4H PRN (Reason: pain (scale score 7-10)) Qty: 24 0RF Rx Instructions: Partial Fill upon patient request. potassium chloride [Klor-Con M20] 20 mEq tablet,ER particles/crystals 20 meq PO DAILY cholecalciferol (vitamin D3) 1,250 mcg (50,000 unit) capsule 1,250 mcg PO QWEEK baclofen 5 mg tablet 5 mg PO BID PRN atorvastatin 10 mg tablet 10 mg PO DAILY Referrals: [facility] [Provider Group] (Call to establish and follow up with a [facility] specialists.) [facility] [Provider Group] (Call to establish and follow up with a him specialists.) Lukas Scott III, MD [Primary Care Provider] - Interventions: ED Discharge Assessment Last Done: 04/12/24 17:00 Discharge Date/Time: 04/12/24 17:01 Print Language: Cameroonian
[2024-04-12 15:58] LABS: Mean Corpuscular HGB Conc 34.4 g/dl (31.0-35.0); Mean Corpuscular Hemoglobin 30.4 pg (27.0-33.0); Monocytes Absolute Auto 0.7 X10*3/uL (0.1-1.2); PLT CLUMP 1; SCAN SMEAR FLAG 1
[2024-04-12 15:59] LABS: Basophils Absolute Auto 0.1 X10*3/uL (0.0-0.2); Basophils Percent Auto 0.5 % (0-2); Eosinophils Absolute Auto 0.3 X10*3/uL (0.0-0.4); Hematocrit 37.5 % (37.0-47.0); Hemoglobin 12.9 g/dl (12.0-16.0); Imm Gran Abs Auto 0.08 X10*3/uL (0.00-0.03); Imm Gran Pct Auto 0.6 % (0.0-0.4); Lymphocytes Absolute Auto 1.6 X10*3/uL (1.2-4.9); Lymphocytes Percent Auto 12.3 % (20-40); MANUAL DIFF FLAG SCAN; Mean Corpuscular Volume 88.2 fL (80.0-98.0); Mean Platelet Volume 11.3 fL (9.4-12.3); Monocytes Percent Auto 5.4 % (2-11); Neutrophils Percent Auto 79.2 % (45-73); Red Blood Count 4.25 X10*6/uL (4.20-5.50)
--- NOTE | 2024-04-12 16:07 | PC.NURSE ---
Patient reports recently started taking Lipitor and believes it caused her back pain reports similar pain occurred when she was taking simvastatin
[2024-04-12 16:11] VITALS: BP 163/92; PULSE 87; RESP 16; TEMP 36.8; O2SAT 98
[2024-04-12 16:17] LABS: Alanine Aminotransferase 13 U/L (0-31); Albumin Level 4.1 g/dL (3.5-5.0); Anion Gap 15 (12-20); Aspartate Amino Transferase 25 U/L (5-31); Bilirubin Direct 0.1 mg/dL (0.0-0.5); Bilirubin Total 0.3 mg/dL (0.0-1.0); Blood Urea Nitrogen 28 mg/dL (9-16); Calcium 9.7 mg/dL (8.4-10.2); Carbon Dioxide 18 mmol/L (22-29); Chloride 110 mmol/L (96-108); Creatinine Clr Calc Pharmacy 51.9; Estimated Glomerular Filt Rate 42; Glucose Random 85 mg/dL (60-115); Potassium 4.7 mmol/L (3.3-5.1); Sodium 138 mmol/L (135-145); Total Protein 7.6 g/dL (6.5-8.0)
[2024-04-12 16:28] LABS: White Blood Count 12.6 X10*3/uL (4.8-10.8)
[2024-04-12 16:29] LABS: Platelet Count 121 X10*3/uL (160-400); SLIDE REVIEW VERIFIED
[2024-04-12 16:47] LABS: Alkaline Phosphatase 89 U/L (39-117)
[2024-04-12] MEDS: Cyclobenzaprine HCl 5 MG TABLET PO (16:55)
[2024-04-12] MEDS: methylPREDNISolone Sod Succ 125 MG/2 ML VIAL 60 MG IM (16:56)
[2024-04-12] MEDS: Ketorolac Tromethamine 15 MG/ML VIAL IM (16:56)
[2024-04-12 17:00] VITALS: BP 163/92; PULSE 87; RESP 18; TEMP 36.8; O2SAT 98
== END 2024-04-12 17:01 | disposition home or self-care (01) ==
PROVIDERS: Emergency Medicine; Emergency Provider Internal Medicine; PCP Internal Medicine
DX: M54.41 Lumbago with sciatica, right side (principal); I10 Essential (primary) hypertension; E78.5 Hyperlipidemia, unspecified; G35 Multiple sclerosis; Z79.02 Long term (current) use of antithrombotics/antiplatelets; Z79.899 Other long term (current) drug therapy; Z93.3 Colostomy status
CPT/HCPCS: 36415; 72100; 80048; 80076; 82550; 85025; 96372; 99283; 99284; J1885; J2919

== ENCOUNTER → 2024-04-12 13:50 | Outpatient (BNV) | payer OTHER, SELFPAY | PROVIDERS: PCP Internal Medicine; Visit Provider Radiology Diagnostic Radiology | DX: M43.16 Spondylolisthesis, lumbar region (principal) | CPT/HCPCS: 72100 ==

== ENCOUNTER 2024-07-15 11:16 | Outpatient (AMB) | payer OTHER, SELFPAY ==
--- NOTE | 2024-07-15 11:34 | AM.OFFWIN_ITS ---
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 Patient Tobacco Use Status: Never used Tobacco Allergies No Known Allergies Allergy (Verified 07/15/24 11:41) Medication List - Last Reconciled 07/15/24 by PIEDAD ConklinP- cholecalciferol (vitamin D3) 1,250 mcg PO QWEEK colostomy bags As directed cyclobenzaprine 5 mg PO TID PRN 7 days docusate sodium (Colace) 100 mg PO DAILY ergocalciferol (vitamin D2) 1,250 mcg PO CONDE furosemide 40 mg PO DAILY ibuprofen 800 mg PO Q8H PRN naproxen 500 mg PO BID 7 days omeprazole 20 mg PO DAILY ostomy supplies (Skin Prep Wipes) As directed valsartan 160 mg PO DAILY walker As directed Do you need a note to return to daycare/school/sports/work: No HPI HPI Comments History of Present Illness Details PCP Dr Scott History - The patient is a 64-year-old female pr esenting with burning sensation during urination. - Burning urination began last night, wi th absence of fever, chills, nausea, vomiting, abdominal pain, or any form of discharge or itching. - She experienced urinary frequency duri ng the night, significantly affecting her sleep. - Last treatment for UTI involved nitrof urantoin in March. - The patient has a colostomy, which is thought to be related to recurrent UTIs. - She has a history of sepsis related to bladder issues following surgery. - Previously underwent bladder surgery c onducted partly by Dr. Deng. Hx of bladder surgery done by Dr Deng in the past Physical Exam General: Awake, alert. No apparent distress Cardiovascular: Regular rate and rhythm + murmur No CVAT bilat No suprapubic tenderness Results - Labs: Urinalysis showed trace blood bu t no bacteria detected at this time. Discussion Notes Today I discussed with the patient the likely recurrence of a urinary tract infection given her symptoms and prior medical history. We explored the management plan involving antibiotics and the necessity of further urine culture to identify the causative organism. I emphasized the importance of using nitrofurantoin again as initial therapy for three days, pending culture results, with potential modification based on the findings. We also reviewed maintaining adequate hydration and possible benefits of using cranberry supplements and D- mannose as adjunct therapies for recurrent UTIs. I advised on pursuing a referral for urological evaluation given her recurrent UTIs and discussed contacting Dr. Deng regarding the previous bladder surgery for an assessment. Follow-up through patient portal for results and further management was agreed upon. Assessment and Plan 1. Urinary Tract Infection (UTI): A prob able recurrence of urinary tract infection is indicated, and treatment with nitrofurantoin 100 mg for three days is initiated pending urine culture results for confirmation and further treatment adjustment. 2. Presence of Colostomy: The colostomy may be a contributor to recurrent UTIs but remains as previously managed with no immediate changes. 3. History of Sepsis: The patient's past sepsis incident with bladder involvement requires vigilance; continuous monitoring through urinalysis and culture is ordered. 4. Bladder Surgery: The impact of previo us bladder surgery necessitates revisiting urological follow-up for possible underlying causes of recurrent infections. Patient Instructions - Take the prescribed antibiotics as dir ected and complete the full course. - Maintain adequate hydration with water and consider cranberry supplements or D-mannose to help prevent UTIs. - Monitor urine frequency and burn, and seek medical care if symptoms worsen or do not improve. - Schedule follow-up visit as required o [facility] urine culture results are available. - Contact Dr. Deng for consultation or follow up as needed based on prior bladder surgery. - Results will be sent to portal w/ denzel wolfe in plan as needed EDU on reasons to seek additional care. Consent Patient was informed and verbally consented to the use of an ambient scribe for clinic note documentation during this visit. [facility] Medical History Colostomy in place Colovesical fistula Hypokalemia Diverticulitis large intestine Phlegmon Hypertension Multiple sclerosis Surgical History Hx of surgical procedure Social History Household Members: Spouse Housing: House Do you presently have visiting nurse or other home services: No Alcohol intake: never Patient Tobacco Use Status: Never used Tobacco Second Hand Smoke Exposure: No service: No Physical Exam Vital Signs: Last Vital Signs Pulse 86 07/15/24 11:36 BP 120/82 07/15/24 11:36 Pulse Ox 96 07/15/24 11:36 Oxygen Delivery Method Room Air 07/15/24 11:36 Assessment & Plan Assessment & Plan (1) Recurrent UTI: Code(s): N39.0 - Urinary tract infection, site not specified (2) Colostomy in place: Code(s): Z93.3 - Colostomy status (3) Dysuria: Code(s): R30.0 - Dysuria Plan . Medications: New nitrofurantoin macrocrystal must administer with a meal/food 100 mg PO BID 6 caps 0RF Patient Instructions: D- Mannose Coding Level of Care Code Est Pt Level 3 (17540) Diagnoses Recurrent UTI N39.[address] Z93.3 Dysuria R30.0
[2024-07-15 11:36] VITALS: BP 120/82; PULSE 86; O2SAT 96
--- OUTSIDE RECORDS SUMMARY | 2024-07-15 13:36 | XMS_ITS | Clinical Summary ---
Author Organization [facility] Address [address] [place] [address] Care Team Providers Care Biotechnologist Name Role Phone Lukas Scott MD Primary Care Provider [phone] Allergies No known active allergies Medications Medication Sig Dispensed Refills Start Date End Date Status furosemide (LASIX) 40 MG tablet Take 1 tablet (40 mg total) by mouth daily. 0 06/11/2021 Active ibuprofen 800 MG tablet Take 1 tablet (800 mg total) by mouth every 8 (eight) hours as needed. for pain 0 08/18/2021 Active valsartan (DIOVAN) tablet 160 mg Take 1 tablet (160 mg total) by mouth daily. 0 08/01/2021 Active ergocalciferol (VITAMIN D2) capsule 40904 units Take 1 capsule (50,000 Units total) by mouth once a week. 4 capsule 12 02/13/2023 Active baclofen (LIORESAL) 5 MG tablet 1 po bid 60 tablet 5 08/22/2023 Active Family History Medical History Relation Name Comments Diabetes Brother Parkinsonism Father COPD Mother Diabetes Sister Multiple sclerosis Neg Hx Relation Name Status Comments Brother Father (Age 85) Mother (Age 80) Sister Social History Tobacco Use Types Packs/Day Years Used Date Smoking Tobacco: Never Smokeless Tobacco: Never Tobacco Cessation:Counseling Given: Not Answered Alcohol Use Standard Drinks/Week Comments Not Currently 0 (1 standard drink = 0.6 oz pur e alcohol) Sex and Gender Information Value Date Recorded Sex Assigned at Female 02/25/2021 3:27 PM EST Gender Identity Not on file Sexual Orientation Not on file Job Start Date Occupation Industry Not on file Not on file Not on file Last Filed Vital Signs Vital Sign Reading Time Taken Comments Blood Pressure 144/83 08/22/2023 1:21 PM EDT Pulse 76 08/22/2023 1:21 PM EDT Temperature 36.2 ??C (97.1 ??F) 08/22/2023 1:21 PM ED T Respiratory Rate 16 10/20/2022 10:1 2 AM EDT Oxygen Saturation 98% 08/22/2023 1:21 PM EDT Inhaled Oxygen Concentration - - Weight 104.9 kg (231 lb 3.2 oz) 08/22/2023 1:21 PM EDT Height 157.5 cm (5' 2 ) 08/22/2023 1:21 PM EDT Body Mass Index 42.29 08/22/2023 1:21 PM EDT Plan of Treatment Health Maintenance Due Date Last Done Comments Hepatitis C Screening 1961 COVID-19 Vaccine (#1) 1961 Depression Screening 1973 BMI Counseling 1979 Preventative Health Evaluation 1979 Cervical Cancer Screening (Pap Smear) 1982 Colon Cancer Screening (Colonoscopy) 2006 Breast Cancer Screening (Mammogram) 2011 Shingrix-Zoster Vaccine (1 of 2) 2011 RSV Adult > 60+ Yrs or (1 - Risk 60-74 years 1-dose series) 2021 Influenza Vaccine (#1) 2023 3, 02/16/2019, 02/17/2018, Additional history exists DTap / Tdap / Td (3 - Td or Tdap) 07/18/2032 07/18/2022, 02/29/2012 Hepatitis B Vaccines Aged Out No long er eligible based on patient's age to complete this topic Pneumococcal Vaccine Aged Out No long er eligible based on patient's age to complete this topic RSV Ped < 20 months Aged Out No longe r eligible based on patient's age to complete this topic Care Teams Biotechnologist Relationship Specialty Start Date End Date Lukas Scott MD PCP - General Internal Medicine 06/29/21
--- OUTSIDE RECORDS SUMMARY | 2024-07-15 13:36 | XMS_ITS | Clinical Summary ---
Author Organization 175 [facility] [place] [address] [place] [address] Phone Care Team Providers Care Bag Loader Machine Operator Name Role Phone Sravan Vital MD Primary Care Provider [phone] Allergies No known active allergies Medications ergocalciferol (VITAMIN D-2) 1,250 mcg (50,000 unit) capsule Take 1 capsule (50,000 Units total) by mouth 1 (one) time per week. 12 capsule 3 04/01/2024 Active valsartan (DIOVAN) 160 mg tablet Take 1 tablet (160 mg total) by mouth 1 (one) time each day. 90 tablet 3 04/01/2024 Active furosemide (LASIX) 40 mg tablet Take 1 tablet (40 mg total) by mouth 1 (one) time each day. 90 tablet 3 04/01/2024 Active naproxen (NAPROSYN) 500 mg tablet Take 1 tablet (500 mg total) by mouth 2 (two) times a day. for 7 days 04/12/2024 Active predniSONE (DELTASONE) 20 mg tablet Take 1 tablet (20 mg total) by mouth 1 (one) time each day. for 7 days 04/12/2024 Active cyclobenzaprine (FLEXERIL) 5 mg tablet Take 1 tablet (5 mg total) by mouth 3 (three) times a day if needed for muscle spasms. 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 Hypercholesterolemia 04/01/2024 Primary hypertension 04/01/2024 Optic neuritis 04/01/2024 Carpal tunnel syndrome 02/27/2024 Encounters Date Type Department Care Team Description 06/11/2024 12:30 PM EST Treatment [facility] Occupational Therapy [address] [phone] Jay Krishnan COTA/Lulu MS (multiple sclerosis) (CMS/HCC) (Primary Dx); Bilateral carpal tunnel syndrome; Carpal tunnel syndrome, unspecified laterality 05/30/2024 1:00 PM EST Treatment [facility] Occupational Therapy [address] [phone] Sarai Rivera, OT MS (multiple sclerosis) ([facility]/HCC) (Primary Dx); Bilateral carpal tunnel syndrome 05/28/2024 2:45 PM EST Treatment [facility] Occupational Therapy 175 [facility] [address] [place] [phone] Vandana Corbett COTA 05/23/2024 2:30 PM EST Treatment [facility] Occupational Therapy [address] [phone] Sarai Rivera, OT MS (multiple sclerosis) (CMS/HCC) (Primary Dx); Bilateral carpal tunnel syndrome 05/21/2024 2:30 PM EST Treatment [facility] Occupational Therapy [address] [phone] Sarai Rivera, OT Bilateral carpal tunnel syndrome (Primary Dx); MS (multiple sclerosis) (CMS/HCC) 05/19/2024 2:[address] [facility] 175 [facility] [address] [place] [phone] Glenna Toledo PA Multiple sclerosis (CMS/HCC) (Primary Dx) 05/14/2024 2:45 PM EST Treatment [facility] Occupational Therapy 175 [facility] [address] [place] [phone] Tano Elena, OT Bilateral carpal tunnel syndrome (Primary Dx) 05/14/2024 Telephone [facility] 175 [facility] [address] [place] [phone] Glenna Toledo PA SYMPTOMS 04/23/2024 1:00 PM EST Treatment [facility] Occupational Therapy [address] [phone] Sarai Rivera, OT Bilateral carpal tunnel syndrome 04/23/2024 Plan of Care Documentation [facility] Occupational Therapy [address] [phone] 04/18/2024 2:00 PM EST Evaluation [facility] Occupational Therapy [address] [place] [phone] Sarai Rivera, OT MS (multiple sclerosis) (CMS/HCC) (Primary Dx); Carpal tunnel syndrome, unspecified upper limb 04/18/2024 1:00 PM EST Office Visit [facility] 175 [facility] [address] [place] [phone] Glenna Toledo PA Multiple sclerosis (CMS/HCC) (Primary Dx) from Last 3 Months Immunizations Name Administration Dates Next Due Influenza Quadravalent, MDCK , 0.5ml, preservative free (Flucelvax) 6mo and older 02/08/2023,02/16/2019 Influenza Quadravalent, MDCK , 0.5ml, with preservative (Flucelvax) 6mo and older 02/17/2018,02/18/2017 Influenza trivalent, 0.5mL, preservative free (Fluarix; FluLaval; Fluzone) ages 6mo and older (Afluria) 3 years and older 01/09/2016 Influenza trivalent, MDCK, 0 .5mL, preservative free (Flucelvax) 6mo and older 04/01/2024 Influenza trivalent, with preservative (Fluzone; Afluria) 6mo and older 01/09/2016,01/13/2015,01/27/2014,2012,01/02/2012 Tdap Tetanus diptheria acell ular pertussis (Boostrix; Adacel) 7yo and older 07/18/2022,02/29/2012 Surgical History Surgery Date Site/Laterality Comments HYSTERECTOMY PROCEDURE: HISTORICAL HYSTERECTOMY; COMMENT: 2nd to fibroid SECTION PROCEDURE: HISTORICAL ; COMMENT: x2 BREAST BIOPSY 2006ish Right PROCEDURE: BX BREAST; PERC NEEDLE CORE W/IMAG GUID; COMMENT: cyst Medical History Medical History Date Comments Essential hypertension, benign D X:Essential hypertension, benign Lower extremity edema DX:Lower e xtremity edema Multiple sclerosis (CMS/HCC) 1993 DX: Multiple sclerosis (HCC); COMMENT: pt follows with [facility] neurologist Diverticulitis 11/14/2022 DX:Diverticuliti s; COMMENT: 11/05 diverticulitis with perforation Family History Medical History Relation Name Comments Breast cancer Aunt 1 m 75 Breast cancer Aunt 2 m75 Hypertension Father Hypertension Mother Diabetes Sister Relation Name Status Comments Aunt 1 m 75 Alive Aunt 2 m75 Alive Father Mother Sister Social History Tobacco Use Types Packs/Day Years Used Date Smoking Tobacco: Never Smokeless Tobacco: Never Tobacco Cessation:Counseling Given: Not Answered Alcohol Use Standard Drinks/Week Comments No 0 (1 standard drink = 0.6 oz pur e alcohol) Housing Instability Answer Date Recorde d Are you worried that in the next 2 months you may not have stable housing? No 03/31/2024 Food Access & Nutrition Answer Date Rec orded Do you have access to a vari ety of food including fruits and vegetables? Yes 03/31/2024 Health Literacy Answer Date Recorded How often do you need to hav e someone help you when you read instructions, pamphlets, or other written material from your doctor or pharmacy? Never 03/31/2024 Caregiver: How often do you need to have someone help you when you read instructions, pamphlets, or other written material from your doctor or pharmacy? Not on file 03/31/2024 Financial Risk Answer Date Recorded How hard is it for you to pa y for the very basics like food, housing, medical care, and air conditioning / heating? Not very hard 03/31/2024 Transportation Answer Date Recorded Has the lack of transportati on kept you from meetings, work, or from getting things needed for daily living? No Has the lack of transportati on kept you from medical appointments or from getting medications? No 03/31/2024 Social Isolation Answer Date Recorded How often do you feel lonely or isolated from th ose around you? Never 03/31/2024 Food Risk Answer Date Recorded Within the past 12 months we worried whether our food would run out before we got money to buy more. Never true 03/31/2024 Within the past 12 months th e food we bought just didn't last and we didn't have money to get more. Never true 03/31/2024 Dependent Care Answer Date Recorded Do you need help finding or paying for care for your loved ones. For example, child neurologist or elderly care for an older adult? No 03/31/2024 Education Answer Date Recorded Do you think completing more education or training, like finishing a GED, going to college, or learning a trade, would be helpful for you? No 03/31/2024 Employment and Income Answer Date Recor ded During the last four weeks, have you been actively looking for work? No 03/31/2024 Living Situation Answer Date Recorded What is your living situation? 1 06/01/2023 Comments Unknown Sex and Gender Information Value Date Recorded Sex Assigned at Not on file Legal Sex Female 8:36 PM EST Gender Identity Not on file Sexual Orientation Not on file Obstetrics History Last Filed Vital Signs Vital Sign Reading Time Taken Comments Blood Pressure 138/80 04/18/2024 1:09 PM EST Pulse 71 04/18/2024 1:09 PM EST Temperature 36.3 ??C (97.3 ??F) 04/18/2024 1:09 PM ES T Respiratory Rate 17 04/01/2024 1:57 PM EST Oxygen Saturation 98% 04/18/2024 1:09 PM EST Inhaled Oxygen Concentration - - Weight 109 kg (240 lb) 04/18/2024 1:09 PM EST Height 157.5 cm (5' 2 ) 04/18/2024 1:09 PM EST Body Mass Index 43.9 04/18/2024 1:09 PM EST Plan of Treatment Upcoming Encounters Date Type Department Care Team (Late st Contact Info) Description 08/18/2024 8:00 AM EDT Office Visit Adult Medicine [address] [phone] Lukas Scott MD [address] [place] [address] 08/21/2024 1:30 PM EDT Office Visit [facility] 175 [facility] [address] [place] [phone] Janny Henderson MD 175 [facility] [address] [place] [phone] 10/31/2024 4:00 PM EDT Office Visit Adult [address] [phone] Lukas Scott MD [address] [place] [address] 03/16/2025 11:30 AM EST Office Visit [address] [phone] Lukas Scott MD [address] [place] [address] Health Maintenance Due Date Last Done Comments Pneumococcal Vaccine: 50+ Years (1 of 1 - PCV) 2011 Zoster Vaccines (1 of 2) 2011 Colorectal Cancer Screening: Stool Based Tests (FOBT/FIT) 05/17/2019 HIV Screening 05/17/2019 Hepatitis C Screening 05/17/2019 RSV Immunization Patients 60+ Years Old (1 - Risk 60-74 years 1-dose series) 2021 COVID-19 Vaccine ( season) 2023 03/26/2022, 07/24/2021, 03/06/2021, Additional history exists Breast Cancer Screening 07/28/2024 07/29/19, 12/11/2020, 12/04/2019, Additional history exists Social Influencers of Health Screening 03/31/2025 03/31/2024 Hypertension/CHF/CAD Annual BMP Blood Test 04/01/2025 04/01/2024, 10/12/2023, 10/11/2023, Additional history exists Depression Screening 05/19/2025 05/19/2024 Cholesterol Screening (Lipid Panel) 04/01/2029 04/01/2024, 10/09/2023 DTaP,Tdap,and Td Vaccines (3 - Td or Tdap) 07/18/2032 07/18/2022, 02/29/2012 Influenza Vaccine Completed 04/01/2024, , 02/16/2019, Additional history exists HIB Vaccines Aged Out No longer eligi ble based on patient's age to complete this topic HPV Vaccines Aged Out No longer eligi ble based on patient's age to complete this topic Hepatitis A Vaccines Aged Out No long er eligible based on patient's age to complete this topic Hepatitis B Vaccines Aged Out No long er eligible based on patient's age to complete this topic IPV Vaccines Aged Out No longer eligi ble based on patient's age to complete this topic MMR Vaccines Aged Out No longer eligi ble based on patient's age to complete this topic Meningococcal ACWY Vaccine Aged Out N o longer eligible based on patient's age to complete this topic Meningococcal B Vacine Aged Out No lo nger eligible based on patient's age to complete this topic Pneumococcal Vaccine: Pediatrics (0 to 5 Years) and At-Risk Patients (6 to 64 Years) Aged Out No longer eligible based on patient's age to complete this topic RSV Immunization Patients Under 20 months Aged Out No longer eligible based on patient's age to complete this topic Varicella Vaccines Aged Out No longer eligible based on patient's age to complete this topic Goals Goal Patient Goal Type Associated Problems Recent Progress Patient-Stated? Author <enter goal here> General On track( 024 2:52 PM EST) Yes Lindsey Cruz, OT Note: HAVE MORE STRENGTH BOTH HANDS FOR ADL Pt goal General Yes Sarai Rivera OT Note: To increase UE/hand strength and ROM to be more independent with activities of daily living OT STGs General On track( 025 2:19 PM EST) Yes Sarai Rivera, OT Note: 1- Pt will demo at least 1 cm improvement in the DPC measurement demo increased ability to grasp 2- Pt will demo 5# increase in residential program manager strength 3- Pt will demo at least 2# increase in pinch strength 4- pt will demo increased knowledge of adaptations/joint protection to increase her independence with ADLs. 5- pt will be I with HEP 6- pt will demo increased strength in B UE as seen by ability to complete haircare more Kateryna OT LTGs General Improving( 2:20 PM EST) Yes Sarai Rivera OT Note: 1 Pt will demo functional ability to grasp onto utensils or a container to open 2 Pt will demo at least 10# increase in residential program manager strength 3 Pt will demo at least 4# pinch strength all pinches Ese to be able to do fasteners, waste picker small objects. 4 Pt will be I with B HEP 5 Pt will demo at least 4/5 strength throughout B UE and ability to perform overhead reaching and self care Procedures Procedure Name Priority Date/Time Associated Diagnosis Comments COMPREHENSIVE METABOLIC PANEL Routine 04/01/2024 2:51 PM EST Primary hypertension Encounter for long-term (current) use of medications LIPID PANEL WITH REFLEX TO DIRECT LDL Routine 04/01/2024 2:51 PM EST Hypercholesterolemi a SCREENING MAMMOGRAPHY BI 2-VIEW BREAST INC CAD Routine 07/28/2022 8:50 AM EDT Encounter for screening mammogram for malignant neoplasm of breast from Last 3 Months or Most Recently Relevant to Health Maintenance Results * (ABNORMAL) Lipid panel with reflex to direct LDL (04/01/2024 2:51 PM EST) Cholesterol 266(H) 0 - 200 mg/dL LAB CHEMISTRY METHOD 04/01/2024 6:16 PM EST [facility] Triglycerides 190(H) 0 - 150 mg/dL LAB CHEMISTRY METHOD 04/01/2024 6:16 PM EST [facility] HDL 46 >=40 mg/dL LAB CHEMISTRY METHOD 04/01/2024 6:16 PM [facility] LDL Calculated 182(H) 0 - 100 mg/dL LAB CHEMISTRY METHOD 04/01/2024 6:16 PM [facility] VLDL Cholesterol Eduar 38 mg/dL LAB CHEMISTRY METHOD 04/01/2024 6:16 PM [facility] Non HDL Chol. (LDL+VLDL) 220(H) <145 mg/dL LAB CHEMISTRY METHOD 04/01/2024 6:16 PM [facility] Chol/HDL Ratio 5.8(H) 0.0 - 4.4 LAB CHEMISTRY METHOD 04/01/2024 6:16 PM [facility] Blood Venous blood specimen / Unknown Venipuncture / Unknown 04/01/2024 2:51 PM EST 04/01/2024 2:51 PM EST us Lukas Scott MD LAB BLOOD ORDERABLES Final Resu lt [facility] [address] [place] [address], [place] [phone] * (ABNORMAL) Comprehensive metabolic panel (04/01/2024 2:51 PM EST) Sodium 139 133 - 145 mmol/L LAB CHEMISTRY METHOD 04/01/2024 6:16 PM [facility] Potassium 4.3 3.5 - 5.5 mmol/L LAB CHEMISTRY METHOD 04/01/2024 6:16 PM [facility] Chloride 108 96 - 110 mmol/L LAB CHEMISTRY METHOD 04/01/2024 6:16 PM [facility] CO2 25 21 - 32 mmol/L LAB CHEMISTRY METHOD 04/01/2024 6:16 PM [facility] Anion Gap 6 3 - 11 LAB CHEMISTRY METHOD 04/01/2024 6:16 PM [facility] Glucose 85 70 - 100 mg/dL LAB CHEMISTRY METHOD 04/01/2024 6:16 PM [facility] BUN 23 5 - 25 mg/dL LAB CHEMISTRY METHOD 04/01/2024 6:16 PM [facility] Creatinine 1.33(H) 0.50 - 1.10 mg/dL LAB CHEMISTRY METHOD 04/01/2024 6:16 PM [facility] eGFR 45(L) >=60 mL/min/1. 73m2 LAB CHEMISTRY METHOD 04/01/2024 6:16 PM [facility] Comment:Calculation based on the??Chronic Kidney Disease Epidemiology Collaboration (CKD-EPI) equation refit??without adjustment for race. BUN/Creatinine Ratio 17.3 LAB CHEMISTRY METHOD 04/01/2024 6:16 PM [facility] Calcium 10.3 8.5 - 10.5 mg/dL LAB CHEMISTRY METHOD 04/01/2024 6:16 PM [facility] AST (SGOT) 12 10 - 42 unit/L LAB CHEMISTRY METHOD 04/01/2024 6:16 PM [facility] ALT (SGPT) 17 10 - 60 unit/L LAB CHEMISTRY METHOD 04/01/2024 6:16 PM [facility] Alkaline Phosphatase 110 42 - 121 unit/L LAB CHEMISTRY METHOD 04/01/2024 6:16 PM [facility] Total Protein 7.9 6.0 - 8.0 g/dL LAB CHEMISTRY METHOD 04/01/2024 6:16 PM [facility] Albumin 4.0 3.2 - 5.0 g/dL LAB CHEMISTRY METHOD 04/01/2024 6:16 PM [facility] Total Bilirubin 0.3 0.0 - 1.4 mg/dL LAB CHEMISTRY METHOD 04/01/2024 6:16 PM [facility] Blood Venous blood specimen / Unknown Venipuncture / Unknown 04/01/2024 2:51 PM EST 04/01/2024 2:51 PM EST us Lukas Scott MD LAB BLOOD ORDERABLES Final Resu lt [facility] [address] [place] [address], * SCREENING MAMMOGRAPHY BI 2-VIEW BREAST INC CAD (07/28/2022 8:50 AM EDT) Anatomical Region Laterality Modality Radiographic Ana ging 07/18/2022 3:23 PM EDT Narrative 07/28/2022 9:28 AM EDT This is a summary report. The complete report is available in the patient's medical record. If you cannot access the medical record, please contact the sending organization for a detailed fax or copy. Full field digital screening 3D mammography, reviewed with CAD and compared to previous mammograms dating back to 11/29/2017 most recent of 12/03/2020. ??The breasts are composed of fatty and fibroglandular tissue. ??No suspicious mass, architectural distortion or suspicious calcifications are identified. IMPRESSION: : No mammographic evidence of malignancy. BIRADS 1-Negative; N. 5 year breast cancer risk assessment N/A Lifetime breast cancer risk assessment N/A Breast cancer risk category Breast cancer risk not assessed Procedure Note Lina Smith MD - 05/21/2023 This is a summary report. The complete report is available in thepatient's medical record. If you cannot access the medical record, pleasecontact the sending organization for a detailed fax or copy. Full field digital screening 3D mammography, reviewed with CAD andcompared to previous mammograms dating back to 11/29/2017 most recent of12/03/2020. The breasts are composed of fatty and fibroglandular tissue.No suspicious mass, architectural distortion or suspicious calcificationsare identified. IMPRESSION: : No mammographic evidence of malignancy. BIRADS 1-Negative; N. 5 year breast cancer risk assessment N/A Lifetime breast cancer risk assessment N/A Breast cancer risk category Breast cancer risk not assessed Lukas Scott MD IMG XR PROCEDURES Final Result from Last 3 Months or Most Recently Relevant to Health Maintenance Insurance [facility] [facility] Care Teams Bag Loader Machine Operator Relationship Specialty Start Date End Date Sravan Vital MD [address] [place] [address] PCP - General Internal Medicine 04/17/24
== END 2024-07-15 12:18 | disposition home or self-care (01) ==
PROVIDERS: PCP Internal Medicine; Visit Provider Nurse Practitioner Family
DX: N39.0 Urinary tract infection, site not specified (principal); Z93.3 Colostomy status; R30.0 Dysuria

== ENCOUNTER → 2024-07-15 11:16 | Outpatient (BNVA) | payer OTHER, SELFPAY | PROVIDERS: PCP Internal Medicine; Visit Provider Nurse Practitioner Family | DX: N39.0 Urinary tract infection, site not specified (principal); R30.0 Dysuria; Z93.3 Colostomy status | CPT/HCPCS: 99212 ==

== ENCOUNTER 2024-07-16 14:19 | Outpatient (REF) | payer OTHER, SELFPAY ==
[2024-07-16 16:10] LABS: Appearance Urine Cloudy; Color Urine Yellow; Glucose Urine UA Negative (Negative); Leukocyte Esterase Urine Large (3+) (Negative); Nitrite Urine Negative (Negative); UMIC TRIGGER UACC YES; Urine Blood Large (3+) (Negative); Urine Ketones Negative (Negative); Urine Protein 100 (2+) mg/dL (Neg-Trace)
[2024-07-16 16:38] LABS: Bacteria Urine 1+ (None Seen); Hyaline Casts Urine 0-2 /LPF (0-2); Squamous Epithelial Cell Urine 0-2 /HPF (0-2); UACC Culture Trigger YES; WBC Urine 21-50 /HPF (0-5)
--- OUTSIDE RECORDS SUMMARY | 2024-07-16 17:08 | XMS_ITS | Clinical Summary ---
Author Organization 175 [facility] Address [address] [place] [address] Phone Care Team Providers Care Cargo Vessel Stewardess Name Role Phone Sravan Vital MD Primary Care Provider [phone] Allergies No known active allergies Medications ergocalciferol [...] Encounters Date Type Department Care Team Description 07/15/2024 Telephone Adult Medicine [address] [phone] Madison Mejia RN 06/11/2024 12:30 PM EST Treatment [facility] Occupational Therapy [address] [place] [phone] Jay Krishnan COTA/Lulu MS (multiple sclerosis) (CMS/HCC) (Primary Dx); Bilateral carpal tunnel syndrome; Carpal tunnel syndrome, unspecified laterality 05/30/2024 1:00 PM EST Treatment [facility] Occupational Therapy [address] [place] [phone] Sarai Rivera, OT MS (multiple sclerosis) (CMS/HCC) (Primary Dx); Bilateral carpal tunnel syndrome 05/28/2024 2:45 PM EST Treatment [facility] Occupational Therapy [address] [place] [phone] Vandana Corbett COTA 05/23/2024 2:30 PM EST Treatment [facility] Occupational Therapy [address] [place] [phone] Sarai Rivera, OT MS (multiple sclerosis) (CMS/HCC) (Primary Dx); Bilateral carpal tunnel syndrome 05/21/2024 2:30 PM EST Treatment [facility] Occupational Therapy [address] [place] [phone] Sarai Rivera, OT Bilateral carpal tunnel syndrome (Primary Dx); MS (multiple sclerosis) (CMS/HCC) 05/19/2024 2:30 PM EST Telemedicine [facility] [address] [phone] Glenna Toledo PA Multiple sclerosis ([facility]/HCC) (Primary Dx) 05/14/2024 2:45 PM EST Treatment [facility] Occupational Therapy [address] [phone] Tano Elena, OT Bilateral carpal tunnel syndrome (Primary Dx) 05/14/2024 Telephone [facility] 175 [facility] [address] [place] [phone] Glenna Toledo PA SYMPTOMS 04/23/2024 1:00 PM EST Treatment [facility] Occupational Therapy [address] [phone] Sarai Rivera, OT Bilateral carpal tunnel syndrome 04/23/2024 Plan of Care Documentation [facility] Occupational Therapy [address] [place] [phone] 04/18/2024 2:00 PM EST Evaluation [facility] Occupational Therapy [address] [phone] Sarai Rivera, OT MS (multiple sclerosis) ([facility]/HCC) (Primary Dx); Carpal tunnel syndrome, unspecified upper limb 04/18/2024 1:00 PM EST Office Visit [facility] [address] [phone] Glenna Toledo PA Multiple sclerosis ([facility]/HCC) (Primary Dx) from Last 3 Months Immunizations [...] Multiple sclerosis (HCC); COMMENT: pt follows with [facility] neurologist Diverticulitis 11/14/2022 DX:Diverticuliti s; COMMENT: 11/05 [...] for your loved ones. For example, child support officer or elderly care for an older adult? [...] Description 08/18/2024 8:00 AM EDT Office Visit [address] [phone] Lukas Scott MD [address] [place] [address] 08/21/2024 1:30 PM EDT Office Visit [facility] [address] [phone] Janny Henderson MD [address] [phone] 10/31/2024 4:00 PM EDT Office Visit [address] [phone] Lukas Scott MD [address] [place] [address] 03/16/2025 11:30 AM EST Office Visit [address] [phone] Lukas Scott MD [address] [place] [address] Health Maintenance Due Date Last Done Comments Pneumococcal Vaccine: 50+ Years (1 of 1 - PCV) 2011 Zoster Vaccines (1 of 2) 2011 Colorectal Cancer Screening: Stool Based Tests (FOBT/FIT) 05/17/2019 HIV Screening 05/17/2019 Hepatitis C Screening 05/17/2019 RSV Immunization Adult Patients (1 - Risk 60-74 years 1-dose series) [...] track( 024 2:52 PM EST) Yes Lindsey Cruz OT Note: HAVE MORE STRENGTH BOTH HANDS FOR ADL Pt goal General Yes Sarai Rivera, OT Note: To increase UE/hand strength and ROM to be more independent with activities of daily living OT STGs General On track( 2:19 PM EST) Yes Sarai Rivera, OT Note: 1- Pt will demo at least 1 cm improvement in the DPC measurement demo increased ability to grasp 2- Pt will demo 5# increase in administrative nursing supervisor strength 3- Pt will demo at least [...] will demo at least 10# increase in administrative nursing supervisor strength 3 Pt will demo at least 4# pinch strength all pinches [place] to be able to do fasteners, pick and shovel worker small objects. 4 Pt will be I [...] LAB CHEMISTRY METHOD 04/01/2024 6:16 PM EST [facility] Triglycerides 190(H) 0 - 150 mg/dL LAB CHEMISTRY METHOD 04/01/2024 6:[address] [facility] HDL 46 >=40 mg/dL LAB CHEMISTRY METHOD 04/01/2024 6:[address] [facility] LDL Calculated 182(H) 0 - 100 mg/dL LAB CHEMISTRY METHOD 04/01/2024 6:16 PM EST [facility] VLDL Cholesterol Eduar 38 mg/dL LAB CHEMISTRY METHOD 04/01/2024 6:[address] [facility] Non HDL Chol. (LDL+VLDL) 220(H) <145 mg/dL LAB CHEMISTRY METHOD 04/01/2024 6:[address] [facility] Chol/HDL Ratio 5.8(H) 0.0 - 4.4 LAB CHEMISTRY METHOD 04/01/2024 6:[address] [facility] Blood Venous blood specimen / Unknown Venipuncture / Unknown 04/01/2024 2:51 PM EST 04/01/2024 2:51 PM EST us Lukas Scott MD LAB BLOOD ORDERABLES Final Resu lt [facility] [address] [place] [address], * (ABNORMAL) Comprehensive metabolic panel (04/01/2024 2:51 PM EST) Sodium 139 133 - 145 mmol/L LAB CHEMISTRY METHOD 04/01/2024 6:[address] [facility] Potassium 4.3 3.5 - 5.5 mmol/L LAB CHEMISTRY METHOD 04/01/2024 6:[address] [facility] Chloride 108 96 - 110 mmol/L LAB CHEMISTRY METHOD 04/01/2024 6:[address] [facility] CO2 25 21 - 32 mmol/L LAB CHEMISTRY METHOD 04/01/2024 6:[address] [facility] Anion Gap 6 3 - 11 LAB CHEMISTRY METHOD 04/01/2024 6:[address] [facility] Glucose 85 70 - 100 mg/dL LAB CHEMISTRY METHOD 04/01/2024 6:[address] [facility] BUN 23 5 - 25 mg/dL LAB CHEMISTRY METHOD 04/01/2024 6:[address] [facility] Creatinine 1.33(H) 0.50 - 1.10 mg/dL LAB CHEMISTRY METHOD 04/01/2024 6:[address] [facility] eGFR 45(L) >=60 mL/min/1. 73m2 LAB CHEMISTRY METHOD 04/01/2024 6:[address] [facility] Comment:Calculation based on the??Chronic Kidney Disease Epidemiology Collaboration (CKD-EPI) equation refit??without adjustment for race. BUN/Creatinine Ratio 17.3 LAB CHEMISTRY METHOD 04/01/2024 6:[address] [facility] Calcium 10.3 8.5 - 10.5 mg/dL LAB CHEMISTRY METHOD 04/01/2024 6:[address] [facility] AST (SGOT) 12 10 - 42 unit/L LAB CHEMISTRY METHOD 04/01/2024 6:[address] [facility] ALT (SGPT) 17 10 - 60 unit/L LAB CHEMISTRY METHOD 04/01/2024 6:[address] [facility] Alkaline Phosphatase 110 42 - 121 unit/L LAB CHEMISTRY METHOD 04/01/2024 6:[address] [facility] Total Protein 7.9 6.0 - 8.0 g/dL LAB CHEMISTRY METHOD 04/01/2024 6:[address] [facility] Albumin 4.0 3.2 - 5.0 g/dL LAB CHEMISTRY METHOD 04/01/2024 6:[address] [facility] Total Bilirubin 0.3 0.0 - 1.4 mg/dL LAB CHEMISTRY METHOD 04/01/2024 6:16 PM EST [facility] Blood Venous blood specimen / Unknown Venipuncture / Unknown 04/01/2024 2:51 PM EST 04/01/2024 2:51 PM EST us Lukas Scott MD LAB BLOOD ORDERABLES Final Resu lt [facility] [address] [place] [address], * SCREENING MAMMOGRAPHY BI 2-VIEW BREAST INC [...] Most Recently Relevant to Health Maintenance Insurance [facility] Care Teams Cargo Vessel Stewardess Relationship Specialty Start Date End Date Sravan Vital MD [address] [place] [address] PCP - General Internal Medicine 04/17/24
--- OUTSIDE RECORDS SUMMARY | 2024-07-16 17:08 | XMS_ITS | Clinical Summary ---
Author Organization [facility] Address [address] [place] [address] Care Team Providers Care Supervisor Net Making Name Role Phone Lukas Scott MD Primary Care Provider [phone] Allergies No known active allergies Medications Medication [...] 0 08/01/2021 Active ergocalciferol (VITAMIN D2) capsule 48067 units Take 1 capsule (50,000 Units total) [...] age to complete this topic Care Teams Supervisor Net Making Relationship Specialty Start Date End Date Lukas Scott MD PCP - General Internal Medicine 06/29/21
--- OUTSIDE RECORDS SUMMARY | 2024-07-16 17:08 | XMS_ITS | Encounter Summary ---
Author Organization [facility] [place] [address] Care Team Providers Care Pumper Hand Name Role Phone Sravan Vital MD Primary Care Provider [phone] Encounter Details Date Type Department Care Team ([facility] Contact Info) Description 07/15/2024 Telephone Adult Medicine [address] [phone] Madison Mejia, AAYUSH Social History Tobacco Use Types Packs/Day Years Used Date Smoking Tobacco: Never Smokeless Tobacco: Never Alcohol Use Standard Drinks/Week Comments No 0 [...] care for your loved ones. For example, children's counselor or elderly care for an older adult? [...] on file Sexual Orientation Not on file documented as of this encounter Progress Notes * Tiffany Mir RN - 07/15/2024 4:29 PM EDT Pt was seen at [facility] documented in this encounter Plan of Treatment Upcoming Encounters Date Type Department Care Team (Late st Contact Info) Description 08/18/2024 8:00 AM EDT Office Visit Adult Medicine [address] [phone] Lukas Scott MD [address] [place] [phone] 08/21/2024 1:30 PM EDT Office Visit [facility] [address] [facility] [address] [place] [phone] Janny Henderson MD 175 [facility] [address] [place] [phone] 10/31/2024 4:00 PM EDT Office Visit Adult [address] [phone] Lukas Scott MD [address] [place] [address] 03/16/2025 11:30 AM EST Office Visit [address] [phone] Lukas Scott MD [address] [place] [address] documented as of this encounter Goals Goal Patient Goal Type Associated Problems [...] 2- Pt will demo 5# increase in java development manager strength 3- Pt will demo at least 2# increase in pinch strength 4- pt will demo increased knowledge of adaptations/joint protection to increase her independence with ADLs. 5- pt will be I with HEP 6- pt will demo increased strength in B UE as seen by ability to complete haircare more Kateryna OT LTGs General Improving( 2:20 PM EST) Yes Sarai Rivera, OT Note: 1 Pt will demo functional ability to grasp onto utensils or a container to open 2 Pt will demo at least 10# increase in java development manager strength 3 Pt will demo at least 4# pinch strength all pinches [place] to be able to do fasteners, picker/puller small objects. 4 Pt will be I with B HEP 5 Pt will demo at least 4/5 strength throughout B UE and ability to perform overhead reaching and self care documented as of this encounter Visit Diagnoses Not on filedocumented in this encounter Additional Health Concerns Assessment Noted Time PHQ-9 Depression Total Score: 0 05/19/19 2:01 PM EST documented as of this encounter Care Teams Pumper Hand Relationship Specialty Start Date End Date Sravan Vital MD [address] [place] [address] PCP - General Internal Medicine 04/17/24 documented as of this encounter
== END 2024-07-16 14:20 | disposition home or self-care (01) ==
LOC: HO.HMGCLDS 14:19
PROVIDERS: PCP Nurse Practitioner Family; Visit Provider Nurse Practitioner Family
DX: N39.0 Urinary tract infection, site not specified (principal); R30.0 Dysuria; Z93.3 Colostomy status
CPT/HCPCS: 81001; 81003; 87086

== ENCOUNTER 2024-08-27 08:52 | Outpatient (AMB) | payer OTHER, SELFPAY ==
--- NOTE | 2024-08-27 08:57 | A.OFFVIS_ITS ---
Intake Visit Reasons: recurrent UTI Intake Note: Patient is present for RECURRENT UTI Urology Medication:NONE Antibiotic Allergy:NONE Blood Thinner:NONE Solar Sales Assessor Required: No Allergies No Known Allergies Allergy (Verified 08/27/24 08:58) HPI Comments Details: Asuncion is a pleasant female. She is a patient of Dr. Ray. She seen for the following urologic conditions - colovesical fistula Last seen 18 months ago Leukocytes in urine Has background of MS Two UTIs in past 6 months Discussed use of estrogen She would like to do this Prescription provided Follow-up six-month nurse-practitioner Colovesical fistula Underwent repair with General surgery approximately 4 weeks ago Inflamed sigmoid secondary to diverticular disease Prior hysterectomy At laparoscopic examination Hall catheter had been filled with methylene blue. [address] No evidence of active fistula Hall catheter left for 4 weeks to allow any healing on the bladder surface Catheter removed today P.r.n. follow-up [facility] Medical History Colostomy in place Colovesical fistula Hypokalemia Diverticulitis large intestine Phlegmon Hypertension Multiple sclerosis Surgical History Hx of surgical procedure Social History Household Members: Spouse Housing: House Do you presently have visiting nurse or other home services: No Alcohol intake: never Patient Tobacco Use Status: Never used Tobacco Second Hand Smoke Exposure: No service: No Review of Systems Const Denies chills and Denies fever(s) Card Reports no additional complaints and Denies syncope Resp Denies cough GI Denies abdominal pain and Denies heartburn Reports as per HPI and Denies change in libido Neuro Denies syncope Psych Denies change in libido Endo Denies change in libido Physical Exam Const General: cooperative, healthy appearing, comfortable and no acute distress Orientation/consciousness: patient oriented x3 HEENT Face and sinus: Yes normal facial exam Mouth: moist mucous membranes Neck Neck: Yes normal visual inspection, Yes full ROM and Yes trachea midline Chest Chest palpation & inspection: normal inspection of the chest Resp Effort & Inspection: normal respiratory effort, able to speak in complete sentences and no respiratory distress GI Inspection: Yes normal to inspection Back/Spine/Pelvis Cervical Spine: normal cervical lordosis Thoracic/Lumbar Spine: thoracic and lumbar spine normal to inspection Skin General skin exam: no rashes or lesions noted Neuro General: patient oriented x3, gait normal, tone normal and moves all extremities Extrem General: Yes normal to inspection and Yes capillary refill normal Results AMB Urinalysis, Automated UA Leukoctes 500 Maria Alejandra/uL Last Edit by DARVIN Jacobs on 08/27/24 09:45 UA Nitrite Negative Last Edit by DARVIN Jacobs on 08/27/24 09:45 UA Urobilinogen 0.2 mg/dL Last Edit by DARVIN Jacobs on 08/27/24 09:4 5 UA Protein 15 mg/dL Last Edit by DARVIN Jacobs on 08/27/24 09:45 UA pH 6.0 Last Edit by Cinthya Guy CCM on 08/27/24 09:45 UA Blood 200 Chuck/uL Last Edit by DARVIN Jacobs on 08/27/24 09:45 UA Specific [place] 1.015 Last Edit by DARVIN Jacobs on 08/27/24 09: 45 UA Ketone Negative Last Edit by DARVIN Jacobs on 08/27/24 09:45 UA Bilirubin 0 mg/dL Last Edit by DARVIN Jacobs on 08/27/24 09:45 UA Glucose 0 mg/dL Last Edit by DARVIN Jacobs on 08/27/24 09:45 Results Reviewed Results Reviewed: Laboratory Last Values Urine pH (Auto) 6.0 08/27/24 09:43 Specific [place] (Auto) 1.015 08/27/24 09:43 Urine Protein (Auto) 15 mg/dL 08/27/24 09:43 Glucose (UA)(Auto) 0 mg/dL 08/27/24 09:43 Urine Ketones (Auto) Negative 08/27/24 09:43 Urine Blood (Auto) 200 Chuck/uL 08/27/24 09:43 Urine Nitrite (Auto) Negative 08/27/24 09:43 Urine Bilirubin (Auto) 0 mg/dL 08/27/24 09:43 Urine Urobilinogen (Auto) 0.2 mg/dL 08/27/24 09:43 Leukocyte Esterase (Auto) 500 Maria Alejandra/uL 08/27/24 09:43 Assessment & Plan Assessment & Plan (1) Recurrent UTI: Code(s): N39.0 - Urinary tract infection, site not specified Category: Medical (2) Dysuria: Code(s): R30.0 - Dysuria Category: Medical Plan Trial estradiol Prescription provided Orders: Orders Urine Culture Today N39.0 - Urinary tract infection, site not specified Urine Cytology Today N39.0 - Urinary tract infection, site not specified AMB Urinalysis Automated Today Z13.9 - Encounter for screening, unspecified Medications: New estradiol 0.01%(0.1mg/gram) pea-sized to urethra 3 times a week 42.5 grams 2RF 30 days N36.2 - Urethral caruncle, N39.0 - Urinary tract infection, site not specified, N95.2 - Postmenopausal atrophic vaginitis Patient Instructions: This note is constructed using voice recognition software. While every effort has been made to ensure accuracy heat treat inspector errors may have been included. Imaging studies, laboratory and physical exam results were discussed and reviewed in detail. No major barriers to patient understanding were identified. An opportunity to ask questions regarding the treatment plan was provided. All questions were answered. The patient expressed understanding and agreement with the above treatment plan. The patient is aware they should contact our office by phone for worsening of their current condition or the appearance of new urologic symptoms. Compliance is encouraged with any medications and followup testing that is ordered. It is a privilege to participate in the urologic care of your patient. If you have any questions or concerns regarding treatment for the above conditions, or other urologic issues, please do not hesitate to contact me. The office telephone contact is [phone]. Sincerely, Dr Aguila Deng MD, [facility] - Urology Compassionate Specialist Care for the Genitourinary System Coding Level of Care Code Est Pt Level 4 (77889) Diagnoses Recurrent UTI N39.0 Dysuria R30.0
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
--- OUTSIDE RECORDS SUMMARY | 2024-08-27 09:16 | XMS_ITS | Clinical Summary ---
Author Organization 175 [facility] Address 175 [place] [address] Phone Care Team Providers Care Cherry Picker Operator Name Role Phone Lukas Scott MD Primary Care Provider [phone] Allergies No known active allergies Medications ergocalciferol [...] each day. 90 tablet 3 04/01/2024 Active cyclobenzaprine (FLEXERIL) 5 mg tablet Take 1 tablet (5 mg total) by mouth 3 (three) times a day if needed for muscle spasms. TAKE 1 TAB (5 MG) ORALLY 3 TIMES A DAY NEEDED 90 tablet 3 05/19/2024 Active Vitamin B-12 500 mcg tablet TAKE 4 TABLETS BY MOUTH DAILY 360 tablet 1 07/09/2024 Active ibuprofen (ADVIL,MOTRIN) 800 mg tablet TAKE 1 TABLET BY MOUTH EVERY 8 HOURS NEEDED FOR PAIN 270 tablet 1 07/21/2024 Active Active Problems Problem Noted Date Diagnosed Date Multiple sclerosis (CMS/HCC V24, CMS/HCC V28) Diverticulitis 04/01/2024 S/P colostomy (CMS/HCC V24, CMS/HCC V28) 024 Colovesical fistula 04/01/2024 Hypercholesterolemia 04/01/2024 Primary hypertension 04/01/2024 Optic neuritis 04/01/2024 Carpal tunnel syndrome 02/27/2024 Encounters Date Type Department Care Team Description 08/21/2024 1:30 PM EDT Office Visit [facility] [address] [phone] Glenna Toledo PA 08/18/2024 8:00 AM EDT Office Visit Adult Medicine [address] [phone] Lukas Scott MD Primary hypertension (Primary Dx); Hypercholesterolemia; Multiple sclerosis (CMS/HCC V24, CMS/HCC V28); Bilateral carpal tunnel syndrome; S/P colostomy (CMS/HCC V24, CMS/HCC V28); Colovesical fistula 08/18/2024 Telephone Adult Medicine [address] [phone] Lukas Scott MD Forms/questionnaires 07/25/2024 2:00 PM EDT Office Visit [address] [phone] Glenna Toledo PA Multiple sclerosis (CMS/HCC V24, CMS/HCC V28) (Primary Dx) 07/15/2024 Telephone Adult Medicine [address] [phone] Madison Mejia RN 06/11/2024 12:30 PM EST Treatment [facility] [address] [place] [phone] Jay Krishnan COTA/Lulu MS (multiple sclerosis) (CMS/HCC V24, CMS/HCC V28) (Primary Dx); Bilateral carpal tunnel syndrome; Carpal tunnel syndrome, unspecified laterality 05/30/2024 1:00 PM EST Treatment [facility] Occupational Therapy [address] [place] [phone] Sarai Rivera, OT MS (multiple sclerosis) ([facility] V24, [facility] V28) (Primary Dx); Bilateral carpal tunnel syndrome from Last 3 Months Immunizations Name Administration [...] edema DX:Lower e xtremity edema Multiple sclerosis ([facility] V24, [facility] V28) 1993 DX:Multiple sclerosis ([facility]); COMMENT: pt follows with [facility] neurologist Diverticulitis 11/14/2022 DX:Diverticuliti s; COMMENT: [...] for your loved ones. For example, child protective investigator or elderly care for an older adult? [...] Sign Reading Time Taken Comments Blood Pressure 120/80 08/21/2024 1:30 PM EDT Pulse 94 08/21/2024 1:30 PM EDT Temperature 36.3 ??C (97.3 ??F) 08/18/2024 8:07 AM ED T Respiratory Rate 12 08/18/2024 8:07 AM EDT Oxygen Saturation 95% 08/21/2024 1:30 PM EDT Inhaled Oxygen Concentration - - Weight 110 kg (243 lb) 08/21/2024 1:30 PM EDT Height 154.9 cm (5' 1 ) 08/21/2024 1:30 PM EDT Body Mass Index 45.91 08/21/2024 1:30 PM EDT Plan of Treatment Upcoming Encounters Date Type Department Care Team (Late st Contact Info) Description 10/31/2024 4:00 PM EDT Office Visit Adult [address] [phone] Lukas Scott MD [address] [place] [address] 12/23/2024 1:30 PM EDT Office Visit [facility] [address] [phone] Janny Henderson MD [address] [phone] 03/16/2025 11:30 AM EST Office Visit Adult [address] [phone] Lukas Scott MD [address] [place] [address] Health Maintenance Due Date Last Done Comments Pneumococcal Vaccine: 50+ Years (1 of 1 - PCV) 2011 Zoster Vaccines (1 of 2) 2011 Colorectal Cancer Screening: Stool Based Tests (FOBT/FIT) 05/17/2019 HIV Screening 05/17/2019 RSV Immunization Adult Patients (1 [...] Td or Tdap) 07/18/2032 07/18/2022, 02/29/2012 Hepatitis C Screening Completed 06/15/2014 Influenza Vaccine Completed 04/01/2024, , 02/16/2019, Additional [...] age to complete this topic Meningococcal B Vaccine Aged Out No l onger eligible based on patient's age to complete [...] 2- Pt will demo 5# increase in operating room specialist strength 3- Pt will demo at least [...] will demo at least 10# increase in operating room specialist strength 3 Pt will demo at least 4# pinch strength all pinches Ese to be able to do fasteners, moss picker small objects. 4 Pt will be [...] LAB CHEMISTRY METHOD 04/01/2024 6:16 PM EST [facility] Triglycerides 190(H) 0 - 150 mg/dL LAB CHEMISTRY METHOD 04/01/2024 6:[address] [facility] HDL 46 >=40 mg/dL LAB CHEMISTRY METHOD 04/01/2024 6:16 PM EST [facility] LDL Calculated 182(H) 0 - 100 mg/dL LAB CHEMISTRY METHOD 04/01/2024 6:16 PM EST [facility] VLDL Cholesterol Eduar 38 mg/dL LAB CHEMISTRY METHOD 04/01/2024 6:16 PM EST [facility] Non HDL Chol. (LDL+VLDL) 220(H) <145 mg/dL LAB CHEMISTRY METHOD 04/01/2024 6:[address] [facility] Chol/HDL Ratio 5.8(H) 0.0 - 4.4 LAB CHEMISTRY METHOD 04/01/2024 6:[address] [facility] Blood Venous blood specimen / Unknown Venipuncture / Unknown 04/01/2024 2:51 PM EST 04/01/2024 2:51 PM EST us Lukas Scott MD LAB BLOOD ORDERABLES Final Resu lt [facility] [address] [place] [address], [place] [phone] * (ABNORMAL) Comprehensive metabolic panel (04/01/2024 2:51 PM EST) [facility] Signature Sodium 139 133 - 145 mmol/L LAB CHEMISTRY METHOD 04/01/2024 6:[address] [facility] Potassium 4.3 3.5 - 5.5 mmol/L LAB CHEMISTRY METHOD 04/01/2024 6:[address] [facility] Chloride 108 96 - 110 mmol/L LAB CHEMISTRY METHOD 04/01/2024 6:[address] [facility] CO2 25 21 - 32 mmol/L LAB CHEMISTRY METHOD 04/01/2024 6:[address] [facility] Anion Gap 6 3 - 11 LAB CHEMISTRY METHOD 04/01/2024 6:[address] [facility] Glucose 85 70 - 100 mg/dL LAB CHEMISTRY METHOD 04/01/2024 6:[address] [facility] BUN 23 5 - 25 mg/dL LAB CHEMISTRY METHOD 04/01/2024 6:[address] [facility] Creatinine 1.33(H) 0.50 - 1.10 mg/dL LAB CHEMISTRY METHOD 04/01/2024 6:[address] [facility] eGFR 45(L) >=60 mL/min/1. 73m2 LAB CHEMISTRY METHOD 04/01/2024 6:[address] [facility] Comment:Calculation based on the??Chronic Kidney Disease Epidemiology Collaboration (CKD-EPI) equation refit??without adjustment for race. BUN/Creatinine Ratio 17.3 LAB CHEMISTRY METHOD 04/01/2024 6:[address] [facility] Calcium 10.3 8.5 - 10.5 mg/dL LAB CHEMISTRY METHOD 04/01/2024 6:[address] [facility] AST (SGOT) 12 10 - 42 unit/L LAB CHEMISTRY METHOD 04/01/2024 6:[address] [facility] ALT (SGPT) 17 10 - 60 unit/L LAB CHEMISTRY METHOD 04/01/2024 6:[address] [facility] Alkaline Phosphatase 110 42 - 121 unit/L LAB CHEMISTRY METHOD 04/01/2024 6:[address] [facility] Total Protein 7.9 6.0 - 8.0 g/dL LAB CHEMISTRY METHOD 04/01/2024 6:[address] [facility] Albumin 4.0 3.2 - 5.0 g/dL LAB CHEMISTRY METHOD 04/01/2024 6:[address] [facility] Total Bilirubin 0.3 0.0 - 1.4 mg/dL LAB CHEMISTRY METHOD 04/01/2024 6:[address] [facility] Blood Venous blood specimen / Unknown Venipuncture / Unknown 04/01/2024 2:51 PM EST 04/01/2024 2:51 PM EST us Lukas Scott MD LAB BLOOD ORDERABLES Final Resu lt [facility] [address] [place] [address], * SCREENING MAMMOGRAPHY BI 2-VIEW BREAST INC [...] Maintenance Insurance [facility] PLAN GENERIC Care Teams Cherry Picker Operator Relationship Specialty Start Date End Date Lukas Scott MD [address] [place] [address] PCP - General Internal Medicine 08/18/24
--- OUTSIDE RECORDS SUMMARY | 2024-08-27 09:16 | XMS_ITS | Clinical Summary ---
Author Organization [facility] Address [address] [place] [address] Care Team Providers Care Biscuit Machine Operator Name Role Phone Lukas Scott MD Primary Care Provider [phone] Allergies No known active allergies Medications Medication [...] 0 08/01/2021 Active ergocalciferol (VITAMIN D2) capsule 15938 units Take 1 capsule (50,000 Units total) [...] age to complete this topic Care Teams Biscuit Machine Operator Relationship Specialty Start Date End Date Lukas Scott MD PCP - General Internal Medicine 06/29/21
== END 2024-08-27 10:16 | disposition home or self-care (01) ==
LOC: HO.HUSH 08:52
PROVIDERS: PCP Nurse Practitioner Family; Visit Provider Urology
DX: N39.0 Urinary tract infection, site not specified (principal); R30.0 Dysuria; Z13.9 Encounter for screening, unspecified
CPT/HCPCS: 99214

== ENCOUNTER 2024-08-27 08:52 | Outpatient (REF) | payer OTHER, SELFPAY ==
--- OUTSIDE RECORDS SUMMARY | 2024-08-27 10:16 | XMS_ITS | Clinical Summary ---
Author Organization 175 [facility] Address [address] [place] [address] Phone Care Team Providers Care Forming Yardage Control Operator Name Role Phone Lukas Scott MD Primary Care Provider [phone] Allergies No known active allergies Medications ergocalciferol [...] Description 08/21/2024 1:30 PM EDT Office Visit [facility] [address] [phone] Glenna Toledo PA 08/18/2024 8:00 AM EDT Office Visit Adult Medicine [address] [phone] Lukas Scott MD Primary hypertension (Primary Dx); Hypercholesterolemia; Multiple sclerosis (CMS/HCC V24, CMS/HCC V28); Bilateral carpal tunnel syndrome; S/P colostomy (CMS/HCC V24, CMS/HCC V28); Colovesical fistula 08/18/2024 Telephone Adult Medicine [address] [phone] Lukas Scott MD Forms/questionnaires 07/25/2024 2:00 PM EDT Office Visit [address] [phone] Glenna Toledo PA Multiple sclerosis (CMS/HCC V24, CMS/HCC V28) (Primary Dx) 07/15/2024 Telephone Adult Medicine [address] [phone] Madison Mejia RN 06/11/2024 12:30 PM EST [facility] [address] [place] [phone] Jay Krishnan COTA/Lulu MS (multiple sclerosis) (CMS/HCC V24, CMS/HCC V28) (Primary Dx); Bilateral carpal tunnel syndrome; Carpal tunnel syndrome, unspecified laterality 05/30/2024 1:00 PM EST Treatment [facility] Occupational Therapy [address] [place] [phone] Sarai Rivera, OT MS (multiple sclerosis) ([facility] V24, [facility] V28) (Primary Dx); Bilateral carpal tunnel syndrome [...] edema DX:Lower e xtremity edema Multiple sclerosis (CMS/[facility] V24, CMS/[facility] V28) 1993 DX:Multiple sclerosis ([facility]); COMMENT: pt follows with [facility] neurologist Diverticulitis 11/14/2022 DX:Diverticuliti s; COMMENT: 11/05 [...] care for your loved ones. For example, early childhood education specialist or elderly care for an older adult? [...] 10/31/2024 4:00 PM EDT Office Visit Adult [address] [phone] Lukas Scott MD [address] [place] [address] 12/23/2024 1:30 PM EDT Office Visit [facility] [address] [phone] Janny Henderson MD [address] [phone] 03/16/2025 11:30 AM EST Office Visit Adult [address] [phone] Lukas Scott MD [address] [place] [address] Health Maintenance Due Date Last Done Comments [...] On track( 024 2:52 PM EST) Yes Linsdey Cruz, OT Note: HAVE MORE STRENGTH BOTH [...] 2- Pt will demo 5# increase in terra cotta roofer strength 3- Pt will demo at least [...] will demo at least 10# increase in terra cotta roofer strength 3 Pt will demo at least 4# pinch strength all pinches Ese to be able to do fasteners, fern picker small objects. 4 Pt will be [...] LAB CHEMISTRY METHOD 04/01/2024 6:16 PM EST [facility] Triglycerides 190(H) 0 - 150 mg/dL LAB CHEMISTRY METHOD 04/01/2024 6:16 PM [facility] HDL 46 >=40 mg/dL LAB CHEMISTRY METHOD 04/01/2024 6:16 PM EST [facility] LDL Calculated 182(H) 0 - 100 mg/dL LAB CHEMISTRY METHOD 04/01/2024 6:16 PM EST [facility] VLDL Cholesterol Eduar 38 mg/dL LAB CHEMISTRY METHOD 04/01/2024 6:16 PM EST [facility] Non HDL Chol. (LDL+VLDL) 220(H) <145 mg/dL LAB CHEMISTRY METHOD 04/01/2024 6:16 PM [facility] Chol/HDL Ratio 5.8(H) 0.0 - 4.4 LAB CHEMISTRY METHOD 04/01/2024 6:16 PM [facility] Blood Venous blood specimen / Unknown Venipuncture / Unknown 04/01/2024 2:51 PM EST 04/01/2024 2:51 PM EST us Lukas Scott MD LAB BLOOD ORDERABLES Final Resu lt [facility] [address] [place] [address], [place] [phone] * (ABNORMAL) Comprehensive metabolic panel (04/01/2024 2:51 PM EST) [facility] Signature Sodium 139 133 - 145 mmol/L LAB CHEMISTRY METHOD 04/01/2024 6:16 PM [facility] Potassium 4.3 3.5 - 5.5 mmol/L LAB CHEMISTRY METHOD 04/01/2024 6:16 PM [facility] Chloride 108 96 - 110 mmol/L LAB CHEMISTRY METHOD 04/01/2024 6:16 PM [facility] CO2 25 21 - 32 mmol/L LAB CHEMISTRY METHOD 04/01/2024 6:16 PM [facility] Anion Gap 6 3 - 11 LAB CHEMISTRY METHOD 04/01/2024 6:16 PM [facility] Glucose 85 70 - 100 mg/dL LAB CHEMISTRY METHOD 04/01/2024 6:16 PM [facility] BUN 23 5 - 25 mg/dL LAB CHEMISTRY METHOD 04/01/2024 6:16 PM [facility] Creatinine 1.33(H) 0.50 - 1.10 mg/dL LAB CHEMISTRY METHOD 04/01/2024 6:16 PM [facility] eGFR 45(L) >=60 mL/min/1. 73m2 LAB CHEMISTRY METHOD 04/01/2024 6:16 PM [facility] Comment:Calculation based on the??Chronic Kidney Disease Epidemiology Collaboration (CKD-EPI) equation refit??without adjustment for race. BUN/Creatinine Ratio 17.3 LAB CHEMISTRY METHOD 04/01/2024 6:16 PM [facility] Calcium 10.3 8.5 - 10.5 mg/dL LAB CHEMISTRY METHOD 04/01/2024 6:16 PM [facility] AST (SGOT) 12 10 - 42 unit/L LAB CHEMISTRY METHOD 04/01/2024 6:16 PM [facility] ALT (SGPT) 17 10 - 60 unit/L LAB CHEMISTRY METHOD 04/01/2024 6:16 PM [facility] Alkaline Phosphatase 110 42 - 121 unit/L LAB CHEMISTRY METHOD 04/01/2024 6:16 PM [facility] Total Protein 7.9 6.0 - 8.0 g/dL LAB CHEMISTRY METHOD 04/01/2024 6:16 PM [facility] Albumin 4.0 3.2 - 5.0 g/dL LAB CHEMISTRY METHOD 04/01/2024 6:16 PM [facility] Total Bilirubin 0.3 0.0 - 1.4 mg/dL LAB CHEMISTRY METHOD 04/01/2024 6:16 PM [facility] Blood Venous blood specimen / Unknown Venipuncture / Unknown 04/01/2024 2:51 PM EST 04/01/2024 2:51 PM EST us Lukas Scott MD LAB BLOOD ORDERABLES Final Resu lt [facility] [address] [place] [address], * SCREENING MAMMOGRAPHY BI 2-VIEW BREAST INC [...] Most Recently Relevant to Health Maintenance Insurance [facility] PLAN GENERIC Care Teams Forming Yardage Control Operator Relationship Specialty Start Date End Date Lukas Scott MD [address] [place] [address] PCP - General Internal Medicine 08/18/24
--- OUTSIDE RECORDS SUMMARY | 2024-08-27 10:16 | XMS_ITS | Clinical Summary ---
Author Organization [facility] Address [address] [place] [address] Care Team Providers Care Steam Roller Operator Name Role Phone Lukas Scott MD Primary Care Provider [phone] Allergies No known active allergies Medications Medication [...] 0 08/01/2021 Active ergocalciferol (VITAMIN D2) capsule 72011 units Take 1 capsule (50,000 Units total) [...] age to complete this topic Care Teams Steam Roller Operator Relationship Specialty Start Date End Date Lukas Scott MD PCP - General Internal Medicine 06/29/21
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
[2024-08-27 16:29] LABS: Urine Cytology See Pathology rpt
== END 2024-08-27 08:53 | disposition home or self-care (01) ==
LOC: HO.LAB 08:52
PROVIDERS: PCP Nurse Practitioner Family; Visit Provider Urology
DX: N39.0 Urinary tract infection, site not specified (principal); R30.0 Dysuria
CPT/HCPCS: 81003; 87086; 88112; 99212

== ENCOUNTER 2024-12-08 13:08 | Outpatient (REF) | payer OTHER, SELFPAY ==
--- OUTSIDE RECORDS SUMMARY | 2024-12-08 14:29 | XMS_ITS | Clinical Summary ---
Author Organization 175 [facility] Address [address] [place] [address] Phone Care Team Providers Care Zinc Plating Machine Operator Name Role Phone Lukas Scott MD Primary Care Provider [phone] Allergies No known active allergies Medications ergocalciferol [...] V24, CMS/HCC V28) Diverticulitis 04/01/2024 S/P colostomy ([facility] V24, [facility] V28) 024 Colovesical fistula 04/01/2024 Hypercholesterolemia 04/01/2024 Primary hypertension 04/01/2024 Optic neuritis 04/01/2024 Carpal tunnel syndrome 02/27/2024 Encounters Date Type Department Care Team Description 10/22/2024 Telephone [facility] [place] [address] [place] [address] Margarita Ji, [facility] 10/21/2024 Telephone [facility] [place] [address] [place] [address] Margarita Ji, [facility] 10/21/2024 Telephone [facility] [place] [address] [address] Elena Hunt MA 09/19/2024 8:00 AM EDT Telemedicine [facility] [place] [address] [address] Glenna Toledo, GERALD Multiple sclerosis ([facility] V24, [facility] V28) (Primary Dx) from Last 3 Months Immunizations [...] edema DX:Lower e xtremity edema Multiple sclerosis (CMS/HCC V24, CMS/HCC V28) 1993 DX:Multiple sclerosis ([facility]); COMMENT: pt follows with [facility] neurologist Diverticulitis 11/14/2022 DX:Diverticuliti s; [...] for your loved ones. For example, child life therapist or elderly care for an older adult? [...] 94 08/21/2024 1:30 PM EDT Temperature 36.3 C (97.3 F) 08/18/2024 8:07 AM EDT Respiratory Rate 12 08/18/2024 8:07 AM EDT Oxygen Saturation 95% 08/21/2024 1:30 PM EDT Inhaled Oxygen Concentration - - Weight 110 kg (243 lb) 08/21/2024 1:30 PM EDT Height 154.9 cm (5' 1 ) 08/21/2024 1:30 PM EDT Body Mass Index 45.91 08/21/2024 1:30 PM EDT Plan of Treatment Upcoming Encounters Date Type Department Care Team (Late st Contact Info) Description 12/23/2024 1:30 PM EDT Office Visit [facility] 175 [facility] [address] [place] [address] Janny Henderson MD 175 [facility] [address] [place] [address] 02/03/2025 9:30 AM EDT Office Visit Adult [address] [address] Lukas Scott MD [address] [place] [address] [phone] 03/16/2025 11:30 AM EST Office Visit [address] [address] Lukas Scott MD [address] [place] [address] [phone] Health Maintenance Due Date Last Done Comments Pneumococcal Vaccine: 50+ Years (1 of 1 - PCV) 2011 Zoster Vaccines (1 of 2) 2011 Colorectal Cancer Screening: Stool Based Tests (FOBT/FIT) 05/17/2019 HIV Screening 05/17/2019 RSV Immunization Adult Patients (1 - Risk 60-74 years 1-dose series) 2021 COVID-19 Vaccine ( season) 2023 03/26/2022, 07/24/2021, 03/06/2021, Additional history exists Breast Cancer Screening 07/28/2024 07/29/19 23, 12/11/2020, 12/04/2019, Additional history exists Influenza Vaccine (#1) 2024 , 02/08/2023, 02/16/2019, Additional history exists Social Influencers of Health Screening 03/31/2025 03/31/2024 Hypertension/CHF/CAD Annual BMP Blood Test 04/01/2025 04/01/2024, 10/12/2023, 10/11/2023, Additional history exists Cholesterol Screening (Lipid Panel) 04/01/2029 04/01/2024, 10/09/2023 DTaP,Tdap,and Td Vaccines (3 - Td or Tdap) 07/18/2032 07/18/2022, 02/29/2012 Hepatitis C Screening Completed 06/15/2014 Depression Screening Completed 09/19/2024 HIB Vaccines Aged Out No longer eligi [...] 2- Pt will demo 5# increase in maintenance services dispatcher strength 3- Pt will demo at least [...] will demo at least 10# increase in maintenance services dispatcher strength 3 Pt will demo at least 4# pinch strength all pinches Ese to be able to do fasteners, sweet pickle maker small objects. 4 Pt will be I [...] LAB CHEMISTRY METHOD 04/01/2024 6:16 PM EST [facility] Triglycerides 190(H) 0 - 150 mg/dL LAB CHEMISTRY METHOD 04/01/2024 6:16 PM EST [facility] HDL 46 >=40 mg/dL LAB CHEMISTRY METHOD 04/01/2024 6:16 PM EST [facility] LDL Calculated 182(H) 0 - 100 mg/dL LAB CHEMISTRY METHOD 04/01/2024 6:16 PM EST [facility] VLDL Cholesterol [place] 38 mg/dL LAB CHEMISTRY METHOD 04/01/2024 6:16 PM EST [facility] Non HDL Chol. (LDL+VLDL) 220(H) <145 mg/dL LAB CHEMISTRY METHOD 04/01/2024 6:16 PM [facility] Chol/HDL Ratio 5.8(H) 0.0 - 4.4 LAB CHEMISTRY METHOD 04/01/2024 6:16 PM [facility] Blood Venous blood specimen / Unknown Venipuncture / Unknown 04/01/2024 2:51 PM EST 04/01/2024 2:51 PM EST us Lukas Scott MD LAB BLOOD ORDERABLES Final Resu lt [facility] [address] [place] [address], [place] [phone] * (ABNORMAL) Comprehensive metabolic panel (04/01/2024 2:51 PM EST) Sodium 139 133 - 145 mmol/L LAB CHEMISTRY METHOD 04/01/2024 6:16 PM [facility] Potassium 4.3 3.5 - 5.5 mmol/L LAB CHEMISTRY METHOD 04/01/2024 6:16 PM [facility] Chloride 108 96 - 110 mmol/L LAB CHEMISTRY METHOD 04/01/2024 6:16 PM [facility] CO2 25 21 - 32 mmol/L LAB CHEMISTRY METHOD 04/01/2024 6:16 PM [facility] Anion Gap 6 3 - 11 LAB CHEMISTRY METHOD 04/01/2024 6:16 PM [facility] Glucose 85 70 - 100 mg/dL LAB CHEMISTRY METHOD 04/01/2024 6:16 PM [facility] BUN 23 5 - 25 mg/dL LAB CHEMISTRY METHOD 04/01/2024 6:16 PM [facility] Creatinine 1.33(H) 0.50 - 1.10 mg/dL LAB CHEMISTRY METHOD 04/01/2024 6:16 PM [facility] eGFR 45(L) >=60 mL/min/1. 73m2 LAB CHEMISTRY METHOD 04/01/2024 6:16 PM [facility] Comment:Calculation based on the Chronic Kidney Disease Epidemiology Collaboration (CKD-EPI) equation refit without adjustment for race. BUN/Creatinine Ratio 17.3 LAB CHEMISTRY METHOD 04/01/2024 6:16 PM [facility] Calcium 10.3 8.5 - 10.5 mg/dL LAB CHEMISTRY METHOD 04/01/2024 6:16 PM [facility] AST (SGOT) 12 10 - 42 unit/L LAB CHEMISTRY METHOD 04/01/2024 6:16 PM [facility] ALT (SGPT) 17 10 - 60 unit/L LAB CHEMISTRY METHOD 04/01/2024 6:16 PM [facility] Alkaline Phosphatase 110 42 - 121 unit/L LAB CHEMISTRY METHOD 04/01/2024 6:16 PM [facility] Total Protein 7.9 6.0 - 8.0 g/dL LAB CHEMISTRY METHOD 04/01/2024 6:16 PM [facility] Albumin 4.0 3.2 - 5.0 g/dL LAB CHEMISTRY METHOD 04/01/2024 6:16 PM [facility] Total Bilirubin 0.3 0.0 - 1.4 mg/dL LAB CHEMISTRY METHOD 04/01/2024 6:16 PM [facility] Blood Venous blood specimen / Unknown Venipuncture / Unknown 04/01/2024 2:51 PM EST 04/01/2024 2:51 PM EST us Lukas Scott MD LAB BLOOD ORDERABLES Final Resu lt [facility] [address] [place] [address], * SCREENING MAMMOGRAPHY BI 2-VIEW BREAST INC [...] back to 11/29/2017 most recent of 12/03/2020. The breasts are composed of fatty and fibroglandular tissue. No suspicious mass, architectural distortion or suspicious calcifications [...] risk category Breast cancer risk not assessed us Lukas Scott MD IMG XR PROCEDURES Final Result from Last 3 Months or Most Recently Relevant to Health Maintenance Insurance [facility] PL[facility] WC GENERIC Care Teams Zinc Plating Machine Operator Relationship Specialty Start Date End Date Lukas Scott MD [address] [place] [address] [phone] PCP - General Internal Medicine 08/18/24
--- OUTSIDE RECORDS SUMMARY | 2024-12-08 14:29 | XMS_ITS ---
Author Name [facility] Organization Unknown History of Medication Use Medication Directions Dispensed Refills Start Date End Date Stat us ibuprofen (ADVIL,MOTRIN) 800 mg tablet TAKE 1 TABLET BY MOUTH EVERY 8 HOURS NEEDED FOR PAIN 07/21/2024 active Vitamin B-12 500 mcg tablet TAKE 4 TABLETS BY MOUTH DAILY 07/09/2024 active cyclobenzaprine (FLEXERIL) 5 mg tablet Take 1 tablet (5 mg total) by mouth 3 (three) times a day if needed for muscle spasms. TAKE 1 TAB (5 MG) ORALLY 3 TIMES A DAY NEEDED 05/19/2024 active ergocalciferol (VITAMIN D-2) 1,250 mcg (50,000 unit) capsule Take 1 capsule (50,000 Units total) by mouth 1 (one) time per week. 04/01/2024 active furosemide (LASIX) 40 mg tablet Take 1 tablet (40 mg total) by mouth 1 (one) time each day. 04/01/2024 active valsartan (DIOVAN) 160 mg tablet Take 1 tablet (160 mg total) by mouth 1 (one) time each day. 04/01/2024 active Problems Problem Status Onset Date Problem Type Date of Resolution Source Colovesical fistula active 2024-04-01 ProblemAct [facility] Diverticulitis active 2024-04-01 ProblemAct [facility] S/P colostomy ([facility] V24, [facility] V28) active 2024-04-01 ProblemAct [facility] Carpal tunnel syndrome active 2024-02-27 ProblemAct [facility] Hypercholesterolemia active 2024-04-01 ProblemAct [facility] Optic neuritis active 2024-04-01 ProblemAct [facility] Primary hypertension active 2024-04-01 ProblemAct [facility] Multiple sclerosis ([facility] V24, [facility] V28) active 2024-04-01 [facility] Immunizations Vaccine Date Source Lot Number Status Influenza trivalent, MDCK, 0 .5mL, preservative free (Flucelvax) 6mo and older 04/01/2024 [facility] [id number] completed Influenza Quadravalent, MDCK , 0.5ml, preservative free (Flucelvax) 6mo and older 02/08/2023 CT_AMINATA [id number] completed Tdap Tetanus diptheria acell ular pertussis (Boostrix; Adacel) 7yo and older 07/18/2022 [facility] [id number] completed Influenza Quadravalent, MDCK , 0.5ml, preservative free (Flucelvax) 6mo and older 02/16/2019 [facility] [id number] completed Influenza Quadravalent, MDCK , 0.5ml, with preservative (Flucelvax) 6mo and older 02/17/2018 [facility] [id number] completed Influenza Quadravalent, MDCK , 0.5ml, with preservative (Flucelvax) 6mo and older 02/18/2017 [facility] [id number] completed Influenza trivalent, 0.5mL, preservative free (Fluarix; FluLaval; Fluzone) ages 6mo and older (Afluria) 3 years and older 01/09/2016 [facility] [id number] completed Influenza trivalent, with pr eservative (Fluzone; Afluria) 6mo and older 01/09/2016 [facility] [id number] completed Influenza trivalent, with pr eservative (Fluzone; Afluria) 6mo and older 01/13/2015 [facility] [id number] completed Influenza trivalent, with pr eservative (Fluzone; Afluria) 6mo and older 01/27/2014 [facility] completed Influenza trivalent, with pr eservative (Fluzone; Afluria) 6mo and older 12/29/2012 [facility] [id number] completed Tdap Tetanus diptheria acell ular pertussis (Boostrix; Adacel) 7yo and older 02/29/2012 [facility] [id number] completed Influenza trivalent, with pr eservative (Fluzone; Afluria) 6mo and older 01/02/2012 [facility]ACK[facility] completed Care Team Organization Name Specialty Phone Email Start Date End Da te [facility] RAMEZ RADHA Primary Care 02/21/2022 4
--- OUTSIDE RECORDS SUMMARY | 2024-12-08 14:29 | XMS_ITS | Clinical Summary ---
Author Organization [facility] Address [address] [place] [address] Care Team Providers Care Bottle Selector Name Role Phone Lukas Scott MD Primary Care Provider [phone] Allergies No known active allergies Medications Medication [...] 0 08/01/2021 Active ergocalciferol (VITAMIN D2) capsule 08657 units Take 1 capsule (50,000 Units total) [...] 76 08/22/2023 1:21 PM EDT Temperature 36.2 C (97.1 F) 08/22/2023 1:21 PM EDT Respiratory Rate 16 10/20/2022 10:1 2 AM [...] 2011 Shingrix-Zoster Vaccine (1 of 2) 2011 Influenza Vaccine (#1) 2024 , 02/16/2019, 02/17/2018, Additional history exists DTap / Tdap / Td (3 - Td or Tdap) 07/18/2032 07/18/2022, 02/29/2012 RSV Adult > 60+ Yrs or (1 - 1-dose 75+ series) 2036 Hepatitis B Vaccines Aged Out No long er eligible based on patient's age to complete this topic Pneumococcal Vaccine Aged Out No long er eligible based on patient's age to complete this topic RSV Ped < 20 months Aged Out No longe r eligible based on patient's age to complete this topic Care Teams Bottle Selector Relationship Specialty Start Date End Date Lukas Scott MD PCP - General Internal Medicine 06/29/21
[2024-12-08 16:29] LABS: Appearance Urine Turbid; Glucose Urine UA Negative (Negative); PH 6.0 (5.0-9.0); Specific Gravity - Urine <= 1.005 (1.005-1.025); UMIC TRIGGER UA YES
== END 2024-12-08 13:09 | disposition home or self-care (01) ==
LOC: HO.HMGCLDS 13:08
PROVIDERS: PCP Internal Medicine; Visit Provider Urology
DX: N39.0 Urinary tract infection, site not specified (principal); R30.0 Dysuria
CPT/HCPCS: 81001; 87086

== ENCOUNTER 2024-12-16 12:11 | Outpatient (REF) | payer OTHER, SELFPAY ==
--- OUTSIDE RECORDS SUMMARY | 2024-12-16 13:28 | XMS_ITS | Clinical Summary ---
Author Organization [facility] Address [address] [place] [address] Care Team Providers Care House Mover Helper Name Role Phone Lukas Scott MD Primary Care Provider [phone] Allergies No known active allergies Medications Medication [...] 0 08/01/2021 Active ergocalciferol (VITAMIN D2) capsule 28047 units Take 1 capsule (50,000 Units total) [...] age to complete this topic Care Teams House Mover Helper Relationship Specialty Start Date End Date Lukas Scott MD PCP - General Internal Medicine 06/29/21
--- OUTSIDE RECORDS SUMMARY | 2024-12-16 13:28 | XMS_ITS | Clinical Summary ---
Author Organization 175 [facility] Address [address] [place] [address] Phone Care Team Providers Care Third Rigger Name Role Phone Lukas Scott MD Primary Care Provider [phone] Allergies No known active allergies Medications ergocalciferol [...] V24, CMS/HCC V28) Diverticulitis 04/01/2024 S/P colostomy ([facility] V24, [facility] V28) 024 Colovesical fistula 04/01/2024 Hypercholesterolemia 04/01/2024 Primary hypertension 04/01/2024 Optic neuritis 04/01/2024 Carpal tunnel syndrome 02/27/2024 Encounters Date Type Department Care Team Description 10/22/2024 Telephone [facility] [place] [address] [place] [address] Margarita Ji, [facility] 10/21/2024 Telephone [facility] [place] [address] [place] [address] Margarita Ji, [facility] 10/21/2024 Telephone [facility] [place] [address] [address] Elena Hunt MA 09/19/2024 8:00 AM EDT Telemedicine [facility] [place] [address] [address] Glenna Toledo, GERALD Multiple sclerosis ([facility] V24, [facility] V28) (Primary Dx) from Last 3 Months [...] (CMS/HCC V24, CMS/HCC V28) 1993 DX:Multiple sclerosis ([facility]); COMMENT: pt follows with [facility] neurologist Diverticulitis 11/14/2022 DX:Diverticuliti s; COMMENT: [...] for your loved ones. For example, child and family services specialist or elderly care for an older [...] Description 12/23/2024 1:30 PM EDT Office Visit [facility] [address] [address] Janny Henderson MD [address] [place] [address] 02/03/2025 9:30 AM EDT Office Visit Adult [address] [phone] Lukas Scott MD [address] [place] [address] 03/16/2025 11:30 AM EST Office Visit [address] [phone] Lukas Scott MD [address] [place] [address] Health Maintenance Due Date Last Done Comments Pneumococcal Vaccine: 50+ Years (1 of 1 - PCV) 2011 Zoster Vaccines (1 of 2) 2011 Colorectal Cancer Screening: Stool Based Tests (FOBT/FIT) 05/17/2019 HIV Screening 05/17/2019 RSV Immunization Adult Patients (1 - Risk 60-74 years 1-dose series) 2021 COVID-19 Vaccine (2023- season) 2023 03/26/2022, 07/24/2021, 03/06/2021, Additional history [...] 2- Pt will demo 5# increase in powertrain control systems engineer strength 3- Pt will demo at least [...] will demo at least 10# increase in powertrain control systems engineer strength 3 Pt will demo at least 4# pinch strength all pinches Ese to be able to do fasteners, warp picker small objects. 4 Pt will be [...] LAB CHEMISTRY METHOD 04/01/2024 6:[address] [facility] Triglycerides 190(H) 0 - 150 mg/dL LAB CHEMISTRY METHOD 04/01/2024 6:[address] [facility] HDL 46 >=40 mg/dL LAB CHEMISTRY METHOD 04/01/2024 6:[address] [facility] LDL Calculated 182(H) 0 - 100 mg/dL LAB CHEMISTRY METHOD 04/01/2024 6:[address] [facility] VLDL Cholesterol Eduar 38 mg/dL LAB CHEMISTRY METHOD 04/01/2024 6:[address] [facility] Non HDL Chol. (LDL+VLDL) 220(H) <145 mg/dL LAB CHEMISTRY METHOD 04/01/2024 6:16 PM [facility] Chol/HDL Ratio 5.8(H) 0.0 - 4.4 LAB CHEMISTRY METHOD 04/01/2024 6:16 PM [facility] Blood Venous blood specimen / Unknown Venipuncture / Unknown 04/01/2024 2:51 PM EST 04/01/2024 2:51 PM EST us Lukas Scott MD LAB BLOOD ORDERABLES Final Resu lt [facility] [address] [place] [address], [place] [phone] * (ABNORMAL) Comprehensive metabolic panel (04/01/2024 2:51 PM EST) Sodium 139 133 - 145 mmol/L LAB CHEMISTRY METHOD 04/01/2024 6:16 PM [facility] Potassium 4.3 3.5 - 5.5 mmol/L LAB CHEMISTRY METHOD 04/01/2024 6:16 PM [facility] Chloride 108 96 - 110 mmol/L LAB CHEMISTRY METHOD 04/01/2024 6:16 PM [facility] CO2 25 21 - 32 mmol/L LAB CHEMISTRY METHOD 04/01/2024 6:16 PM [facility] Anion Gap 6 3 - 11 LAB CHEMISTRY METHOD 04/01/2024 6:16 PM [facility] Glucose 85 70 - 100 mg/dL LAB CHEMISTRY METHOD 04/01/2024 6:16 PM [facility] BUN 23 5 - 25 mg/dL LAB CHEMISTRY METHOD 04/01/2024 6:16 PM [facility] Creatinine 1.33(H) 0.50 - 1.10 mg/dL LAB CHEMISTRY METHOD 04/01/2024 6:16 PM [facility] eGFR 45(L) >=60 mL/min/1. 73m2 LAB CHEMISTRY METHOD 04/01/2024 6:16 PM [facility] Comment:Calculation based on the Chronic Kidney Disease Epidemiology Collaboration (CKD-EPI) equation refit without adjustment for race. BUN/Creatinine Ratio 17.3 LAB CHEMISTRY METHOD 04/01/2024 6:16 PM [facility] Calcium 10.3 8.5 - 10.5 mg/dL LAB CHEMISTRY METHOD 04/01/2024 6:16 PM [facility] AST (SGOT) 12 10 - 42 unit/L LAB CHEMISTRY METHOD 04/01/2024 6:16 PM [facility] ALT (SGPT) 17 10 - 60 unit/L LAB CHEMISTRY METHOD 04/01/2024 6:16 PM [facility] Alkaline Phosphatase 110 42 - 121 unit/L LAB CHEMISTRY METHOD 04/01/2024 6:16 PM [facility] Total Protein 7.9 6.0 - 8.0 g/dL LAB CHEMISTRY METHOD 04/01/2024 6:16 PM [facility] Albumin 4.0 3.2 - 5.0 g/dL LAB CHEMISTRY METHOD 04/01/2024 6:16 PM [facility] Total Bilirubin 0.3 0.0 - 1.4 mg/dL LAB CHEMISTRY METHOD 04/01/2024 6:16 PM [facility] Blood Venous blood specimen / Unknown Venipuncture / Unknown 04/01/2024 2:51 PM EST 04/01/2024 2:51 PM EST us Lukas Scott MD LAB BLOOD ORDERABLES Final Resu lt [facility] [address] [place] [address], * SCREENING MAMMOGRAPHY BI 2-VIEW BREAST INC [...] Most Recently Relevant to Health Maintenance Insurance [facility] PLAN GENERIC Care Teams Third Rigger Relationship Specialty Start Date End Date Lukas Scott MD [address] [place] [phone] PCP - General Internal Medicine 08/18/24
[2024-12-16 16:31] LABS: Appearance Urine Turbid; Glucose Urine UA Negative (Negative); PH 6.0 (5.0-9.0); Specific Gravity - Urine 1.015 (1.005-1.025); UMIC TRIGGER UA YES
== END 2024-12-16 12:12 | disposition home or self-care (01) ==
LOC: HO.HMGCLDS 12:11
PROVIDERS: PCP Internal Medicine; Visit Provider Urology
DX: N39.0 Urinary tract infection, site not specified (principal)
CPT/HCPCS: 81001; 87086

== ENCOUNTER 2025-02-26 13:13 | Outpatient (REF) | payer OTHER, SELFPAY | END 2025-02-26 13:14 | disposition home or self-care (01) | LOC: HO.LAB 13:13 | PROVIDERS: PCP Nurse Practitioner Family; Visit Provider Nurse Practitioner Family | DX: N39.0 Urinary tract infection, site not specified (principal); N32.1 Vesicointestinal fistula | CPT/HCPCS: 81003; 87086; 88112; 99212 ==

== ENCOUNTER 2025-02-26 13:13 | Outpatient (AMB) | payer OTHER, SELFPAY ==
--- NOTE | 2025-02-26 14:05 | MHC.OFFVIS ---
Intake Visit Reasons: 6m/UA Intake Note: Patient is present for 6M/UA Urology Medication:ESTRADIOL Antibiotic Allergy:NONE Blood Thinner:NONE Cabinet Abrasive Sandblaster Required: No Allergies ciprofloxacin Adverse Reaction (Intermediate, Verified 02/26/25 14:36) Diarrhea Medication List - Last Reconciled 02/27/25 by THERESA Moses ascorbic acid (vitamin C) 1 g PO DAILY 90 days cholecalciferol (vitamin D3) 1,250 mcg PO QWEEK colostomy bags As directed cyclobenzaprine 5 mg PO TID PRN 7 days docusate sodium (Colace) 100 mg PO DAILY ergocalciferol (vitamin D2) 1,250 mcg PO CONDE furosemide 40 mg PO DAILY ibuprofen 800 mg PO Q8H PRN levofloxacin 500 mg PO DAILY 5 days methenamine hippurate 1 g PO DAILY 90 days naproxen 500 mg PO BID 7 days nitrofurantoin monohyd/m-cryst 100 mg (Macrobid) 100 mg PO BID 10 days omeprazole 20 mg PO DAILY ostomy supplies (Skin Prep Wipes) As directed valsartan 160 mg PO DAILY walker As directed HPI Comments Details: Asuncion is a pleasant 64-year-old female patient of Dr. Miguel who was accompanied by her significant other at today's office visit. She has a past medical history of colovesical fistula, diverticulitis of the large intestine, colostomy in place, hypertension, and MS. She presents to the office today for follow-up of her recurrent urinary tract infections. In discussion with the patient today she reports she had been doing well up until 2 months ago when she started experiencing UTI like symptoms. Urine cultures are as follows: 01/08, 12/08, 09/07, and 08/08 Mixed bacterial kay characteristic of urogenital contamination She reports calling the office with UTI like symptoms at which time she was given ciprofloxacin however had excessive diarrhea from her colostomy bag and therefore discontinued the medication. She continues to experience UTI like symptoms of dysuria. She reports she had been compliant with Estrace cream however has since stopped as she felt this was causing more irritation to her urethra and vagina. She denies hematuria, flank pain, fever, and or chills. We did discussed potential causes of recurrent urinary tract infections as well as further treatment options and risks and benefits of these treatment options. In office urinalysis results reviewed with the patient today 3+ leukocytes negative nitrates. All questions were answered. She otherwise offers no other issues or concerns at this time. PREVIOUS OFFICE NOTE: Colovesical fistula Underwent repair with General surgery approximately 4 weeks ago Inflamed sigmoid secondary to diverticular disease Prior hysterectomy At laparoscopic examination Hall catheter had been filled with methylene blue. [address] No evidence of active fistula Hall catheter left for 4 weeks to allow any healing on the bladder surface. [facility] Medical History Colostomy in place Colovesical fistula Hypokalemia Diverticulitis large intestine Phlegmon Hypertension Multiple sclerosis Surgical History Hx of surgical procedure Social History Household Members: Spouse Housing: House Do you presently have visiting nurse or other home services: No Alcohol intake: never Patient Tobacco Use Status: Never used Tobacco Second Hand Smoke Exposure: No service: No Review of Systems Const All systems reviewed & are unremarkable except as noted in HPI and below Physical Exam Const General: cooperative, healthy appearing, comfortable, no acute distress, well developed, alert and awake Orientation/consciousness: patient oriented x3 HEENT Head: Yes normal to inspection, Yes normocephalic and Yes atraumatic Ears: hearing grossly normal bilaterally Eyes General: appearance normal, both eyes and all related structures Neck Neck: Yes normal visual inspection and Yes trachea midline Chest Chest palpation & inspection: normal inspection of the chest Resp Effort & Inspection: normal respiratory effort and able to speak in complete sentences Cardio Rate: regular rate GI Inspection: Yes normal to inspection General: Yes no CVA tenderness Back/Spine/Pelvis Back: no CVA tenderness Skin General skin exam: no rashes or lesions noted Neuro General: patient oriented x3 Extrem General: Yes normal to inspection Psych Appearance: grossly normal and well kempt Mental Status: mental status grossly normal Speech and movement: Normal speech and movement present and Clear speech present Affect: normal affect Attitude: cooperative Thought process: Normal thought process present Thought content: Normal thought content present Insight: Fair insight present (Psych) Judgement: Fair judgement present (Psych) Results AMB Urinalysis, Automated UA Leukoctes 500 Maria Alejandra/uL Last Edit by DARVIN Jacobs on 02/26/25 14:00 UA Nitrite Negative Last Edit by Cinthya Guy, [facility] on 02/26/25 14:00 UA Urobilinogen 0.2 mg/dL Last Edit by Cinthya Guy, [facility] on 02/26/25 14:00 UA Protein 30 mg/dL Last Edit by Cinthya Guy, [facility] on 02/26/25 14:00 UA pH 6.0 Last Edit by Cinthya Guy, [facility] on 02/26/25 14:00 UA Blood 200 Chuck/uL Last Edit by Cinthya Guy, [facility] on 02/26/25 14:00 UA Specific [place] 1.015 Last Edit by Cinthya Guy, [facility] on 02/26/25 14:00 UA Ketone Negative Last Edit by Cinthya Guy, [facility] on 02/26/25 14:00 UA Bilirubin 0 mg/dL Last Edit by Cinthya Guy, [facility] on 02/26/25 14:00 UA Glucose 0 mg/dL Last Edit by Cinthya Guy [facility] on 02/26/25 14:00 Results Reviewed Results Reviewed: Laboratory Last Values Urine pH (Auto) 6.0 02/26/25 13:59 Specific [place] (Auto) 1.015 02/26/25 13:59 Urine Protein (Auto) 30 mg/dL 02/26/25 13:59 Glucose (UA)(Auto) 0 mg/dL 02/26/25 13:59 Urine Ketones (Auto) Negative 02/26/25 13:59 Urine Blood (Auto) 200 Chuck/uL 02/26/25 13:59 Urine Nitrite (Auto) Negative 02/26/25 13:59 Urine Bilirubin (Auto) 0 mg/dL 02/26/25 13:59 Urine Urobilinogen (Auto) 0.2 mg/dL 02/26/25 13:59 Leukocyte Esterase (Auto) 500 Maria Alejandra/uL 02/26/25 13:59 Assessment & Plan Assessment & Plan (1) Recurrent UTI: Code(s): N39.0 - Urinary tract infection, site not specified Category: Medical (2) Dysuria: Code(s): R30.0 - Dysuria Category: Medical (3) Colovesical fistula: Code(s): N32.1 - Vesicointestinal fistula Category: Medical Plan In office urinalysis results with the patient today; will send for urine cytology as well as urine culture. Start Macrobid as discussed and prescribed. Stop Estrace cream. We discussed initiation of methenamine and vitamin-C status post completion for current urinary tract infection. We did discussed at length potential causes of UTIs as well as further treatment options and risks and benefits of these treatment options. All questions were answered. We did discussed obtaining further imaging for further assessment evaluation however patient declines at this time. Follow-up in 3 months with [facility]; or sooner with any issues, concerns, and or questions. Orders: Orders AMB Urinalysis Automated 02/26/25 Z13.9 - Encounter for screening, unspecified Urine Cytology 02/26/25 R31.29 - Other microscopic hematuria Urine Culture 02/26/25 N39.0 - Urinary tract infection, site not specified Medications: New methenamine hippurate to start once completed with antibiotic therapy for current urinary tract infection. Hold methenamine while on treatment dose of antibiotics 1 g PO DAILY 90 tabs 1RF 90 days N39.0 - Urinary tract infection, site not specified ascorbic acid (vitamin C) 1 g PO DAILY 90 tabs 1RF 90 days N39.0 - Urinary tract infection, site not specified Refilled nitrofurantoin monohyd/m-cryst 100 mg (Macrobid) must administer with a meal/food 100 mg PO BID 20 caps 0RF 10 days Discontinued estradiol 0.01%(0.1mg/gram) Discontinued Reason: Patient no longer taking pea-sized to urethra 3 times a week 30 days 42.5 grams 2RF N36.2 - Urethral caruncle, N39.0 - Urinary tract infection, site not specified, N95.2 - Postmenopausal atrophic vaginitis levofloxacin Discontinued Reason: Patient Completed Course 500 mg PO DAILY 5 days 5 tabs 0RF nitrofurantoin macrocrystal must administer with a meal/food Discontinued Reason: Doctor's Order 100 mg PO BID 6 caps 0RF Patient Instructions: The patient had an opportunity to ask questions regarding the treatment plan. All questions were answered. Physical exam, labs, and imaging were discussed and reviewed in detail. As well as risks, benefits, and discussion of treatment choices. No major barriers to understanding were identified. The patient expressed understanding and agreement with the above treatment plan. The patient was made aware they should contact our office by phone for worsening of their current condition, the appearance of new symptoms, or with any questions or concerns. Compliance is encouraged with any medications and follow up testing that is ordered. It is a privilege to be allowed the opportunity to participate in? your urological care.? Again, if you have any questions or concerns If you have any questions or concerns please do not hesitate to contact me. The office is [phone]. This note is constructed using voice recognition software. While every effort has been made to ensure accuracy technology education teacher errors may have been included. Yours sincerely, THERESA Moses Coding Level of Care Code Est Pt Level 4 (88009) Complex EM visit Add On G2211 Diagnoses Recurrent UTI N39.0 Dysuria R30.0 Colovesical fistula N32.1
--- OUTSIDE RECORDS SUMMARY | 2025-02-26 16:34 | XMS_ITS | Clinical Summary ---
Author Organization [address] [facility] Address [address] [place] [address] Phone Care Team Providers Care Metal Reed Tuner Name Role Phone Lukas Scott MD Primary Care Provider [phone] Allergies No known active allergies Medications ergocalciferol [...] Multiple sclerosis 04/01/2024 Diverticulitis 04/01/2024 S/P colostomy ([facility] V24, [facility] V28) 024 Colovesical fistula 04/01/2024 Hypercholesterolemia 04/01/2024 Primary hypertension 04/01/2024 Optic neuritis 04/01/2024 Carpal tunnel syndrome 02/27/2024 Encounters Date Type Department Care Team Description 02/19/2025 12:00 PM EST Evaluation [facility] [address] [place] [address] Sarai Rivera OT Bilateral carpal tunnel syndrome (Primary Dx) 02/19/2025 Plan of Care Documentation [facility] [address] [place] [address] 02/04/2025 10:30 AM EDT Office Visit [facility] [address] [place] [phone] Glenna Toledo, PA Bilateral carpal tunnel syndrome (Primary Dx) from Last 3 Months Immunizations Immunization Administration Dates Next Due Influenza Quadravalent, MDCK [...] edema DX:Lower e xtremity edema Multiple sclerosis 1993 DX:Multiple s clerosis (HCC); COMMENT: pt follows with [facility] Diverticulitis 11/14/2022 DX:Diverticuliti s; COMMENT: 11/05 [...] care for your loved ones. For example, maternal child nurse or elderly care for an older adult? [...] Date Recorded What is your living situation? Unrecognized valu e 03/31/2024 Comments Unknown Sex and Gender Information Value Date Recorded Sex Assigned at Female 02/09/2025 9:16 AM EDT Legal Sex Female 8:36 PM EST Gender Identity Female 02/09/2025 9:16 AM EDT Sexual Orientation Straight 02/09/2025 9: 16 AM EDT Obstetrics History Last Filed Vital Signs Vital Sign Reading Time Taken Comments Blood Pressure 160/95 02/04/2025 10:30 AM EDT Pulse 90 02/04/2025 10:30 AM EDT Temperature 36.1 C (97 F) 02/04/2025 10:30 AM EDT Respiratory Rate 12 08/18/2024 8:07 AM EDT Oxygen Saturation 98% 02/04/2025 10:30 AM EDT Inhaled Oxygen Concentration - - Weight 110 kg (243 lb) 08/21/2024 1:30 PM EDT Height 154.9 cm (5' 1 ) 08/21/2024 1:30 PM EDT Body Mass Index 45.91 08/21/2024 1:30 PM EDT Plan of Treatment Upcoming Encounters Date Type Department Care Team (Late st Contact Info) Description 05/14/2025 3:15 PM EST Office Visit Adult Medicine [address] [phone] Lukas Scott MD [address] [place] [address] 08/03/2025 1:00 PM EDT Office Visit [facility] [address] [facility] [address] [place] [phone] Janny Henderson MD [address] [place] [address] 09/29/2025 1:00 PM EDT Office Visit Adult Medicine [facility] [address] [place] [address] Lukas Scott MD [address] [place] [phone] Health Maintenance Due Date Last Done Comments Pneumococcal Vaccine: 50+ Years (1 of 1 - PCV) 2011 RSV Immunization Adult Patients (1 - Risk 50-74 years 1-dose series) 2011 Zoster Vaccines (1 of 2) 2011 Colorectal Cancer Screening: Stool Based Tests (FOBT/FIT) 05/17/2019 HIV Screening 05/17/2019 Breast Cancer Screening 07/28/2024 07/29/19, 12/11/2020, 12/04/2019, Additional history exists COVID-19 Vaccine ( season) 2024 03/26/2022, 07/24/2021, 03/06/2021, Additional history exists Influenza Vaccine (#1) 2024 [...] Type Associated Problems Recent Progress Patient-Stated? Author OT pt goals General Yes Wali Mccallum Note: To relax my hands and reduce the pain OT LTGs 10-12 visits General No Wali Mccallum Note: Pt will demo B wrist flex AROM improved by >=20* to improve ability to turn door handle. Pt will demo B digit DPC measures improved >=1.5cm, with exception of R digit 2 & L digit 3, to improve ability to hold cooking utensil. Pt will demo AROM in PIP/DIP of R digit 2 & L digit 2 to improve ability to grasp writing utensil. Pt will demo B strategic partnership manager strength >=10lbs to improve ability to hold coffee cup. Pt will demo B lat pinch strength improve >=2lbs in order to improve ability to peel banana. Pt will demo increased functional use of BUEs evidenced by increase in performance & satisfaction scores of ID'ed occupations >=3 points to improve ability to assist with IADLs. Pt will perform updated HEP with Min A. OT STGs 4-6 visits General No Wali Mccallum Note: Pt will demo B wrist flex AROM improved by >=10* to improve ability to reach inside container. Pt will demo B digit DPC measures improved >=.5cm, with exception of R digit 2 & L digit 3, to improve ability to hold towel. Pt will participate in ROM/potential splinting to maintain/increase ROM in R digit 2 & L digit 3. Pt will demo B strategic partnership manager strength >= 7lbs to improve ability to hold apple. Pt will demo B lat pinch strength improve >=1lbs in order to improve ability to tear paper towel. Pt will demo increased functional use of BUEs evidenced by increase in performance & satisfaction scores of ID'ed occupations >=1 points to improve ability to dress independently. Pt will perform initial HEP with Dereje Dutta Procedures Procedure Name Priority Date/Time Associated Diagnosis [...] LAB CHEMISTRY METHOD 04/01/2024 6:16 PM EST [facility] Triglycerides 190(H) 0 - 150 mg/dL LAB CHEMISTRY METHOD 04/01/2024 6:16 PM EST [facility] HDL 46 >=40 mg/dL LAB CHEMISTRY METHOD 04/01/2024 6:16 PM EST [facility] LDL Calculated 182(H) 0 - 100 mg/dL LAB CHEMISTRY METHOD 04/01/2024 6:16 PM EST [facility] VLDL Cholesterol Eduar 38 mg/dL LAB CHEMISTRY METHOD 04/01/2024 6:16 PM EST [facility] Non HDL Chol. (LDL+VLDL) 220(H) <145 mg/dL LAB CHEMISTRY METHOD 04/01/2024 6:16 PM [facility] Chol/HDL Ratio 5.8(H) 0.0 - 4.4 LAB CHEMISTRY METHOD 04/01/2024 6:16 PM [facility] Blood Venous blood specimen / Unknown Venipuncture / Unknown 04/01/2024 2:51 PM EST 04/01/2024 2:51 PM EST us Lukas Scott MD LAB BLOOD ORDERABLES Final Resu lt [facility] [address] [place] [address], [place] [phone] * (ABNORMAL) Comprehensive metabolic panel (04/01/2024 2:51 PM EST) Sodium 139 133 - 145 mmol/L LAB CHEMISTRY METHOD 04/01/2024 6:16 PM [facility] Potassium 4.3 3.5 - 5.5 mmol/L LAB CHEMISTRY METHOD 04/01/2024 6:16 PM [facility] Chloride 108 96 - 110 mmol/L LAB CHEMISTRY METHOD 04/01/2024 6:16 PM [facility] CO2 25 21 - 32 mmol/L LAB CHEMISTRY METHOD 04/01/2024 6:16 PM [facility] Anion Gap 6 3 - 11 LAB CHEMISTRY METHOD 04/01/2024 6:16 PM [facility] Glucose 85 70 - 100 mg/dL LAB CHEMISTRY METHOD 04/01/2024 6:16 PM [facility] BUN 23 5 - 25 mg/dL LAB CHEMISTRY METHOD 04/01/2024 6:16 PM [facility] Creatinine 1.33(H) 0.50 - 1.10 mg/dL LAB CHEMISTRY METHOD 04/01/2024 6:16 PM [facility] eGFR 45(L) >=60 mL/min/1. 73m2 LAB CHEMISTRY METHOD 04/01/2024 6:16 PM [facility] Comment:Calculation based on the Chronic Kidney Disease Epidemiology Collaboration (CKD-EPI) equation refit without adjustment for race. BUN/Creatinine Ratio 17.3 LAB CHEMISTRY METHOD 04/01/2024 6:16 PM [facility] Calcium 10.3 8.5 - 10.5 mg/dL LAB CHEMISTRY METHOD 04/01/2024 6:16 PM [facility] AST (SGOT) 12 10 - 42 unit/L LAB CHEMISTRY METHOD 04/01/2024 6:16 PM [facility] ALT (SGPT) 17 10 - 60 unit/L LAB CHEMISTRY METHOD 04/01/2024 6:16 PM [facility] Alkaline Phosphatase 110 42 - 121 unit/L LAB CHEMISTRY METHOD 04/01/2024 6:16 PM [facility] Total Protein 7.9 6.0 - 8.0 g/dL LAB CHEMISTRY METHOD 04/01/2024 6:16 PM [facility] Albumin 4.0 3.2 - 5.0 g/dL LAB CHEMISTRY METHOD 04/01/2024 6:16 PM [facility] Total Bilirubin 0.3 0.0 - 1.4 mg/dL LAB CHEMISTRY METHOD 04/01/2024 6:16 PM [facility] Blood Venous blood specimen / Unknown Venipuncture / Unknown 04/01/2024 2:51 PM EST 04/01/2024 2:51 PM EST us Lukas Scott MD LAB BLOOD ORDERABLES Final Resu lt [facility] [address] [place] [address], * SCREENING MAMMOGRAPHY BI 2-VIEW BREAST INC [...] Most Recently Relevant to Health Maintenance Insurance [facility] [employer]IC PLAN Care Teams Metal Reed Tuner Relationship Specialty Start Date End Date Lukas Scott MD [address] [place] [phone] PCP - General Internal Medicine 08/18/24
--- OUTSIDE RECORDS SUMMARY | 2025-02-26 16:34 | XMS_ITS | Clinical Summary ---
Author Organization [facility] Address [address] [place] [address] Care Team Providers Care Commercial Intelligence Manager Name Role Phone Lukas Scott MD Primary Care Provider [phone] Allergies No known active allergies Medications Medication [...] 0 08/01/2021 Active ergocalciferol (VITAMIN D2) capsule 75399 units Take 1 capsule (50,000 Units total) [...] age to complete this topic Care Teams Commercial Intelligence Manager Relationship Specialty Start Date End Date Lukas Scott MD PCP - General Internal Medicine 06/29/21
== END 2025-02-26 14:41 | disposition home or self-care (01) ==
LOC: HO.HUSH 13:14
PROVIDERS: PCP Nurse Practitioner Family; Visit Provider Nurse Practitioner Family
DX: Z13.9 Encounter for screening, unspecified (principal)